=== PATIENT | female | born 1955 | race Caucasian/White ===

== ENCOUNTER → 2019-02-13 | Outpatient (CLI) | payer BC ==
--- NOTE | 2019-02-13 20:34 | CONS ---
CONSULTATION 63-year-old female patient who has been complaining of some tiredness and fatigue and some limited snoring and for that reason she was referred to me for sleep apnea evaluation. The patient has been going to bed around 10 p.m., wakes at 5 a.m. in the morning. She snores. She has occasional nocturia. Her [place] score is at 4. No recent weight gain. In fact, the patient has lost weight since last year. No episodes of any falling asleep while talking to people. No naps during the day. Does not report any history of motor vehicle accident because of feeling drowsy or sleepy. Does not fall asleep while driving. PAST MEDICAL HISTORY: Hypertension and hyperlipidemia. PAST SURGICAL HISTORY: Includes breast biopsy and tubal ligation. DRUG ALLERGIES: Not known. OUTPATIENT MEDICATION: Include Zocor and hydrochlorothiazide. SOCIAL HISTORY: Patient is a nonsmoker. No history of alcohol. No history of IV drugs. FAMILY HISTORY: Negative for sleep apnea. REVIEW OF SYSTEMS: Fourteen-point review of system was done. Positive findings are mentioned in history of present illness. She is having at times memory and concentration problems. She is feeling tired, yet not a whole lot of sleepiness. No heartburn. No palpitations. No panic attacks. No angina. No shortness of breath. No cough or sputum production. No dryness in her mouth. No sleepwalking or gasping for air. No restlessness in the lower extremities. No sleep talking. No sweating. No claustrophobia. No sexual dysfunction. PHYSICAL EXAMINATION: BP is 165/98, pulse 74, respirations 16, temperature 97.5 saturation 98% on room air. Height is 5 feet 6 inches, weight is 188. BMI is 30.3. GENERAL APPEARANCE: Calm, comfortable. HEENT: Head is atraumatic, normocephalic. NECK: Supple. There is no jugular JVD. No goiter. No neck mass. LUNGS: Clear to auscultation. HEART: Sounds regular rate and rhythm. Normal S1, S2. No S3, S4. No murmurs. ABDOMEN: Soft, nontender. No organomegaly. EXTREMITIES: No edema. No cyanosis or clubbing. SKIN is negative for any wounds or ulceration. IMPRESSION: 1. Chronic tiredness and questionable sleepiness [place] Score is at 4. Overall suspicion for sleep apnea is low on clinical grounds. 2. Snoring. 3. Hypertension. 4. Hyperlipidemia. PLAN: Will screen this patient with a home sleep study. We will review the results and will make further recommendations if treatment is needed. MMODL / IJN: [id number] /
== END | disposition home or self-care (01) ==
LOC: SLEEP 14:56
PROVIDERS: ATTEND Internal Medicine Critical Care Medicine
DX: R53.83 Other fatigue (principal); R06.83 Snoring; I10 Essential (primary) hypertension; E78.5 Hyperlipidemia, unspecified; Z79.899 Other long term (current) drug therapy
CPT/HCPCS: 99211

== ENCOUNTER 2019-07-30 14:57 | Day surgery (SDC) | payer BC, MEDICARE ==
[2019-07-27 11:39] VITALS: BMI 29.0
--- NOTE | 2019-07-29 17:50 | HP ---
HISTORY AND PHYSICAL REASON FOR ADMISSION: Surgery scheduled for 07/30/2019 HISTORY OF PRESENT ILLNESS: Maricruz Santana is a 64-year-old patient seen with a displaced left ankle bimalleolar fracture. I recommended open reduction, internal fixation. I reviewed the procedure, risks, complications, benefits and recovery. She was agreeable. Consent was obtained. PAST MEDICAL HISTORY: Hypertension, hyperlipidemia. PAST SURGICAL HISTORY: Breast biopsy, tubal ligation. MEDICATIONS: Effexor, simvastatin, oxybutynin. ALLERGIES: None. SOCIAL HISTORY: She denies current tobacco use. PHYSICAL EXAMINATION: Physical evaluation of the left ankle, there is moderate swelling. There is ecchymosis present. Tenderness along the medial lateral malleoli. Limited range of motion with pain. Good dorsalis pedis pulse present. She is able to move her toes without significant pain. There is good perfusion sensation distally. RADIOGRAPHS: Radiographs of the left ankle revealed a displaced bimalleolar fracture. IMPRESSION: 1. Left ankle bimalleolar fracture. 2. Hypertension. 3. Hyperlipidemia. PLAN: Open reduction and internal fixation left ankle bimalleolar fracture. Surgery 07/30/2019. MMODL / IJN: [id number] /
[2019-07-30] MEDS ORDERED: LACTATED RINGERS 1,000 ML IV ONE ×3 (15:48→16:45)
[2019-07-30 16:12] LABS: Potassium 4.2 mmol/L (3.5-5.1)
[2019-07-30] MEDS ORDERED: MIDAZOLAM 2 MG/2 ML VIAL IVP ONE ×2 (17:00)
[2019-07-30] MEDS ORDERED: fentaNYL (PF) 50 MCG/ML 2 ML AMP IVP ONE (17:00)
[2019-07-30] MEDS ORDERED: DEXAMETHASONE SOD PHOSPHATE 10 MG/ML 1 ML VIAL IV ONE (17:18)
[2019-07-30] MEDS ORDERED: ONDANSETRON 4 MG/2 ML VIAL IVP ONE (17:19)
--- NOTE | 2019-07-30 17:27 | P.ANPRN ---
Procedure Note - Anesthesia - Nerve Block Performed Left Adductor Canal Single Time Out Performed: Yes Date of Procedure: 07/30/19 Procedure Start Time: 16:59 Procedure Stop Time: 17:05 Location of Patient Procedure: PreOp Indication: Acute Post-Operative Pain, Dx/Pain Location, Requested by Surgeon Sedation Type: Sedate with meaningful contact maintained Preparation: Sterile Prep Position: Supine Catheter: Indwelling Needle Types: Pajunk Needle Gauge: 21 Ultrasound used to visualize needle placement: Yes Ultrasound used to observe medication spread: Yes Injectate: 0.5% Ropivacaine (see comment for volume) (10) Blood Aspirated: No Pain Paresthesia on Injection Noted: No Resistance on Injection: Normal Image Stored and Saved: Yes Events: Uneventful and Well Tolerated
--- NOTE | 2019-07-30 17:28 | P.ANPRN ---
Procedure Note - Anesthesia - Nerve Block Performed Left Popliteal Single Time Out Performed: Yes Date of Procedure: 07/30/19 Procedure Start Time: 17:03 Procedure Stop Time: 17:07 Location of Patient Procedure: PreOp Indication: Acute Post-Operative Pain, Dx/Pain Location, Requested by Surgeon Sedation Type: Sedate with meaningful contact maintained Preparation: Sterile Prep Position: Right Lateral Catheter: None Needle Types: Pajunk Needle Gauge: 21 Ultrasound used to visualize needle placement: Yes Ultrasound used to observe medication spread: Yes Injectate: 0.5% Ropivacaine (see comment for volume) (15) Blood Aspirated: No Pain Paresthesia on Injection Noted: No Resistance on Injection: Normal Image Stored and Saved: Yes Events: Uneventful and Well Tolerated
[2019-07-30] MEDS ORDERED: MIDAZOLAM 2 MG/2 ML VIAL ONE (18:07)
[2019-07-30] MEDS ORDERED: PROPOFOL 10 MG/ML 20 ML VIAL IV ONE (18:07)
[2019-07-30] MEDS ORDERED: ePHEDrine SULFATE/0.9% NACL/PF 50 MG/5 ML SYRINGE IV ONE (18:07)
[2019-07-30] MEDS ORDERED: fentaNYL (PF) 50 MCG/ML 2 ML AMP ONE (18:07)
[2019-07-30] MEDS ORDERED: LIDOCAINE 1% INJ 10MG/ML (20 ML MDV) ONE (18:07)
[2019-07-30] MEDS ORDERED: HYDROmorphone 0.5 MG/0.5 ML SYRINGE IVP PRN ×2 (19:27)
[2019-07-30] MEDS ORDERED: ONDANSETRON 4 MG/2 ML VIAL IVP PRN (19:27)
[2019-07-30] MEDS ORDERED: HYDROmorphone 1 MG/ML 1 ML SYRINGE IVP PRN (19:27)
[2019-07-30] MEDS ORDERED: HYDROcodone/APAP 5-325MG 1 EACH TAB PO PRN (19:27)
--- NOTE | 2019-07-30 19:27 | P.OP ---
Date of Procedure: 07/30/19 Preoperative Diagnosis: Left ankle bimalleolar fracture Postoperative Diagnosis: Left ankle comminuted/displaced bimalleolar ankle fracture Procedure(s) Performed: Open reduction internal fixation left ankle bimalleolar fracture Implants: Synthes 3 hole left lateral malleolar plate with appropriate length 2.7 mm and 3.5 mm screws and 2-4.0 partially-threaded cancellus screws Anesthesia: GETA, regional (Popliteal and adductor canal blocks) Surgeon: Mick Parham [employer] Sales Specialist #1: Alejandro Marsh Estimated Blood Loss (ml): 10 Pathology: none sent Condition: stable Disposition: PACU Indications for Procedure: 66-year-old patient seen with a left ankle bimalleolar fracture. I recommended open reduction internal fixation. I discussed the procedure, risks, complications and recovery. Patient was agreeable and consent was obtained. Operative Findings: See description of procedure Description of Procedure: The patient was taken to the operative suite. The patient did undergo popliteal as well as adductor canal blocks by department of anesthesia for postoperative pain management. A general anesthetic was achieved by the department of anesthesia. The patient received preoperative IV antibiotics. A well-padded tourniquet placed proximal left thigh. The left lower extremity was prepped and draped in the normal sterile orthopedic fashion. The extremity was elevated and tourniquet insufflated to 300. A standard lateral malleolar incision was made sharply through skin. Dissection taken out of the fracture site. Was a very comminuted fracture. I aligned the fracture fragments utilizing a variety of bone clamps. I chose a Synthes contoured lateral malleolar plate 3 hole given the significant comminution distally. I introduced for a 2.7 locking screws distally which seem to collectively secure and stabilize the comminuted fracture. I made 2 drill holes proximally in the plate introduced to 3.500 screws that had good fixation. The entire construct appeared well positioned and well fixated. C-arm was brought in confirming the alignment. I now turned my attention to the medial malleolus. I made an incision along the area of the medial malleolar fracture. I dissected down to the medial malleolus. The medial malleolar fracture was also significant comminuted. I was able to adequately align and reduce the fracture utilizing multiple bone clamps. I drilled 2 holes introduced 2-35 mm partially threaded cancellous screws which he was good fixation. The clamps were removed. The ankle was taken through range of motion noting good stability of both the medial and lateral malleolar fractures. The hardware appears stable. I now brought C-arm into the operative field and noted adequate alignment of the fractures and fixation with islam of the mortise. Spot films were obtained intraoperatively to document this. Both the medial lateral wounds were irrigated copiously. The subcu soft tissues of both incisions were approximated with 2-0 Vicryl suture. The skin margins were approximated with skin enrique. I applied sterile dressings. The tourniquet was released and immediate capillary refill the entire extremity and toes noted. A modified bulky Mckoy splint was now placed with the ankle in neutral position. The patient was awakened, transferred to bed and recovery stable condition. Wilman TREADWELL assisted in all aspects of this procedure.
[2019-07-30] MEDS: LACTATED RINGERS 1,000 ML IV SCH (20:51)
--- NOTE | 2019-07-30 21:30 | FL ---
Fluoroscopy INDICATION: Pain FINDINGS: Fluoroscopy time: 10 seconds. Images obtained: 3. IMPRESSIONS: 1. Documentation of fluoroscopy.
[2019-07-30] MEDS ORDERED: ATORVASTATIN 10 MG TAB PO SCH (21:45)
--- NOTE | 2019-07-30 21:49 | P.CONS ---
History of Present Illness - Reason for Consult Consult date: 07/30/19 Medical management Requesting physician: Mick Parham - Chief Complaint Left ankle fracture - History of Present Illness Consultation: This is a very pleasant 64-year-old patient of Dr. Francisca Montes. Chronic stable medical conditions include slight decrease in hearing, hyperlipidemia, osteoarthritis multiple joints osteoporosis, some varicose veins, anxiety de pression. On patient's was getting into the car and left ankle gave way leading to a fracture. Patient underwent repair of the same today some pain is present. Has dressing cast. No nausea vomiting. No chest pain no shortness of breath. Laying in bed. Review of systems: GEN.: Tired EYES: None HEENT: None NECK: None RESPIRATORY: None CARDIOVASCULAR: None GASTROINTESTINAL: None GENITOURINARY: None MUSCULOSKELETAL: Pain in different joints] LYMPHATICS: None HEMATOLOGICAL: None PSYCHIATRY: None NEUROLOGICAL: None Past medical history to include: Slight hard of hearing, hyperlipidemia, osteoarthritis, osteoporosis, some varicose veins, anxiety depression. Social history: Smoked a pack daily for 32 years, stopped in 2000. Alcohol occasionally. . 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 Family history: Reviewed, noncontributory to presentation Physical examination: VITAL SIGNS: 97.2, 90, 16, 139/61, 99% on 2 L GENERAL: BMI 29, laying in bed comfortable. EYES: Pupils equal. Conjunctiva normal. HEENT: External appearance of nose and ears normal, oral cavity grossly normal. NECK: JVD not raised; masses not palpable. HEART: First and second heart sounds are normal; no edema. LUNGS: Respiratory rate normal; clear to auscultation. ABDOMEN: Soft, nontender, liver spleen not palpable, no masses palpable. PSYCH: Alert and oriented x3; mood and affect normal. NEUROLOGICAL: Cranial nerves grossly intact; no facial asymmetry, power and sensation grossly intact. LYMPHATICS: No lymph nodes palpable in the axilla and neck MUSCULOSKELETAL: Cast dressing of the left ankle, evidence of OA in the hands, some varicose patient in the upper part of the left lower extremity INVESTIGATIONS, reviewed in the clinical context: Potassium 4.2 Assessment: -Left ankle comminuted displaced bimalleolar ankle fracture followed by ORIF -Hyperlipidemia -Primary postoperative -Mild varicose veins on the left lower extremity -Anxiety depression otherwise specified -Chronic urinary stress incontinence Plan: Patient's home medications resumed. Patient on Lovenox for DVT prophylaxis.. Care was discussed with the patient. Questions were answered. Patient to follow-up with her PCP after discharge. -Thank you Dr. Bardales Past Medical History Past Medical History: Hearing Disorder / Deafness, Hyperlipidemia, Musculoskeletal Disorder, Osteoarthritis (OA) Additional Past Medical History / Comment(s): Fx Lt ankle currently, in splint. Osteoporosis. Sl varicose veins. BLE edema. History of Any Multi-Drug Resistant Organisms: None Reported Past Surgical History: Breast Surgery, Tubal Ligation Additional Past Surgical History / Comment(s): Lt Breast biopsy x3. Past Anesthesia/Blood Transfusion Reactions: No Reported Reaction Past Psychological History: Anxiety, Depression Smoking Status: Former smoker Past Alcohol Use History: Occasional Additional Past Alcohol Use History / Comment(s): Smoked 32.5 years, 1 ppd, quit 2000 Past Drug Use History: None Reported - Past Family History Mother Family Medical History: No Reported History Father Family Medical History: Congestive Heart Failure (CHF), Hypertension Medications and Allergies Home Medications Medication Instructions Recorded Confirmed Type Ascorbic Acid [Vitamin C] 1,000 mg PO DAILY 07/27/19 07/27/19 History Cranberry (Unknown Dose) 1 tab PO DAILY 07/27/19 History HYDROcodone/APAP 5-325MG [[place] 1 - 2 tab PO Q4HR PRN 07/27/19 07/30/19 History 5-325] Hydrochlorothiazide [Hydrodiuril] 25 mg PO DAILY 07/27/19 07/27/19 History Ibuprofen [Motrin] 600 mg PO Q6HR PRN 07/27/19 07/27/19 History Inulin/Chromium Picolinate [Fiber 1 each PO DAILY 07/27/19 07/30/19 History Gummies Chew] Lutein (Unknown Dose) 1 tab PO DAILY 07/27/19 History Multivit-Min/Iron/Folic/Lutein 1 each PO DAILY 07/27/19 07/27/19 History [Centrum Silver Women Tablet] Oxybutynin Chloride [Ditropan] 5 mg PO DAILY 07/27/19 07/27/19 History Simvastatin [Zocor] 20 mg PO HS 07/27/19 07/30/19 History Turmeric (Unknown Dose) 1 tab PO DAILY 07/27/19 History Venlafaxine HCl [Effexor] 37.5 mg PO DAILY 07/27/19 07/27/19 History Acetaminophen-Codeine 300-30mg 1 tab PO Q6H PRN 07/30/19 07/30/19 History [Tylenol w/codeine #3] Allergies Allergy/AdvReac Type Severity Reaction Status Date / Time No Known Allergies Allergy Verified 07/30/19 15:29 Physical Exam Vitals: Vital Signs Temp Pulse Pulse Resp BP Pulse Ox 07/30/19 19:45 71 18 149/72 99 07/30/19 19:30 68 16 139/61 99 07/30/19 19:21 97.2 F L 90 16 157/65 93 L 07/30/19 17:21 75 16 130/66 98 07/30/19 17:18 74 16 152/71 99 07/30/19 16:50 62 16 180/86 99 07/30/19 15:28 61 16 179/84 97 Intake and Output 07/30/19 07/30/19 07/30/19 06:59 14:59 22:59 Intake Total 1900 Output Total 10 Balance 1890 Intake: IV 1900 Output: Estimated Blood Loss 10 Results CBC & Chem 7: 07/30/19 15:40
[2019-07-30 22:21] VITALS: RESP 16
[2019-07-31] MEDS: HYDROcodone/APAP 5-325MG 1 EACH TAB PO PRN ×3 (01:52→12:17)
[2019-07-31 05:38] VITALS: BP 121/79; PULSE 77; TEMP 97.3
[2019-07-31] MEDS ORDERED: ASCORBIC ACID 500 MG TAB PO SCH (09:00)
[2019-07-31] MEDS ORDERED: OXYBUTYNIN CHLORIDE 5 MG TAB PO SCH (09:00)
[2019-07-31] MEDS ORDERED: VENLAFAXINE HCL 37.5 MG TAB PO SCH (09:00)
[2019-07-31] MEDS ORDERED: ENOXAPARIN 40 MG/0.4 ML SYRINGE SQ SCH (09:00)
--- NOTE | 2019-07-31 12:02 | P.PN ---
Subjective Progress Note Date: 07/31/19 Principal diagnosis: Status post ORIF left bimalleolar ankle fracture Patient evaluated at bedside, she is resting comfortably. She has the leg elevated with many pillows. Her pain is controlled. She denies any chest pain or shortness breath. Objective - Vital Signs Vital signs: Vital Signs Temp 97.3 F L 07/31/19 05:10 Pulse 77 07/31/19 05:10 Resp 16 07/31/19 05:10 BP 121/79 07/31/19 05:10 Pulse Ox 96 07/31/19 05:10 Intake & Output 07/30/19 07/31/19 07/31/19 18:59 06:59 18:59 Intake Total 1800 100 Output Total 10 Balance 1800 90 Intake: IV 1800 100 Output: Estimated Blood Loss 10 Other: Voiding Method Bedpan Bedpan # Voids 3 - Exam Left lower extremity: Postop splints in good position and condition. He is able to wiggle toes and no difficulty. Sensation to light touch. Proximal distal to the splinter intact. - Labs CBC & Chem 7: 07/30/19 15:40 Assessment and Plan Plan: Assessment: Postop day #1 status post ORIF left bimalleolar ankle fracture Plan: Pain control, discharge on oral medication GI and DVT prophylaxis, aspirin 325 mg daily Nonweightbearing left lower extremity Icing and elevating instructions discussed Plan [facility] Time with Patient: Less than 30
--- NOTE | 2019-07-31 12:06 | P.DS ---
Providers Date of admission: 07/30/2019 Expected date of discharge: 07/31/19 Attending physician: Mick Parham Consults: 07/30/19 19:27 Consult Physician Routine Consulting Provider: Juanjose Montes Reason/Comments: Medical management Do you want consulting provider notified?: Yes Primary care physician: Juanjose Montes [facility] Course: Date of admission: 07/30/2019 Date of discharge: 07/31/2019 Admission diagnosis: Status post ORIF left bimalleolar ankle fracture Discharge diagnosis: Same Attending physician: Dr. Parham Surgical procedures: ORIF left bimalleolar ankle fracture Brief history: Patient is a 64-year-old female who was evaluated in the outpatient setting by Dr. Parham for an injury to the left ankle. It was determined she would need surgical fixation for a bimalleolar left ankle fracture. She was scheduled for surgery on 07/30/2019. Hospital course: Details of patient's surgery can be found in operative report. Patient tolerated the procedure well and was subsequently transported to orthopedic floor. Patient's orthopeidc and medical care was provided daily. Patient was noted to have a relatively uneventful postoperative course. Patient reported satisfactory pain control with oral pain medications by postoperative day 0. Patient showed satisfactory progress with physical therapy. Patient moved steadily through the program and had no difficulty meeting the goals by postoperative day 1. Given patient's otherwise satisfactory course and having met physical therapy goals, plan is to discharge patient home on postoperative day 1. Discharge condition/disposition: Patient will be discharged home in stable condition. Discharge medications: Instructions are given on resumption of patient's normal daily medications per primary care recommendation, in addition patient will be prescribed [place] 5 mg/325 mg, aspirin 325 mg. Discharge instructions: 1. Do not remove postop splint, keep covered and dry while showering 2. Nonweightbearing left lower extremity 3. Ice and elevate often 4. Follow up in office at 2 weeks postop with Wilman Marsh PA-C 5. Follow up with your primary care doctor 7-10 days after discharge. 6. Contact [facility] with any questions, . Procedures: Open reduction internal fixation left bimalleolar ankle fracture Patient Condition at Discharge: Good Plan - Discharge Summary Discharge Rx Participant: No New Discharge Prescriptions: New Hydrocodone/Acetaminophen [[place] 5-325] 1 each PO Q6HR PRN #28 tab PRN Reason: Pain Discontinued HYDROcodone/APAP 5-325MG [[place] 5-325] 1 - 2 tab PO Q4HR PRN PRN Reason: Pain No Action Ascorbic Acid [Vitamin C] 1,000 mg PO DAILY Multivit-Min/Iron/Folic/Lutein [Centrum Silver Women Tablet] 1 each PO DAILY Inulin/Chromium Picolinate [Fiber Gummies Chew] 1 each PO DAILY Ibuprofen [Motrin] 600 mg PO Q6HR PRN PRN Reason: Pain Hydrochlorothiazide [Hydrodiuril] 25 mg PO DAILY Oxybutynin Chloride [Ditropan] 5 mg PO DAILY Venlafaxine HCl [Effexor] 37.5 mg PO DAILY Simvastatin [Zocor] 20 mg PO HS Turmeric (Unknown Dose) 1 tab PO DAILY Lutein (Unknown Dose) 1 tab PO DAILY Cranberry (Unknown Dose) 1 tab PO DAILY Acetaminophen-Codeine 300-30mg [Tylenol w/codeine #3] 1 tab PO Q6H PRN PRN Reason: Pain Discharge Medication List Ascorbic Acid [Vitamin C] 1,000 mg PO DAILY 07/27/19 [History] Cranberry (Unknown Dose) 1 tab PO DAILY 07/27/19 [History] Hydrochlorothiazide [Hydrodiuril] 25 mg PO DAILY 07/27/19 [History] Ibuprofen [Motrin] 600 mg PO Q6HR PRN 07/27/19 [History] Inulin/Chromium Picolinate [Fiber Gummies Chew] 1 each PO DAILY 07/27/19 [History] Lutein (Unknown Dose) 1 tab PO DAILY 07/27/19 [History] Multivit-Min/Iron/Folic/Lutein [Centrum Silver Women Tablet] 1 each PO DAILY 07/27/19 [History] Oxybutynin Chloride [Ditropan] 5 mg PO DAILY 07/27/19 [History] Simvastatin [Zocor] 20 mg PO HS 07/27/19 [History] Turmeric (Unknown Dose) 1 tab PO DAILY 07/27/19 [History] Venlafaxine HCl [Effexor] 37.5 mg PO DAILY 07/27/19 [History] Acetaminophen-Codeine 300-30mg [Tylenol w/codeine #3] 1 tab PO Q6H PRN 07/30/19 [History] Hydrocodone/Acetaminophen [[place] 5-325] 1 each PO Q6HR PRN #28 tab 07/31/19 [Rx] Follow up Appointment(s)/Referral(s): Alejandro Marsh PAC [PHYSIC[facility]] - 2 Weeks Activity/Diet/Wound Care/Special Instructions: Wants d/c Rx. Orthopedic discharge instructions: 1. Ice and elevate often 2. Nonweightbearing left lower extremity 3. Do not remove cast, keep covered and dry while showering 4. Plan for [facility]up at [facility] 2 weeks Discharge Disposition: HOME SELF-CARE
[2019-07-31] MEDS: LACTATED RINGERS 1,000 ML IV SCH (12:13)
--- NOTE | 2019-08-04 09:32 | CDI ---
Outpatient Documentation Clarification Form Date: 08/04/19 CDS/Enter[employer] Application Administrator Name; Clair Sullvian Phone: If any questions, call Tisha Valentin Mend Worker at [phone] Patient Namer: Maricruz Santana Admit Date: 07/30/19 Discharge Date: 07/31/19 ATTENTION: The [facility] Coding Staff appreciates your assistance in clarifying documentation. Please respond to the clarification below the line at the bottom and electronically sign. The [facility] Coding Staff will review the response and follow-up if needed. Please note: Queries are made a part of the Legal Health Record. If you have any questions, please contact the Mend Worker. Dear Dr. Rubin, Please provide clarification as to the type of popliteal nerve block was performed. Your operative note states Left popliteal nerve block. However, in order to code to the highest specificity, please document if it was the popliteal fossa or the saphenous area as in the following. What is the CPT code for popliteal nerve block? 71823 a "popliteal fossa" injections is reported with 43315 (sciatic nerve), whereas a "saphenous popliteal" is report with CPT code 35445 (other peripheral nerve block). Thank you for you kind consideration. MTDD
--- NOTE | 2019-08-05 01:30 | P.PN ---
Progress Note - Text Progress Note Date: 07/31/19 Interval history: This is a very pleasant 64-year-old patient of Dr. Francisca Montes. Chronic stable medical conditions include slight decrease in hearing, hyperlipidemia, osteoarthritis multiple joints osteoporosis, some varicose veins, anxiety depression. On patient's was getting into the car and left ankle gave way leading to a fracture. Patient underwent repair of the same Today-feeling better. Pain control. No nausea vomiting. Did tolerate her diet.. Review of systems: Was done for constitutional, cardiovascular, GI, pulmonary. Musculoskeletal, relevant finding as above Current medications reviewed from today's electronic records Physical examination: VITAL SIGNS: 97.3, 77, 16, 121/79, 96% room air GENERAL: BMI 29, sitting up, comfortable. EYES: Pupils equal. Conjunctiva normal. HEENT: External appearance of nose and ears normal, oral cavity grossly normal. NECK: JVD not raised; masses not palpable. HEART: First and second heart sounds are normal; no edema. LUNGS: Respiratory rate normal; clear to auscultation. ABDOMEN: Soft, nontender, liver spleen not palpable, no masses palpable. PSYCH: Alert and oriented x3; mood and affect normal. MUSCULOSKELETAL: Cast dressing of the left ankle, evidence of OA in the hands, some varicose patient in the upper part of the left lower extremity INVESTIGATIONS, reviewed in the clinical context: Potassium 4.2 Assessment: -Left ankle comminuted displaced bimalleolar ankle fracture followed by ORIF -Hyperlipidemia -Primary postoperative -Mild varicose veins on the left lower extremity -Anxiety depression otherwise specified -Chronic urinary stress incontinence Plan: Stable. Continue current medication treatment plan. Follow with PCP. Upon discharge. -Thank you Dr. Bardales
== END 2019-07-31 14:04 | disposition home or self-care (01) ==
LOC: OR 14:57 → 4MS4W 19:15 → OR 07-31 14:04
PROVIDERS: ATTEND Orthopaedic Surgery
DX: S82.842A Displaced bimalleolar fracture of left lower leg, initial encounter for closed fracture (principal); X58.XXXA Exposure to other specified factors, initial encounter; E78.5 Hyperlipidemia, unspecified; I10 Essential (primary) hypertension; M19.90 Unspecified osteoarthritis, unspecified site; M81.0 Age-related osteoporosis without current pathological fracture; I83.90 Asymptomatic varicose veins of unspecified lower extremity; F41.9 Anxiety disorder, unspecified; F32.9 Major depressive disorder, single episode, unspecified; H91.90 Unspecified hearing loss, unspecified ear; N39.3 Stress incontinence (female) (male); Z87.891 Personal history of nicotine dependence; Z82.49 Family history of ischemic heart disease and other diseases of the circulatory system; Z98.51 Tubal ligation status; Z79.1 Long term (current) use of non-steroidal anti-inflammatories (NSAID); Z79.891 Long term (current) use of opiate analgesic; Z79.899 Other long term (current) drug therapy
CPT/HCPCS: 27814; 97162; 97166; 64447; 64445; 76942; 80051; 73610; C1713; J2250; J1100; J0690 ×2; J2405; J2001; J1650; J3010; J2704

== ENCOUNTER → 2019-10-31 | Outpatient (CLI) | payer BC ==
--- NOTE | 2019-10-31 19:53 | MR ---
EXAMINATION TYPE: MR brain wo/w con DATE OF EXAM: 10/31/2019 COMPARISON: None HISTORY: Difficulty speaking, poss stroke TECHNIQUE: Multiplanar, multisequence images of the brain and brainstem is performed without and with IV contras t, utilizing 8.5 mL intravenous Gadavist . FINDINGS: Diffusion weighted images demonstrate no evidence of a recent infarct or other diffusion ab normality. There is no extra-axial fluid collection. Confluent and scattered periventricular, perica llosal, subcortical and juxtacortical hyperintensities are present on inversion recovery T2-weighted sequences, greater than 50 lesions are present The ventricular system and cisternal spaces are meghan l in size and appearance. The brain volume is age appropriate. Midline structures demonstrate normal morphology. The craniocervical junction appears within normal limits. Post contrast images demonstrate no abnormal enhancement. The dural venous sinuses appear pa tent. The visualized sinuses are clear and the globes are intact. IMPRESSION: Nonspecific white matter demyelination may be due to chronic small vessel ischemia
== END | disposition home or self-care (01) ==
LOC: RADMRIMAIN 16:24
PROVIDERS: ATTEND Family Medicine
DX: R90.89 Other abnormal findings on diagnostic imaging of central nervous system (principal); R49.9 Unspecified voice and resonance disorder
CPT/HCPCS: 70553; A9585

== ENCOUNTER → 2019-11-19 | Outpatient (CLI) | payer BC ==
--- NOTE | 2019-11-19 15:34 | BD ---
EXAMINATION TYPE: Axial Bone Density DATE OF EXAM: 11/19/2019 COMPARISON: NONE CLINICAL HISTORY: M [age] Height: 5 FT 5 1/2 IN Weight: 194 FRAX RISK QUESTIONS: Alcohol (3 or more units per day): NO Family History (Parent hip fracture): NO Glucocorticoids (More than 3mos): NO (Ex: prednisone, prednisolone, methylprednisolone, dexamethasone, and hydrocortisone). History of Fracture in Adulthood: YES Secondary Osteoporosis: 1. Type 1 Diabetes: NO 2. Hyperthyroidism: MO 3. Menopause before 45: NO 4. Malnutrition: NO 5. Chronic liver disease: NO Rheumatoid Arthritis: NO Current Tobacco Use: NO RISK FACTORS HISTORY OF: History of Wrist Fracture: LEFT X 2 When: 2012 X 2 Active: [employer] WITH CANE HAD BROKEN LEFT ANKLE WITH SURG 2019 Postmenopausal woman: AGE 48 Lost more than 2 inches in height since high school: YES MEDICATIONS: Additional Medications: SIMVASTATIN, OXYBUTIN,EFFEXOR, LISINOPRIL Additional History: PT HAD STROKE IN JULY EXAM MEASUREMENTS: Bone mineral densitometry was performed using the [employer] System. Bone mineral density as measured about the Lumbar spine is: ----- L1-L4(G/cm2): 1.091 T Score Values are as follows: ----- L2: -2.6 ----- L3: -0.3 ----- L4: 1.8 ----- L1-L4: -0.[address] Bone mineral density about the R hip (g/cm2): 0.915 Bone mineral density about the L hip (g/cm2): 0.835 T Score values are as follows: -----R Neck: -0.9 -----L Neck: -1.5 -----R Total: -0.5 -----L Total: -1.1 PREV DONE AT [facility] IMPRESSION: Osteopenia (T Score between -2.5 and -1). There is slightly increased risk of fracture and the patient may be considered for treatment. Re-Screen 2-5 years. NOTE: T-SCORE=SD OF THE YOUNG ADULT MEAN.
== END | disposition home or self-care (01) ==
LOC: RADBDWWP 13:11
PROVIDERS: ATTEND Family Medicine
DX: M85.88 Other specified disorders of bone density and structure, other site (principal)
CPT/HCPCS: 77080

== ENCOUNTER → 2019-11-22 | Outpatient (CLI) | payer BC ==
--- NOTE | 2019-11-22 15:58 | US ---
EXAMINATION TYPE: US carotid duplex BILAT DATE OF EXAM: 11/22/2019 COMPARISON: NONE CLINICAL HISTORY: occlusion I66.9, I67.9. EXAM MEASUREMENTS: RIGHT: Peak Systolic Velocity (PSV) cm/sec ----- Right CCA: 99.4 ----- Right ICA: 96.4 ----- Right ECA: 86.2 ICA/CCA ratio: 1.0 RIGHT: End Diastole cm/sec ----- Right CCA: 31.7 ----- Right ICA: 34.7 ----- Right ECA: 28.4 LEFT: Peak Systolic Velocity (PSV) cm/sec ----- Left CCA: 103.9 ----- Left ICA: 81.9 ----- Left ECA: 88.3 ICA/CCA ratio: 0.8 LEFT: End Diastole cm/sec ----- Left CCA: 38.5 ----- Left ICA: 38.1 ----- Left ECA: 19.9 VERTEBRALS (direction of flow): Right Vertebral: Antegrade Left Vertebral: Antegrade Rhythm: Normal Mild atherosclerotic changes with no significant velocity increases. IMPRESSION: Mild degree of grayscale atheromatous plaquing with no sonographically evident hemodynam ically significant stenosis within either visualized carotid arterial system. Criteria for Assigning % of Stenosis / Diameter reduction (Estimation based on the indirect measurements of the internal carotid artery velocities (ICA PSV). 1. Normal (no stenosis)=ICA PSV < 125 cm/s: ratio < 2.0: ICA EDV<40 cm/s. 2. Less than 50% stenosis=ICA PSV < 125 cm/s: ratio < 2.0: ICA EDV<40 cm/s. 3. 50 to 69% stenosis=ICA PSV of 125 to 230 cm/s: ration 2.0 ? 4.0: ICA EDV 40-100 cm/s. 4. Greater than 70% stenosis to near occlusion= ICA PSV > 230 cm/s: ratio > 4.0: ICA EDV > 100 cm/s. 5. Near occlusion= ICA PSV velocities may be low or undetectable: variable ratio and ICA EDV. 6. Total occlusion=unable to detect flow.
--- NOTE | 2019-11-23 11:32 | ECHOF ---
Referral Reason:occlusion I66.9, I67.9 MEASUREMENTS -------- HEIGHT: 165.1 cm WEIGHT: 88.5 kg BP: RVIDd: 3.7 cm (< 3.3) IVSd: 1.1 cm (0.6 - 1.1) LVIDd: 4.2 cm (3.9 - 5.3) LVPWd: 1.4 cm (0.6 - 1.1) IVSs: 1.3 cm LVIDs: 2.8 cm LVPWs: 1.6 cm LA Diam: 3.5 cm (2.7 - 3.8) LAESV Index (A-L): 18.41 ml/m Ao Diam: 3.2 cm (2.0 - 3.7) AV Cusp: 2.1 cm (1.5 - 2.6) MV EXCURSION: 20.513 mm (> 18.000) MV EF SLOPE: 106 mm/s (70 - 150) EPSS: 0.2 cm MV E Brandyn: 0.39 m/s MV DecT: 320 ms MV A Brandyn: 0.58 m/s MV E/A Ratio: 0.68 RAP: 5.00 mmHg RVSP: 26.04 mmHg FINDINGS -------- Sinus rhythm. This was a technically good study. LV size, wall thickness and systolic function are normal, with an EF greater than 55%. The left mulugeta tricular size is normal. The right ventricle is normal in size. The left atrial size is normal. The right atrial size is normal. There is mild aortic valve sclerosis. There is no evidence of aortic regurgitation. Mild mitral annular calcification present. Mild mitral regurgitation is present. Mild tricuspid regurgitation present. Right ventricular systolic pressure is normal at < 35 mmHg. There is no evidence of pulmonary hypertension. There is no pulmonic regurgitation present. Echo free space represents a pericardial fat pad. CONCLUSIONS -------- 1. Sinus rhythm. 2. This was a technically good study. 3. LV size, wall thickness and systolic function are normal, with an EF greater than 55%. 4. The left ventricular size is normal. 5. The right ventricle is normal in size. 6. The left atrial size is normal. 7. The right atrial size is normal. 8. There is mild aortic valve sclerosis. 9. Mild mitral annular calcification present. 10. Mild mitral regurgitation is present. 11. Mild tricuspid regurgitation present. 12. Right ventricular systolic pressure is normal at < 35 mmHg. 13. There is no evidence of pulmonary hypertension. 14. There is no pulmonic regurgitation present. 15. Echo free space represents a pericardial fat pad. SIDE BOSS: Jeanie Denny RDCS
== END | disposition home or self-care (01) ==
LOC: RADECHMAIN 14:50
PROVIDERS: ATTEND Psychiatry & Neurology Neurology
DX: I65.23 Occlusion and stenosis of bilateral carotid arteries (principal); I66.3 Occlusion and stenosis of cerebellar arteries; I66.9 Occlusion and stenosis of unspecified cerebral artery; I08.1 Rheumatic disorders of both mitral and tricuspid valves
CPT/HCPCS: 93306; 93880

== ENCOUNTER → 2020-05-08 | Outpatient (CLI) | payer BC ==
--- NOTE | 2020-05-08 08:43 | CT ---
EXAMINATION TYPE: CT sinus wo con DATE OF EXAM: 05/08/2020 COMPARISON: None HISTORY: Chronic sinusitis CT DLP: 590.1 mGycm. Automated Exposure Control for Dose Reduction was Utilized. TECHNIQUE: CT scan of the sinuses is performed without contrast, axial images are obtained, coronal r eformatted images are also reviewed. FINDINGS: Nasal septal deviation noted The paranasal sinuses including the frontal, ethmoid, sphenoi d, and maxillary sinuses bilaterally are well-aerated without abnormal opacification. The ostiomeata l complex is patent bilaterally on the coronal images. Visualized portion of mastoid air cells show no abnormal opacification. The globes are intact bilate rally. IMPRESSION: The sinuses are clear and the ostiomeatal complex is patent bilaterally.
--- NOTE | 2020-05-08 10:46 | FL ---
COMPARISON: NONE DATE OF EXAM: 05/08/2020 HISTORY: Dysphasia A number of thin and thick substances were ingested under the care of the department of speech pathol ogy. There is no evidence of aspiration or penetration. There is no evidence of obstruction. Guevara cular pooling and small residuals noted. IMPRESSION: 1. No evidence of aspiration or penetration.
== END | disposition home or self-care (01) ==
LOC: RADCTMAIN 08:15
PROVIDERS: ATTEND Otolaryngology
DX: J32.9 Chronic sinusitis, unspecified (principal); R13.10 Dysphagia, unspecified
CPT/HCPCS: 70486; 74230

== ENCOUNTER → 2020-05-08 | Outpatient (CLI) | payer BC | END | disposition home or self-care (01) | LOC: LABWHC1 08:47 | PROVIDERS: ATTEND Otolaryngology | DX: E06.9 Thyroiditis, unspecified (principal) | CPT/HCPCS: 36415; 84439; 84443; 86376 ==

== ENCOUNTER → 2020-06-02 | Outpatient (CLI) | payer OTHER ==
--- NOTE | 2020-06-02 12:52 | XR ---
EXAMINATION TYPE: XR forearm 2 views LT, XR foot complete 3 views LT, XR ankle complete 3 views LT DATE OF EXAM: 06/02/2020 COMPARISON: NONE HISTORY: 64-year-old female pain after fall. S50.12XA S93.402 S90.32XA FINDINGS: Left forearm: The elbow and wrist articulations appear grossly intact. No elbow joint effusion. Old healed fracture deformity distal radius. No acute fracture identified. Left ankle: Lateral sideplate and screw fixation of the lateral malleolus. 2 cortical screw fixation of the media l malleolus. No acute fracture, subluxation, dislocation seen. Tiny posterior and plantar heel spurs. Ankle mortise appears congruent. Talar dome appears intact. Circumferential soft tissue swelling. No acute fracture, subluxation, dislocation. Left foot: Bipartite tibial sesamoid osteopenia. Patient's toes are flexed causing excessive osseous overlap an some limitation in assessment. No acute fracture, subluxation, or dislocation seen. IMPRESSION: 1. Left forearm: Old healed fracture of the distal radius. No acute osseous abnormality seen. 2. Left ankle: Previous bimalleolar internal fixation. There is circumferential soft tissue swelling. No acute osseous abnormality seen. 3. Left foot: Osteopenia. No definite acute osseous abnormality seen.
== END | disposition home or self-care (01) ==
LOC: RADXRMAIN 12:21
PROVIDERS: ATTEND Emergency Medicine
DX: M85.872 Other specified disorders of bone density and structure, left ankle and foot (principal); S93.402A Sprain of unspecified ligament of left ankle, initial encounter; S50.12XA Contusion of left forearm, initial encounter; Z87.81 Personal history of (healed) traumatic fracture; Z98.890 Other specified postprocedural states

== ENCOUNTER → 2020-06-09 | Outpatient (CLI) | payer OTHER ==
--- NOTE | 2020-06-09 16:39 | XR ---
EXAMINATION TYPE: XR foot complete LT DATE OF EXAM: 06/09/2020 COMPARISON: NONE HISTORY: Fall. Pain. TECHNIQUE: 3 views FINDINGS: Metatarsals appear intact. I see no fracture nor dislocation. There is a plate with screws fixing the distal fibula. There are 2 screws in the medial malleolus. The toes appear intact. IMPRESSION: No acute abnormality of the left foot.
== END | disposition home or self-care (01) ==
LOC: RAD 16:08
PROVIDERS: ATTEND Emergency Medicine
DX: S90.32XD Contusion of left foot, subsequent encounter (principal)

== ENCOUNTER → 2020-07-15 | Outpatient (CLI) | payer BC | END | disposition home or self-care (01) | LOC: LABWHC1 15:34 | PROVIDERS: ATTEND Psychiatry & Neurology Neurology | DX: I69.822 Dysarthria following other cerebrovascular disease (principal); R47.9 Unspecified speech disturbances; R13.0 Aphagia | CPT/HCPCS: 36415; 82550; 83519; 85652; 86255 ==

== ENCOUNTER → 2020-08-20 | Outpatient (CLI) | payer BC ==
--- NOTE | 2020-08-20 11:00 | MR ---
EXAMINATION TYPE: MR angio head wo con DATE OF EXAM: 08/20/2020 COMPARISON: None HISTORY: I 67.1, R 94.02, R 13.10 TECHNIQUE: Time of flight images focusing on the [place] were performed without contrast. Th ree-dimensional postprocessing performed on an alternate workstation. FINDINGS: Anterior and posterior circulation are intact. Left vertebral artery is dominant. There is no evident aneurysm, dissection, or embolus present. IMPRESSION: Normal [place] MRA
== END | disposition home or self-care (01) ==
LOC: RADMRIMAIN 08:48
PROVIDERS: ATTEND Psychiatry & Neurology Neurology
DX: I67.1 Cerebral aneurysm, nonruptured (principal); R13.10 Dysphagia, unspecified; G93.89 Other specified disorders of brain
CPT/HCPCS: 70544

== ENCOUNTER → 2020-10-06 | Outpatient (CLI) | payer BC | END | disposition home or self-care (01) | LOC: LABWHC1 12:34 | PROVIDERS: ATTEND Emergency Medicine | DX: Z20.828 Contact with and (suspected) exposure to other viral communicable diseases (principal) | CPT/HCPCS: U0003; C9803 ==

== ENCOUNTER 2020-10-15 14:07 | Emergency (ER) | payer BC, OTHER ==
[2020-10-15 14:23] VITALS: TEMP 98.4
[2020-10-15] MEDS ORDERED: LIDOCAINE 1% INJ 10MG/ML (20 ML MDV) SQ ONE (14:25)
[2020-10-15] MEDS ORDERED: BACITRACIN OINT 1 EACH PACKET TOPICAL ONE (14:25)
[2020-10-15] MEDS ORDERED: DIPH,PERTUS(ACELL)TETVAC-LF 0.5 ML VIAL IM ONE (14:25)
--- NOTE | 2020-10-15 14:29 | ED ---
General Adult HPI - General Chief complaint: Wound/Laceration Stated complaint: Head injury [facility] Time Seen by Provider: 10/15/20 14:14 Source: EMS Mode of arrival: EMS Limitations: no limitations - History of Present Illness Initial comments: Patient is a 65-year-old female, history of stroke with left-sided weakness, presenting to the emergency department after falling at work today. Patient states about a 30 min prior to arrival patient was attempting to walk through a pressurized door at work when it closed suddenly and hit her backpack which sent her falling forward. Patient hit the left side of her face on a metal rack. She does have a laceration to the left side of her forehead. She denies any loss of consciousness, she denies being on blood thinners. She states that she is having a little bit of a left-sided headache however no dizziness, no blurry vision. She denies any other pain from this fall, no pain to her extremities, no chest pain, abdominal pain, no nausea or vomiting. Patient denies being up-to-date with her tetanus. Bleeding is controlled at this time with a bandage. She has no further complaints at this time. - Related Data Home Medications Medication Instructions Recorded Confirmed Ascorbic Acid [Vitamin C] 1,000 mg PO DAILY 07/27/19 07/27/19 Cranberry (Unknown Dose) 1 tab PO DAILY 07/27/19 Ibuprofen [Motrin] 600 mg PO Q6HR PRN 07/27/19 07/27/19 Inulin/Chromium Picolinate [Fiber 1 each PO DAILY 07/27/19 07/30/19 Gummies Chew] Lutein (Unknown Dose) 1 tab PO DAILY 07/27/19 Multivit-Min/Iron/Folic/Lutein 1 each PO DAILY 07/27/19 07/27/19 [Centrum Silver Women Tablet] Oxybutynin Chloride [Ditropan] 5 mg PO DAILY 07/27/19 07/27/19 Simvastatin [Zocor] 20 mg PO HS 07/27/19 07/30/19 Turmeric (Unknown Dose) 1 tab PO DAILY 07/27/19 Venlafaxine HCl [Effexor] 37.5 mg PO DAILY 07/27/19 07/27/19 hydroCHLOROthiazide [Hydrodiuril] 25 mg PO DAILY 07/27/19 07/27/19 Acetaminophen-Codeine 300-30mg 1 tab PO Q6H PRN 07/30/19 07/30/19 [Tylenol w/codeine #3] Previous Rx's Medication Instructions Recorded Hydrocodone/Acetaminophen [[place] 1 each PO Q6HR PRN #28 tab 07/31/19 5-325] Allergies Allergy/AdvReac Type Severity Reaction Status Date / Time No Known Allergies Allergy Verified 07/30/19 15:29 Review of Systems ROS Statement: Those systems with pertinent positive or pertinent negative responses have been documented in the HPI. ROS Other: All systems not noted in ROS Statement are negative. Past Medical History Past Medical History: Hearing Disorder / Deafness, Hyperlipidemia, Musculoskeletal Disorder, Osteoarthritis (OA) Additional Past Medical History / Comment(s): Fx Lt ankle currently, in splint. Osteoporosis. Sl varicose veins. BLE edema. History of Any Multi-Drug Resistant Organisms: None Reported Past Surgical History: Breast Surgery, Tubal Ligation Additional Past Surgical History / Comment(s): Lt Breast biopsy x3. Past Anesthesia/Blood Transfusion Reactions: No Reported Reaction Past Psychological History: Anxiety, Depression Smoking Status: Never smoker Past Alcohol Use History: Occasional Past Drug Use History: None Reported - Past Family History Mother Family Medical History: No Reported History Father Family Medical History: Congestive Heart Failure (CHF), Hypertension General Exam - General Exam Comments Initial Comments: GENERAL: Patient is well-developed and well-nourished. Patient is nontoxic and in no acute distress. HEAD: Atraumatic, normocephalic. EYES: Pupils equal round and reactive to light, extraocular movements intact, sclera anicteric, conjunctiva are normal. Eyelids were unremarkable. ENT: TMs normal, nares patent, oropharynx clear without exudates. Moist mucous membranes. NECK: Normal range of motion, supple without lymphadenopathy or JVD. LUNGS: Unlabored respirations. Breath sounds clear to auscultation bilaterally and equal. No wheezes rales or rhonchi. HEART: Regular rate and rhythm without murmurs, rubs or gallops. ABDOMEN: Soft, nontender, normoactive bowel sounds. No guarding, no rebound. No masses appreciated. : Deferred MUSCULOSKELETAL: Left-sided weakness secondary to stroke. She is at baseline. Normal extremities with adequate strength and normal range of motion, no pitting or edema. No clubbing or cyanosis. NEUROLOGICAL: Patient is alert and oriented x 3. Motor and sensory are also intact. Cranial nerves II through XII grossly intact. Symmetrical smile. Slurred speech secondary to history of stroke, she is at baseline. PSYCH: Normal mood, normal affect. SKIN: Warm, Dry, normal turgor, no rashes. She has a 2 cm laceration to the left forehead, she also has a small skin tear to the left temporal area. Bleeding is controlled at this time. Limitations: no limitations Course Vital Signs 10/15/20 10/15/20 10/15/20 14:07 14:23 14:42 Temperature 98.4 F Pulse Rate 86 Respiratory 20 Rate Blood Pressure 203/94 199/94 174/78 O2 Sat by Pulse 99 100 Oximetry 10/15/20 10/15/20 15:14 16:18 Temperature Pulse Rate 68 Respiratory 18 Rate Blood Pressure 161/73 160/72 O2 Sat by Pulse 100 Oximetry Procedures - Laceration Laceration #1 Consent Obtained: verbal consent Indication: laceration Site: face (Left forehead) Size (cm): 2 Description: linear Depth: simple, single layer Anesthetic Used: lidocaine 1% Anesthesia Technique: local infiltration Amount (mls): 3 Pre-repair: irrigated extensively Type of Sutures: nylon Size of Sutures: 5-0 Number of Sutures: 7 Technique: simple, interrupted Patient Tolerated Procedure: well Medical Decision Making - Medical Decision Making Patient is a 65-year-old female with history of left-sided stroke presenting after falling at work today. She fell forward hitting the left side of her face on a metal rack. No loss of consciousness, no dizziness. She does have a mild headache. No blood thinners. CT of the brain, C-spine, facial bones revealed no acute injuries or fractures. Patient's wound was cleaned, closed with 7, 5-0 sutures. Patient tolerated procedure well. Patient stable for discharge. She can use ice to the left side of the face: Tylenol Motrin for discomfort. Patient is in agreement this plan of care. Her son is driving her home. Return parameters were discussed with the patient she verbalized understanding. She can follow-up with her PCP. Case discussed with Dr. Mckoy. Disposition Clinical Impression: Laceration of forehead without complication, Fall, Facial contusion Disposition: HOME SELF-CARE Condition: Stable Instructions (If sedation given, give patient instructions): Care For Your Stitches (ED) Additional Instructions: Please return to the Emergency Department if symptoms worsen or any other concerns. Stitches need to be removed in 7-10 days. Keep area clean and dry. You may shower as normal. Take Tylenol or Motrin for any discomfort, may apply ice to the left side of the face for bruising. Follow-up with your regular doctor. Is patient prescribed a controlled substance at d/c from ED?: No Referrals: Juanjose Montes DO [Primary Care Provider] - 1-2 days
--- NOTE | 2020-10-15 15:22 | CT ---
EXAMINATION TYPE: CT brain cspine wo con, CT facial bones wo con DATE OF EXAM: 10/15/2020 COMPARISON: CT sinuses May 08, 2020 HISTORY: Fall with laceration Left temporal region. Headache and neck pain. CT DLP: 1046.4 mGycm. Automated Exposure Control for Dose Reduction was Utilized. TECHNIQUE: CT scan of the head , facial bones, and cervical spine are performed without contrast. FINDINGS: There is no acute intracranial hemorrhage or midline shift identified. Mild ventricular a nd sulcal prominence greatest over the superior aspect. Larios-white matter differentiation is maintai wilian. The calvarium is intact. The mandible is intact. Temporomandibular joints are maintained bilaterally. Nasal bones are intact. Orbital floors and killian are intact. The globes are intact bilaterally. Small focal hematoma left adrien ek axial image 49. Adjacent zygomatic arch is intact. The pterygoid plates are intact. Visualized par anasal sinuses remain clear. Nasal septum remains deviated to right of midline. Mastoid air cells gerald w no suspicious opacification. Cervical spine is visualized in its entirety from C1 through upper thoracic levels and demonstrates g rade 1 retrolisthesis C5 on C6 without evidence of acute fracture or dislocation. Prevertebral soft tissue appears within normal limits. The C1-C2 articulation is within normal limits on the coronal i mages. Vertebral body heights are maintained. Moderate disc space narrowing C5-C6 level is present. Spinal canal is preserved. Axial images show multilevel uncovertebral facet degenerative changes cont ributing to multilevel bilateral neural foraminal narrowing. Incidental greater than 1 cm low dense l eft thyroid nodule lower pole level that requires follow-up. Lung apices show mild to moderate right greater than left pleural/parenchymal scarring. No pneumothorax. At least moderate underlying emphyse matous changes in the upper lungs is present.. IMPRESSION: 1. There is no acute fracture or dislocation evident in the cervical spine. 2. No acute intracranial hemorrhage or midline shift is seen. 3. No acute displaced facial bone fracture. Small acute subcutaneous hematoma left cheek.
[2020-10-15 16:18] VITALS: BP 160/72; PULSE 68; RESP 18
== END 2020-10-15 16:17 | disposition home or self-care (01) ==
LOC: EC 14:07
DX: S01.81XA Laceration without foreign body of other part of head, initial encounter (principal); I69.328 Other speech and language deficits following cerebral infarction; I69.354 Hemiplegia and hemiparesis following cerebral infarction affecting left non-dominant side; E78.5 Hyperlipidemia, unspecified; M19.90 Unspecified osteoarthritis, unspecified site; M81.0 Age-related osteoporosis without current pathological fracture; F41.9 Anxiety disorder, unspecified; Z23 Encounter for immunization; F32.9 Major depressive disorder, single episode, unspecified; Z79.899 Other long term (current) drug therapy; W22.09XA Striking against other stationary object, initial encounter; Y93.01 Activity, walking, marching and hiking; Y92.69 Other specified industrial and construction area as the place of occurrence of the external cause; Y99.0 Civilian activity done for income or pay
CPT/HCPCS: 90471; 12011; 99283; 72125; 70486; 70450; 90715; J2001

== ENCOUNTER → 2020-10-16 | Outpatient (CLI) | payer OTHER ==
--- NOTE | 2020-10-16 15:29 | XR ---
EXAMINATION TYPE: XR wrist complete RT DATE OF EXAM: 10/16/2020 COMPARISON: 03/12/2012 HISTORY: Pain from recent fall TECHNIQUE: 4 view right wrist FINDINGS: No acute fractures are evident. Soft tissues are normal. No suspicious changes of the scaph oid is evident. Joint spaces are preserved. Follow-up exams can be performed 7-10 days from acute trauma for continued pain. If there is continue d pain at the anatomic snuff box, nuclear medicine bone scan could be performed for additional evalua tion. IMPRESSION: 1. Normal 4 view right wrist
--- NOTE | 2020-10-16 15:34 | XR ---
EXAMINATION TYPE: XR scapula RT DATE OF EXAM: 10/16/2020 COMPARISON: None HISTORY: Pain from fall TECHNIQUE: Two-view scapula FINDINGS: No acute fractures are evident. Humeral head articulates with the glenoid. Acromiohumeral s pace appears preserved. Acromial clavicular junction is normal. Follow-up studies can be performed 7-10 days from acute trauma for continued pain. IMPRESSION: 1. No acute osseous abnormality right scapula
== END | disposition home or self-care (01) ==
LOC: RADXRMAIN 14:57
PROVIDERS: ATTEND Emergency Medicine
DX: S43.401A Unspecified sprain of right shoulder joint, initial encounter (principal); S63.501A Unspecified sprain of right wrist, initial encounter

== ENCOUNTER → 2020-10-17 | Outpatient (CLI) | payer OTHER ==
--- NOTE | 2020-10-17 14:41 | XR ---
EXAMINATION TYPE: XR thoracic spine complete DATE OF EXAM: 10/17/2020 COMPARISON: None HISTORY: Fall, back pain TECHNIQUE: Three-view thoracic spine FINDINGS: No acute compression deformities are evident. There are 12 thoracic type vertebral bodies. Pedicles are intact. Some scoliosis is present which can be related to patient positioning or muscle spasm. IMPRESSION: 1. No acute osseous abnormality thoracic spine
== END | disposition home or self-care (01) ==
LOC: RADXRMAIN 14:14
PROVIDERS: ATTEND Emergency Medicine
DX: M54.6 Pain in thoracic spine (principal); S43.401A Unspecified sprain of right shoulder joint, initial encounter
CPT/HCPCS: 72072

== ENCOUNTER → 2020-11-03 | Outpatient (CLI) | payer BC ==
--- NOTE | 2020-11-03 11:02 | US ---
EXAMINATION TYPE: US thyroid st tissue head/neck DATE OF EXAM: 11/03/2020 COMPARISON: Correlation CT 10/15/2020 CLINICAL HISTORY: 65-year-old female E04.1 thyroid nodule. Area visualized on CT TECHNIQUE: Multiple sonographic images of the thyroid gland are obtained. FINDINGS: GLAND SIZE: Right Lobe: 5.4 x 1.5 x 1.7 cm Overall Parenchyma: heterogenous Left Lobe: 5.3 x 2.2 x 2.0 cm Overall Parenchyma: heterogeneous Isthmus Thickness: 0.3 cm NODULES RIGHT: # of nodules measured on right: 2 1. 1.0 X 0.5 x 0.5 cm spongiform hypoechoic nodule, which is wider than tall, with smooth margins, without echogenic foci. Prior size: No previous 2. 1.1 X 0.6 x 1.0 cm solid or almost completely solid, hyperechoic nodule, which is wider than valentine l, with smooth margins, without echogenic foci. Prior size: No previous LEFT: # of nodules measured on left: 2 1. 2.3 X 1.7 x 1.6 cm solid or almost completely solid, hypoechoic nodule, which is wider than tall , with smooth margins, without echogenic foci. Prior size: No previous 2. 0.8 X 0.6 x 0.9 cm , hypoechoic nodule, which is wider than tall, with smooth margins, without e chogenic foci. Prior size: No previous Bilateral neck scanned, no evidence of lymphadenopathy. IMPRESSION: Solid 2.3 cm TR4 nodule on the left. FNA can be performed. The 1.1 cm solid right nodule and 9 mm hyp oechoic left nodule can be reassessed at follow-up. 2017 ACR TI-RADS LEVEL: TR 4 *Highest TI-RADS level nodule reported
== END | disposition home or self-care (01) ==
LOC: RADUSWWP 08:55
PROVIDERS: ATTEND Otolaryngology
DX: E04.2 Nontoxic multinodular goiter (principal)
CPT/HCPCS: 76536

== ENCOUNTER 2020-11-04 15:22 | Observation (INO) | payer BC, MEDICARE ==
[2020-11-04] MEDS ORDERED: oxyCODONE-APAP 7.5-325MG 1 EACH TAB PO STA (15:43)
--- NOTE | 2020-11-04 15:46 | ED ---
General Adult HPI - General Chief complaint: Recheck/Abnormal Lab/Rx Stated complaint: High BP Time Seen by Provider: 11/04/20 15:29 Source: patient Mode of arrival: wheelchair Limitations: physical limitation - History of Present Illness Initial comments: Dictation was produced using Maven dictation software. please excuse any grammatical, word or spelling errors. This patient was cared for during a federal and state declared state of emergen cy secondary to Covid 19 Chief Complaint: 65-year-old female past medical history of CVA, residual neurologic deficits, hypertension dyslipidemia presents today with elevated blood pressures. History of Present Illness: Patient 65-year-old female she states that she has been having high blood pressure readings for the last month or so. Patient was having physical therapy today with a performed vitals on her and her blood pressure was found to be systolic 180s. Patient does take antihypertensive medications per she states she takes lisinopril. Patient states she's been compliant with his medications. Today decided to bring her to the emergency department because of her high blood pressures. Patient has a history of stroke. She has residual slurred speech, left hand weakness and left lower extremity weakness. Over the last month or so she's also been having a chronic right-sided neck pain. She otherwise feels okay. She does not have any chest pain. She is not short of breath. Denies any headache. No new neurologic symptoms. The ROS documented in this emergency department record has been reviewed and confirmed by me. Those systems with pertinent positive or negative responses have been documented in the HPI. All other systems are other negative and/or noncontributory. PHYSICAL EXAM: General Impression: Alert and oriented x3, not in acute distress, slurred speech HEENT: Normocephalic atraumatic, extra-ocular movements intact, pupils equal and reactive to light bilaterally, mucous membranes moist. Cardiovascular: Heart regular rate and rhythm Chest: Able to complete full sentences, no retractions, no tachypnea Abdomen: abdomen soft, non-tender, non-distended, no organomegaly Musculoskeletal: Pulses present and equal in all extremities, no peripheral edema Motor: no focal deficits noted Neurological: CN II-XII grossly intact, no focal motor or sensory deficits noted, NIH of 1 Skin: Intact with no visualized rashes Psych: Normal affect and mood ED course: 65-year-old female past medical history of stroke with residual neurologic deficits presents with asymptomatic hypertension. Vital signs upon arrival shows blood pressure to 1/90, rest of vital signs within acceptable limits. Laboratory evaluation obtained. CBC, metabolic panel is unremarkable. Patient given Percocet with slight improvement of blood pressure. Patient given 10 mg of IV labetalol. Disposition options were discussed with patient and family member at bedside. They would request to be admitted for better blood pressure control given patient's risk factors. Case was discussed Dr. Tyson who is willing to accept patients care. EKG interpretation: Ventricular rate 63, normal sinus rhythm,. Interval 172, QRS 76, QTC 417. No MD prolongation, no QTC prolongation, no ST or T-wave changes noted. Overall, this EKG is unremarkable - Related Data Home Medications Medication Instructions Recorded Confirmed Inulin/Chromium Picolinate [Fiber 1 tab PO DAILY 07/27/19 11/04/20 Gummies Chew] Multivit-Min/Iron/Folic/Lutein 1 each PO DAILY 07/27/19 11/04/20 [Centrum Silver Women Tablet] Simvastatin [Zocor] 20 mg PO HS 07/27/19 11/04/20 Aspirin EC [Ecotrin Low Dose] 362 mg PO DAILY 11/04/20 11/04/20 Baclofen [Lioresal] 10 mg PO BID 11/04/20 11/04/20 Dextromethorphan HBr/Quinidine 1 cap PO BID 11/04/20 11/04/20 [Nuedexta 20-10 mg Capsule] Docusate [Colace] 100 mg PO BID PRN 11/04/20 11/04/20 Ketorolac 0.5% Ophth Soln [Acular] 1 drops BOTH EYES QID 11/04/20 11/04/20 Ofloxacin 0.3% Ophth Soln [Ocuflox 1 drops BOTH EYES TID 11/04/20 11/04/20 Ophth Soln] Turmeric Root Extract [Turmeric] 500 mg PO DAILY 11/04/20 11/04/20 lisinopriL [Zestril] 10 mg PO BID 11/04/20 11/04/20 prednisoLONE ACETATE 1% OPHTH 1 drops BOTH EYES QID 11/04/20 11/04/20 [Pred Forte 1%] Allergies Allergy/AdvReac Type Severity Reaction Status Date / Time No Known Allergies Allergy Verified 11/04/20 16:18 Review of Systems ROS Statement: Those systems with pertinent positive or pertinent negative responses have been documented in the HPI. ROS Other: All systems not noted in ROS Statement are negative. Past Medical History Past Medical History: CVA/TIA, Hearing Disorder / Deafness, Hyperlipidemia, Hypertension, Musculoskeletal Disorder, Osteoarthritis (OA) Additional Past Medical History / Comment(s): Osteoporosis. Sl varicose veins. BLE edema. thyriod nodule History of Any Multi-Drug Resistant Organisms: None Reported Past Surgical History: Breast Surgery, Orthopedic Surgery, Tubal Ligation Additional Past Surgical History / Comment(s): Lt Breast biopsy x3. othropedic Past Anesthesia/Blood Transfusion Reactions: No Reported Reaction Past Psychological History: Anxiety, Depression Smoking Status: Never smoker Past Alcohol Use History: Occasional Past Drug Use History: None Reported - Past Family History Mother Family Medical History: No Reported History Father Family Medical History: Congestive Heart Failure (CHF), Hypertension General Exam Limitations: physical limitation Course Vital Signs 11/04/20 11/04/20 11/04/20 15:24 15:57 16:20 Temperature 98.1 F Pulse Rate 67 60 60 Respiratory 18 18 18 Rate Blood Pressure 201/98 183/96 193/110 O2 Sat by Pulse 99 99 100 Oximetry Medical Decision Making - Lab Data Result diagrams: 11/04/20 15:58 11/04/20 15:58 Lab Results 11/04/20 11/04/20 Range/Units 15:58 15:58 WBC 8.8 (3.8-10.6) k/uL RBC 4.70 (3.80-5.40) m/uL Hgb 14.8 (11.4-16.0) gm/dL Hct 43.9 (34.0-46.0) % MCV 93.4 (80.0-100.0) fL MCH 31.5 (25.0-35.0) pg MCHC 33.7 (31.0-37.0) g/dL RDW 13.1 (11.5-15.5) % Plt Count 248 (150-450) k/uL MPV 7.4 Neutrophils % 71 % Lymphocytes % 18 % Monocytes % 6 % Eosinophils % 3 % Basophils % 1 % Neutrophils # 6.3 (1.3-7.7) k/uL Lymphocytes # 1.6 (1.0-4.8) k/uL Monocytes # 0.5 (0-1.0) k/uL Eosinophils # 0.3 (0-0.7) k/uL Basophils # 0.0 (0-0.2) k/uL Sodium 140 (137-145) mmol/L Chloride 107 (98-107) mmol/L Carbon Dioxide 23 (22-30) mmol/L Anion Gap 10 mmol/L BUN 20 H (7-17) mg/dL Creatinine 0.63 (0.52-1.04) mg/dL Est GFR (CKD-EPI)AfAm >90 (>60 ml/min/1.73 sqM) Est GFR (CKD-EPI)NonAf >90 (>60 ml/min/1.73 sqM) Glucose 91 (74-99) mg/dL Calcium 9.8 (8.4-10.2) mg/dL Disposition Clinical Impression: Hypertension Disposition: ADMITTED IP TO THIS HOSP Condition: Fair Referrals: Juanjose Montes DO [Primary Care Provider] - 1-2 days Decision Time: 16:39
[2020-11-04] MEDS ORDERED: LABETALOL 5 MG/ML VIAL MDV IVP STA (16:05)
[2020-11-04 16:07] LABS: Basophils % (A) 1 %; Eosinophils # (A) 0.3 k/uL (0-0.7); Eosinophils % (A) 3 %; HCT 43.9 % (34.0-46.0); HGB 14.8 gm/dL (11.4-16.0); Lymphocytes # (A) 1.6 k/uL (1.0-4.8); Lymphocytes % (A) 18 %; MCH 31.5 pg (25.0-35.0); MCHC 33.7 g/dL (31.0-37.0); MCV 93.4 fL (80.0-100.0); Mean Platelet Volume 7.4; Monocytes # (A) 0.5 k/uL (0-1.0); Monocytes % (A) 6 %; Neutrophils # (A) 6.3 k/uL (1.3-7.7); Neutrophils % (A) 71 %; Platelet Count 248 k/uL (150-450); RDW 13.1 % (11.5-15.5); WBC 8.8 k/uL (3.8-10.6)
[2020-11-04 16:17] LABS: African American GFR (CKD) >90 (>60 ml/min/1.73 sqM); Anion Gap 10 mmol/L; Blood Urea Nitrogen 20 mg/dL (7-17); Calcium 9.8 mg/dL (8.4-10.2); Carbon Dioxide 23 mmol/L (22-30); Chloride 107 mmol/L (98-107); Glucose 91 mg/dL (74-99); Non-African American GFR(CKD) >90 (>60 ml/min/1.73 sqM); Sodium 140 mmol/L (137-145)
[2020-11-04 16:28] LABS: Potassium 4.1 mmol/L (3.5-5.1)
[2020-11-04] MEDS ORDERED: oxyCODONE-APAP 5-325MG 1 EACH TAB PO PRN (16:35)
[2020-11-04] MEDS ORDERED: NALOXONE 0.4 MG/ML 1 ML VIAL IV PRN (16:35)
[2020-11-04] MEDS ORDERED: ONDANSETRON 4 MG/2 ML VIAL IVP PRN (16:35)
[2020-11-04] MEDS: SODIUM CHLORIDE 0.9% 1,000 ML IV SCH (18:46)
[2020-11-04] MEDS: ATORVASTATIN 10 MG TAB PO SCH (21:46)
[2020-11-04] MEDS: lisinopriL 20 MG TAB PO SCH (21:46)
[2020-11-04] MEDS: BACLOFEN 10 MG TAB PO SCH (21:46)
[2020-11-05] MEDS ORDERED: ASPIRIN 81 MG PO SCH (09:00)
[2020-11-05] MEDS: lisinopriL 20 MG TAB PO SCH (09:11)
[2020-11-05] MEDS: BACLOFEN 10 MG TAB PO SCH ×2 (09:11→20:45)
[2020-11-05] MEDS ORDERED: DOCUSATE 100 MG CAP PO PRN (11:38)
[2020-11-05] MEDS: NON FORMULARY DRUG (Dextromethorphan Hbr/Quinidine [Nuedexta 20-10 Mg Capsule] 1 EACH Caps PO SCH ×2 (11:56→20:48)
[2020-11-05] MEDS: OFLOXACIN 0.3% OPHTH DROPS 5 ML BOTTLE BOTH EYES SCH ×3 (13:39→20:46)
[2020-11-05] MEDS: KETOROLAC 0.5% OPHTH DROPS 5 ML BTL BOTH EYES SCH ×4 (13:40→20:46)
[2020-11-05] MEDS: prednisoLONE ACETATE 1% OPHTH DROPS 5 ML BTL BOTH EYES SCH ×4 (13:41→20:46)
--- NOTE | 2020-11-05 17:36 | CT ---
EXAMINATION TYPE: CT brain wo con DATE OF EXAM: 11/05/2020 COMPARISON: 10/15/2020 HISTORY: wobbly/shaky CT DLP: 1041.4 mGycm Automated exposure control for dose reduction was used. Ventricles have normal size. There is no mass effect nor midline shift. There is no sign of intracran ial hemorrhage. There is some minimal hypodensity in the white matter of the cerebral hemispheres cinthia aterally. The calvarium is intact. The skull base is intact. IMPRESSION: There is some mild cerebral atrophy. Mild white matter changes suggestive of some chronic small vesse l ischemia. No change compared to old exam.
[2020-11-05] MEDS: SODIUM CHLORIDE 0.9% 1,000 ML IV SCH (17:40)
[2020-11-05] MEDS: ATORVASTATIN 10 MG TAB PO SCH (20:45)
[2020-11-05 20:55] VITALS: BP 134/75; PULSE 61; RESP 17; TEMP 98.9
[2020-11-05] MEDS ORDERED: LISINOPRIL-HCTZ 20-12.5 MG 1 EACH TAB PO SCH (21:00)
--- NOTE | 2020-11-05 21:00 | P.HPIM ---
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 Chronic stable medical conditions include hard of hearing, hyperlipidemia, hypertension, osteoporosis, thyroid no doing, stroke in 2019 causing left-sided weakness and slow speech. Because of prior stroke patient has a dysarthria and also some left-sided weakness. Sometimes when she goes outside the house she needs a cane. Patient for 3 weeks has felt slightly wobbly. Her blood pressures be trending high. And she presented to the ER. No change in vision. No new headache. No change in speech. Or swallowing. No new weakness. Other than prior or residual weakness. Blood pressure was noted to be high in the ER. lisinopril was increased. Review of systems: GEN.: None EYES: Decreased vision HEENT: Decreased hearing NECK: None RESPIRATORY: None CARDIOVASCULAR: None GASTROINTESTINAL: None GENITOURINARY: None MUSCULOSKELETAL: None LYMPHATICS: None HEMATOLOGICAL: None PSYCHIATRY: None NEUROLOGICAL: As above Past medical history to include: Hard of hearing, hyperlipidemia hypertension osteoarthritis added to do stroke in 2019 causing dysarthria and left-sided weakness Social history: Patient smoked for about 32 years, 1 pack a day stopped in 2000. Alcohol occasionally. . Family history: Reviewed, noncontributory to presentation Physical examination: VITAL SIGNS: 98.1, 67, 18, 183.96, 99% room air GENERAL: 28.3, laying in bed, comfortable. EYES: Pupils equal. Conjunctiva normal. HEENT: External appearance of nose and ears normal, oral cavity grossly normal. NECK: JVD not raised; masses not palpable. HEART: First and second heart sounds are normal; no edema. LUNGS: Respiratory rate normal; clear to auscultation. ABDOMEN: Soft, nontender, liver spleen not palpable, no masses palpable. PSYCH: Alert and oriented x3; mood and affect normal. NEUROLOGICAL: [Cranial nerves grossly intact; no facial asymmetry, power on the left 4 x 5. Dysarthria LYMPHATICS: No lymph nodes palpable in the axilla and neck INVESTIGATIONS, reviewed in the clinical context: White count 8.8 hemoglobin 14.8 platelets 248 potassium 4.1 creatinine 0.63 EKG tracing personally reviewed by me-no sinus rhythm. Rate 63 Assessment: -Patient presents with very slightly shaky for last 3 weeks. The patient been running high for the same.. Has no new focal neurological signs. Lisinopril dose was increased in the ER. Somewhat better. We will do a computed tomography scan to rule out any new event. -Chronic dysarthria and left hemiparesis from prior stroke -Hyperlipidemia -Primary osteoarthritis -Chronic gait dysfunction does use a cane occasionally Plan: Patient's lisinopril home dose of been discontinued. Start on lisinopril 20/12.5 one tablet twice a day. Continue other medications. A computed tomography scan of the brain. Carotid Doppler. Care was discussed with the patient. Questions answered. Past Medical History Past Medical History: CVA/TIA, Hearing Disorder / Deafness, Hyperlipidemia, Hypertension, Musculoskeletal Disorder, Osteoarthritis (OA) Additional Past Medical History / Comment(s): Osteoporosis. Sl varicose veins. BLE edema. thyriod nodule. cva 2019 causing left sided deficits and slowed speech. History of Any Multi-Drug Resistant Organisms: None Reported Past Surgical History: Breast Surgery, Orthopedic Surgery, Tubal Ligation Additional Past Surgical History / Comment(s): Lt Breast biopsy x3. othropedic Past Anesthesia/Blood Transfusion Reactions: No Reported Reaction Past Psychological History: Anxiety, Depression Smoking Status: Never smoker Past Alcohol Use History: Occasional Additional Past Alcohol Use History / Comment(s): Smoked 32.5 years, 1 ppd, quit 2000 Past Drug Use History: None Reported - Past Family History Mother Family Medical History: No Reported History Father Family Medical History: Congestive Heart Failure (CHF), Hypertension Medications and Allergies Home Medications Medication Instructions Recorded Confirmed Type Inulin/Chromium Picolinate [Fiber 1 tab PO DAILY 07/27/19 11/04/20 History Gummies Chew] Multivit-Min/Iron/Folic/Lutein 1 each PO DAILY 07/27/19 11/04/20 History [Centrum Silver Women Tablet] Simvastatin [Zocor] 20 mg PO HS 07/27/19 11/04/20 History Aspirin EC [Ecotrin Low Dose] 362 mg PO DAILY 11/04/20 11/04/20 History Baclofen [Lioresal] 10 mg PO BID 11/04/20 11/04/20 History Dextromethorphan HBr/Quinidine 1 cap PO BID 11/04/20 11/04/20 History [Nuedexta 20-10 mg Capsule] Docusate [Colace] 100 mg PO BID PRN 11/04/20 11/04/20 History Ketorolac 0.5% Ophth Soln [Acular 1 drops BOTH EYES QID 11/04/20 11/04/20 History 0.5%] Ofloxacin 0.3% Ophth Soln [Ocuflox 1 drops BOTH EYES TID 11/04/20 11/04/20 History Ophth Soln] Turmeric Root Extract [Turmeric] 500 mg PO DAILY 11/04/20 11/04/20 History prednisoLONE ACETATE 1% OPHTH 1 drops BOTH EYES QID 11/04/20 11/04/20 History [Pred Forte 1%] Lisinopril-Hctz 20-12.5 mg 1 each PO BID #60 tab 11/05/20 Rx [Zestoretic 20-12.5] Allergies Allergy/AdvReac Type Severity Reaction Status Date / Time No Known Allergies Allergy Verified 11/04/20 16:18 Physical Exam Vitals: Vital Signs Temp Pulse Pulse Resp BP BP Pulse Ox 11/05/20 08:00 98.7 F 65 12 168/72 98 11/05/20 04:00 97.8 F 64 15 138/76 98 11/05/20 02:00 55 L 15 11/05/20 00:00 97.7 F 55 L 15 116/69 97 11/04/20 20:00 97.7 F 62 15 105/68 93 L 11/04/20 18:46 98.0 F 63 16 134/80 97 11/04/20 17:30 56 L 18 142/79 95 11/04/20 17:00 56 L 18 148/81 97 11/04/20 16:20 60 18 193/110 100 11/04/20 15:57 60 18 183/96 99 11/04/20 15:24 98.1 F 67 18 201/98 99 Intake and Output 11/04/20 11/05/20 11/05/20 22:59 06:59 14:59 Intake Total 236 Output Total 0 Balance 0 236 Intake: Oral 236 Output: Urine 0 Other: Voiding Method Toilet Diaper # Voids 0 Weight 81.647 kg 82 kg Results CBC & Chem 7: 11/04/20 15:58 11/04/20 15:58 Labs: Abnormal Lab Results - Last 24 Hours (Table) 11/04/20 Range/Units 15:58 BUN 20 H (7-17) mg/dL Thrombosis Risk Factor Assmnt - Choose All That Apply Each Factor Represents 1 point: Obesity (BMI >25) Other Risk Factors: Yes Each Risk Factor Represents 2 Points: Age 61-74 years Other congenital or acquired thrombophilia - If yes, enter type in comment: No Thrombosis Risk Factor Assessment Total Risk Factor Score: 3 Thrombosis Risk Factor Assessment Level: Moderate Risk
--- NOTE | 2020-11-05 21:05 | US ---
EXAMINATION TYPE: US carotid duplex BILAT DATE OF EXAM: 11/05/2020 COMPARISON: US, CT CLINICAL HISTORY: unsteady. Unsteady per order. Patient had stroke in July 2019. Hx hypertension, hyperlipidemia, previous smoker. EXAM MEASUREMENTS: RIGHT: Peak Systolic Velocity (PSV) cm/sec ----- Right CCA: 75.8 ----- Right ICA: 80.6 ----- Right ECA: 71.8 ICA/CCA ratio: 1.1 RIGHT: End Diastole cm/sec ----- Right CCA: 22.8 ----- Right ICA: 37.7 ----- Right ECA: 11.3 LEFT: Peak Systolic Velocity (PSV) cm/sec ----- Left CCA: 83.8 ----- Left ICA: 76.6 ----- Left ECA: 70.7 ICA/CCA ratio: 0.9 LEFT: End Diastole cm/sec ----- Left CCA: 22.7 ----- Left ICA: 30.4 ----- Left ECA: 6.9 VERTEBRALS (direction of flow): Right Vertebral: Antegrade Left Vertebral: Antegrade Rhythm: Normal Intimal thickening seen bilaterally. Plaque seen right bulb/prox ICA. No elevated velocities at this time. Bilateral ICA appear to course posteriorly. IMPRESSION: There is antegrade flow in the vertebral arteries. The images and measurements suggest less than 20% stenosis in both internal carotid arteries. Criteria for Assigning % of Stenosis / Diameter reduction (Estimation based on the indirect measurements of the internal carotid artery velocities (ICA PSV). 1. Normal (no stenosis)=ICA PSV < 125 cm/s: ratio < 2.0: ICA EDV<40 cm/s. 2. Less than 50% stenosis=ICA PSV < 125 cm/s: ratio < 2.0: ICA EDV<40 cm/s. 3. 50 to 69% stenosis=ICA PSV of 125 to 230 cm/s: ration 2.0 ? 4.0: ICA EDV 40-100 cm/s. 4. Greater than 70% stenosis to near occlusion= ICA PSV > 230 cm/s: ratio > 4.0: ICA EDV > 100 cm/s. 5. Near occlusion= ICA PSV velocities may be low or undetectable: variable ratio and ICA EDV. 6. Total occlusion=unable to detect flow.
[2020-11-06] MEDS ORDERED: MULTIVITAMINS, THERA 1 EACH TAB PO SCH (09:00)
--- NOTE | 2020-11-09 21:44 | P.DS ---
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 Chronic stable medical conditions include hard of hearing, hyperlipidemia, hypertension, osteoporosis, thyroid no doing, stroke in 2019 causing left-sided weakness and slow speech. Because of prior stroke patient has a dysarthria and also some left-sided weakness. Sometimes when she goes outside the house she needs a cane. Patient for 3 weeks has felt slightly wobbly. Her blood pressures be trending high. And she presented to the ER. No change in vision. No new headache. No change in speech. Or swallowing. No new weakness. Other than prior or residual weakness. Blood pressure was noted to be high in the ER. lisinopril was increased. Computed tomography scan of the brain, carotid Doppler unremarkable. Zestoretic 20/12.5 one tablet twice a day was added. Blood pressure better controlled. Today-care was discussed with the patient. Questions answered. Feeling well. Past medical history to include: Hard of hearing, hyperlipidemia hypertension osteoarthritis added to do stroke in 2019 causing dysarthria and left-sided weakness Social history: Patient smoked for about 32 years, 1 pack a day stopped in 2000. Alcohol occasionally. . Family history: Reviewed, noncontributory to presentation Physical examination: VITAL SIGNS: 98.9, 61, 17, 130/75, 97% room air GENERAL: 28.3, laying in bed, comfortable. EYES: Pupils equal. Conjunctiva normal. HEENT: External appearance of nose and ears normal, oral cavity grossly normal. NECK: JVD not raised; masses not palpable. HEART: First and second heart sounds are normal; no edema. LUNGS: Respiratory rate normal; clear to auscultation. ABDOMEN: Soft, nontender, liver spleen not palpable, no masses palpable. PSYCH: Alert and oriented x3; mood and affect normal. INVESTIGATIONS, reviewed in the clinical context: White count 8.8 hemoglobin 14.8 platelets 248 potassium 4.1 creatinine 0.63 EKG tracing personally reviewed by me-no sinus rhythm. Rate 63 Computed tomography scan of the brain-mild chronic changes. Carotid Doppler-no significant stenosis Assessment: -Essential hypertension -Chronic dysarthria and left hemiparesis from prior stroke -Hyperlipidemia -Primary osteoarthritis -Chronic gait dysfunction does use a cane occasionally Disposition: Home Patient Condition at Discharge: Fair Plan - Discharge Summary Discharge Rx Participant: No New Discharge Prescriptions: New Lisinopril-Hctz 20-12.5 mg [Zestoretic 20-12.5] 1 each PO BID #60 tab Continue Multivit-Min/Iron/Folic/Lutein [Centrum Silver Women Tablet] 1 each PO DAILY Inulin/Chromium Picolinate [Fiber Gummies Chew] 1 tab PO DAILY Simvastatin [Zocor] 20 mg PO HS Docusate [Colace] 100 mg PO BID PRN PRN Reason: Constipation Aspirin EC [Ecotrin Low Dose] 362 mg PO DAILY prednisoLONE ACETATE 1% OPHTH [Pred Forte 1%] 1 drops BOTH EYES QID Dextromethorphan HBr/Quinidine [Nuedexta 20-10 mg Capsule] 1 cap PO BID Ofloxacin 0.3% Ophth Soln [Ocuflox Ophth Soln] 1 drops BOTH EYES TID Ketorolac 0.5% Ophth Soln [Acular 0.5%] 1 drops BOTH EYES QID Baclofen [Lioresal] 10 mg PO BID Discontinued lisinopriL [Zestril] 10 mg PO BID No Action Turmeric Root Extract [Turmeric] 500 mg PO DAILY Discharge Medication List Inulin/Chromium Picolinate [Fiber Gummies Chew] 1 tab PO DAILY 07/27/19 [History] Multivit-Min/Iron/Folic/Lutein [Centrum Silver Women Tablet] 1 each PO DAILY 07/27/19 [History] Simvastatin [Zocor] 20 mg PO HS 07/27/19 [History] Aspirin EC [Ecotrin Low Dose] 362 mg PO DAILY 11/04/20 [History] Baclofen [Lioresal] 10 mg PO BID 11/04/20 [History] Dextromethorphan HBr/Quinidine [Nuedexta 20-10 mg Capsule] 1 cap PO BID 11/04/20 [History] Docusate [Colace] 100 mg PO BID PRN 11/04/20 [History] Ketorolac 0.5% Ophth Soln [Acular 0.5%] 1 drops BOTH EYES QID 11/04/20 [History] Ofloxacin 0.3% Ophth Soln [Ocuflox Ophth Soln] 1 drops BOTH EYES TID 11/04/20 [History] Turmeric Root Extract [Turmeric] 500 mg PO DAILY 11/04/20 [History] prednisoLONE ACETATE 1% OPHTH [Pred Forte 1%] 1 drops BOTH EYES QID 11/04/20 [History] Lisinopril-Hctz 20-12.5 mg [Zestoretic 20-12.5] 1 each PO BID #60 tab 11/05/20 [Rx] Follow up Appointment(s)/Referral(s): Juanjose Montes DO [Primary Care Provider] - 1-2 days Patient Instructions/Handouts: Hypertension (GEN) Discharge Disposition: HOME SELF-CARE
== END 2020-11-05 21:40 | disposition home or self-care (01) ==
LOC: EC 15:22 → 3SCARD 16:36
PROVIDERS: ADMIT Hospitalist; ATTEND Hospitalist
DX: I10 Essential (primary) hypertension (principal); I69.354 Hemiplegia and hemiparesis following cerebral infarction affecting left non-dominant side; E78.5 Hyperlipidemia, unspecified; M19.91 Primary osteoarthritis, unspecified site; R26.9 Unspecified abnormalities of gait and mobility; R29.818 Other symptoms and signs involving the nervous system; I69.328 Other speech and language deficits following cerebral infarction; G89.29 Other chronic pain; M54.2 Cervicalgia; H91.90 Unspecified hearing loss, unspecified ear; E66.9 Obesity, unspecified; Z68.28 Body mass index [BMI] 28.0-28.9, adult; M81.0 Age-related osteoporosis without current pathological fracture; I83.93 Asymptomatic varicose veins of bilateral lower extremities; E04.1 Nontoxic single thyroid nodule; F41.9 Anxiety disorder, unspecified; K59.00 Constipation, unspecified; F32.9 Major depressive disorder, single episode, unspecified; Z87.891 Personal history of nicotine dependence; Z79.899 Other long term (current) drug therapy; Z79.82 Long term (current) use of aspirin; Z82.49 Family history of ischemic heart disease and other diseases of the circulatory system
CPT/HCPCS: 96374; 99285; 36415; 93005; 80048; 85025; 93880; 70450; G0378 ×2

== ENCOUNTER → 2020-11-17 | Outpatient (CLI) | payer BC ==
--- NOTE | 2020-11-17 20:26 | MR ---
EXAMINATION TYPE: MR brain/cspine wo/w DATE OF EXAM: 11/17/2020 COMPARISON: CT brain and cervical spine October 15, 2020. MRI brain October 31, 2019. HISTORY: Demyelination vs new stroke, increasing dysphagia, imbalance TECHNIQUE: Multiplanar, multisequence images of the brain and brainstem along the cervical spine are all perform ed without and with IV contrast, utilizing 7.5 mL intravenous Gadavist gadolinium contrast is adminis tered intravenously. Demyelinating disease protocol with additional Sagittal Flair sequence performe d. FINDINGS: BRAIN: T2 Lesions Present : Yes Approximate Number of Lesions: Roughly 100 Locations Identified : Scattered, no infratentorial involvement. Size of Reference Lesion(s): 1. 5 x 4 x 4 mm high left frontal lesion on axial image 24 and sagittal image 17 stable 2 14 x 9 x 5 mm on axial image 21 and sagittal image 26 deep right frontal lesion stable Enhancing Lesion(s) Present: No T1 Hypointense Lesion(s) Present: Yes Change from Prior: Stable Diffusion weighted images demonstrate no evidence of a recent infarct or other diffusion abnormality. There is no worrisome extra-axial fluid collection. The ventricular system and cisternal spaces ar e normal in size and appearance. The brain volume is age appropriate. Midline structures demonstrate normal morphology. The craniocervical junction appears within normal limits. Post contrast images demonstrate no abnormal enhancement. The dural venous sinuses appear pa tent. Mild to moderate mucosal thickening involving ethmoid sinuses bilaterally more prominent from p rior. Nasal septum deviated to right of midline. IMPRESSION: Fairly advanced nonspecific white matter changes a BPM basis of demyelinating disease and /or product of proximal vessel ischemic change. No new or enhancing lesions noted. C-SPINE: FINDINGS: Sagittal images of the cervical spine show the craniocervical junction to remain within nor mal limits. The cervical and upper thoracic spinal cord is normal in caliber and signal. Slight levo convex scoliotic curvature positioning centered upper thoracic spine is redemonstrated. There is red emonstration of grade 1 retrolisthesis C5 on C6. Moderate to advanced disc space narrowing with mild spurring is redemonstrated at this level otherwise the vertebral body and intravertebral disk heights are normal. Large hemangioma involving anterior T3 vertebra. No suspicious postcontrast enhancement is seen. Axial images at C2-C3 level shows central disc protrusion mildly facing anterior thecal sac, patent b ilateral neural foramina. Axial images at C3-C4 level show broad-based left paracentral disc protrusion effacing anterolateral thecal sac with uncovertebral facet degenerative changes causing mild to moderate left and mild right -sided neural foraminal narrowing. Axial images at C4-C5 level show uncovertebral facet degenerative changes bilaterally causing mild-to -moderate right greater than left bilateral neural foraminal narrowing. Axial images at C5-C6 level show spondylolisthesis with broad base posterior spur disc complex effaci ng the anterior thecal sac and uncovertebral facet spurring causing moderate to advanced left and mil d to moderate right-sided neural foraminal narrowing. Axial images at C6-C7 and C7-T1 level appear within normal limits. There is 1.7 x 1.6 cm T2 hyperintense left thyroid nodule axial image 5. IMPRESSION: Scoliotic curvature. Spondylolisthesis C5-C6 level. Multilevel degenerative changes as de tailed above. Greater than 1 cm Thyroid nodule redemonstrated. Follow-up thyroid ultrasound is advise d to further evaluate and characterize if this is not known finding. No MRI evidence for demyelinatin g disease involvement in the cervical spinal cord.
== END | disposition home or self-care (01) ==
LOC: RADMRIMAIN 15:20
PROVIDERS: ATTEND Psychiatry & Neurology Neurology
DX: M43.12 Spondylolisthesis, cervical region (principal); M47.12 Other spondylosis with myelopathy, cervical region; M41.82 Other forms of scoliosis, cervical region; R90.82 White matter disease, unspecified
CPT/HCPCS: 70553; 72156; A9585

== ENCOUNTER 2020-11-21 08:52 | Day surgery (SDC) | payer BC ==
[2020-11-21] MEDS ORDERED: ALPRAZolam 0.5 MG TAB PO STA (09:37)
[2020-11-21 10:05] VITALS: BP 123/81; PULSE 64; RESP 16; TEMP 97.9
--- NOTE | 2020-11-21 10:45 | US ---
ULTRASOUND GUIDED FNA THYROID BIOPSY: CLINICAL HISTORY: 11/03/2020 FINDINGS: The procedure was explained to the patient. The risks, complications, benefits and alternatives were discussed and any questions were answered. Informed consent was obtained. Patient was placed supin e on the ultrasound table and prepped and draped in the usual sterile fashion. Utilizing a 25 gauge needle, five passes were made into the requested left thyroid nodule. Patient was stable throughout the procedure. Pathology is pending. All elements of maximal barrier technique were utilized. IMPRESSION: 1. Successful ultrasound guided FNA thyroid biopsy.
== END 2020-11-21 11:50 | disposition home or self-care (01) ==
LOC: RADPROMAIN 08:52
PROVIDERS: ATTEND Otolaryngology
DX: E04.1 Nontoxic single thyroid nodule (principal)
CPT/HCPCS: 10005; 88173; 88305

== ENCOUNTER → 2020-11-27 | Outpatient (CLI) | payer BC ==
--- NOTE | 2020-11-27 12:40 | FL ---
Modified barium swallow. HISTORY: Dysphagia. Modified barium swallow was performed with the department of speech pathology. The patient was prese nted with various consistencies of barium. There is no evidence for aspiration or penetration. Full report is to follow from the department of speech pathology. Impression: Normal study.
== END | disposition home or self-care (01) ==
LOC: RADFLMAIN 11:49
PROVIDERS: ATTEND Otolaryngology
DX: R13.12 Dysphagia, oropharyngeal phase (principal)
CPT/HCPCS: 74230

== ENCOUNTER → 2020-12-01 | Outpatient (CLI) | payer BC, MEDICARE ==
[2020-12-01 10:23] LABS: Ionized Calcium 5.2 mg/dL (4.5-5.3)
[2020-12-01 11:26] LABS: T4, Free (Free Thyroxine) 0.88 ng/dL (0.78-2.19)
[2020-12-01 17:43] LABS: Cardiolipin IgA Antibody 0.8 U/mL
[2020-12-01 17:44] LABS: Thyroid Peroxidase Antibodies 42.3 U/mL (0.0-60.0)
[2020-12-01 17:45] LABS: Cardiolipin Ab IgG Interp NEGATIVE (NEGATIVE); Cardiolipin Ab IgM Interp NEGATIVE (NEGATIVE); Cardiolipin IgM Antibody 1.7 U/mL
[2020-12-01 17:50] LABS: Protein, Total 7.1 g/dL (6.2-8.2)
[2020-12-01 23:26] LABS: Partial Thromboplastin Time 27.5 sec (23.5-31.0); Prothrombin Time 10.9 sec (9.9-11.9)
[2020-12-02 11:59] LABS: APTT 36 Sec(s) (<43); Dilute Russell Viper Venom 36 Sec(s) (<44)
[2020-12-02 14:19] LABS: Albumin 4.27 g/dL (3.80-4.90); Gamma Globulin 1.01 g/dL (0.70-1.50)
== END | disposition home or self-care (01) ==
LOC: LABWHC1 09:34
PROVIDERS: ATTEND Otolaryngology
DX: E04.1 Nontoxic single thyroid nodule (principal); D68.59 Other primary thrombophilia; I63.9 Cerebral infarction, unspecified; R53.83 Other fatigue; R13.10 Dysphagia, unspecified; R27.0 Ataxia, unspecified
CPT/HCPCS: 36415; 82330; 82550; 83090; 84165; 84439; 84443; 85610; 85613; 85652; 85730; 86038; 86147; 86376; 86618; 86780

== ENCOUNTER → 2021-02-13 | Outpatient (CLI) | payer BC, MEDICARE | END | disposition home or self-care (01) | LOC: LABWHC1 16:20 | PROVIDERS: ATTEND Family Medicine | DX: Z20.822 Contact with and (suspected) exposure to COVID-19 (principal); R09.81 Nasal congestion | CPT/HCPCS: U0003; C9803; U0005 ==

== ENCOUNTER → 2021-04-24 | Outpatient (CLI) | payer MEDICARE, BC ==
--- NOTE | 2021-04-24 15:03 | US ---
EXAMINATION TYPE: US pelvic complete DATE OF EXAM: 04/24/2021 COMPARISON: US 10/04/2014 CLINICAL HISTORY: R10.2 PELVIC AND PERINEAL PAIN. TECHNIQUE: . Transabdominal sonographic images of the pelvis were acquired. Date of LMP: 2012 EXAM MEASUREMENTS: Uterus: 6.3 x 3.0 x 3.4 cm Endometrial Stripe: 0.3 cm Right Ovary: 1.5 x 2.0 x 1.3 cm Left Ovary: 1.7 x 1.6 x 1.0 cm 1. Uterus: Anteverted wnl 2. Endometrium: wnl 3. Right Ovary: wnl 4. Left Ovary: wnl 5. Bilateral Adnexa: wnl 6. Posterior cul-de-sac: wnl IMPRESSION: No definite sonographic abnormality seen.
== END ==
LOC: RADUSWWP 13:32
PROVIDERS: ATTEND Family Medicine
DX: R10.2 Pelvic and perineal pain (principal)
CPT/HCPCS: 76856

== ENCOUNTER → 2021-06-04 | Outpatient (CLI) | payer MEDICARE ==
--- NOTE | 2021-06-04 17:42 | US ---
EXAMINATION TYPE: US thyroid st tissue head/neck DATE OF EXAM: 06/04/2021 COMPARISON: Previous exam 11/03/2020 CLINICAL HISTORY: E04.1 THYROID NODULE. follow up exam GLAND SIZE: Right Lobe: 5.7 x 1.6 x 2.1 cm Overall Parenchyma: heterogenous Left Lobe: 5.8 x 1.7 x 2.4 cm Overall Parenchyma: heterogeneous Isthmus Thickness: 0.3 cm NODULES RIGHT: # of nodules measured on right: 1 1. 1.0 X 0.5 x 0.5 cm, mid , mixed cystic and solid nodule, which is wider than tall, with smooth m argins, without echogenic foci. Prior size: 1.0 x 0.5 x 0.5 cm LEFT: # of nodules measured on left: 1 - previous biopsy 1. 2.3 X 1.6 x 1.6 cm, lower , solid or almost completely solid, hypoechoic nodule, which is wider than tall, with smooth margins, without echogenic foci. Prior size: 2.3 x 1.7 x 1.6 cm ISTHMUS: # of nodules measured in the isthmus: 0 Bilateral neck scanned, no evidence of lymphadenopathy. IMPRESSION: Stable dominant nodule on the left, lesion has had biopsy performed 11/21/2020, correlate with patholo gy 2017 ACR TI-RADS LEVEL: TR 4 *Highest TI-RADS level nodule reported
== END | disposition home or self-care (01) ==
LOC: RADUSWWP 16:54
PROVIDERS: ATTEND Otolaryngology
DX: Z12.31 Encounter for screening mammogram for malignant neoplasm of breast (principal); E04.1 Nontoxic single thyroid nodule; R22.1 Localized swelling, mass and lump, neck
CPT/HCPCS: 76536

== ENCOUNTER 2021-06-16 13:00 | Day surgery (SDC) | payer MEDICARE ==
[2021-06-16 13:13] VITALS: BP 138/87; PULSE 97; RESP 16; TEMP 98.3
--- NOTE | 2021-06-16 14:49 | US ---
ULTRASOUND GUIDED FNA THYROID BIOPSY: CLINICAL HISTORY: Left thyroid nodule FINDINGS: The procedure was explained to the patient. The risks, complications, benefits and alternatives were discussed and any questions were answered. Informed consent was obtained. Patient was placed supin e on the ultrasound table and prepped and draped in the usual sterile fashion. Utilizing a 25 gauge needle, five passes were made into the requested left thyroid nodule. Patient was stable throughout the procedure. Pathology is pending. All elements of maximal barrier technique were utilized. IMPRESSION: 1. Successful ultrasound guided FNA thyroid biopsy.
== END 2021-06-16 14:45 | disposition home or self-care (01) ==
LOC: RADPROMAIN 13:00
PROVIDERS: ATTEND Otolaryngology
DX: E04.1 Nontoxic single thyroid nodule (principal)
CPT/HCPCS: 10005; 88173; 88305

== ENCOUNTER → 2022-02-19 | Outpatient (CLI) | payer MEDICARE ==
--- NOTE | 2022-02-19 14:34 | US ---
EXAMINATION TYPE: US thyroid st tissue head/neck DATE OF EXAM: 02/19/2022 COMPARISON: NONE CLINICAL HISTORY: THYROID NODULE. follow up exam, patient sat upright in wheelchair for exam GLAND SIZE: Right Lobe: 5.3 x 1.4 x 1.8 cm Overall Parenchyma: heterogenous Left Lobe: 5.5 x 1.5 x 2.3 cm Overall Parenchyma: heterogeneous Isthmus Thickness: 0.3 cm NODULES RIGHT: # of nodules measured on right: multiple, measured largest 1. 1.0 X 0.8 x 0.5 cm, mid , mixed cystic and solid, anechoic nodule, which is wider than tall, wit h smooth margins, without echogenic foci. Prior size: 1.0 x 0.5 x 0.5 cm LEFT: # of nodules measured on left: multiple nodules, measured largest - previous bx 1. 2.4 X 1.6 x 1.5 cm, lower , mixed cystic and solid, hypoechoic nodule, which is wider than tall, with smooth margins, without echogenic foci. Prior size: 2.3 x 1.6 x 1.6 cm ISTHMUS: # of nodules measured in the isthmus: 0 Bilateral neck scanned, no evidence of lymphadenopathy. IMPRESSION: Stable nonspecific thyroid nodules.
== END | disposition home or self-care (01) ==
LOC: RADUSWWP 13:49
PROVIDERS: ATTEND Otolaryngology
DX: E04.1 Nontoxic single thyroid nodule (principal)
CPT/HCPCS: 76536

== ENCOUNTER → 2023-03-24 | Outpatient (CLI) | payer MEDICARE ==
--- NOTE | 2023-03-24 15:42 | US ---
EXAMINATION TYPE: US thyroid st tissue head/neck DATE OF EXAM: 03/24/2023 COMPARISON: NONE CLINICAL INDICATION: Female, 67 years old with history of E04.1 Thyroid nodule; F/U GLAND SIZE: Right Lobe: 5.6x1.9x1.8 cm Overall Parenchyma: heterogenous Left Lobe: 5.5x1.9x2.2 cm Overall Parenchyma: heterogenous Isthmus Thickness: 0.4 cm NODULES RIGHT: # of nodules measured on right: 3 1. 0.7 X 0.5 x 0.6 cm, upper mid, solid or almost completely solid, isoechoic nodule, which is wide r than tall, with ill-defined margins, without echogenic foci. Prior size: 1.0 x 0.5 x 0.8 cm 2. 1.0 X 0.5 x 0.8 cm, mid mid, solid or almost completely solid, isoechoic nodule, which is wider than tall, with smooth margins, without echogenic foci. Prior size: x x cm 3. 1.5 X 0.7 x 1.3 cm, lower medial, mixed cystic and solid, isoechoic nodule, which is wider than tall, with smooth margins, without echogenic foci. Prior size: x x cm LEFT: # of nodules measured on left: 2 1. 0.9 X 0.5 x 1.0 cm, lower medial, mixed cystic and solid, hypoechoic nodule, which is wider than tall, with smooth margins, without echogenic foci. Prior size: x x cm 2. 2.6 X 1.7 x 1.9 cm, lower lateral, mixed cystic and solid, hypoechoic nodule, which is wider th an tall, with smooth margins, without echogenic foci. Prior size: 2.4 x 1.5 x 1.6 cm ISTHMUS: # of nodules measured in the isthmus: 0 Bilateral neck scanned, no evidence of lymphadenopathy. IMPRESSION: Stable nonspecific thyroid nodularity.
== END | disposition home or self-care (01) ==
LOC: RADUSWWP 13:33
PROVIDERS: ATTEND Otolaryngology
DX: E04.1 Nontoxic single thyroid nodule (principal)
CPT/HCPCS: 76536

== ENCOUNTER 2023-08-10 14:21 | Inpatient (IN) | payer MEDICARE ==
[2023-08-10] MEDS ORDERED: HYDROmorphone 0.5 MG/0.5 ML SYRINGE IVP STA ×2 (14:56→21:12)
--- NOTE | 2023-08-10 15:31 | ED ---
General Adult HPI - General Chief complaint: Extremity Problem,Nontraumatic Stated complaint: Right leg cramping Time Seen by Provider: 08/10/23 14:55 Source: patient, family, EMS, RN notes reviewed, old records reviewed Mode of arrival: EMS Limitations: no limitations - History of Present Illness Initial comments: This is a 68-year-old female with past medical history significant for ALS and hypertension. According to the family patient was doing pretty well on Tuesday and then she all of a sudden became much weaker and was unable to use the walker that she normally does and fair to do quite a bit more assisting in getting around the room. Today she had a severe posterior thigh cramp and it was not alleviated with Motrin so they brought her into the emergency department because she states she can't stand the pain. Patient according to family stated that she had a fever on Tuesday and was given Tylenol and it resolved and she felt better she had no history of cough. She denies chest pain difficulty breathing shortness breath. She denies abdominal pain she denies any vomiting diarrhea. There's been no dysuria or hematuria. She still complains of posterior thigh pain. - Related Data Home Medications Medication Instructions Recorded Confirmed Carboxymethylcellulose Sodium 1 drop BOTH EYES QID PRN 06/09/21 08/10/23 [Refresh Tears] DULoxetine HCL [Cymbalta] 60 mg PO BID 06/09/21 08/10/23 Pantoprazole [Protonix] 40 mg PO DAILY 08/10/23 08/10/23 Riluzole [Rilutek] 50 mg PO BID 08/10/23 08/10/23 Simvastatin [Zocor] 40 mg PO DAILY 08/10/23 08/10/23 amLODIPine [Norvasc] 10 mg PO DAILY 08/10/23 08/10/23 lisinopriL [Zestril] 5 mg PO DAILY 08/10/23 08/10/23 Previous Rx's Medication Instructions Recorded Ibuprofen [Motrin] 800 mg PO Q8HR PRN #30 tab 04/27/23 Allergies Allergy/AdvReac Type Severity Reaction Status Date / Time No Known Allergies Allergy Verified 08/10/23 16:05 Review of Systems ROS Statement: Those systems with pertinent positive or pertinent negative responses have been documented in the HPI. ROS Other: All systems not noted in ROS Statement are negative. Past Medical History Past Medical History: CVA/TIA, Hearing Disorder / Deafness, Hyperlipidemia, Hypertension, Musculoskeletal Disorder, Osteoarthritis (OA) Additional Past Medical History / Comment(s): Osteoporosis. Sl varicose veins. BLE edema. thyriod nodule. 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 othropedic, thyroid biopsy Nov 2020 Past Anesthesia/Blood Transfusion Reactions: No Reported Reaction Past Psychological History: Anxiety, Depression Smoking Status: Former smoker Past Alcohol Use History: Occasional Past Drug Use History: None Reported - Past Family History Mother Family Medical History: No Reported History Father Family Medical History: Congestive Heart Failure (CHF), Hypertension General Exam - General Exam Comments Initial Comments: GENERAL: Patient is well-developed and well-nourished. Patient is nontoxic and well-hydrated and is in mild distress. ENT: Neck is soft and supple. No significant lymphadenopathy is noted. Oropharynx is clear. Moist mucous membranes. Neck has full range of motion without eliciting any pain. EYES: The sclera were anicteric and conjunctiva were pink and moist. Extraocular movements were intact and pupils were equal round and reactive to light. Eyelids were unremarkable. PULMONARY: Unlabored respirations. Good breath sounds bilaterally. No audible rales rhonchi or wheezing was noted. CARDIOVASCULAR: There is a regular rate and rhythm without any murmurs gallops or rubs. ABDOMEN: Soft and nontender with normal bowel sounds. SKIN: Skin is clear with no lesions or rashes and otherwise unremarkable. NEUROLOGIC: Patient is alert and oriented x3. Patient is unable to speak secondary to the ALS and she has generalized overall weakness which is worse today than it has been. MUSCULOSKELETAL: Normal extremities with adequate strength and full range of motion. Patient did have DP pulses bilaterally much weaker in the right than the left LYMPHATICS: No significant lymphadenopathy is noted PSYCHIATRIC: Normal psychiatric evaluation. Limitations: no limitations Course Vital Signs 08/10/23 08/10/23 08/10/23 14:43 16:00 17:17 Temperature 97.1 F L Pulse Rate 87 75 Respiratory 18 18 18 Rate Blood Pressure 111/80 104/74 93/68 O2 Sat by Pulse 95 90 L 92 L Oximetry 08/10/23 08/10/23 08/10/23 18:00 19:00 20:00 Temperature Pulse Rate Respiratory 18 20 20 Rate Blood Pressure 97/70 83/63 87/67 O2 Sat by Pulse 91 L 90 L 93 L Oximetry Medical Decision Making - Medical Decision Making EKG is interpreted by myself. EKG shows a sinus rhythm at 82 bpm SD interval 280 QRS is 77 QT interval 360 QTC is 398. EKG shows no ST segment elevation or depression Was pt. sent in by a medical professional or institution (, PA, AUTO CRANE DRIVER, urgent care, hospital, or [place] health care facility...) When possible be specific @ -No Did you speak to anyone other than the patient for history (EMS, parent, family, police, friend...)? What history was obtained from this source @ -Patient's family gave all the history Did you review nursing and triage notes (agree or disagree)? Why? @ -I reviewed and agree with nursing and triage notes Were old charts reviewed (outside hosp., previous admission, EMS record, old EKG, old radiological studies, urgent care reports/EKG's, [place] health care facility records)? Report findings @ -I reviewed prior notes prior charts in this patient Differential Diagnosis (chest pain, altered mental status, abdominal pain women, abdominal pain men, vaginal bleeding, weakness, fever, dyspnea, syncope, headache, dizziness, GI bleed, back pain, seizure, CVA, palpatations, mental health, musculoskeletal)? @ -Differential Weakness: Hypoglycemia, shock, sepsis, hyponatremia, anemia, infection, PA, ETOH, adverse medicine reaction, overdose, stroke, this is not meant to be an all-inclusive list. EKG interpreted by me (3pts min.). @ -As above X-rays interpreted by me (1pt min.). @ -Chest x-ray shows retrocardiac infiltrate potential pneumonia CT interpreted by me (1pt min.). @ -None done U/S interpreted by me (1pt. min.). @ -None done What testing was considered but not performed or refused? (CT, X-rays, U/S, labs)? Why? @ -None What meds were considered but not given or refused? Why? @ -None Did you discuss the management of the patient with other professionals (professionals i.e. , PA, AUTO CRANE DRIVER, lab, RT, psych nurse, social work job titles, corporate lawyer, te acher, strike warfare/missile systems officer, caseworker protective services)? Give summary @ -[facility] was [facility] and that the patient was given a be admitted for pneumonia and urinary tract infection which was worsening or ALS symptoms. They were in agreement with this aspect consult vascular which I did. Patient was started on antibiotics for the urinary tract infection and pneumonia. Was smoking cessation discussed for >3mins.? @ -No Was critical care preformed (if so, how long)? @ -No Were there social determinants of health that impacted care today? How? (Homelessness, low income, unemployed, alcoholism, drug addiction, transportation, low edu. Level, literacy, decrease access to med. care, half-way, rehab)? @ -No Was there de-escalation of care discussed even if they declined (Discuss DNR or withdrawal of care, Hospice)? DNR status @ -No What co-morbidities impacted this encounter? (DM, HTN, Smoking, COPD, CAD, Cancer, CVA, ARF, Chemo, Hep., AIDS, mental health diagnosis, sleep apnea, morbid obesity)? @ -None Was patient admitted / discharged? Hospital course, mention meds given and route, prescriptions, significant lab abnormalities, going to OR and other pertinent info. @ -Patient required Dilaudid 0.5 on 2 occasions. Patient's pulses on both feet were palpable on arrival however later the patient's foot got a little colder and pulses were difficult to palpate so CT angiography of the extremity was done. Patient I spoke with [facility] see agreed to admit the patient admitted the patient I consult the vascular I continued antibiotics on the floor Undiagnosed new problem with uncertain prognosis? @ -No Drug Therapy requiring intensive monitoring for toxicity (Heparin, Nitro, Insulin, Cardizem)? @ -No Were any procedures done? @ -No Diagnosis/symptom? @ -Urinary tract infection Acute, or Chronic, or Acute on Chronic? @ -Acute Uncomplicated (without systemic symptoms) or Complicated (systemic symptoms)? @ -Complicated Side effects of treatment? @ -No Exacerbation, Progression, or Severe Exacerbation? @ -No Poses a threat to life or bodily function? How? (Chest pain, USA, PA, pneumonia, PE, COPD, DKA, ARF, appy, cholecystitis, CVA, Diverticulitis, Homicidal, S uicidal, threat to staff... and all critical care pts) @ -Yes This could lead to sepsis and end organ dysfunction Diagnosis/symptom? @ -Pneumonia Acute, or Chronic, or Acute on Chronic? @ -Acute Uncomplicated (without systemic symptoms) or Complicated (systemic symptoms)? @ -Complicated Side effects of treatment? @ -none Exacerbation, Progression, or Severe Exacerbation] @ -no Poses a threat to life or bodily function? @ -Yes this could lead to sepsis and end organ dysfunction - Lab Data Result diagrams: 08/10/23 15:19 08/10/23 15:19 Lab Results 08/10/23 08/10/23 08/10/23 Range/Units 15:19 15:19 15:19 WBC 18.8 H (3.8-10.6) k/uL RBC 5.13 (3.80-5.40) m/uL Hgb 15.5 (11.4-16.0) gm/dL Hct 46.5 H (34.0-46.0) % MCV 90.6 (80.0-100.0) fL MCH 30.2 (25.0-35.0) pg MCHC 33.4 (31.0-37.0) g/dL RDW 13.0 (11.5-15.5) % Plt Count 169 (150-450) k/uL MPV 8.8 Neutrophils % 94 % Lymphocytes % 2 % Monocytes % 2 % Eosinophils % 2 % Basophils % 0 % Neutrophils # 17.6 H (1.3-7.7) k/uL Lymphocytes # 0.5 L (1.0-4.8) k/uL Monocytes # 0.3 (0-1.0) k/uL Eosinophils # 0.3 (0-0.7) k/uL Basophils # 0.0 (0-0.2) k/uL Sodium 131 L (137-145) mmol/L Potassium 3.9 (3.5-5.1) mmol/L Chloride 99 (98-107) mmol/L Carbon Dioxide 22 (22-30) mmol/L Anion Gap 10 mmol/L BUN 25 H (7-17) mg/dL Creatinine 0.61 (0.52-1.04) mg/dL Est GFR (CKD-EPI)AfAm >90 (>60 ml/min/1.73 sqM) Est GFR (CKD-EPI)NonAf >90 (>60 ml/min/1.73 sqM) Glucose 153 H (74-99) mg/dL Plasma Lactic Acid Farrukh 1.5 (0.7-2.0) mmol/L Calcium 9.4 (8.4-10.2) mg/dL Magnesium 2.0 (1.6-2.3) mg/dL Total Bilirubin 1.1 (0.2-1.3) mg/dL AST 34 (14-36) U/L ALT 53 H (4-34) U/L Alkaline Phosphatase 148 H (38-126) U/L Troponin I (0.000-0.034) ng/mL Total Protein 6.1 L (6.3-8.2) g/dL Albumin 3.2 L (3.5-5.0) g/dL Urine Color Urine Appearance (Clear) Urine pH (5.0-8.0) Ur Specific Bridger (1.001-1.035) Urine Protein (Negative) Urine Glucose (UA) (Negative) Urine Ketones (Negative) Urine Blood (Negative) Urine Nitrite (Negative) Urine Bilirubin (Negative) Urine Urobilinogen (<2.0) mg/dL Ur Leukocyte Esterase (Negative) Urine RBC (0-5) /hpf Urine WBC (0-5) /hpf Urine WBC Clumps (None) /hpf Ur Squamous Epith Cells (0-4) /hpf Urine Bacteria (None) /hpf Hyaline Casts (0-2) /lpf Urine Mucus (None) /hpf 08/10/23 08/10/23 Range/Units 15:19 20:10 WBC (3.8-10.6) k/uL RBC (3.80-5.40) m/uL Hgb (11.4-16.0) gm/dL Hct (34.0-46.0) % MCV (80.0-100.0) fL MCH (25.0-35.0) pg MCHC (31.0-37.0) g/dL RDW (11.5-15.5) % Plt Count (150-450) k/uL MPV Neutrophils % % Lymphocytes % % Monocytes % % Eosinophils % % Basophils % % Neutrophils # (1.3-7.7) k/uL Lymphocytes # (1.0-4.8) k/uL Monocytes # (0-1.0) k/uL Eosinophils # (0-0.7) k/uL Basophils # (0-0.2) k/uL Sodium (137-145) mmol/L Potassium (3.5-5.1) mmol/L Chloride (98-107) mmol/L Carbon Dioxide (22-30) mmol/L Anion Gap mmol/L BUN (7-17) mg/dL Creatinine (0.52-1.04) mg/dL Est GFR (CKD-EPI)AfAm (>60 ml/min/1.73 sqM) Est GFR (CKD-EPI)NonAf (>60 ml/min/1.73 sqM) Glucose (74-99) mg/dL Plasma Lactic Acid Farrukh (0.7-2.0) mmol/L Calcium (8.4-10.2) mg/dL Magnesium (1.6-2.3) mg/dL Total Bilirubin (0.2-1.3) mg/dL AST (14-36) U/L ALT (4-34) U/L Alkaline Phosphatase (38-126) U/L Troponin I 0.019 (0.000-0.034) ng/mL Total Protein (6.3-8.2) g/dL Albumin (3.5-5.0) g/dL Urine Color Red Urine Appearance Cloudy H (Clear) Urine pH 8.5 H (5.0-8.0) Ur Specific Bridger 1.023 (1.001-1.035) Urine Protein 3+ H (Negative) Urine Glucose (UA) Negative (Negative) Urine Ketones Negative (Negative) Urine Blood Negative (Negative) Urine Nitrite Positive H (Negative) Urine Bilirubin Negative (Negative) Urine Urobilinogen 3.0 (<2.0) mg/dL Ur Leukocyte Esterase Large H (Negative) Urine RBC 17 H (0-5) /hpf Urine WBC >182 H (0-5) /hpf Urine WBC Clumps Few H (None) /hpf Ur Squamous Epith Cells 2 (0-4) /hpf Urine Bacteria Many H (None) /hpf Hyaline Casts 8 H (0-2) /lpf Urine Mucus Many H (None) /hpf Disposition Clinical Impression: Urinary tract infection, Generalized weakness, Pneumonia Disposition: ADMITTED IP TO THIS HOSP [facility]-2 days [facility] [NON-STAFF] - Juanjose Montes DO [Primary Care Provider] - 08/19/23 1:45 pm [facility], [NON-STAFF] - 1-2 days Forms: Adult [facility]mediate List, Help In The Home Time of Disposition: 21:24
[2023-08-10 15:35] LABS: Basophils % (A) 0 %; Eosinophils # (A) 0.3 k/uL (0-0.7); Eosinophils % (A) 2 %; HCT 46.5 % (34.0-46.0); HGB 15.5 gm/dL (11.4-16.0); Lymphocytes # (A) 0.5 k/uL (1.0-4.8); Lymphocytes % (A) 2 %; MCH 30.2 pg (25.0-35.0); MCHC 33.4 g/dL (31.0-37.0); MCV 90.6 fL (80.0-100.0); Mean Platelet Volume 8.8; Monocytes # (A) 0.3 k/uL (0-1.0); Monocytes % (A) 2 %; Neutrophils # (A) 17.6 k/uL (1.3-7.7); Neutrophils % (A) 94 %; Platelet Count 169 k/uL (150-450); RBC 5.13 m/uL (3.80-5.40); WBC 18.8 k/uL (3.8-10.6)
[2023-08-10 15:44] LABS: ALT 53 U/L (4-34); AST 34 U/L (14-36); African American GFR (CKD) >90 (>60 ml/min/1.73 sqM); Albumin 3.2 g/dL (3.5-5.0); Alkaline Phosphatase 148 U/L (38-126); Anion Gap 10 mmol/L; Blood Urea Nitrogen 25 mg/dL (7-17); Calcium 9.4 mg/dL (8.4-10.2); Carbon Dioxide 22 mmol/L (22-30); Chloride 99 mmol/L (98-107); Glucose 153 mg/dL (74-99); Non-African American GFR(CKD) >90 (>60 ml/min/1.73 sqM); Potassium 3.9 mmol/L (3.5-5.1); Sodium 131 mmol/L (137-145); Total Bilirubin 1.1 mg/dL (0.2-1.3); Total Protein 6.1 g/dL (6.3-8.2)
--- NOTE | 2023-08-10 15:46 | XR ---
EXAMINATION TYPE: XR chest 2V DATE OF EXAM: 08/10/2023 3:41 PM COMPARISON: None TECHNIQUE: XR chest 2V Frontal and lateral views of the chest. CLINICAL INDICATION:Female, 68 years old with history of Weakness; FINDINGS: Lungs/Pleura: There is no evidence of pleural effusion or pneumothorax. Retrocardiac airspace opacity demonstrated. Pulmonary vascularity: Unremarkable. Heart/mediastinum: Cardiomediastinal silhouette is enlarged. Atherosclerotic calcifications are seen in the aorta. Musculoskeletal: No acute osseous pathology. IMPRESSION: Retrocardiac airspace opacity concerning for pneumonia.
--- NOTE | 2023-08-10 18:05 | US ---
EXAMINATION TYPE: US venous doppler duplex LE RT DATE OF EXAM: 08/10/2023 3:31 PM COMPARISON: NONE CLINICAL INDICATION: Female, 68 years old with history of Leg pain; Right leg pain x a couple hours. No hx of DVT. Takes baby aspirin daily SIDE PERFORMED: Right TECHNIQUE: The lower extremity deep venous system is examined utilizing real time linear array sonog candi with graded compression, doppler sonography and color-flow sonography. VESSELS IMAGED: Common Femoral Vein Deep Femoral Vein Greater Saphenous Vein * Femoral Vein Popliteal Vein Small Saphenous Vein * Proximal Calf Veins (* superficial vessels) Right Leg: No evidence for DVT IMPRESSION: 1. Right lower extremity ultrasound negative for deep venous thrombosis.
[2023-08-10] MEDS ORDERED: SODIUM CHLORIDE 0.9% 1,000 ML IV ONE (19:21)
[2023-08-10] MEDS ORDERED: RX INFO: IV CONTRAST WAS GIVEN 1 EACH MISC MISCELLANE PRN (20:09)
[2023-08-10 21:03] LABS: Appearance,Urine Cloudy (Clear); Bacteria,Urine Many /hpf; Bilirubin,Urine Negative (Negative); Blood,Urine Negative (Negative); Color,Urine Red; Glucose,Urine (UA) Negative (Negative); Hyaline Casts,Urine 8 /lpf (0-2); Ketones,Urine Negative (Negative); Leukocyte Esterase,Urine Large (Negative); Mucus,Urine Many /hpf; Nitrite,Urine Positive (Negative); PH, Urine 8.5 (5.0-8.0); Protein,Urine 3+ (Negative); RBC,Urine 17 /hpf (0-5); Specific Gravity,Urine 1.023 (1.001-1.035); Squamous Epithelial Cell,Urine 2 /hpf (0-4); WBC,Urine >182 /hpf (0-5)
[2023-08-10] MEDS ORDERED: cefTRIAXone IN SWFI 1,000 MG/10 ML SYRINGE IVP STA (21:11)
[2023-08-10] MEDS ORDERED: AZITHROMYCIN 500 MG in SODIUM CHLORIDE 0.9% 250 ML IVPB STA (21:14)
[2023-08-10] MEDS ORDERED: PNEUMONIA PROTOCOL UTILIZED 1 EACH MISC PO PRN (21:27)
--- NOTE | 2023-08-10 22:46 | CT ---
EXAMINATION TYPE: CT angio lower extremity RT DATE OF EXAM: 08/10/2023 COMPARISON: None INDICATION: Pt's family members state that pt lost feeling in right foot and the foot never regained sensation. DLP: 1429.8 mGycm, Automated exposure control for dose reduction was used. CONTRAST: 100 ml mL of Isovue 370. Study performed TECHNIQUE: 2 mm thick sections were obtained from the proximal abdominal aorta through the lower extr emity right-sided. There are portions of the abdomen and pelvis out of the field of view.. FINDINGS: Gallbladder is visualized and unremarkable. Portion of the liver and pancreas visualized are normal. Kidneys have symmetrical contrast. Renal artery origins appear normal. Abdominal aorta appears normal . Inferior vena cava is somewhat flattened. Degenerative disc changes present L5-S1. Anterior abdomin al wall hernia with mesenteric fat is present in the periumbilical region. Loops of bowel in the fiel d-of-view are normal. The appendix is normal. Few diverticuli within the colon. Bladder has a thicken ed wall. Small amount of air is within the nondependent urinary bladder. Anterior urinary bladder wal l may have enhancement. Uterus appears normal. Aortic bifurcation is normal. Common iliac vessels appear normal. Internal and external iliac vessels are patent. The right common femoral artery is patent to the bifurcation. Right Profunda femoris and superficial femoral artery reconstituted collateral vessels. Superficial femoral artery is patent to the obturator canal. There is some distal third superficial femoral artery narrowing due to plaquing . There is narrow caliber change in the popliteal artery with small amount of contrast present. The p roximal popliteal artery lacks obvious contrast. Trifurcation vessels with contrast are not identifie d. Delayed images were then obtained from the proximal popliteal artery which on the delayed images has contrast trifurcation vessels are ductal on the delayed images these extend to the distal third of th e calf. Anterior tibial and peroneal arteries are no longer visualized at this level. Posterior tibia l artery continues to the level of the ankle. Posterior tibial artery passing beyond the level of the ankle is not identified. Three-D reconstructed images are performed of the right lower extremity runoff IMPRESSION: 1. Obstruction of the proximal superficial femoral artery and profunda femoris which are reconstitut ed from collateral flow. 2. Slow contrast flow beyond the reconstituted superficial femoral artery with slow flow extending to the level of the ankle and the posterior tibial artery and within the mid to distal portions of the anterior tibial and peroneal arteries
[2023-08-10] MEDS ORDERED: ZINC OXIDE PASTE (Z-GUARD) 1 APPLIC APPLIC TOPICAL PRN (23:59)
--- NOTE | 2023-08-11 07:29 | XR ---
EXAMINATION TYPE: XR chest 2V DATE OF EXAM: 08/11/2023 6:27 AM CLINICAL INDICATION:Female, 68 years old with history of pneumonia; COMPARISON: Chest radiographs from 08/10/2023 TECHNIQUE: XR chest 2V Frontal and lateral views of the chest. FINDINGS: Lungs/Pleura: Airspace opacities projecting over the and spine on lateral view. There is no evidence of pleural effusion, or pneumothorax. Pulmonary vascularity: Unremarkable. Heart/mediastinum: Cardiomediastinal silhouette is unremarkable. Musculoskeletal: No acute osseous pathology. IMPRESSION: Airspace opacities projecting over the and spine on lateral view correlate for pneumonia.
[2023-08-11] MEDS ORDERED: KETOROLAC 15 MG/ML 1 ML VIAL IVP STA (08:36)
[2023-08-11] MEDS ORDERED: LACTATED RINGERS 500 ML IV SCH (10:00)
[2023-08-11] MEDS: LACTATED RINGERS 1,000 ML IV SCH ×2 (11:29→21:32)
--- NOTE | 2023-08-11 12:24 | P.GSCN ---
History of Present Illness Consult date: 08/11/23 Reason for Consult: Arterial insufficiency Requesting physician: Trevor Bruce History of present illness: This is a 68-year-old female who presented to the emergency department yesterday with complaints of right lower extremity pain and weakness. Her past medical history includes CVA, hyperlipidemia, hypertension, and ALS. She currently has difficult time speaking otherwise is alert and oriented and able to communicate by typing and answers to her phone. Nursing contacted vascular and PT evaluate patient and she has been crying out and patient complaining her right lower extremity is hurting. Apparently 2 days ago she started having pain in her upper thigh and 9 her right lower extremity began to go numb. She now complains of severe pain in her right foot and ankle. Yesterday evening she underwent CT angiogram of the right lower extremity which reported obstruction of the proximal SFA and profunda femoris which are reconstituted from collateral flow. Slow contrast will be on the reconstituted superficial femoral artery with slow flow extending to the level of the ankle and the posterior tibial artery and within the mid to distal portions of the anterior tibial and peritoneal arteries. Vascular surgery was consulted routinely for arterial insufficiency. When patient initially seen she is crying out to because of pain in her right foot and ankle. She is able to move her right lower extremity and has good sensation. She does have pain with palpation on the dorsal aspect of the right foot. And near her ankle. She denies any shortness of breath or chest pain no abdominal pain, nausea or vomiting. Past Medical History Past Medical History: CVA/TIA, Hearing Disorder / Deafness, Hyperlipidemia, Hypertension, Musculoskeletal Disorder, Osteoarthritis (OA) Additional Past Medical History / Comment(s): Osteoporosis. Sl varicose veins. BLE edema. thyriod nodule. 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 othropedic, thyroid biopsy Nov 2020, 4 years ago left ankle surgery, cataract both eyes Past Anesthesia/Blood Transfusion Reactions: No Reported Reaction Past Psychological History: Anxiety, Depression Smoking Status: Former smoker Past Alcohol Use History: Occasional Additional Past Alcohol Use History / Comment(s): Smoked 32.5 years, 1 ppd, quit 2000 Past Drug Use History: None Reported - Past Family History Mother Family Medical History: No Reported History Father Family Medical History: Congestive Heart Failure (CHF), Hypertension Medications and Allergies Home Medications Medication Instructions Recorded Confirmed Type Carboxymethylcellulose Sodium 1 drop BOTH EYES QID PRN 06/09/21 08/10/23 History [Refresh Tears] DULoxetine HCL [Cymbalta] 60 mg PO BID 06/09/21 08/10/23 History Ibuprofen [Motrin] 800 mg PO Q8HR PRN #30 tab 04/27/23 08/10/23 Rx Pantoprazole [Protonix] 40 mg PO DAILY 08/10/23 08/10/23 History Riluzole [Rilutek] 50 mg PO BID 08/10/23 08/10/23 History Simvastatin [Zocor] 40 mg PO DAILY 08/10/23 08/10/23 History amLODIPine [Norvasc] 10 mg PO DAILY 08/10/23 08/10/23 History lisinopriL [Zestril] 5 mg PO DAILY 08/10/23 08/10/23 History Allergies Allergy/AdvReac Type Severity Reaction Status Date / Time No Known Allergies Allergy Verified 08/10/23 16:05 Surgical - Exam Vital Signs Temp Pulse Resp BP Pulse Ox 97.1 F L 87 18 111/80 95 08/10/23 14:43 08/10/23 14:43 08/10/23 14:43 08/10/23 14:43 08/10/23 14:43 General appearance: The patient is alert, oriented, she is crying out in pain. HET: Head is normocephalic and atraumatic. Pupils are equal and reactive. Neck: Supple. Heart: Regular. Lungs: Equal expansion, normal respiratory effort. Abdomen: Soft, nontender, nondistended. Extremities: Nonpalpable right lower extremity pulses. Foot cool to the touch, sensorimotor intact. Left foot warm to the touch good capillary refill with palpable DP pulse. Neurological: Patient has a lot, unable to speak. Results - Labs 08/10/23 15:19 08/10/23 15:19 Abnormal Lab Results - Last 24 Hours (Table) 08/10/23 08/10/23 08/10/23 Range/Units 15:19 15:19 20:10 WBC 18.8 H (3.8-10.6) k/uL Hct 46.5 H (34.0-46.0) % Neutrophils # 17.6 H (1.3-7.7) k/uL Lymphocytes # 0.5 L (1.0-4.8) k/uL Sodium 131 L (137-145) mmol/L BUN 25 H (7-17) mg/dL Glucose 153 H (74-99) mg/dL ALT 53 H (4-34) U/L Alkaline Phosphatase 148 H (38-126) U/L Total Protein 6.1 L (6.3-8.2) g/dL Albumin 3.2 L (3.5-5.0) g/dL Urine Appearance Cloudy H (Clear) Urine pH 8.5 H (5.0-8.0) Urine Protein 3+ H (Negative) Urine Nitrite Positive H (Negative) Ur Leukocyte Esterase Large H (Negative) Urine RBC 17 H (0-5) /hpf Urine WBC >182 H (0-5) /hpf Urine WBC Clumps Few H (None) /hpf Urine Bacteria Many H (None) /hpf Hyaline Casts 8 H (0-2) /lpf Urine Mucus Many H (None) /hpf Diabetes panel 08/10/23 Range/Units 15:19 Sodium 131 L (137-145) mmol/L Potassium 3.9 (3.5-5.1) mmol/L Chloride 99 (98-107) mmol/L Carbon Dioxide 22 (22-30) mmol/L BUN 25 H (7-17) mg/dL Creatinine 0.61 (0.52-1.04) mg/dL Glucose 153 H (74-99) mg/dL Calcium 9.4 (8.4-10.2) mg/dL AST 34 (14-36) U/L ALT 53 H (4-34) U/L Alkaline Phosphatase 148 H (38-126) U/L Total Protein 6.1 L (6.3-8.2) g/dL Albumin 3.2 L (3.5-5.0) g/dL Calcium panel 08/10/23 Range/Units 15:19 Calcium 9.4 (8.4-10.2) mg/dL Albumin 3.2 L (3.5-5.0) g/dL Pituitary panel 08/10/23 Range/Units 15:19 Sodium 131 L (137-145) mmol/L Potassium 3.9 (3.5-5.1) mmol/L Chloride 99 (98-107) mmol/L Carbon Dioxide 22 (22-30) mmol/L BUN 25 H (7-17) mg/dL Creatinine 0.61 (0.52-1.04) mg/dL Glucose 153 H (74-99) mg/dL Calcium 9.4 (8.4-10.2) mg/dL Adrenal panel 08/10/23 Range/Units 15:19 Sodium 131 L (137-145) mmol/L Potassium 3.9 (3.5-5.1) mmol/L Chloride 99 (98-107) mmol/L Carbon Dioxide 22 (22-30) mmol/L BUN 25 H (7-17) mg/dL Creatinine 0.61 (0.52-1.04) mg/dL Glucose 153 H (74-99) mg/dL Calcium 9.4 (8.4-10.2) mg/dL Total Bilirubin 1.1 (0.2-1.3) mg/dL AST 34 (14-36) U/L ALT 53 H (4-34) U/L Alkaline Phosphatase 148 H (38-126) U/L Total Protein 6.1 L (6.3-8.2) g/dL Albumin 3.2 L (3.5-5.0) g/dL - Imaging Comments: CT angiogram of the right lower extremity which reported obstruction of the proximal SFA and profunda femoris which are reconstituted from collateral flow. Slow contrast will be on the reconstituted superficial femoral artery with slow flow extending to the level of the ankle and the posterior tibial artery and within the mid to distal portions of the anterior tibial and peritoneal arteries. Assessment and Plan Assessment: 1. Acute limb ischemia with Right SFA and profunda femoris occlusion 2. ALS 3. History hypertension hyperlipidemia 4. History of CVA Plan: 1. Keep patient nothing by mouth 2. Give IV bolus 500 mL lactated Ringer 3. Type and screen ordered 4. CT angiogram imaging reviewed by Dr. Child. Patient scheduled to undergo urgent right lower extremity angiogram with thrombolysis a possible thrombectomy. 5. Case discussed with patient's ALS physician Dr. Nabila Leigh Patient's consult was placed as routine by the ER physician Dr. Bruce for arterial insufficiency. The vascular surgeon Dr. Perez who was counterperson was never notified of consult last night. Thank you for this consultation, we will continue to follow. The impression and plan of care has been dictated as directed. Dr. Gibson I performed a history and examination of this patient, discussed the same with the dictator. I agree with the dictator's note ,documented as a scribe. Any additional findings or plans will be noted.
[2023-08-11] MEDS ORDERED: MIDAZOLAM 2 MG/2 ML VIAL IVP ONE (12:33)
[2023-08-11] MEDS ORDERED: LIDOCAINE 1% INJ 10MG/ML (30 ML VIAL-PF) SQ ONE (12:35)
[2023-08-11] MEDS ORDERED: LACTATED RINGERS 1,000 ML IV ONE (12:43)
[2023-08-11] MEDS ORDERED: ALTEPLASE 10 MG in SODIUM CHLORIDE 0.9% 50 ML MISCELLANE ONE (12:46)
--- NOTE | 2023-08-11 12:46 | P.HPIM ---
History of Present Illness H&P Date: 08/11/23 History of present illness; patient is 68-year-old lady with past medical histo ry negative for hypertension, ALS who presented to the ER because of generalized weakness. Patient noticed that patient has been getting weaker since Tuesday, unable to use her walker. Patient was having low-grade fevers but no chills. There was no chest pain or shortness of breath. On tuesday patient started complaining of severe thigh pain which was not relieved by pain medications. Patient was unable to ambulate or get up from a sitting position. Because of this, patient was brought to the ER Initial lab work done in the ER showed WBC 18.8, hemoglobin 15.5, platelet count was 9, sodium 131, potassium 3.9, BUN 25, creatinine 0.61, glucose 153, UA nitrite positive, large amount of leukocyte Estrace, urine WBC more than 182 CTA of the right leg showed obstruction of the proximal superficial femoral artery and profunda femoris patient reconstituted from collateral flow EKG done in the ER Right lower extremity duplex negative for DVT Chest x-ray done in the ER retrocardiac airspace opacity concerning for pneumonia Patient was admitted to medicine service, vascular surgery were consulted REVIEW OF SYSTEMS: Unable to obtain a Detailed review of systems because the patient ALS PHYSICAL EXAMINATION: GENERAL: The patient is alert, not in any acute distress. Well developed, well nourished. HEENT: Pupils are round and equally reacting to light. EOMI. No scleral icterus. No conjunctival pallor. Normocephalic, atraumatic. No pharyngeal erythema. No thyromegaly. CARDIOVASCULAR: S1 and S2 present. No murmurs, rubs, or gallops. PULMONARY: Chest is clear to auscultation, no wheezing or crackles. ABDOMEN: Soft, nontender, nondistended, normoactive bowel sounds. No palpable organomegaly. MUSCULOSKELETAL: No joint swelling or deformity. EXTREMITIES: Right leg cold to touch, right lower pulses are nonpalpable NEUROLOGICAL: Moving all extremities, has baseline ALS usually ambulates with walker SKIN: No rashes. Assessment and plan Sepsis UTI Acute limb ischemia of right leg Hypertension Hyperlipidemia History of ALS Monitor vital signs Monitor CBC Monitor CMP Continue telemetry monitoring Follow-up on blood cultures Continue IV Rocephin and azithromycin Resume home meds Consult vascular surgery, planning for intervention today Consult ID Labs and medication were reviewed.. Continue same treatment. Continue with symptomatic treatment. Resume home medication. Monitor labs and vitals. DVT and GI prophylaxis. Further recommendations as per clinical course of the patient Dictation was produced using [employer] dictation software. please excuse any grammatical, word or spelling errors. Past Medical History Past Medical History: CVA/TIA, Hearing Disorder / Deafness, Hyperlipidemia, Hypertension, Musculoskeletal Disorder, Osteoarthritis (OA) Additional Past Medical History / Comment(s): Osteoporosis. Sl varicose veins. BLE edema. thyriod nodule. 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 othropedic, thyroid biopsy Nov 2020, 4 years ago left ankle surgery, cataract both eyes Past Anesthesia/Blood Transfusion Reactions: No Reported Reaction Past Psychological History: Anxiety, Depression Smoking Status: Former smoker Past Alcohol Use History: Occasional Additional Past Alcohol Use History / Comment(s): Smoked 32.5 years, 1 ppd, quit 2000 Past Drug Use History: None Reported - Past Family History Mother Family Medical History: No Reported History Father Family Medical History: Congestive Heart Failure (CHF), Hypertension Medications and Allergies Home Medications Medication Instructions Recorded Confirmed Type Carboxymethylcellulose Sodium 1 drop BOTH EYES QID PRN 06/09/21 08/10/23 History [Refresh Tears] DULoxetine HCL [Cymbalta] 60 mg PO BID 06/09/21 08/10/23 History Ibuprofen [Motrin] 800 mg PO Q8HR PRN #30 tab 04/27/23 08/10/23 Rx Pantoprazole [Protonix] 40 mg PO DAILY 08/10/23 08/10/23 History Riluzole [Rilutek] 50 mg PO BID 08/10/23 08/10/23 History Simvastatin [Zocor] 40 mg PO DAILY 08/10/23 08/10/23 History amLODIPine [Norvasc] 10 mg PO DAILY 08/10/23 08/10/23 History lisinopriL [Zestril] 5 mg PO DAILY 08/10/23 08/10/23 History Allergies Allergy/AdvReac Type Severity Reaction Status Date / Time No Known Allergies Allergy Verified 08/10/23 16:05 Physical Exam Vitals: Vital Signs Temp Pulse Pulse Resp BP BP Pulse Ox 08/11/23 08:23 93 L 08/11/23 07:48 97.4 F L 68 16 107/67 94 L 08/11/23 02:17 96 F L 59 L 14 102/66 92 L 08/10/23 23:38 97.6 F 66 16 90 L 08/10/23 23:12 59 L 14 08/10/23 22:15 95.5 F L 08/10/23 21:28 75 18 108/74 94 L 08/10/23 20:00 20 87/67 93 L 08/10/23 19:00 20 83/63 90 L 08/10/23 18:00 18 97/70 91 L 08/10/23 17:17 75 18 93/68 92 L 08/10/23 16:00 18 104/74 90 L 08/10/23 14:43 97.1 F L 87 18 111/80 95 Intake and Output 08/10/23 08/11/23 08/11/23 22:59 06:59 14:59 Intake Total 300 Output Total 200 Balance 100 Intake: Oral 300 Output: Urine 200 Other: Voiding Method External Catheter External Catheter Weight 81.647 kg Results CBC & Chem 7: 08/10/23 15:19 08/10/23 15:19 Labs: Abnormal Lab Results - Last 24 Hours (Table) 08/10/23 08/10/23 08/10/23 Range/Units 15:19 15:19 20:10 WBC 18.8 H (3.8-10.6) k/uL Hct 46.5 H (34.0-46.0) % Neutrophils # 17.6 H (1.3-7.7) k/uL Lymphocytes # 0.5 L (1.0-4.8) k/uL Sodium 131 L (137-145) mmol/L BUN 25 H (7-17) mg/dL Glucose 153 H (74-99) mg/dL ALT 53 H (4-34) U/L Alkaline Phosphatase 148 H (38-126) U/L Total Protein 6.1 L (6.3-8.2) g/dL Albumin 3.2 L (3.5-5.0) g/dL Urine Appearance Cloudy H (Clear) Urine pH 8.5 H (5.0-8.0) Urine Protein 3+ H (Negative) Urine Nitrite Positive H (Negative) Ur Leukocyte Esterase Large H (Negative) Urine RBC 17 H (0-5) /hpf Urine WBC >182 H (0-5) /hpf Urine WBC Clumps Few H (None) /hpf Urine Bacteria Many H (None) /hpf Hyaline Casts 8 H (0-2) /lpf Urine Mucus Many H (None) /hpf Thrombosis Risk Factor Assmnt - Choose All That Apply Any of the Below Risk Factors Present?: No Other Risk Factors: Yes Each Risk Factor Represents 2 Points: Age 61-74 years Other congenital or acquired thrombophilia - If yes, enter type in comment: No Thrombosis Risk Factor Assessment Total Risk Factor Score: 2 Thrombosis Risk Factor Assessment Level: Low Risk
[2023-08-11] MEDS ORDERED: HEPARIN SODIUM 1,000 UN/ML (10ML VL) IVP ONE (13:00)
[2023-08-11] MEDS: fentaNYL (PF) 50 MCG/ML 2 ML AMP IVP ONE ×3 (13:32→14:20)
[2023-08-11] MEDS ORDERED: IOPAMIDOL-370 100ML BTL INJ ONE ×2 (13:39→14:01)
[2023-08-11] MEDS ORDERED: ALTEPLASE 2 MG VIAL (CATHFLO) IA STA (14:09)
[2023-08-11] MEDS: ALTEPLASE 10 MG in SODIUM CHLORIDE 0.9% 90 ML IA ONE ×2 (14:36→21:58)
[2023-08-11] MEDS ORDERED: SODIUM CHLORIDE 0.9% 1,000 ML IV SCH (14:45)
[2023-08-11 14:58] LABS: Glucose,Whole Blood 100 mg/dL (70-110)
--- NOTE | 2023-08-11 15:21 | P.OP ---
Date of Procedure: 08/11/23 Preoperative Diagnosis: embolic occlusion right distal external iliac and common femoral arterial segments with secondary advanced ischemia of the right lower extremity. Postoperative Diagnosis: Same. Procedure(s) Performed: 1: Ultrasound-guided cannulation left common femoral artery. 2: Selective right femoral angiogram. 3: AngioJet percutaneous mechanical thrombectomy external iliac, common femoral, profundus femoris, popliteal and anterior tibial artery right lower extremity. Anesthesia: local (With 0.5 mg of Versed and a total of 50 g of fentanyl administered IV.) Surgeon: Ceferino Gibson Estimated Blood Loss (ml): 250 Pathology: none sent Condition: stable Disposition: ICU (Per protocol) Indications for Procedure: Patient is a 68-year-old female with severe ALS who presented with a complaint of acute onset right lower extremity pain with decreased sensation and mobility of the right foot. Physical examination revealed absent femoral, popliteal and pedal pulses with decreased sensation and mobility of the right foot. Patient had undergone CT angiogram which demonstrated occlusion of the distal external iliac as well as common femoral and profundus femoris arterial segments. Because of the patient's ALS it was not felt the patient could tolerate signi ficant anesthesia/analgesia and the patient was also offered percutaneous mechanical thrombectomy. The procedure, risk and benefits were discussed with the patient and her family. Family granted consent. All questions were answered to everyone's satisfaction. Description of Procedure: Patient is brought to the cardiac medical lab assistant. Both groins were sterilely prepped and draped in usual manner. Patient did receive 0.5 mg of Versed for moderate conscious sedation purposes and this was bolstered by a total of 50 g of fentanyl administered during the case. 1% Xylocaine was utilized for local anesthesia tissues overlying the left femoral artery. Through this anesthetized area and with the aid of ultrasound a micropuncture needle was utilized candidate the artery. Once cannulated Softip guidewire was advanced. The needle was withdrawn and a micropuncture sheath and dilator advanced over the guidewire. Guidewire and dilator were removed and a 0 point of 35 inch guidewire was advanced. The sheath was withdrawn and replaced with a 6-Liberian sheath. Guidewire and pigtail catheter combination were utilized to select the origin of the right common iliac artery. Guidewire was advanced and the catheter was advanced into the distal common iliac artery. Guidewire was withdrawn and angiogram was performed. This demonstrated embolic-appearing thrombus in the distal external iliac as well as in the common and profundus femoris arteries with flow noted in the mid SFA from collateral vessels. It was decided to perform thrombolysis and percutaneous mechanical thrombectomy with AngioJet device. The guidewire was then advanced down and the SFA, the pigtail catheter was withdrawn and AngioJet was advanced under fluoroscopy into the area of occlusion. 10 mg of TPA was pulse sprayed into the thrombotic burden and it. Of 20 minutes was allowed to elapse. Thereafter AngioJet device was utilized for suction thrombectomy. This was followed by repeat angiogram. Residual thrombus was identified and eventually thrombus from both the profundus and superficial femoral arterial segments were cleared. Angiogram was performed of the popliteal and tibial vessels. Thrombus was noted at the popliteal level. This was likewise treated with AngioJet as was the tibial vessels. Completion angiography demonstrated the femoral popliteal segments to be normally patent with poor flow characteristics identified at the tibial level. Was decided that no further AngioJet would be appropriate and the AngioJet catheter was exchanged for TPA infusion catheter which was positioned at the distal popliteal level. 2 mg of TPA were instilled in this was to be followed by a continuous drip of TPA running at 1 mg per hour. The sheath was secured to the skin with nylon suture. Proper dressings were applied. Patient tolerated procedure well and was taken the intensive care unit per protocol of TPA infusion in satisfactory and stable condition. She indicated t hat her foot felt improved and significant capillary refill was noted with improvement in motor and sensory function also being identified. I discussed with the patient's ALS physicians her scenario. They indicated that no endotracheal anesthesia would be tolerated by the patient as she would not be able to be removed from the ventilator and that significant sedation would also compromised respiratory status. I discussed this with the patient's spouse. He decided to proceed with no code/intubation status for the patient. Total contrast volume: 50 ML's of Isovue 250. Total moderate conscious sedation time: 92 minutes. Total fluoroscopy time: 16.7 minutes.
[2023-08-11 16:05] LABS: Basophils % (A) 0 %; Eosinophils # (A) 0.4 k/uL (0-0.7); Eosinophils % (A) 3 %; HCT 39.6 % (34.0-46.0); HGB 13.2 gm/dL (11.4-16.0); Lymphocytes # (A) 0.4 k/uL (1.0-4.8); Lymphocytes % (A) 2 %; MCH 30.7 pg (25.0-35.0); MCHC 33.3 g/dL (31.0-37.0); MCV 92.3 fL (80.0-100.0); Mean Platelet Volume 9.8; Monocytes # (A) 0.3 k/uL (0-1.0); Monocytes % (A) 2 %; Neutrophils # (A) 13.5 k/uL (1.3-7.7); Neutrophils % (A) 93 %; Platelet Count 152 k/uL (150-450); RBC 4.29 m/uL (3.80-5.40); RDW 13.4 % (11.5-15.5); WBC 14.6 k/uL (3.8-10.6)
[2023-08-11 17:18] LABS: INR 1.1 (<1.2); Prothrombin Time 12.2 sec (10.0-12.5)
[2023-08-11 18:59] LABS: Basophils % (A) 0 %; Eosinophils # (A) 0.5 k/uL (0-0.7); Eosinophils % (A) 3 %; HCT 40.3 % (34.0-46.0); HGB 13.2 gm/dL (11.4-16.0); Lymphocytes # (A) 0.3 k/uL (1.0-4.8); Lymphocytes % (A) 2 %; MCH 30.3 pg (25.0-35.0); MCHC 32.8 g/dL (31.0-37.0); MCV 92.5 fL (80.0-100.0); Monocytes # (A) 0.3 k/uL (0-1.0); Monocytes % (A) 2 %; Neutrophils % (A) 93 %; Platelet Count 160 k/uL (150-450); RBC 4.36 m/uL (3.80-5.40); RDW 13.3 % (11.5-15.5); WBC 16.2 k/uL (3.8-10.6)
[2023-08-11] MEDS: AZITHROMYCIN 500 MG in SODIUM CHLORIDE 0.9% 250 ML IVPB SCH (20:21)
[2023-08-11] MEDS: HYDROmorphone 0.5 MG/0.5 ML SYRINGE IVP PRN (20:21)
[2023-08-11] MEDS: DULoxetine HCL 60 MG CAPSULE.DR PO SCH (21:31)
[2023-08-11] MEDS ORDERED: ALTEPLASE 10 MG in SODIUM CHLORIDE 0.9% 90 ML IA ONE (21:38)
--- NOTE | 2023-08-11 22:37 | P.CONS ---
History of Present Illness - Reason for Consult Consult date: 08/11/23 Sepsis, UTI, pneumonia Requesting physician: Beau Mccarthy - Chief Complaint Fever and weakness and right thigh pain x few days - History of Present Illness Patient is a 68-year-old female with a past medical his significant for ALS CVA TIA hypertension hyperlipidemia patient presenting to [facility] ER for evaluation of fever and weakness symptom has been going on for the last few days and the patient also have significant pain to the right thigh area describing it to be sharp moderate intensity and did not have significant improvement with the Motrin with these symptoms the patient was brought into the ER patient on presentation to the hospital was afebrile did have a low-grade fever of 95.5 patient was not significantly tachycardic or hypotensive did have vital of 18.8 with a left shift creatinine 0.61 liver isms are normal urine has been positive patient did have a chest x-ray retrocardiac opacity concerning for pneumonia she also have a venous Doppler negative for DVT lower extremity CTA did shows obstruction of the proximal superficial femoral artery and profunda femoris vascular surgery has been consulted patient was started on Rocephin and Zithromax concerning for pneumonia and UTI infectious was consulted for further management of antibiotic therapy patient currently denies having any headache or URI symptoms denies having any chest pain she did have a mild cough not bringing up any sputum no nausea vomiting no abdominal pain or diarrhea Review of Systems Positive point and negatives has been mentioned in the HPI, complete review of systems was performed and all other systems are negative Past Medical History Past Medical History: CVA/TIA, Hearing Disorder / Deafness, Hyperlipidemia, Hypertension, Musculoskeletal Disorder, Osteoarthritis (OA) Additional Past Medical History / Comment(s): Osteoporosis. Sl varicose veins. BLE edema. thyriod nodule. 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 othropedic, thyroid biopsy Nov 2020, 4 years ago left ankle surgery, cataract both eyes Past Anesthesia/Blood Transfusion Reactions: No Reported Reaction Past Psychological History: Anxiety, Depression Smoking Status: Former smoker Past Alcohol Use History: Occasional Additional Past Alcohol Use History / Comment(s): Smoked 32.5 years, 1 ppd, quit 2000 Past Drug Use History: None Reported - Past Family History Mother Family Medical History: No Reported History Father Family Medical History: Congestive Heart Failure (CHF), Hypertension Medications and Allergies Home Medications Medication Instructions Recorded Confirmed Type Carboxymethylcellulose Sodium 1 drop BOTH EYES QID PRN 06/09/21 08/10/23 History [Refresh Tears] DULoxetine HCL [Cymbalta] 60 mg PO BID 06/09/21 08/10/23 History Pantoprazole [Protonix] 40 mg PO DAILY 08/10/23 08/10/23 History Riluzole [Rilutek] 50 mg PO BID 08/10/23 08/10/23 History Simvastatin [Zocor] 40 mg PO DAILY 08/10/23 08/10/23 History lisinopriL [Zestril] 5 mg PO DAILY 08/10/23 08/10/23 History Apixaban [Eliquis] 5 mg PEG/G-TUBE BID tab 08/20/23 Rx Mag Hydrox/Al Hydrox/Simeth 30 ml PO Q4HR PRN ml 08/20/23 Rx [Maalox] Allergies Allergy/AdvReac Type Severity Reaction Status Date / Time No Known Allergies Allergy Verified 08/10/23 16:05 Physical Exam Vitals: Vital Signs Temp Pulse Pulse Resp BP BP Pulse Ox 08/11/23 08:23 93 L 08/11/23 07:48 97.4 F L 68 16 107/67 94 L 08/11/23 02:17 96 F L 59 L 14 102/66 92 L 08/10/23 23:38 97.6 F 66 16 90 L 08/10/23 23:12 59 L 14 08/10/23 22:15 95.5 F L 08/10/23 21:28 75 18 108/74 94 L 08/10/23 20:00 20 87/67 93 L 08/10/23 19:00 20 83/63 90 L 08/10/23 18:00 18 97/70 91 L 08/10/23 17:17 75 18 93/68 92 L 08/10/23 16:00 18 104/74 90 L 08/10/23 14:43 97.1 F L 87 18 111/80 95 Intake and Output 08/10/23 08/11/2323 22:59 06:59 14:59 Intake Total 300 Output Total 200 Balance 100 Intake: Oral 300 Output: Urine 200 Other: Voiding Method External Catheter External Catheter Weight 81.647 kg GENERAL DESCRIPTION: Elderly female lying in bed, no distress. No tachypnea or accessory muscle of respiration use. HEENT: Shows Pallor , no scleral icterus. Oral mucous membrane is dry. No pharyngeal erythema or thrush NECK: Trachea central, no thyromegaly. LUNGS: Unlabored breathing. Decreased breath sound at the bases HEART: S1, S2, regular rate and rhythm. No loud murmur ABDOMEN: Soft, no tenderness , EXTREMITIES: No edema of feet. SKIN: No rash, no masses palpable. NEUROLOGICAL: The patient is awake, alert, oriented x3, mood and affect normal. Results CBC & Chem 7: 08/18/23 02:16 08/18/23 02:16 Labs: Abnormal Lab Results - Last 24 Hours (Table) 08/10/23 08/10/23 08/10/23 Range/Units 15:19 15:19 20:10 WBC 18.8 H (3.8-10.6) k/uL Hct 46.5 H (34.0-46.0) % Neutrophils # 17.6 H (1.3-7.7) k/uL Lymphocytes # 0.5 L (1.0-4.8) k/uL Sodium 131 L (137-145) mmol/L BUN 25 H (7-17) mg/dL Glucose 153 H (74-99) mg/dL ALT 53 H (4-34) U/L Alkaline Phosphatase 148 H (38-126) U/L Total Protein 6.1 L (6.3-8.2) g/dL Albumin 3.2 L (3.5-5.0) g/dL Urine Appearance Cloudy H (Clear) Urine pH 8.5 H (5.0-8.0) Urine Protein 3+ H (Negative) Urine Nitrite Positive H (Negative) Ur Leukocyte Esterase Large H (Negative) Urine RBC 17 H (0-5) /hpf Urine WBC >182 H (0-5) /hpf Urine WBC Clumps Few H (None) /hpf Urine Bacteria Many H (None) /hpf Hyaline Casts 8 H (0-2) /lpf Urine Mucus Many H (None) /hpf Assessment and Plan (1) Pneumonia Current Visit: Yes Status: Acute Code(s): J18.9 - PNEUMONIA, UNSPECIFIED ORGANISM SNOMED Code(s): 072801111 (2) Urinary tract infection Current Visit: Yes Status: Acute Code(s): N39.0 - URINARY TRACT INFECTION, SITE NOT SPECIFIED SNOMED Code(s): 86900563 Plan: 1patient presented to hospital with fever did have elevated white count chest x-ray with retrocardiac opacity and did have a positive UA concerning for possible community-acquired pneumonia and a UTI in this patient not been on antibiotic in the recent past possibly sensitive pathogen 2-right lower extremity pain secondary to arterial occlusion vascular surgery on the case planning for tPA 3-we will try to obtain a sputum for Gram stain and culture 4-check inflammatory markers 5-continue with Rocephin and Zithromax We will follow on clinical condition and cultures to further adjust medication if needed Thank you for this consultation we will follow the patient along with you Dictation was produced using [employer] dictation software. please excuse any grammatical, word or spelling errors. Time with Patient: Greater than 30
[2023-08-11 23:57] LABS: Glucose,Whole Blood 116 mg/dL (70-110)
[2023-08-12 00:51] LABS: Basophils % (A) 0 %; Eosinophils # (A) 0.4 k/uL (0-0.7); Eosinophils % (A) 3 %; HCT 38.9 % (34.0-46.0); HGB 12.8 gm/dL (11.4-16.0); Lymphocytes # (A) 0.5 k/uL (1.0-4.8); Lymphocytes % (A) 4 %; MCH 30.3 pg (25.0-35.0); MCV 91.7 fL (80.0-100.0); Mean Platelet Volume 8.3; Monocytes # (A) 0.3 k/uL (0-1.0); Monocytes % (A) 2 %; Neutrophils # (A) 13.4 k/uL (1.3-7.7); Neutrophils % (A) 91 %; Platelet Count 163 k/uL (150-450); RBC 4.24 m/uL (3.80-5.40); RDW 13.3 % (11.5-15.5); WBC 14.7 k/uL (3.8-10.6)
[2023-08-12] MEDS: HYDROmorphone 0.5 MG/0.5 ML SYRINGE IVP PRN ×4 (02:08→22:36)
[2023-08-12] MEDS ORDERED: SODIUM CHLORIDE 0.9% 500 ML 500 ML IV ONE ×2 (02:30→06:30)
[2023-08-12 05:18] LABS: Basophils % (A) 0 %; Eosinophils # (A) 0.3 k/uL (0-0.7); Eosinophils % (A) 3 %; HGB 11.2 gm/dL (11.4-16.0); Lymphocytes # (A) 0.5 k/uL (1.0-4.8); Lymphocytes % (A) 5 %; MCH 29.7 pg (25.0-35.0); MCHC 32.2 g/dL (31.0-37.0); MCV 92.2 fL (80.0-100.0); Mean Platelet Volume 8.6; Monocytes # (A) 0.3 k/uL (0-1.0); Monocytes % (A) 3 %; Neutrophils # (A) 9.6 k/uL (1.3-7.7); Neutrophils % (A) 89 %; Platelet Count 158 k/uL (150-450); RBC 3.79 m/uL (3.80-5.40); RDW 13.4 % (11.5-15.5); WBC 10.8 k/uL (3.8-10.6)
[2023-08-12 05:25] LABS: ALT 43 U/L (4-34); AST 72 U/L (14-36); African American GFR (CKD) >90 (>60 ml/min/1.73 sqM); Alkaline Phosphatase 89 U/L (38-126); Anion Gap 6 mmol/L; Blood Urea Nitrogen 24 mg/dL (7-17); Calcium 8.2 mg/dL (8.4-10.2); Carbon Dioxide 21 mmol/L (22-30); Chloride 108 mmol/L (98-107); Glucose 93 mg/dL (74-99); Non-African American GFR(CKD) >90 (>60 ml/min/1.73 sqM); Potassium 3.6 mmol/L (3.5-5.1); Sodium 135 mmol/L (137-145); Total Bilirubin 1.1 mg/dL (0.2-1.3); Total Protein 4.3 g/dL (6.3-8.2)
[2023-08-12 05:52] LABS: Glucose,Whole Blood 101 mg/dL (70-110)
[2023-08-12] MEDS ORDERED: Potassium Replacement Protocol 1 EACH MISC MISCELLANE PRN (05:52)
[2023-08-12 06:03] LABS: Partial Thromboplastin Time 25.8 sec (22.0-30.0)
[2023-08-12] MEDS: POTASSIUM CHLORIDE 10 MEQ in WATER FOR INJECTION 1 100ML.BAG IVPB SCH ×2 (06:08→06:59)
[2023-08-12] MEDS: ALTEPLASE 10 MG in SODIUM CHLORIDE 0.9% 90 ML IA ONE (06:42)
[2023-08-12 06:45] LABS: HCT 38.9 % (34.0-46.0); HGB 12.1 gm/dL (11.4-16.0); MCH 28.7 pg (25.0-35.0); MCHC 31.2 g/dL (31.0-37.0); MCV 92.2 fL (80.0-100.0); Mean Platelet Volume 9.1; Platelet Count 176 k/uL (150-450); RBC 4.23 m/uL (3.80-5.40); RDW 13.7 % (11.5-15.5); WBC 15.9 k/uL (3.8-10.6)
[2023-08-12 06:52] LABS: INR 1.2 (<1.2); Prothrombin Time 12.6 sec (10.0-12.5)
[2023-08-12] MEDS ORDERED: LIDOCAINE 1% INJ 10MG/ML (20 ML MDV) ONE (07:14)
[2023-08-12] MEDS ORDERED: HEPARIN SODIUM 1,000 UN/ML (10ML VL) ONE (07:14)
[2023-08-12] MEDS ORDERED: IV FLUID CONTINUATION 1,000 ML IV ONE (07:19)
[2023-08-12] MEDS ORDERED: fentaNYL (PF) 50 MCG/ML 2 ML AMP ONE (07:34)
[2023-08-12] MEDS ORDERED: fentaNYL (PF) 50 MCG/ML 2 ML AMP IVP ONE (07:34)
[2023-08-12] MEDS ORDERED: IOPAMIDOL-370 100ML BTL INJ ONE (07:44)
--- NOTE | 2023-08-12 08:18 | P.OP ---
Date of Procedure: 08/12/23 Description of Procedure: Preoperative diagnosis: Acute limb ischemia, previous TPA initiation Postoperative diagnosis: Same Procedure: Injury grams via previously placed catheter Surgeon: Farrah Pringle D.O. EBL: 10 mL IV fluids: See records Urine output: See records Drains: None Complications: None immediately apparent Condition: Stable Operative indication and findings: Patient is a 68-year-old female who previously has initiation of TPA thrombolysis to her right lower extremity. She returns today for repeat evaluation Procedure in detail: Patient was brought to the special suite and placed supine position. The bilateral groins and previously placed catheter were prepped and draped in usual fashion. Preputial timeout was performed, all parties were in agreement. The wire was placed down the catheter and the catheter was exchanged. An angiogram was obtained via the catheter. This showed widely patent 3 vessel runoff to the foot. Drawback injury grams were performed showing a widely patent right iliofemoral, femoral-popliteal and popliteal systems. The catheters and wires removed. The sheath was removed after closure device deployment. Hemostasis was achieved with this and manual pressure. The patient tolerated the procedure well. She is a palpable DP pulse
--- NOTE | 2023-08-12 09:10 | IR ---
EXAMINATION TYPE: IR angio abdominal w runoff DATE OF EXAM: 08/12/2023 COMPARISON: NONE HISTORY: Fluoroscopy time. Fluoroscopy was provided to the referring clinician.
--- NOTE | 2023-08-12 09:11 | IR ---
EXAMINATION TYPE: IR mech remov intraluminal mat HISTORY: Fluoroscopy time Impression: 1. Fluoroscopy support provided to the referring physician.
[2023-08-12 11:45] LABS: Glucose,Whole Blood 99 mg/dL (70-110)
[2023-08-12] MEDS: PANTOPRAZOLE 40 MG TABLET PO SCH (12:03)
[2023-08-12] MEDS: lisinopriL 5 MG TAB PO SCH (12:03)
[2023-08-12] MEDS: ATORVASTATIN 20 MG TAB PO SCH (12:03)
[2023-08-12] MEDS: DULoxetine HCL 60 MG CAPSULE.DR PO SCH ×2 (12:03→20:28)
--- NOTE | 2023-08-12 13:01 | P.PN ---
Subjective Progress Note Date: 08/12/23 patient is 68-year-old lady with past medical history negative for hypertension, ALS who presented to the ER because of generalized weakness. Patient noticed that patient has been getting weaker since Tuesday, unable to use her walker. Patient was having low-grade fevers but no chills. There was no chest pain or shortness of breath. On tuesday patient started complaining of severe thigh pain which was not relieved by pain medications. Patient was unable to ambulate or get up from a sitting position. Because of this, patient was brought to the ER Initial lab work done in the ER showed WBC 18.8, hemoglobin 15.5, platelet count was 9, sodium 131, potassium 3.9, BUN 25, creatinine 0.61, glucose 153, UA nitrite positive, large amount of leukocyte Estrace, urine WBC more than 182 CTA of the right leg showed obstruction of the proximal superficial femoral artery and profunda femoris patient reconstituted from collateral flow EKG done in the ER Right lower extremity duplex negative for DVT Chest x-ray done in the ER retrocardiac airspace opacity concerning for pneumonia Patient was admitted to medicine service, vascular surgery were consulted 08/12. Patient seen and examined. Status post TPA, thrombolysis of right lower extremity. Patient was sitting upright in the bed, going for CTA and off today REVIEW OF SYSTEMS: CONSTITUTIONAL: No fever, no malaise,. CARDIOVASCULAR: No chest pain, no palpitations, no syncope. PULMONARY: No shortness of breath, no cough, GASTROINTESTINAL: No diarrhea, no nausea, no vomiting, no abdominal pain. NEUROLOGICAL: No headaches, no weakness, PHYSICAL EXAMINATION: GENERAL: The patient is alert and oriented x3, not in any acute distress. Well developed, well nourished. HEENT: Pupils are round and equally reacting to light. EOMI. No scleral icterus. No conjunctival pallor. Normocephalic, atraumatic. No pharyngeal erythema. No thyromegaly. CARDIOVASCULAR: S1 and S2 present. No murmurs, rubs, or gallops. PULMONARY: Chest is clear to auscultation, no wheezing or crackles. ABDOMEN: Soft, nontender, nondistended, normoactive bowel sounds. No palpable organomegaly. MUSCULOSKELETAL: No joint swelling or deformity. EXTREMITIES: No cyanosis, clubbing, or pedal edema. Right lower extremity warm, pulses palpable NEUROLOGICAL: Gross neurological examination did not reveal any focal deficits. SKIN: No rashes. Assessment and plan Sepsis UTI Acute limb ischemia of right leg Hypertension Hyperlipidemia History of ALS Monitor vital signs Monitor CBC Monitor CMP Continue telemetry monitoring Encourage use of incentive spirometer Follow-up on blood cultures Continue IV Rocephin and azithromycin Status post TPA, thrombolysis of right lower extremity Repeat CT abdominal aorta runoff ordered Started on Eliquis by vascular surgery ID following Labs and medication were reviewed.. Continue same treatment. Continue with symptomatic treatment. Resume home medication. Monitor labs and vitals. DVT and GI prophylaxis. Further recommendations as per clinical course of the p atient Dictation was produced using [employer] dictation software. please excuse any grammatical, word or spelling errors. Objective - Vital Signs Vital signs: Vital Signs Temp 98.3 F 08/12/23 04:00 Pulse 70 08/12/23 07:00 Resp 18 08/12/23 07:00 BP 83/56 08/12/23 06:00 Pulse Ox 90 L 08/12/23 07:00 FiO2 0 08/12/23 06:54 Intake & Output 08/11/23 08/12/23 08/12/23 18:59 06:59 18:59 Intake Total 222 2111.000 75 Output Total 50 545 Balance 172 1566.000 75 Weight 84.8 kg Intake: IV 222 1950 75 Alteplase 10 mg In Sodium 120 Chloride 0.9% 90 ml @ 1 MG/HR 10 mls/hr IA .Q10H ONE Rx#:[id number] Invasive Line 1 10 Lactated Ringers 1,000 ml 180 780 @ 60 mls/hr IV .[id number] [facility] Rx#:[id number] Sodium Chloride 0.9% 500 500 ml 500 ml @ 999 mls/hr IV .Q31M ONE Rx#:[id number] Sodium Chloride 0.9% 500 500 ml 500 ml @ 999 mls/hr IV .Q31M ONE Rx#:[id number] cefTRIAXone 2 gm In 50 Sodium Chloride 0.9% 50 ml @ 100 mls/hr IVPB Q24HR [facility] Rx#:[id number] Intake, IV Titration 161.000 Amount Alteplase 10 mg In Sodium 161.000 Chloride 0.9% 90 ml @ 1 MG/HR 10 mls/hr IA .Q10H ONE Rx#:[id number] Output: Urine 50 545 Other: Voiding Method External Catheter External Catheter # Voids 1 # Bowel Movements 0 0 ABP, PAP, CO, CI - Last Documented Arterial Blood Pressure 104/51 - Labs CBC & Chem 7: 08/12/23 06:27 08/12/23 04:54 Labs: Abnormal Lab Results - Last 24 Hours (Table) 08/11/23 08/11/23 08/11/23 Range/Units 15:31 18:28 23:56 WBC 14.6 H 16.2 H (3.8-10.6) k/uL RBC (3.80-5.40) m/uL Hgb (11.4-16.0) gm/dL Neutrophils # 13.5 H 15.0 H (1.3-7.7) k/uL Lymphocytes # 0.4 L 0.3 L (1.0-4.8) k/uL PT (10.0-12.5) sec INR (<1.2) Sodium (137-145) mmol/L Chloride (98-107) mmol/L Carbon Dioxide (22-30) mmol/L BUN (7-17) mg/dL POC Glucose (mg/dL) 116 H (70-110) mg/dL Calcium (8.4-10.2) mg/dL AST (14-36) U/L ALT (4-34) U/L Total Protein (6.3-8.2) g/dL Albumin (3.5-5.0) g/dL 08/12/23 08/12/23 08/12/23 Range/Units 00:32 04:54 04:54 WBC 14.7 H 10.8 H (3.8-10.6) k/uL RBC 3.79 L (3.80-5.40) m/uL Hgb 11.2 L (11.4-16.0) gm/dL Neutrophils # 13.4 H 9.6 H (1.3-7.7) k/uL Lymphocytes # 0.5 L 0.5 L (1.0-4.8) k/uL PT (10.0-12.5) sec INR (<1.2) Sodium 135 L (137-145) mmol/L Chloride 108 H (98-107) mmol/L Carbon Dioxide 21 L (22-30) mmol/L BUN 24 H (7-17) mg/dL POC Glucose (mg/dL) (70-110) mg/dL Calcium 8.2 L (8.4-10.2) mg/dL AST 72 H (14-36) U/L ALT 43 H (4-34) U/L Total Protein 4.3 L (6.3-8.2) g/dL Albumin 2.0 L (3.5-5.0) g/dL 08/12/23 08/12/23 Range/Units 06:27 06:27 WBC 15.9 H (3.8-10.6) k/uL RBC (3.80-5.40) m/uL Hgb (11.4-16.0) gm/dL Neutrophils # (1.3-7.7) k/uL Lymphocytes # (1.0-4.8) k/uL PT 12.6 H (10.0-12.5) sec INR 1.2 H (<1.2) Sodium (137-145) mmol/L Chloride (98-107) mmol/L Carbon Dioxide (22-30) mmol/L BUN (7-17) mg/dL POC Glucose (mg/dL) (70-110) mg/dL Calcium (8.4-10.2) mg/dL AST (14-36) U/L ALT (4-34) U/L Total Protein (6.3-8.2) g/dL Albumin (3.5-5.0) g/dL Microbiology - Last 24 Hours (Table) 08/10/23 15:00 Blood Culture - Preliminary Blood 08/10/23 15:19 Blood Culture - Preliminary Blood
--- NOTE | 2023-08-12 14:54 | CT ---
EXAMINATION TYPE: CT angio thor/abd pel aorta DATE OF EXAM: 08/12/2023 1:32 PM COMPARISON: 08/10/2023 HISTORY: Embolic occlusion external iliac amd common femoral CT DLP: 1418.10 mGycm Automated exposure control for dose reduction was used. TECHNIQUE: Performed without and with IV Contrast, patient injected with 100 ml mL of Isovue 300. . FINDINGS: There is underlying emphysematous changes with bilateral groundglass changes. Small bilateral effusio n and basilar atelectasis favored over pneumonia. Groundglass findings could be on the basis of mild venous congestion or pneumonitis. Atherosclerotic change of the thoracic aorta which is of normal caliber. Visualized central pulmonary arteries enhance normally. Heart is mildly enlarged. Trace pericardial fluid. Noncontrast imaging demonstrates contrast within the collecting system likely related to the recent a bdominal runoff angiogram. Correlate with renal function studies. The abdominal aorta is of normal caliber. There is a mild to moderate atherosclerotic changes with no evidence of filling defect, aneurysm or dissection. There is a mild atherosclerotic changes of the common iliac arteries bilaterally with no significant stenosis. There is mild right and moderate left internal iliac atherosclerotic disease. The external iliac arteries are patent bilaterally. There is mild to moderate atherosclerotic plaque at the level of the common femoral artery and proximal SFA measuring approximately 40% stenosis. Abno rmal soft tissue attenuation in the adjacent soft tissues likely represent recent procedure particula rly on the left. Correlate clinically. There is approximate 40% soft plaque seen involving the proximal right SFA with long segmental involv ement. The celiac trunk, SMA, TEAGAN all appear to be patent. Assessment of portal vein limited due to phase of imaging. There is a small fat-containing periumbilical anterior abdominal wall hernia. A bladder wall is thickened. There are prominent small bowel loops in the abdomen could be related to localized ileus. There is hypertrophic and degenerative change of the spine with severe changes and vacuum disc at L4-5 and L5-S1. Foraminal encroachment and canal stenosis suspected. Bilateral hip arthropathy. Atrophy of the pancreas. Adrenal gland thickening greater on the right mos t likely in the basis of hyperplasia. Gallbladder is distended but no definite gallstones. Heterogeneous enhancement of spleen likely is re lated to the phase of imaging. Liver is somewhat low in attenuation. Mild hepatic steatosis in the di fferential diagnosis. There is a small hiatal hernia. There is bilateral heterogeneous enhancement of the kidneys. There is a focal area of localized fat a ttenuation involving the upper pole compatible with a small lipoma or angiomyolipoma. Areas of dimini shed enhancement are seen particularly involving the lower pole left kidney. Differential diagnosis w ould include renal infarct. A pyelonephritis or focal bacterial nephritis also the differential diagn osis. Small hypoattenuating reduced enhancement involving the right kidney measures less than a centi meter and is too small to characterize. I could be potentially related to renal cysts. Diverticulosis of the colon . IMPRESSION: 1. The visualized aorta and iliac vasculature is patent. 2. There is abnormal hypoattenuation involving the lower pole of the left kidney and smaller areas wi thin the right kidney. The main renal artery is patent bilaterally. Differential differential diagnos is would include renal infarct or pyelonephritis. 3. Bladder wall thickening correlate for cystitis. 4. Gallbladder hydrops but no CT evidence of cholelithiasis\cholecystitis. 5. Small bilateral pleural effusions with basilar atelectasis. There are groundglass changes involvin g the upper lobes which could be on the basis of respiratory motion. A mild pneumonitis or less likel y venous congestion in the differential diagnosis.
[2023-08-12] MEDS: LACTATED RINGERS 1,000 ML IV SCH (15:15)
--- NOTE | 2023-08-12 17:41 | CA ---
Transthoracic Echo Report Name: Maricruz Santana Age: 68 Gender: F : 1955 Exam Date: 08/12/2023 16:10 Exam Location: [facility] Ht (in): 67 Wt (lb): 180 Ordering Physician: Shelly Amador Attending/Referring Phys: [employer] Agent Michelle Hayden RDCS Procedure CPT: Indications: possible embolic cardiac source Cardiac Hx: Technical Quality: Fair Contrast 1: Total Dose (mL): Contrast 2: Total Dose (mL): MEASUREMENTS (Male / Female) Normal Values 2D ECHO LV Diastolic Diameter PLAX 4.8 cm 4.2 - 5.9 / 3.9 - 5.3 cm LV Systolic Diameter PLAX 3.3 cm IVS Diastolic Thickness 1.0 cm 0.6 - 1.0 / 0.6 - 0.9 cm LVPW Diastolic Thickness 1.0 cm 0.6 - 1.0 / 0.6 - 0.9 cm LV Relative Wall Thickness 0.4 RV Internal Dim ED PLAX 3.0 cm LA Systolic Diameter LX 3.3 cm 3.0 - 4.0 / 2.7 - 3.8 cm LV Diastolic Volume MOD BP 68.7 cm??? 67 - 155 / 56 - 104 cm??? LV Systolic Volume MOD BP 38.2 cm??? 22 - 58 / 19 - 49 cm??? LV Ejection Fraction MOD BP 44.5 % >= 55 % LV Cardiac Index MOD BP 1047.3 cm???/min???m??? LV Diastolic Volume MOD 4C 86.8 cm??? LV Systolic Volume MOD 4C 40.5 cm??? LV Ejection Fraction MOD 4C 53.4 % LV Cardiac Index MOD 4C 1587.0 cm???/min???m??? LV Diastolic Length 4C 7.5 cm LV Systolic Length 4C 6.5 cm LV Diastolic Volume MOD 2C 53.3 cm??? LV Systolic Volume MOD 2C 34.3 cm??? LV Ejection Fraction MOD 2C 35.7 % LV Cardiac Index MOD 2C 652.4 cm???/min???m??? LV Diastolic Length 2C 7.1 cm LV Systolic Length 2C 6.1 cm LA Volume 42.7 cm??? 18 - 58 / 22 - 52 cm??? LA Volume Index 21.5 cm???/m??? 16 - 28 cm???/m??? M-MODE Aortic Root Diameter MM 3.2 cm MV E Point Septal Separation 0.9 cm AV Cusp Separation MM 2.2 cm DOPPLER AV Peak Velocity 120.6 cm/s AV Peak Gradient 5.8 mmHg MV Area PHT 3.0 cm??? Mitral E Point Velocity 59.2 cm/s Mitral A Point Velocity 86.9 cm/s Mitral E to A Ratio 0.7 MV Deceleration Time 254.3 ms MV E' Velocity 4.8 cm/s Mitral E to MV E' Ratio 12.3 TR Peak Velocity 223.2 cm/s TR Peak Gradient 19.9 mmHg Right Ventricular Systolic Press 24.7 mmHg FINDINGS Left Ventricle Left ventricular ejection fraction is estimated at 50-55 %. Normal left ventricular wall motion. Left ventricular cavity size normal. Normal left ventricular diastolic filling pattern. Right Ventricle Normal right ventricular sizeright ventricular systolic pressure within normal limits. . Right Atrium Normal right atrial size. Left Atrium Normal left atrial size. Mitral Valve Structurally normal mitral valve. No mitral stenosis, regurgitation or prolapse. Aortic Valve Trileaflet aortic valve. No aortic valve stenosis or regurgitation. Tricuspid Valve Structurally normal tricuspid valve. Trace to mild tricuspid regurgitation. Pulmonic Valve Pulmonic valve not well visualized. No pulmonic regurgitation. Pericardium No pericardial effusion. Aorta Normal size aortic root and proximal ascending aorta. CONCLUSIONS 1. Left ventricular systolic function borderline normal 2. Limited Doppler study trace to mild tricuspid regurgitation Previewed by: Dr. Jovany Gandara MD (Electronically Signed) Final Date: 12 August 2023 17:40
[2023-08-12] MEDS: APIXABAN 5 MG TAB PO SCH (20:28)
[2023-08-12] MEDS: AZITHROMYCIN 500 MG in SODIUM CHLORIDE 0.9% 250 ML IVPB SCH (20:28)
--- NOTE | 2023-08-12 21:59 | P.PN ---
Subjective Progress Note Date: 08/12/23 Principal diagnosis: UTI/Pneumonia Patient is a 68-year-old female with a past medical his significant for ALS CVA TIA hypertension hyperlipidemia patient presenting to [facility] ER for evaluation of fever and weakness, patient also have a pain to the right thigh and did have evidence of obstruction of the possums with failure of oral artery in this patient who is status post ultrasound-guided cannulation of the left femoral artery and eject percutaneous mechanical thrombectomy by vascular surgery patient did have a positive UA concerning for UTI and a qu estion of pneumonia. On today's evaluation that is 08/12/2023 the patient did have a fever of 100.2 l ast night the patient is afebrile this morning patient is breathing comfortably on room air patient denies having any chest pain or shortness with occasional cough no abdominal pain or diarrhea. Patient did have a white count of 15.9 creatinine 0.65 cultures are currently pending Objective - Vital Signs Vital signs: Vital Signs Temp 97.9 F 08/12/23 09:00 Pulse 74 08/12/23 10:00 Resp 17 08/12/23 10:00 BP 93/54 08/12/23 10:00 Pulse Ox 91 L 08/12/23 10:00 FiO2 0 08/12/23 06:54 Intake & Output 08/11/23 08/12/23 08/12/23 18:59 06:59 18:59 Intake Total 222 2111.000 305 Output Total 50 545 0 Balance 172 1566.000 305 Weight 84.8 kg Intake: IV 222 1950 305 Alteplase 10 mg In Sodium 120 Chloride 0.9% 90 ml @ 1 MG/HR 10 mls/hr IA .Q10H ONE Rx#:[id number] Invasive Line 1 10 Lactated Ringers 1,000 ml 180 780 180 @ 60 mls/hr IV .[id number] [facility] Rx#:[id number] Sodium Chloride 0.9% 500 500 ml 500 ml @ 999 mls/hr IV .Q31M ONE Rx#:[id number] Sodium Chloride 0.9% 500 500 ml 500 ml @ 999 mls/hr IV .Q31M ONE Rx#:[id number] cefTRIAXone 2 gm In 50 50 Sodium Chloride 0.9% 50 ml @ 100 mls/hr IVPB Q24HR [facility] Rx#:[id number] Intake, IV Titration 161.000 Amount Alteplase 10 mg In Sodium 161.000 Chloride 0.9% 90 ml @ 1 MG/HR 10 mls/hr IA .Q10H ONE Rx#:[id number] Output: Urine 50 545 0 Other: Voiding Method External Catheter External Catheter External Catheter # Voids 1 # Bowel Movements 0 0 ABP, PAP, CO, CI - Last Documented Arterial Blood Pressure 104/51 - Exam GENERAL DESCRIPTION: Elderly female lying in bed in no distress RESPIRATORY SYSTEM: Unlabored breathing , decreased breath sounds at bases HEART: S1 S2 regular rate and rhythm ,no loud murmurs ABDOMEN: Soft , no tenderness EXTREMITIES: No edema feet - Labs CBC & Chem 7: 08/12/23 06:27 08/12/23 04:54 Labs: Abnormal Lab Results - Last 24 Hours (Table) 08/11/23 08/11/23 08/11/23 Range/Units 15:31 18:28 23:56 WBC 14.6 H 16.2 H (3.8-10.6) k/uL RBC (3.80-5.40) m/uL Hgb (11.4-16.0) gm/dL Neutrophils # 13.5 H 15.0 H (1.3-7.7) k/uL Lymphocytes # 0.4 L 0.3 L (1.0-4.8) k/uL PT (10.0-12.5) sec INR (<1.2) Sodium (137-145) mmol/L Chloride (98-107) mmol/L Carbon Dioxide (22-30) mmol/L BUN (7-17) mg/dL POC Glucose (mg/dL) 116 H (70-110) mg/dL Calcium (8.4-10.2) mg/dL AST (14-36) U/L ALT (4-34) U/L Total Protein (6.3-8.2) g/dL Albumin (3.5-5.0) g/dL 08/12/23 08/12/23 08/12/23 Range/Units 00:32 04:54 04:54 WBC 14.7 H 10.8 H (3.8-10.6) k/uL RBC 3.79 L (3.80-5.40) m/uL Hgb 11.2 L (11.4-16.0) gm/dL Neutrophils # 13.4 H 9.6 H (1.3-7.7) k/uL Lymphocytes # 0.5 L 0.5 L (1.0-4.8) k/uL PT (10.0-12.5) sec INR (<1.2) Sodium 135 L (137-145) mmol/L Chloride 108 H (98-107) mmol/L Carbon Dioxide 21 L (22-30) mmol/L BUN 24 H (7-17) mg/dL POC Glucose (mg/dL) (70-110) mg/dL Calcium 8.2 L (8.4-10.2) mg/dL AST 72 H (14-36) U/L ALT 43 H (4-34) U/L Total Protein 4.3 L (6.3-8.2) g/dL Albumin 2.0 L (3.5-5.0) g/dL 08/12/23 08/12/23 Range/Units 06:27 06:27 WBC 15.9 H (3.8-10.6) k/uL RBC (3.80-5.40) m/uL Hgb (11.4-16.0) gm/dL Neutrophils # (1.3-7.7) k/uL Lymphocytes # (1.0-4.8) k/uL PT 12.6 H (10.0-12.5) sec INR 1.2 H (<1.2) Sodium (137-145) mmol/L Chloride (98-107) mmol/L Carbon Dioxide (22-30) mmol/L BUN (7-17) mg/dL POC Glucose (mg/dL) (70-110) mg/dL Calcium (8.4-10.2) mg/dL AST (14-36) U/L ALT (4-34) U/L Total Protein (6.3-8.2) g/dL Albumin (3.5-5.0) g/dL Microbiology - Last 24 Hours (Table) 08/10/23 15:00 Blood Culture - Preliminary Blood 08/10/23 15:19 Blood Culture - Preliminary Blood Assessment and Plan (1) Pneumonia Current Visit: Yes Status: Acute Code(s): J18.9 - PNEUMONIA, UNSPECIFIED ORGANISM SNOMED Code(s): 902590042 (2) Urinary tract infection Current Visit: Yes Status: Acute Code(s): N39.0 - URINARY TRACT INFECTION, SITE NOT SPECIFIED SNOMED Code(s): 98493172 Plan: 1patient presented to hospital with fever did have elevated white count chest x-ray with retrocardiac opacity and did have a positive UA concerning for possible community-acquired pneumonia and a UTI in this patient not been on antibiotic in the recent past possibly sensitive pathogen 2-Pt to -continue with Rocephin and Zithromax while waiting for the cultures to finalize Dictation was produced using [employer]ation software. please excuse any grammatical, word or spelling errors.
[2023-08-13] MEDS: HYDROmorphone 0.5 MG/0.5 ML SYRINGE IVP PRN ×4 (04:30→23:56)
[2023-08-13] MEDS: LACTATED RINGERS 1,000 ML IV SCH (06:14)
[2023-08-13 06:31] LABS: Basophils % (A) 0 %; Eosinophils # (A) 0.6 k/uL (0-0.7); Eosinophils % (A) 6 %; HCT 32.3 % (34.0-46.0); HGB 10.5 gm/dL (11.4-16.0); Lymphocytes # (A) 0.6 k/uL (1.0-4.8); Lymphocytes % (A) 6 %; MCHC 32.7 g/dL (31.0-37.0); MCV 91.8 fL (80.0-100.0); Mean Platelet Volume 8.4; Monocytes # (A) 0.4 k/uL (0-1.0); Monocytes % (A) 4 %; Neutrophils # (A) 8.7 k/uL (1.3-7.7); Neutrophils % (A) 84 %; Platelet Count 202 k/uL (150-450); RBC 3.51 m/uL (3.80-5.40); RDW 13.9 % (11.5-15.5); WBC 10.5 k/uL (3.8-10.6)
[2023-08-13 07:03] LABS: African American GFR (CKD) >90 (>60 ml/min/1.73 sqM); Anion Gap 6 mmol/L; Blood Urea Nitrogen 22 mg/dL (7-17); Calcium 8.5 mg/dL (8.4-10.2); Carbon Dioxide 23 mmol/L (22-30); Chloride 106 mmol/L (98-107); Glucose 96 mg/dL (74-99); Magnesium 1.8 mg/dL (1.6-2.3); Non-African American GFR(CKD) >90 (>60 ml/min/1.73 sqM); Potassium 3.7 mmol/L (3.5-5.1); Sodium 135 mmol/L (137-145)
[2023-08-13] MEDS: lisinopriL 5 MG TAB PO SCH (08:33)
[2023-08-13] MEDS: APIXABAN 5 MG TAB PO SCH ×2 (08:37→21:00)
[2023-08-13] MEDS: ATORVASTATIN 20 MG TAB PO SCH (08:37)
[2023-08-13] MEDS: DULoxetine HCL 60 MG CAPSULE.DR PO SCH ×2 (08:37→21:00)
[2023-08-13] MEDS: PANTOPRAZOLE 40 MG TABLET PO SCH (08:37)
[2023-08-13] MEDS ORDERED: POTASSIUM CHLORIDE ER 20 MEQ TAB.ER PO SCH (09:00)
--- NOTE | 2023-08-13 09:43 | P.CRDCN ---
History of Present Illness Consult date: 08/13/23 History of present illness: History of Present Illness: The patient is a 68-year-old female who presented with symptoms of fever, progressive weakness and right lower extremity discomfort, was found to have acute arterial obstruction and underwent thrombectomy. Cardiology consultation was requested. The patient has a known history of hypertension, CVA and ALS diagnosed 4 weeks ago, followed at [facility] who has been progressively fatigued according to the with decrease ambulation. She has no documented history of CHF or prior ischemic heart disease. She has no history of documented arrhythmia. She has no prior history of PND, orthopnea or peripheral edema. Since her admission she has been in sinus mechanism with no evidence of atrial fibrillation. She underwent AngioJet thrombectomy was infusion of TPA, the catheters were removed yesterday. She had an echocardiogram that showed an ejection fraction of 50-55% with a limited Doppler study. She has a history of hypertension and hyperlipidemia, she is nondiabetic nonsmoker. Medications: Lisinopril 5 mg daily, simvastatin 40 mg daily, amlodipine 10 mg daily, Cymbalta, Riluzole 50 mg twice a day Review of Systems: Respiratory: No history of asthma, bronchitis or recent cough. GI: No nausea or vomiting . No history of peptic ulcer disease. No recent GI bleed. : No hematuria or dysuria. Nervous System: She has a history of CVA and ALS with progressive weakness Physical Examination: 68-year-old female, appears older than stated age, with a distorted speech ,Blood pressure 99/60, Heart rate 80 Head: Normocephalic. Eyes: Sclerae nonicteric. Neck: Good carotid upstroke, no bruit, no jugular venous distention. Lungs: Clear to auscultation. Heart: Regular rate and rhythm, S1-S2, no S3, no rub. No murmur. Abdomen: Soft nontender, positive bowel sounds no organomegaly. Extremities: +1 edema, intact distal pulses. Labs: Hemoglobin 10.5, BUN 22, creatinine 0.57. Lower extremity CT angiogram on presentation showed obstruction of the proximal SFA and profunda EKG: Sinus mechanism with LVH, poor R-wave progression Impression: 1. Acute obstruction of the right SFA status post thrombectomy 2. History of CVA 3. History of ALS 4. History of hypertension 5. History of hyperlipidemia Plan: 1. There is no clear evidence to suggest cardiac etiology to her peripheral occlusion. The patient is in sinus mechanism and there is no evidence of cardiomyopathy. In view of her history of ALS I feel that she is a high risk to her JAVED and I would recommend to continue anticoagulation as initiated 2. Continue statin 3. Decrease JOHNY inhibitor 4. Follow blood pressure 5. Depending on her progress further recommendations will be made, thank you for this consult we will follow with you Past Medical History Past Medical History: CVA/TIA, Hearing Disorder / Deafness, Hyperlipidemia, Hypertension, Musculoskeletal Disorder, Osteoarthritis (OA) Additional Past Medical History / Comment(s): Osteoporosis. Sl varicose veins. BLE edema. thyriod nodule. cva 2018 causing left sided deficits and slowed sp eech and again in October 2020 causing very difficult to understand speech History of Any Multi-Drug Resistant Organisms: None Reported Past Surgical History: Breast Surgery, Orthopedic Surgery, Tubal Ligation Additional Past Surgical History / Comment(s): Lt Breast biopsy x3. othropedic, thyroid biopsy Nov 2020, 4 years ago left ankle surgery, cataract both eyes Past Anesthesia/Blood Transfusion Reactions: No Reported Reaction Past Psychological History: Anxiety, Depression Smoking Status: Former smoker Past Alcohol Use History: Occasional Additional Past Alcohol Use History / Comment(s): Smoked 32.5 years, 1 ppd, quit 2000 Past Drug Use History: None Reported - Past Family History Mother Family Medical History: No Reported History Father Family Medical History: Congestive Heart Failure (CHF), Hypertension Medications and Allergies Home Medications Medication Instructions Recorded Confirmed Type Carboxymethylcellulose Sodium 1 drop BOTH EYES QID PRN 06/09/21 08/10/23 History [Refresh Tears] DULoxetine HCL [Cymbalta] 60 mg PO BID 06/09/21 08/10/23 History Ibuprofen [Motrin] 800 mg PO Q8HR PRN #30 tab 04/27/23 08/10/23 Rx Pantoprazole [Protonix] 40 mg PO DAILY 08/10/23 08/10/23 History Riluzole [Rilutek] 50 mg PO BID 08/10/23 08/10/23 History Simvastatin [Zocor] 40 mg PO DAILY 08/10/23 08/10/23 History amLODIPine [Norvasc] 10 mg PO DAILY 08/10/23 08/10/23 History lisinopriL [Zestril] 5 mg PO DAILY 08/10/23 08/10/23 History Allergies Allergy/AdvReac Type Severity Reaction Status Date / Time No Known Allergies Allergy Verified 08/10/23 16:05 Physical Exam Vitals: Vital Signs Temp Pulse Resp BP Pulse Ox 08/13/23 07:47 92 L 08/13/23 07:00 84 17 99/60 91 L 08/13/23 06:00 66 18 94/46 91 L 08/13/23 05:00 69 14 99/57 91 L 08/13/23 04:00 98 F 76 15 84/54 92 L 08/13/23 03:00 70 17 85/59 91 L 08/13/23 02:00 69 14 89/60 92 L 08/13/23 01:00 69 15 92/65 92 L 08/13/23 00:00 97.7 F 76 17 90/58 92 L 08/12/23 23:00 78 18 101/74 94 L 08/12/23 22:00 87 18 98/48 91 L 08/12/23 21:00 87 24 92/55 91 L 08/12/23 20:00 98.3 F 73 17 94/57 92 L 08/12/23 19:00 78 17 91/52 91 L 08/12/23 18:00 78 19 105/73 94 L 08/12/23 17:00 76 22 110/78 91 L 08/12/23 16:00 84 11 L 112/68 93 L 08/12/23 15:00 86 28 H 122/76 94 L 08/12/23 14:00 84 15 92 L 08/12/23 13:02 76 16 93/54 93 L 08/12/23 12:00 97.9 F 80 21 92/55 92 L 08/12/23 11:00 72 18 96/50 92 L 08/12/23 10:00 74 17 93/54 91 L Intake and Output 08/12/23 08/13/23 08/13/23 22:59 06:59 14:59 Intake Total 970 480 60 Output Total 350 100 Balance 620 380 60 Intake: IV 730 480 60 Azithromycin 500 mg In 250 Sodium Chloride 0.9% 250 ml @ 250 mls/hr IVPB DAILY@2100 [facility] Rx#: [id number] Lactated Ringers 1,000 ml 480 480 60 @ 60 mls/hr IV .[id number] [facility] Rx#:[id number] Oral 240 Output: Urine 350 100 Other: Voiding Method External Catheter External Catheter # Voids 1 1 Weight 84 kg Results 08/13/23 06:13 08/13/23 06:13 CBC 08/13/23 Range/Units 06:13 WBC 10.5 (3.8-10.6) k/uL RBC 3.51 L (3.80-5.40) m/uL Hgb 10.5 L (11.4-16.0) gm/dL Hct 32.3 L (34.0-46.0) % Plt Count 202 (150-450) k/uL Comprehensive Metabolic Panel 08/13/23 Range/Units 06:13 Sodium 135 L (137-145) mmol/L Potassium 3.7 (3.5-5.1) mmol/L Chloride 106 (98-107) mmol/L Carbon Dioxide 23 (22-30) mmol/L BUN 22 H (7-17) mg/dL Creatinine 0.57 (0.52-1.04) mg/dL Glucose 96 (74-99) mg/dL Calcium 8.5 (8.4-10.2) mg/dL Current Medications Generic Name Dose Route Start Last Admin Trade Name Freq PRN Reason Stop Dose Admin Apixaban 5 mg 08/12/23 21:00 08/13/23 08:37 Apixaban 5 Mg Tab PO 5 mg BID PAU Administration Protocol Atorvastatin Calcium 20 mg 08/12/23 09:00 08/13/23 08:37 Atorvastatin 20 Mg Tab PO 20 mg DAILY PAU Administration Duloxetine HCl 60 mg 08/11/23 21:00 08/13/23 08:37 Duloxetine Hcl 60 Mg Capsule.Dr PO 60 mg BID PAU Administration Hydromorphone HCl 0.5 mg 08/11/23 19:58 08/13/23 04:30 Hydromorphone 0.5 Mg/0.5 Ml Syringe IVP 0.5 mg Q3HR PRN Administration Pain Azithromycin 500 mg/ Sodium 250 mls @ 250 mls/hr 08/11/23 21:00 08/12/23 20:28 Chloride IVPB 08/13/23 21:59 250 mls/hr DAILY@2100 PAU Administration Protocol Ceftriaxone Sodium 2 gm/ 50 mls @ 100 mls/hr 08/11/23 09:00 08/13/23 08:37 Sodium Chloride IVPB 08/14/23 09:29 100 mls/hr Q24HR PAU Administration Protocol Lactated Ringer's 1,000 mls @ 60 mls/hr 08/11/23 10:00 08/13/23 06:14 Lactated Ringers IV 60 mls/hr .[id number] PAU Administration Lisinopril 5 mg 08/12/23 09:00 08/13/23 08:33 Lisinopril 5 Mg Tab PO Not Given DAILY PAU Miscellaneous Information 1 each 08/10/23 21:27 Pneumonia Protocol Utilized 1 Each Misc PO ONCE PRN Per Protocol Miscellaneous Information 1 each 08/12/23 05:52 Potassium Replacement Protocol 1 Each Misc MISCELLANE DAILY PRN Per Protocol Protocol Riluzole [Rilutek] 50 mg 08/11/23 21:00 08/13/23 08:37 50 Mg Tablet PO 50 mg BID PAU Administration Pantoprazole Sodium 40 mg 08/12/23 09:00 08/13/23 08:37 Pantoprazole 40 Mg Tablet PO 40 mg DAILY PAU Administration Petrolatum 1 applic 08/10/23 23:59 Zinc Oxide Paste (Z-Guard) 1 Applic Applic TOPICAL DAILY PRN Wound Healing Intake and Output 08/12/23 08/13/23 08/13/23 22:59 06:59 14:59 Intake Total 970 480 60 Output Total 350 100 Balance 620 380 60 Intake: IV 730 480 60 Azithromycin 500 mg In 250 Sodium Chloride 0.9% 250 ml @ 250 mls/hr IVPB DAILY@2100 [facility] Rx#: [id number] Lactated Ringers 1,000 ml 480 480 60 @ 60 mls/hr IV .[id number] [facility] Rx#:[id number] Oral 240 Output: Urine 350 100 Other: Voiding Method External Catheter External Catheter # Voids 1 1 Weight 84 kg 08/13/23 06:13 08/13/23 06:13
--- NOTE | 2023-08-13 10:57 | P.NPCON ---
History of Present Illness - Reason for Consult acute renal failure - History of Present Illness Reason for consultation: Possible renal infarct History of present illness: Patient is a 68-year-old female seen in renal consultation for possible renal infarct. Patient has history of hypertension and is maintained on lisinopril as well as amlodipine outpatient. She is currently on lisinopril while in the hospital. She is also receiving IV fluids LR at 60 mL an hour. Patient came to the hospital on 08/10/2023 due to weakness and difficulty with ambulation. It is noted that patient has a history of ALS. She was also noted to have right lower extremity pain and is being followed by vascular surgery. She underwent thrombectomy of the right iliac, common femoral, popliteal and anterior tibial artery on 08/11/2023. Patient's GFR is at baseline. Echocardiogram showed EF of 50-55%. Thoracic aorta CT done 08/12/2023 showed patent vasculature off aorta and iliacs. The renal artery was noted to be patent bilaterally. Abnormal hypoattenuation involving the lower pole of the kidneys was noted. This led to some concern for renal infarct or pyelonephritis. Patient's UA suggestive of UTI. She is receiving IV antibiotics. Nonoliguric. Blood pressure is on the lower side. Patient has history of CVA. Patient is a poor historian. Vital signs are stable. General: No acute distress. HEENT: Head exam is unremarkable. LUNGS: No audible rhonchi or wheezes. HEART: Rate and Rhythm are regular. ABDOMEN: Nontender. EXTREMITITES: No edema. Past Medical History Past Medical History: CVA/TIA, Hearing Disorder / Deafness, Hyperlipidemia, Hypertension, Musculoskeletal Disorder, Osteoarthritis (OA) Additional Past Medical History / Comment(s): Osteoporosis. Sl varicose veins. BLE edema. thyriod nodule. 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 othropedic, thyroid biopsy Nov 2020, 4 years ago left ankle surgery, cataract both eyes Past Anesthesia/Blood Transfusion Reactions: No Reported Reaction Past Psychological History: Anxiety, Depression Smoking Status: Former smoker Past Alcohol Use History: Occasional Additional Past Alcohol Use History / Comment(s): Smoked 32.5 years, 1 ppd, quit 2000 Past Drug Use History: None Reported - Past Family History Mother Family Medical History: No Reported History Father Family Medical History: Congestive Heart Failure (CHF), Hypertension Medications and Allergies Home Medications Medication Instructions Recorded Confirmed Type Carboxymethylcellulose Sodium 1 drop BOTH EYES QID PRN 06/09/21 08/10/23 History [Refresh Tears] DULoxetine HCL [Cymbalta] 60 mg PO BID 06/09/21 08/10/23 History Ibuprofen [Motrin] 800 mg PO Q8HR PRN #30 tab 04/27/23 08/10/23 Rx Pantoprazole [Protonix] 40 mg PO DAILY 08/10/23 08/10/23 History Riluzole [Rilutek] 50 mg PO BID 08/10/23 08/10/23 History Simvastatin [Zocor] 40 mg PO DAILY 08/10/23 08/10/23 History amLODIPine [Norvasc] 10 mg PO DAILY 08/10/23 08/10/23 History lisinopriL [Zestril] 5 mg PO DAILY 08/10/23 08/10/23 History Allergies Allergy/AdvReac Type Severity Reaction Status Date / Time No Known Allergies Allergy Verified 08/10/23 16:05 Physical Exam Vitals: Vital Signs Temp Pulse Resp BP Pulse Ox 08/13/23 10:00 73 20 93/63 91 L 08/13/23 09:00 77 15 96/55 96 08/13/23 08:00 97.6 F 84 20 106/68 92 L 08/13/23 07:47 92 L 08/13/23 07:00 84 17 99/60 91 L 08/13/23 06:00 66 18 94/46 91 L 08/13/23 05:00 69 14 99/57 91 L 08/13/23 04:00 98 F 76 15 84/54 92 L 08/13/23 03:00 70 17 85/59 91 L 08/13/23 02:00 69 14 89/60 92 L 08/13/23 01:00 69 15 92/65 92 L 08/13/23 00:00 97.7 F 76 17 90/58 92 L 08/12/23 23:00 78 18 101/74 94 L 08/12/23 22:00 87 18 98/48 91 L 08/12/23 21:00 87 24 92/55 91 L 08/12/23 20:00 98.3 F 73 17 94/57 92 L 08/12/23 19:00 78 17 91/52 91 L 08/12/23 18:00 78 19 105/73 94 L 08/12/23 17:00 76 22 110/78 91 L 08/12/23 16:00 84 11 L 112/68 93 L 08/12/23 15:00 86 28 H 122/76 94 L 08/12/23 14:00 84 15 92 L 08/12/23 13:02 76 16 93/54 93 L 08/12/23 12:00 97.9 F 80 21 92/55 92 L 08/12/23 11:00 72 18 96/50 92 L Intake and Output 08/12/23 08/13/23 08/13/23 22:59 06:59 14:59 Intake Total 970 480 230 Output Total 350 100 100 Balance 620 380 130 Intake: IV 730 480 230 Azithromycin 500 mg In 250 Sodium Chloride 0.9% 250 ml @ 250 mls/hr IVPB DAILY@2100 [facility] Rx#: [id number] Lactated Ringers 1,000 ml 480 480 180 @ 60 mls/hr IV .[id number] [facility] Rx#:[id number] cefTRIAXone 2 gm In 50 Sodium Chloride 0.9% 50 ml @ 100 mls/hr IVPB Q24HR [facility] Rx#:[id number] Oral 240 Output: Urine 350 100 100 Other: Voiding Method External Catheter External Catheter # Voids 1 1 1 Weight 84 kg Results - Lab Results Most recent lab results Calcium 8.5 mg/dL (8.4-10.2) 08/13/23 06:13 Magnesium 1.8 mg/dL (1.6-2.3) 08/13/23 06:13 08/13/23 06:13 08/13/23 06:13 Assessment and Plan Plan: Assessment: 1. Possible renal infarct versus polynephritis. UA suggestive of UTI. GFR at baseline. Thoracic aorta CT reviewed by radiology. No evidence of renal infarct on CT per radiology. Additionally bilateral renal arteries were noted to be patent. No history of A. fib. No cardiac cause of peripheral occlusion per cardiology. Echo showed preserved ejection fraction. No history of valve replacement for endocarditis. 2. Acute right lower limb ischemia status post thrombectomy. Vascular surgery following. On anticoagulation. Patient also has history of CVA. Consider hypercoagulable workup. 3. Benign hypertension. Blood pressure currently on the lower side. 4. History of CVA. 5. History of ALS. Plan: Maintain IV fluids. Hold lisinopril for systolic blood pressure less than 120. Check LDH. Check urine culture. Consider hypercoagulable workup by hematology. Check renal uls. Thank you for the consultation. I will continue to follow the patient with you during her hospital stay.
--- NOTE | 2023-08-13 13:41 | P.PN ---
Subjective Progress Note Date: 08/13/23 patient is 68-year-old lady with past medical history negative for hypertension, ALS who presented to the ER because of generalized weakness. Patient noticed that patient has been getting weaker since Tuesday, unable to use her walker. Patient was having low-grade fevers but no chills. There was no chest pain or shortness of breath. On tuesday patient started complaining of severe thigh pain which was not relieved by pain medications. Patient was unable to ambulate or get up from a sitting position. Because of this, patient was brought to the ER Initial lab work done in the ER showed WBC 18.8, hemoglobin 15.5, platelet count was 9, sodium 131, potassium 3.9, BUN 25, creatinine 0.61, glucose 153, UA nitrite positive, large amount of leukocyte Estrace, urine WBC more than 182 CTA of the right leg showed obstruction of the proximal superficial femoral artery and profunda femoris patient reconstituted from collateral flow EKG done in the ER Right lower extremity duplex negative for DVT Chest x-ray done in the ER retrocardiac airspace opacity concerning for pneumonia Patient was admitted to medicine service, vascular surgery were consulted 08/12. Patient seen and examined. Status post TPA, thrombolysis of right lower extremity. Patient was sitting upright in the bed, going for CTA and off today 08/13. Patient seen and examined. Labs done this morning WBC 10.5, hemoglobin 10.5, sodium 130 potassium 3.7, BUN 22, creatinine 0.57. CTA runoff done showed visualized aorta and Iliac Vasculature is patent,Abnormal hypoattenuation involving the lower pole of the left kidney and smaller area in the right kidney with main renal arteries patent bilaterally differential could include renal infarct versus pyelonephritis. 2-D echo done showed left ventricle systolic function being borderline normal, trace to mild tricuspid regurg REVIEW OF SYSTEMS: CONSTITUTIONAL: No fever, no malaise,. CARDIOVASCULAR: No chest pain, no palpitations, no syncope. PULMONARY: No shortness of breath, no cough, GASTROINTESTINAL: No diarrhea, no nausea, no vomiting, no abdominal pain. NEUROLOGICAL: No headaches, no weakness, PHYSICAL EXAMINATION: GENERAL: The patient is alert, not in any acute distress. Well developed, well nourished. HEENT: Pupils are round and equally reacting to light. EOMI. No scleral icterus. No conjunctival pallor. Normocephalic, atraumatic. No pharyngeal erythema. No thyromegaly. CARDIOVASCULAR: S1 and S2 present. No murmurs, rubs, or gallops. PULMONARY: Chest is clear to auscultation, no wheezing or crackles. ABDOMEN: Soft, nontender, nondistended, normoactive bowel sounds. No palpable organomegaly. MUSCULOSKELETAL: No joint swelling or deformity. EXTREMITIES: No cyanosis, clubbing, or pedal edema. Right lower extremity warm, pulses palpable NEUROLOGICAL: Moving all extremities, has baseline ALS usually ambulates with walker SKIN: No rashes. Assessment and plan Sepsis UTI Acute limb ischemia of right leg Hypertension Hyperlipidemia History of ALS Monitor vital signs Monitor CBC Monitor CMP Continue telemetry monitoring Encourage use of incentive spirometer Follow-up on blood cultures Continue IV Rocephin and azithromycin Status post TPA, thrombolysis of right lower extremity CTA runoff done showed visualized aorta and Iliac Vasculature is patent,Abnormal hypoattenuation involving the lower pole of the left kidney and smaller area in the right kidney with main renal arteries patent bilaterally differential could include renal infarct versus pyelonephritis 2-D echo done showed left ventricle systolic function being borderline normal, trace to mild tricuspid regurg Continue Eliquis by vascular surgery ID following Cardiology and nephrology consulted Labs and medication were reviewed.. Continue same treatment. Continue with symptomatic treatment. Resume home medication. Monitor labs and vitals. DVT and GI prophylaxis. Further recommendations as per clinical course of the patient Dictation was produced using [employer] dictation software. please excuse any gr ammatical, word or spelling errors. Objective - Vital Signs Vital signs: Vital Signs Temp 98 F 08/13/23 04:00 Pulse 84 08/13/23 07:00 Resp 17 08/13/23 07:00 BP 99/60 08/13/23 07:00 Pulse Ox 92 L 08/13/23 07:47 FiO2 0 08/12/23 06:54 Intake & Output 08/12/23 08/13/23 08/13/23 18:59 06:59 18:59 Intake Total 1265 970 60 Output Total 300 250 Balance 965 720 60 Weight 84 kg Intake: IV 785 970 60 Azithromycin 500 mg In 250 Sodium Chloride 0.9% 250 ml @ 250 mls/hr IVPB DAILY@2100 [facility] Rx#: [id number] Lactated Ringers 1,000 ml 660 720 60 @ 60 mls/hr IV .[id number] [facility] Rx#:[id number] cefTRIAXone 2 gm In 50 Sodium Chloride 0.9% 50 ml @ 100 mls/hr IVPB Q24HR [facility] Rx#:[id number] Oral 480 Output: Urine 300 250 Other: Voiding Method External Catheter External Catheter # Voids 1 1 ABP, PAP, CO, CI - Last Documented Arterial Blood Pressure 104/51 - Labs CBC & Chem 7: 08/13/23 06:13 08/13/23 06:13 Labs: Abnormal Lab Results - Last 24 Hours (Table) 08/13/23 08/13/23 Range/Units 06:13 06:13 RBC 3.51 L (3.80-5.40) m/uL Hgb 10.5 L (11.4-16.0) gm/dL Hct 32.3 L (34.0-46.0) % Neutrophils # 8.7 H (1.3-7.7) k/uL Lymphocytes # 0.6 L (1.0-4.8) k/uL Sodium 135 L (137-145) mmol/L BUN 22 H (7-17) mg/dL Microbiology - Last 24 Hours (Table) 08/10/23 15:00 Blood Culture - Preliminary Blood 08/10/23 15:19 Blood Culture - Preliminary Blood
--- NOTE | 2023-08-13 14:05 | US ---
EXAMINATION TYPE: US kidneys/renal and bladder DATE OF EXAM: 08/13/2023 COMPARISON: CT Angio 08/12/2023. CLINICAL INDICATION: Female, 68 years old with history of [place]; EXAM MEASUREMENTS: Right Kidney: 9.1x4.9x4.8 cm Left Kidney: 9.6x5.1x4.6 cm Right Kidney: hypoechoic are at superior pole measuring 1.1 x 0.9 x 1.1cm may correspond to area seen previously on CT and likely correlates with simple cyst., Inferior pole obscured by bowel gas Left Kidney: wnl as visualized, Inferior pole obscured by bowel gas Bladder: wnl Bilateral Jets seen: unable to assess due to artifact from adjacent bowel exam limited by bowel and patient inability to change positioning There is no evidence for hydronephrosis at this point in time. No nephrolithiasis is seen. No willem s are identified. The urinary bladder is anechoic. IMPRESSION: 1. Normal sonographic appearance on ultrasound imaging of the left kidney the inferior pole is gasse d out. Findings on prior CT suggests of pyelonephritis and less likely ischemia given absence of the cortical rim sign. 2. No evidence for obstructive uropathy.
--- NOTE | 2023-08-13 14:41 | P.PN ---
Subjective Progress Note Date: 08/13/23 Principal diagnosis: right lower extremity critical limb ischemia patient seen and examined. Overnight per nursing patient had cooler left extremity. Upon evaluation today patient appears to not have any complaints. Objective - Vital Signs Vital signs: Vital Signs Temp 97.6 F 08/13/23 08:00 Pulse 73 08/13/23 11:00 Resp 20 08/13/23 11:00 BP 89/56 08/13/23 11:00 Pulse Ox 91 L 08/13/23 11:00 FiO2 0 08/12/23 06:54 Intake & Output 08/12/23 08/13/23 08/13/23 18:59 06:59 18:59 Intake Total 1265 970 290 Output Total 300 250 100 Balance 965 720 190 Weight 84 kg Intake: IV 785 970 290 Azithromycin 500 mg In 250 Sodium Chloride 0.9% 250 ml @ 250 mls/hr IVPB DAILY@2100 [facility] Rx#: [id number] Lactated Ringers 1,000 ml 660 720 240 @ 60 mls/hr IV .[id number] [facility] Rx#:[id number] cefTRIAXone 2 gm In 50 Sodium Chloride 0.9% 50 ml @ 100 mls/hr IVPB Q24HR [facility] Rx#:[id number] cefTRIAXone 2 gm In 50 Sodium Chloride 0.9% 50 ml @ 100 mls/hr IVPB Q24HR [facility] Rx#:[id number] Oral 480 Output: Urine 300 250 100 Other: Voiding Method External Catheter External Catheter External Catheter # Voids 1 1 1 ABP, PAP, CO, CI - Last Documented Arterial Blood Pressure 104/51 - Exam Palpable PT pulse bilateral. Left groin access sites without any signs of hematoma or drainage. Weakness bilateral upper and lower extremities due to ALS - Labs CBC & Chem 7: 08/13/23 06:13 08/13/23 06:13 Labs: Abnormal Lab Results - Last 24 Hours (Table) 08/13/23 08/13/23 08/13/23 Range/Units 06:13 06:13 06:13 RBC 3.51 L (3.80-5.40) m/uL Hgb 10.5 L (11.4-16.0) gm/dL Hct 32.3 L (34.0-46.0) % Neutrophils # 8.7 H (1.3-7.7) k/uL Lymphocytes # 0.6 L (1.0-4.8) k/uL Sodium 135 L (137-145) mmol/L BUN 22 H (7-17) mg/dL Lactate Dehydrogenase 769 H (120-246) U/L Microbiology - Last 24 Hours (Table) 08/10/23 15:00 Blood Culture - Preliminary Blood 08/10/23 15:19 Blood Culture - Preliminary Blood Assessment and Plan Assessment: Postoperative day 1, 2 percutaneous thrombectomy and thrombolysis of the right lower extremity Acute limb ischemia with Right SFA and profunda femoris occlusion ALS History hypertension hyperlipidemia History of CVA Plan: Okay to transfer to the floor for vascular standpoint. Continue oral anticoagulation and current medications. Continue pain control No further surgical intervention required at this time.
[2023-08-13] MEDS: AZITHROMYCIN 500 MG in SODIUM CHLORIDE 0.9% 250 ML IVPB SCH (21:19)
[2023-08-14] MEDS: MAG HYDROX/AL HYDROX/SIMETH 30 ML CUP PO PRN ×3 (00:36→08:08)
[2023-08-14] MEDS: HYDROmorphone 0.5 MG/0.5 ML SYRINGE IVP PRN ×4 (03:14→19:46)
[2023-08-14] MEDS: LACTATED RINGERS 1,000 ML IV SCH (03:17)
[2023-08-14 07:18] LABS: African American GFR (CKD) >90 (>60 ml/min/1.73 sqM); Anion Gap 4 mmol/L; Blood Urea Nitrogen 19 mg/dL (7-17); Calcium 8.4 mg/dL (8.4-10.2); Carbon Dioxide 23 mmol/L (22-30); Chloride 106 mmol/L (98-107); Glucose 91 mg/dL (74-99); Non-African American GFR(CKD) >90 (>60 ml/min/1.73 sqM); Sodium 133 mmol/L (137-145)
[2023-08-14 07:49] LABS: Potassium 4.2 mmol/L (3.5-5.1)
[2023-08-14] MEDS: ATORVASTATIN 20 MG TAB PO SCH (07:59)
[2023-08-14] MEDS: PANTOPRAZOLE 40 MG TABLET PO SCH (07:59)
[2023-08-14] MEDS: DULoxetine HCL 60 MG CAPSULE.DR PO SCH ×2 (08:00→21:37)
[2023-08-14] MEDS: APIXABAN 5 MG TAB PO SCH ×2 (08:00→21:37)
[2023-08-14] MEDS ORDERED: polyethylene glycoL 3350 17 GM POWD.PACK PO STA (10:29)
--- NOTE | 2023-08-14 11:23 | P.PN ---
Subjective Progress Note Date: 08/14/23 The patient is a 68-year-old female who presented with symptoms of fever, progressive weakness and right lower extremity discomfort, was found to have acute arterial obstruction and underwent thrombectomy. Cardiology consultation was requested. The patient has a known history of hypertension, CVA and ALS diagnosed 4 weeks ago, followed at [facility] who has been progressively fatigued according to the with decrease ambulation. She has no documented history of CHF or prior ischemic heart disease. She has no history of documented arrhythmia. She has no prior history of PND, orthopnea or peripheral edema. Since her admission she has been in sinus mechanism with no evidence of atrial fibrillation. She underwent AngioJet thrombectomy was infusion of TPA, the catheters were removed yesterday. She had an echocardiogram that showed an ejection fraction of 50-55% with a limited Doppler study. She has a history of hypertension and hyperlipidemia, she is nondiabetic nonsmoker. 08/14/2023 Patient was seen and examined resting in bed. Her main complaint is abdominal distention, constipation and nursing staff has received an order for MiraLAX. Her blood pressure looks better. Objective - Vital Signs Vital signs: Vital Signs Temp 97.6 F 08/14/23 07:14 Pulse 82 08/14/23 07:14 Resp 17 08/14/23 07:14 BP 114/77 08/14/23 07:14 Pulse Ox 90 L 08/14/23 08:44 FiO2 0 08/12/23 06:54 Intake & Output 08/13/23 08/14/23 08/14/23 19:59 06:59 18:59 Intake Total Output Total Balance Weight Intake: IV Lactated Ringers 1,000 ml @ 60 mls/hr IV .[id number] [facility] Rx#:[id number] cefTRIAXone 2 gm In Sodium Chloride 0.9% 50 ml @ 100 mls/hr IVPB Q24HR [facility] Rx#:[id number] Output: Urine Other: Voiding Method Incontinent External Catheter # Voids ABP, PAP, CO, CI - Last Documented Arterial Blood Pressure 104/51 - Exam Head: Normocephalic. Eyes: Sclerae nonicteric. Neck: Good carotid upstroke, no bruit, no jugular venous distention. Lungs: Clear to auscultation. Heart: Regular rate and rhythm, S1-S2, no S3, no rub. No murmur. Abdomen: Soft nontender, positive bowel sounds, passing flatus no organomegaly. Extremities: +1 edema, intact distal pulses. - Labs CBC & Chem 7: 08/13/23 06:13 08/14/23 06:31 Labs: Abnormal Lab Results - Last 24 Hours (Table) 08/14/23 Range/Units 06:31 Sodium 133 L (137-145) mmol/L BUN 19 H (7-17) mg/dL Creatinine 0.47 L (0.52-1.04) mg/dL Microbiology - Last 24 Hours (Table) 08/10/23 15:00 Blood Culture - Preliminary Blood 08/10/23 15:19 Blood Culture - Preliminary Blood Assessment and Plan Assessment: 1. Acute obstruction of the right SFA status post thrombectomy 2. History of CVA 3. History of ALS 4. History of hypertension 5. History of hyperlipidemia Plan: From Cardiology's perspective there is no clear evidence suggest cardiac etiology to her peripheral occlusion. She is maintaining sinus mechanism and there is no evidence of cardiomyopathy. Due to history of ALS she has high risk to undergo JAVED. Continue anticoagulation. At this time we will follow the patient on an as-needed basis. Please do not hesitate to contact us with questions. WIRE BRUSHER note has been reviewed, I agree with a documented findings and plan of care. Patient was seen and examined.
--- NOTE | 2023-08-14 11:59 | P.PN ---
Subjective Patient is seen in follow-up for possible renal infarct. Blood pressure controlled. GFR at baseline. Poor historian. Vital signs are stable. General: No acute distress. HEENT: Head exam is unremarkable. LUNGS: No audible rhonchi or wheezes. HEART: Rate and Rhythm are regular. ABDOMEN: Nontender. EXTREMITITES: No edema. Objective - Vital Signs Vital signs: Vital Signs Temp 97.6 F 08/14/23 07:14 Pulse 82 08/14/23 07:14 Resp 17 08/14/23 07:14 BP 114/77 08/14/23 07:14 Pulse Ox 90 L 08/14/23 08:44 FiO2 0 08/12/23 06:54 Intake & Output 08/13/23 08/14/23 08/14/23 19:59 06:59 18:59 Intake Total Output Total Balance Weight Intake: IV Lactated Ringers 1,000 ml @ 60 mls/hr IV [facility][id number] [facility] Rx#:[id number] cefTRIAXone 2 gm In Sodium Chloride 0.9% 50 ml @ 100 mls/hr IVPB Q24HR [facility] Rx#:[id number] Output: Urine Other: Voiding Method Incontinent External Catheter # Voids ABP, PAP, CO, CI - Last Documented Arterial Blood Pressure 104/51 - Labs CBC & Chem 7: 08/13/23 06:13 08/14/23 06:31 Labs: Abnormal Lab Results - Last 24 Hours (Table) 08/14/23 Range/Units 06:31 Sodium 133 L (137-145) mmol/L BUN 19 H (7-17) mg/dL Creatinine 0.47 L (0.52-1.04) mg/dL Microbiology - Last 24 Hours (Table) 08/10/23 15:00 Blood Culture - Preliminary Blood 08/10/23 15:19 Blood Culture - Preliminary Blood Assessment and Plan Plan: Assessment: 1. Possible renal infarct versus polynephritis. UA suggestive of UTI. GFR at baseline. Thoracic aorta CT and kidney ultrasound reviewed by radiology. No evidence of renal infarct on imaging per radiology. Additionally bilateral renal arteries were noted to be patent. No history of A. fib. No cardiac cause of peripheral occlusion per cardiology. Echo showed preserved ejection fraction. No history of valve replacement for endocarditis. 2. Acute right lower limb ischemia status post thrombectomy. Vascular surgery following. On anticoagulation. Patient also has history of CVA. Consider hypercoagulable workup. 3. Benign hypertension. Controlled. 4. History of CVA. 5. History of ALS. Plan: Hep-Lock IV fluids. Hold lisinopril for systolic blood pressure less than 120. Follow-up urine culture. Consider hypercoagulable workup by hematology.
--- NOTE | 2023-08-14 13:50 | P.PN ---
Subjective Progress Note Date: 08/13/23 Principal diagnosis: UTI/Pneumonia Patient is a 68-year-old female with a past medical his significant for ALS CVA TIA hypertension hyperlipidemia patient presenting to [facility] ER for evaluation of fever and weakness, patient also have a pain to the right thigh and did have evidence of obstruction of the possums with failure of oral artery in this patient who is status post ultrasound-guided cannulation of the left femoral artery and eject percutaneous mechanical thrombectomy by vascular surgery patient did have a positive UA concerning for UTI and a qu estion of pneumonia. On today's evaluation that is 08/13/2023 the patient is afebrile this morning patient is breathing comfortably on room air patient denies having any chest pain or shortness with occasional cough no abdominal pain or diarrhea. No new symptoms Patient did have a white count of 10.5 creatinine is 0.57 cultures are currently pending Objective - Vital Signs Vital signs: Vital Signs Temp 98 F 08/13/23 04:00 Pulse 84 08/13/23 07:00 Resp 17 08/13/23 07:00 BP 99/60 08/13/23 07:00 Pulse Ox 92 L 08/13/23 07:47 FiO2 0 08/12/23 06:54 Intake & Output 08/12/23 08/13/23 08/13/23 18:59 06:59 18:59 Intake Total 1265 970 60 Output Total 300 250 Balance 965 720 60 Weight 84 kg Intake: IV 785 970 60 Azithromycin 500 mg In 250 Sodium Chloride 0.9% 250 ml @ 250 mls/hr IVPB DAILY@2100 [facility] Rx#: [id number] Lactated Ringers 1,000 ml 660 720 60 @ 60 mls/hr IV .[id number] [facility] Rx#:[id number] cefTRIAXone 2 gm In 50 Sodium Chloride 0.9% 50 ml @ 100 mls/hr IVPB Q24HR [facility] Rx#:[id number] Oral 480 Output: Urine 300 250 Other: Voiding Method External Catheter External Catheter # Voids 1 1 ABP, PAP, CO, CI - Last Documented Arterial Blood Pressure 104/51 - Exam GENERAL DESCRIPTION: Elderly female lying in bed in no distress RESPIRATORY SYSTEM: Unlabored breathing , decreased breath sounds at bases HEART: S1 S2 regular rate and rhythm ,no loud murmurs ABDOMEN: Soft , no tenderness EXTREMITIES: No edema feet - Labs CBC & Chem 7: 08/13/23 06:13 08/14/23 06:31 Labs: Abnormal Lab Results - Last 24 Hours (Table) 08/13/23 08/13/23 Range/Units 06:13 06:13 RBC 3.51 L (3.80-5.40) m/uL Hgb 10.5 L (11.4-16.0) gm/dL Hct 32.3 L (34.0-46.0) % Neutrophils # 8.7 H (1.3-7.7) k/uL Lymphocytes # 0.6 L (1.0-4.8) k/uL Sodium 135 L (137-145) mmol/L BUN 22 H (7-17) mg/dL Microbiology - Last 24 Hours (Table) 08/10/23 15:00 Blood Culture - Preliminary Blood 08/10/23 15:19 Blood Culture - Preliminary Blood Assessment and Plan (1) Pneumonia Current Visit: Yes Status: Acute Code(s): J18.9 - PNEUMONIA, UNSPECIFIED ORGANISM SNOMED Code(s): 879679483 (2) Urinary tract infection Current Visit: Yes Status: Acute Code(s): N39.0 - URINARY TRACT INFECTION, SITE NOT SPECIFIED SNOMED Code(s): 39372708 Plan: 1patient presented to hospital with fever did have elevated white count chest x-ray with retrocardiac opacity and did have a positive UA concerning for possible community-acquired pneumonia and a UTI in this patient not been on antibiotic in the recent past possibly sensitive pathogen 2-patient is slowly Improving and will continue with Rocephin and Zithromax while waiting for the cultures to finalize Dictation was produced using [employer] dictation software. please excuse any grammatical, word or spelling errors. Time with Patient: Less than 30
--- NOTE | 2023-08-14 13:54 | P.PN ---
Subjective Progress Note Date: 08/14/23 patient is 68-year-old lady with past medical history negative for hypertension, ALS who presented to the ER because of generalized weakness. Patient noticed that patient has been getting weaker since Tuesday, unable to use her walker. Patient was having low-grade fevers but no chills. There was no chest pain or shortness of breath. On tuesday patient started complaining of severe thigh pain which was not relieved by pain medications. Patient was unable to ambulate or get up from a sitting position. Because of this, patient was brought to the ER Initial lab work done in the ER showed WBC 18.8, hemoglobin 15.5, platelet count was 9, sodium 131, potassium 3.9, BUN 25, creatinine 0.61, glucose 153, UA nitrite positive, large amount of leukocyte Estrace, urine WBC more than 182 CTA of the right leg showed obstruction of the proximal superficial femoral artery and profunda femoris patient reconstituted from collateral flow EKG done in the ER Right lower extremity duplex negative for DVT Chest x-ray done in the ER retrocardiac airspace opacity concerning for pneumonia Patient was admitted to medicine service, vascular surgery were consulted 08/12. Patient seen and examined. Status post TPA, thrombolysis of right lower extremity. Patient was sitting upright in the bed, going for CTA and off today 08/13. Patient seen and examined. Labs done this morning WBC 10.5, hemoglobin 10.5, sodium 130 potassium 3.7, BUN 22, creatinine 0.57. CTA runoff done showed visualized aorta and Iliac Vasculature is patent,Abnormal hypoattenuation involving the lower pole of the left kidney and smaller area in the right kidney with main renal arteries patent bilaterally differential could include renal infarct versus pyelonephritis. 2-D echo done showed left ventricle systolic function being borderline normal, trace to mild tricuspid regurg 08/14. Patient seen and examined. Patient was transferred out of ICU yesterday. Continues to do well. Complaining of constipation. No other issues overnight REVIEW OF SYSTEMS: CONSTITUTIONAL: No fever, no malaise,. CARDIOVASCULAR: No chest pain, no palpitations, no syncope. PULMONARY: No shortness of breath, no cough, GASTROINTESTINAL: No diarrhea, no nausea, no vomiting, no abdominal pain. NEUROLOGICAL: No headaches, no weakness, PHYSICAL EXAMINATION: GENERAL: The patient is alert, not in any acute distress. Well developed, well nourished. HEENT: Pupils are round and equally reacting to light. EOMI. No scleral icterus. No conjunctival pallor. Normocephalic, atraumatic. No pharyngeal erythema. No thyromegaly. CARDIOVASCULAR: S1 and S2 present. No murmurs, rubs, or gallops. PULMONARY: Chest is clear to auscultation, no wheezing or crackles. ABDOMEN: Soft, nontender, nondistended, normoactive bowel sounds. No palpable organomegaly. MUSCULOSKELETAL: No joint swelling or deformity. EXTREMITIES: No cyanosis, clubbing, or pedal edema. Right lower extremity warm, pulses palpable NEUROLOGICAL: Moving all extremities, has baseline ALS usually ambulates with walker SKIN: No rashes. Assessment and plan Sepsis UTI Acute limb ischemia of right leg Hypertension Hyperlipidemia History of ALS Monitor vital signs Monitor CBC Monitor CMP Continue telemetry monitoring Encourage use of incentive spirometer Follow-up on blood cultures Continue IV Rocephin and azithromycin Status post TPA, thrombolysis of right lower extremity CTA runoff done showed visualized aorta and Iliac Vasculature is patent,Abnormal hypoattenuation involving the lower pole of the left kidney and smaller area in the right kidney with main renal arteries patent bilaterally differential could include renal infarct versus pyelonephritis 2-D echo done showed left ventricle systolic function being borderline normal, trace to mild tricuspid regurg Continue Eliquis by vascular surgery ID following Cardiology recommended that there is no clear evidence of cardiac etiology for her peripheral occlusion, do not recommend JAVED because of patient's history of ALS. Nephrology is following Labs and medication were reviewed.. Continue same treatment. Continue with symptomatic treatment. Resume home medication. Monitor labs and vitals. DVT and GI prophylaxis. Further recommendations as per clinical course of the patient Dictation was produced using [employer] dictation software. please excuse any grammatical, word or spelling errors. Objective - Vital Signs Vital signs: Vital Signs Temp 97.6 F 08/14/23 07:14 Pulse 82 08/14/23 07:14 Resp 17 08/14/23 07:14 BP 114/77 08/14/23 07:14 Pulse Ox 90 L 08/14/23 08:44 FiO2 0 08/12/23 06:54 Intake & Output 08/13/23 08/14/23 08/14/23 19:59 06:59 18:59 Intake Total Output Total Balance Weight Intake: IV Lactated Ringers 1,000 ml @ 60 mls/hr IV .[id number] [facility] Rx#:[id number] cefTRIAXone 2 gm In Sodium Chloride 0.9% 50 ml @ 100 mls/hr IVPB Q24HR [facility] Rx#:[id number] Output: Urine Other: Voiding Method # Voids ABP, PAP, CO, CI - Last Documented Arterial Blood Pressure 104/51 - Labs CBC & Chem 7: 08/13/23 06:13 08/14/23 06:31 Labs: Abnormal Lab Results - Last 24 Hours (Table) 08/14/23 Range/Units 06:31 Sodium 133 L (137-145) mmol/L BUN 19 H (7-17) mg/dL Creatinine 0.47 L (0.52-1.04) mg/dL Microbiology - Last 24 Hours (Table) 08/10/23 15:00 Blood Culture - Preliminary Blood 08/10/23 15:19 Blood Culture - Preliminary Blood
--- NOTE | 2023-08-14 13:58 | P.PN ---
Subjective Progress Note Date: 08/14/23 Principal diagnosis: UTI/Pneumonia Patient is a 68-year-old female with a past medical his significant for ALS CVA TIA hypertension hyperlipidemia patient presenting to [facility] ER for evaluation of fever and weakness, patient also have a pain to the right thigh and did have evidence of obstruction of the possums with failure of oral artery in this patient who is status post ultrasound-guided cannulation of the left femoral artery and eject percutaneous mechanical thrombectomy by vascular surgery patient did have a positive UA concerning for UTI and a qu estion of pneumonia. On today's evaluation that is 08/14/2023, the patient denies any fever or any c hills, the patient is breathing comfortably on room air and no need for supplemental oxygen, the patient denies any chest pain and no cough or sputum production, patient denies Abdominal pain and no nausea/vomiting or diarrhea Patient did have a white count of 10.5 as of yesterday creatinine is 0.47 , blood cultures and urine cultures are pending Objective - Vital Signs Vital signs: Vital Signs Temp 97.6 F 08/14/23 07:14 Pulse 82 08/14/23 07:14 Resp 17 08/14/23 07:14 BP 114/77 08/14/23 07:14 Pulse Ox 90 L 08/14/23 08:44 FiO2 0 08/12/23 06:54 Intake & Output 08/13/23 08/14/23 08/14/23 19:59 06:59 18:59 Intake Total Output Total Balance Weight Intake: IV Lactated Ringers 1,000 ml @ 60 mls/hr IV .[id number] [facility] Rx#:[id number] cefTRIAXone 2 gm In Sodium Chloride 0.9% 50 ml @ 100 mls/hr IVPB Q24HR [facility] Rx#:[id number] Output: Urine Other: Voiding Method Incontinent External Catheter # Voids ABP, PAP, CO, CI - Last Documented Arterial Blood Pressure 104/51 - Exam GENERAL DESCRIPTION: Elderly female lying in bed in no distress RESPIRATORY SYSTEM: Unlabored breathing , decreased breath sounds at bases HEART: S1 S2 regular rate and rhythm ,no loud murmurs ABDOMEN: Soft , no tenderness EXTREMITIES: No edema feet - Labs CBC & Chem 7: 08/13/23 06:13 08/14/23 06:31 Labs: Abnormal Lab Results - Last 24 Hours (Table) 08/14/23 Range/Units 06:31 Sodium 133 L (137-145) mmol/L BUN 19 H (7-17) mg/dL Creatinine 0.47 L (0.52-1.04) mg/dL Microbiology - Last 24 Hours (Table) 08/10/23 15:00 Blood Culture - Preliminary Blood 08/10/23 15:19 Blood Culture - Preliminary Blood Assessment and Plan (1) Pneumonia Current Visit: Yes Status: Acute Code(s): J18.9 - PNEUMONIA, UNSPECIFIED ORGANISM SNOMED Code(s): 116790626 (2) Urinary tract infection Current Visit: Yes Status: Acute Code(s): N39.0 - URINARY TRACT INFECTION, SITE NOT SPECIFIED SNOMED Code(s): 32440394 Plan: 1patient presented to hospital with fever did have elevated white count chest x-ray with retrocardiac opacity and did have a positive UA concerning for poss ible community-acquired pneumonia and a UTI in this patient not been on antibiotic in the recent past possibly sensitive pathogen 2-patient had shown some clinical improvement with resolution of the fever, completed a 4 day course of Rocephin and Zithromax will switched to oral Omnicef while waiting for the urine culture to finalize Dictation was produced using [employer] dictation software. please excuse any grammatical, word or spelling errors. Time with Patient: Less than 30
[2023-08-14] MEDS ORDERED: bisacodyL 10 MG SUPP RECTAL STA (15:29)
[2023-08-14] MEDS: SIMETHICONE 80 MG CHEWABLE PO SCH ×2 (17:04→21:37)
[2023-08-14] MEDS: CEFDINIR 300 MG CAP PO SCH (21:37)
[2023-08-15] MEDS: HYDROmorphone 0.5 MG/0.5 ML SYRINGE IVP PRN ×5 (00:20→20:52)
[2023-08-15] MEDS: PANTOPRAZOLE 40 MG TABLET PO SCH (07:43)
[2023-08-15] MEDS: APIXABAN 5 MG TAB PO SCH ×2 (07:43→20:47)
[2023-08-15] MEDS: ATORVASTATIN 20 MG TAB PO SCH (07:43)
[2023-08-15] MEDS: DULoxetine HCL 60 MG CAPSULE.DR PO SCH ×2 (07:43→20:47)
[2023-08-15] MEDS: CEFDINIR 300 MG CAP PO SCH (07:43)
[2023-08-15] MEDS: SIMETHICONE 80 MG CHEWABLE PO SCH ×4 (07:50→20:47)
[2023-08-15 08:21] LABS: HCT 33.3 % (37.2-46.3); MCH 29.9 pg (27.0-32.0); MCV 90.5 FL (80.0-97.0); Mean Platelet Volume 9.9 FL (9.5-12.2); NRBC Per 100 WBC 0 X 10*3/uL (0.00-0.01); Platelet Count 299 X 10*3/uL (140-440); RBC 3.68 X 10*6/uL (4.10-5.20); RDW 14.2 % (11.5-14.5); WBC 8.53 X 10*3/uL (4.50-10.00)
[2023-08-15 08:43] LABS: ALT 31 U/L (8-44); AST 23 U/L (13-35); Albumin 2.7 d/dL (3.8-4.9); Albumin/Globulin Ratio 1.42 Ratio (1.60-3.17); Alkaline Phosphatase 92 U/L (41-126); Blood Urea Nitrogen 13.3 mg/dL (9.0-27.0); Calcium 8.3 mg/dL (8.7-10.3); Carbon Dioxide 23.4 mmol/L (21.6-31.8); Chloride 104 mmol/L (96-109); Globulin 1.9 d/dL (1.6-3.3); Glucose 88 mg/dL (70-110); Potassium 3.7 mmol/L (3.5-5.5); Sodium 136 mmol/L (135-145); Total Bilirubin 0.5 mg/dL (0.3-1.2); Total Protein 4.6 d/dL (6.2-8.2)
--- NOTE | 2023-08-15 10:09 | P.PN ---
Subjective Progress Note Date: 08/15/23 Principal diagnosis: Acute right lower extremity ischemia Patient seen and examined today as follow-up. She is status post thrombolysis of right lower extremity. Patient states she has no pain in her right lower extremity. She does have some lower extremity swelling. She is continued to be treated for urinary tract infection, nephrology was consulted for area on CAT scan that was questionable pyelonephritis versus renal infarct. Appears likely left renal infarct. Nephrology is following. Cardiology was consulted for possible embolic phenomenon, she underwent echocardiogram which reported left ventricular systolic function borderline normal. Limited Doppler study, trace to mild tricuspid regurgitation. Objective - Vital Signs Vital signs: Vital Signs Temp 97.8 F 08/15/23 07:10 Pulse 78 08/15/23 07:10 Resp 14 08/15/23 07:10 BP 123/79 08/15/23 07:10 Pulse Ox 90 L 08/15/23 07:10 FiO2 0 08/12/23 06:54 Intake & Output 08/14/23 08/15/23 08/15/23 18:59 06:59 18:59 Weight 83.5 kg Other: Voiding Method Incontinent External Catheter External Catheter External Catheter # Voids 4 ABP, PAP, CO, CI - Last Documented Arterial Blood Pressure 104/51 - Exam General appearance: The patient is alert, oriented, appears in no acute distress. HET: Head is normocephalic and atraumatic. Pupils are equal and reactive. Neck: Supple. Abdomen: Soft, nondistended. Extremities: Normal skin color and turgor. Bilateral lower extremity edema. Right lower extremity with palpable DP pulse. Good capillary refill and warm to the touch. Left groin access site without any bleeding, bruising or hematoma noted. Neurological: No focal deficits. Strength and sensation are grossly intact. - Labs CBC & Chem 7: 08/15/23 05:04 08/15/23 05:04 Labs: Abnormal Lab Results - Last 24 Hours (Table) 08/15/23 08/15/23 Range/Units 05:04 05:04 RBC 3.68 L (4.10-5.20) X 10*6/uL Hgb 11.0 L (12.0-15.0) d/dL Hct 33.3 L (37.2-46.3) % Creatinine 0.5 L (0.6-1.5) mg/dL BUN/Creatinine Ratio 26.60 H (12.00-20.00) Ratio Calcium 8.3 L (8.7-10.3) mg/dL C-Reactive Protein 9.60 H (0.00-0.80) mg/dL Total Protein 4.6 L (6.2-8.2) d/dL Albumin 2.7 L (3.8-4.9) d/dL Albumin/Globulin Ratio 1.42 L (1.60-3.17) Ratio Microbiology - Last 24 Hours (Table) 08/13/23 17:15 Urine Culture - Final Urine,Voided 08/10/23 15:19 Blood Culture Gram Stain - Preliminary Blood Blood Culture - Preliminary 08/10/23 15:00 Blood Culture - Preliminary Blood Assessment and Plan Assessment: 1. Acute limb ischemia with Right SFA and profunda femoris occlusion status post thrombolysis 2. ALS 3. Urinary tract infection 4. History hypertension hyperlipidemia 5. History of CVA Plan: 1. Continue Eliquis as ordered 2. Cardiology consulted for possible embolic phenomenon, continue with their recommendations 3. Nephrology on consult for pyelonephritis versus possible renal infarct, continue with her recommendations 4. There is no further indication for any vascular surgical intervention. The patient is cleared from vascular surgery for discharge. The impression and plan of care has been dictated as directed. I performed a history and examination of this patient, discussed the same with the dictator. I agree with the dictator's note ,documented as a scribe. Any additional findings or plans will be noted.
--- NOTE | 2023-08-15 11:27 | P.PN ---
Subjective Progress Note Date: 08/15/23 Principal diagnosis: UTI/Pneumonia Patient is a 68-year-old female with a past medical his significant for ALS CVA TIA hypertension hyperlipidemia patient presenting to [facility] ER for evaluation of fever and weakness, patient also have a pain to the right thigh and did have evidence of obstruction of the possums with failure of oral artery in this patient who is status post ultrasound-guided cannulation of the left femoral artery and eject percutaneous mechanical thrombectomy by vascular surgery patient did have a positive UA concerning for UTI and a qu estion of pneumonia. On today's evaluation that is 08/15/2023, the patient remains to be afebrile, t he patient is breathing comfortably on room air , the patient denies any chest pain or cough and no sputum production, patient denies nausea/vomiting or diarrhea , no abdominal pain Patient did have a white count of 8.53, and creatinine 0.85, blood cultures and urine cultures are negative, blood culture with gram-positive bacilli Objective - Vital Signs Vital signs: Vital Signs Temp 97.8 F 08/15/23 07:10 Pulse 78 08/15/23 07:10 Resp 14 08/15/23 07:10 BP 123/79 08/15/23 07:10 Pulse Ox 90 L 08/15/23 07:10 FiO2 0 08/12/23 06:54 Intake & Output 08/14/23 08/15/23 08/15/23 18:59 06:59 18:59 Weight 83.5 kg Other: Voiding Method Incontinent External Catheter External Catheter External Catheter # Voids 4 ABP, PAP, CO, CI - Last Documented Arterial Blood Pressure 104/51 - Exam GENERAL DESCRIPTION: Elderly female lying in bed in no distress RESPIRATORY SYSTEM: Unlabored breathing , decreased breath sounds at bases HEART: S1 S2 regular rate and rhythm ,no loud murmurs ABDOMEN: Soft , no tenderness EXTREMITIES: No edema feet - Labs CBC & Chem 7: 08/15/23 05:04 08/15/23 05:04 Labs: Abnormal Lab Results - Last 24 Hours (Table) 08/15/23 08/15/23 Range/Units 05:04 05:04 RBC 3.68 L (4.10-5.20) X 10*6/uL Hgb 11.0 L (12.0-15.0) d/dL Hct 33.3 L (37.2-46.3) % Creatinine 0.5 L (0.6-1.5) mg/dL BUN/Creatinine Ratio 26.60 H (12.00-20.00) Ratio Calcium 8.3 L (8.7-10.3) mg/dL C-Reactive Protein 9.60 H (0.00-0.80) mg/dL Total Protein 4.6 L (6.2-8.2) d/dL Albumin 2.7 L (3.8-4.9) d/dL Albumin/Globulin Ratio 1.42 L (1.60-3.17) Ratio Microbiology - Last 24 Hours (Table) 08/13/23 17:15 Urine Culture - Final Urine,Voided 08/10/23 15:19 Blood Culture Gram Stain - Preliminary Blood Blood Culture - Preliminary Assessment and Plan (1) Pneumonia Current Visit: Yes Status: Acute Code(s): J18.9 - PNEUMONIA, UNSPECIFIED ORGANISM SNOMED Code(s): 562365416 (2) Urinary tract infection Current Visit: Yes Status: Acute Code(s): N39.0 - URINARY TRACT INFECTION, SITE NOT SPECIFIED SNOMED Code(s): 14457529 (3) Positive blood culture Current Visit: Yes Status: Acute Code(s): R78.81 - BACTEREMIA SNOMED Code(s): 239514432 Plan: 1patient presented to hospital with fever did have elevated white count chest x-ray with retrocardiac opacity and did have a positive UA concerning for possible community-acquired pneumonia and a UTI in this patient not been on antibiotic in the recent past possibly sensitive pathogen 2-patient had shown some clinical improvement with resolution of the fever, currently on oral Omnicef however urine culture negative antibodies can be safely discontinued 3-positive blood culture with gram-positive bacilli more likely contamination 24 vancomycin Dictation was produced using [employer] dictation software. please excuse any grammatical, word or spelling errors. Time with Patient: Less than 30
--- NOTE | 2023-08-15 11:47 | P.PN ---
Subjective Progress Note Date: 08/15/23 patient is 68-year-old lady with past medical history negative for hypertension, ALS who presented to the ER because of generalized weakness. Patient noticed that patient has been getting weaker since Tuesday, unable to use her walker. Patient was having low-grade fevers but no chills. There was no chest pain or shortness of breath. On tuesday patient started complaining of severe thigh pain which was not relieved by pain medications. Patient was unable to ambulate or get up from a sitting position. Because of this, patient was brought to the ER Initial lab work done in the ER showed WBC 18.8, hemoglobin 15.5, platelet count was 9, sodium 131, potassium 3.9, BUN 25, creatinine 0.61, glucose 153, UA nitrite positive, large amount of leukocyte Estrace, urine WBC more than 182 CTA of the right leg showed obstruction of the proximal superficial femoral artery and profunda femoris patient reconstituted from collateral flow EKG done in the ER Right lower extremity duplex negative for DVT Chest x-ray done in the ER retrocardiac airspace opacity concerning for pneumonia Patient was admitted to medicine service, vascular surgery were consulted 08/12. Patient seen and examined. Status post TPA, thrombolysis of right lower extremity. Patient was sitting upright in the bed, going for CTA and off today 08/13. Patient seen and examined. Labs done this morning WBC 10.5, hemoglobin 10.5, sodium 130 potassium 3.7, BUN 22, creatinine 0.57. CTA runoff done showed visualized aorta and Iliac Vasculature is patent,Abnormal hypoattenuation involving the lower pole of the left kidney and smaller area in the right kidney with main renal arteries patent bilaterally differential could include renal infarct versus pyelonephritis. 2-D echo done showed left ventricle systolic function being borderline normal, trace to mild tricuspid regurg 08/14. Patient seen and examined. Patient was transferred out of ICU yesterday. Continues to do well. Complaining of constipation. No other issues overnight 08/15. Patient seen and examined. at the bedside. Patient is requiring a lot of assistance. Discussed with , they want PT and OT to evaluate, opened to rehab placement REVIEW OF SYSTEMS: CONSTITUTIONAL: No fever, no malaise,. CARDIOVASCULAR: No chest pain, no palpitations, no syncope. PULMONARY: No shortness of breath, no cough, GASTROINTESTINAL: No diarrhea, no nausea, no vomiting, no abdominal pain. NEUROLOGICAL: No headaches, no weakness, PHYSICAL EXAMINATION: GENERAL: The patient is alert, not in any acute distress. Well developed, well nourished. HEENT: Pupils are round and equally reacting to light. EOMI. No scleral icterus. No conjunctival pallor. Normocephalic, atraumatic. No pharyngeal erythema. No thyromegaly. CARDIOVASCULAR: S1 and S2 present. No murmurs, rubs, or gallops. PULMONARY: Chest is clear to auscultation, no wheezing or crackles. ABDOMEN: Soft, nontender, nondistended, normoactive bowel sounds. No palpable organomegaly. MUSCULOSKELETAL: No joint swelling or deformity. EXTREMITIES: No cyanosis, clubbing, or pedal edema. Right lower extremity warm, pulses palpable NEUROLOGICAL: Moving all extremities, has baseline ALS usually ambulates with walker SKIN: No rashes. Assessment and plan Sepsis UTI Acute limb ischemia of right leg Hypertension Hyperlipidemia History of ALS Monitor vital signs Monitor CBC Monitor CMP Continue telemetry monitoring Encourage use of incentive spirometer Follow-up on blood cultures Antibody discontinued Status post TPA, thrombolysis of right lower extremity CTA runoff done showed visualized aorta and Iliac Vasculature is p atent,Abnormal hypoattenuation involving the lower pole of the left kidney and smaller area in the right kidney with main renal arteries patent bilaterally differential could include renal infarct versus pyelonephritis 2-D echo done showed left ventricle systolic function being borderline normal, trace to mild tricuspid regurg Continue Eliquis by vascular surgery ID following Cardiology recommended that there is no clear evidence of cardiac etiology for her peripheral occlusion, do not recommend JAVED because of patient's history of ALS. Nephrology is following Labs and medication were reviewed.. Continue same treatment. Continue with symptomatic treatment. Resume home medication. Monitor labs and vitals. DVT and GI prophylaxis. Further recommendations as per clinical course of the pa trevor Dictation was produced using [employer] dictation software. please excuse any grammatical, word or spelling errors. Objective - Vital Signs Vital signs: Vital Signs Temp 97.8 F 08/15/23 07:10 Pulse 78 08/15/23 07:10 Resp 14 08/15/23 07:10 BP 123/79 08/15/23 07:10 Pulse Ox 90 L 08/15/23 07:10 FiO2 0 08/12/23 06:54 Intake & Output 08/14/23 08/15/23 08/15/23 18:59 06:59 18:59 Weight 83.5 kg Other: Voiding Method Incontinent External Catheter External Catheter External Catheter # Voids 4 ABP, PAP, CO, CI - Last Documented Arterial Blood Pressure 104/51 - Labs CBC & Chem 7: 08/15/23 05:04 08/15/23 05:04 Labs: Abnormal Lab Results - Last 24 Hours (Table) 08/15/23 08/15/23 Range/Units 05:04 05:04 RBC 3.68 L (4.10-5.20) X 10*6/uL Hgb 11.0 L (12.0-15.0) d/dL Hct 33.3 L (37.2-46.3) % Creatinine 0.5 L (0.6-1.5) mg/dL BUN/Creatinine Ratio 26.60 H (12.00-20.00) Ratio Calcium 8.3 L (8.7-10.3) mg/dL C-Reactive Protein 9.60 H (0.00-0.80) mg/dL Total Protein 4.6 L (6.2-8.2) d/dL Albumin 2.7 L (3.8-4.9) d/dL Albumin/Globulin Ratio 1.42 L (1.60-3.17) Ratio Microbiology - Last 24 Hours (Table) 08/13/23 17:15 Urine Culture - Final Urine,Voided 08/10/23 15:19 Blood Culture Gram Stain - Preliminary Blood Blood Culture - Preliminary
--- NOTE | 2023-08-15 12:55 | P.PN ---
Subjective Patient is seen for follow-up for possible renal infarct. Serum creatinine has been stable at 0.4-0.5 mg/dL. Patient does not communicate much. Currently with an external catheter with good urine output. Vital signs are stable. Objective - Vital Signs Vital signs: Vital Signs Temp 97.8 F 08/15/23 07:10 Pulse 78 08/15/23 07:10 Resp 14 08/15/23 07:10 BP 123/79 08/15/23 07:10 Pulse Ox 90 L 08/15/23 07:10 FiO2 0 08/12/23 06:54 Intake & Output 08/14/23 08/15/23 08/15/23 18:59 06:59 18:59 Weight 83.5 kg Other: Voiding Method Incontinent External Catheter External Catheter External Catheter # Voids 4 ABP, PAP, CO, CI - Last Documented Arterial Blood Pressure 104/51 - Exam Patient is awake, comfortable, no acute distress Examination of the heart S1 and S2 Examination of the lungs bilateral breath sounds are heard Abdomen is soft nontender Examination lower extremities shows no evidence of edema - Labs CBC & Chem 7: 08/15/23 05:04 08/15/23 05:04 Labs: Abnormal Lab Results - Last 24 Hours (Table) 08/15/23 08/15/23 Range/Units 05:04 05:04 RBC 3.68 L (4.10-5.20) X 10*6/uL Hgb 11.0 L (12.0-15.0) d/dL Hct 33.3 L (37.2-46.3) % Creatinine 0.5 L (0.6-1.5) mg/dL BUN/Creatinine Ratio 26.60 H (12.00-20.00) Ratio Calcium 8.3 L (8.7-10.3) mg/dL C-Reactive Protein 9.60 H (0.00-0.80) mg/dL Total Protein 4.6 L (6.2-8.2) d/dL Albumin 2.7 L (3.8-4.9) d/dL Albumin/Globulin Ratio 1.42 L (1.60-3.17) Ratio Microbiology - Last 24 Hours (Table) 08/13/23 17:15 Urine Culture - Final Urine,Voided 08/10/23 15:19 Blood Culture Gram Stain - Preliminary Blood Blood Culture - Preliminary Assessment and Plan Assessment: 1. Possible renal infarct versus polynephritis. UA suggestive of UTI. GFR at baseline. Thoracic aorta CT and kidney ultrasound reviewed by radiology. No evidence of renal infarct on imaging per radiology. Additionally bilateral renal arteries were noted to be patent. No history of A. fib. No cardiac cause of peripheral occlusion per cardiology. Echo showed preserved ejection fraction. No history of valve replacement for endocarditis. 2. Acute right lower limb ischemia status post thrombectomy. Vascular surgery following. On anticoagulation. Patient also has history of CVA. Consider hypercoagulable workup. 3. Benign hypertension. Controlled. 4. History of CVA. 5. History of ALS. Plan: Continue off of IV fluids Awaiting final blood cultures Encourage increased oral intake
[2023-08-15] MEDS ORDERED: bisacodyL 10 MG SUPP RECTAL STA (13:43)
[2023-08-15] MEDS: HYDROcodone/APAP 5-325MG 1 EACH TAB PO PRN (17:22)
[2023-08-16] MEDS: HYDROcodone/APAP 5-325MG 1 EACH TAB PO PRN ×2 (00:42→13:31)
[2023-08-16] MEDS: HYDROmorphone 0.5 MG/0.5 ML SYRINGE IVP PRN ×4 (03:41→23:53)
[2023-08-16] MEDS: PANTOPRAZOLE 40 MG TABLET PO SCH (10:25)
[2023-08-16] MEDS: APIXABAN 5 MG TAB PO SCH ×2 (10:25→19:21)
[2023-08-16] MEDS: SIMETHICONE 80 MG CHEWABLE PO SCH ×4 (10:26→19:21)
[2023-08-16] MEDS: DULoxetine HCL 60 MG CAPSULE.DR PO SCH ×2 (10:26→19:21)
[2023-08-16] MEDS: ATORVASTATIN 20 MG TAB PO SCH (10:26)
--- NOTE | 2023-08-16 12:14 | FL ---
INDICATION: Patient age:Female; 68 years old; Reason for study: R/O ASPIRATION; ALS COMPARISON: None TECHNIQUE: Utilizing real-time video recording fluoroscopy, multiple images were obtained after admin istration of various consistencies of barium contrast. A speech pathologist was present throughout the exam. Fluoroscopic time: 1 min 49 seconds Fluoroscopic images: None saved Total DAP: 111.88 uGycm2 FINDINGS: Consistencies administered: Thin nectar, and puree consistencies During the oral phase there is delay ed formation of food bolus with delayed initiation of swallow with all consistencies. Poor movement o f the epiglottis. Premature spill: None identified. Laryngeal penetration: None identified. Piriform Retention:All consistencies. Vallecular retention: All consistencies. Nasopharyngeal reflux: None identified. Tracheal aspiration: Tracheal aspiration with cough reflex involving thin consistency. IMPRESSION: 1. Tracheal aspiration with thin consistency. 2. Delayed formation and initiation of swallow. 3. Vallecular and piriform retention with all consistencies. Please see dedicated speech pathology report for additional information.
--- NOTE | 2023-08-16 12:57 | P.PN ---
Subjective Patient is seen for follow-up for possible renal infarct. Serum creatinine has been stable at 0.4-0.5 mg/dL. Currently with an external catheter with good urine output. Vital signs are stable. Objective - Vital Signs Vital signs: Vital Signs Temp 97.5 F L 08/16/23 07:32 Pulse 91 08/16/23 07:32 Resp 16 08/16/23 07:32 BP 130/85 08/16/23 07:32 Pulse Ox 93 L 08/16/23 07:32 FiO2 0 08/12/23 06:54 Intake & Output 08/15/23 08/16/23 08/16/23 18:59 06:59 18:59 Weight 83.4 kg Other: Voiding Method External Catheter External Catheter Diaper Incontinent # Voids 4 3 # Bowel Movements 1 ABP, PAP, CO, CI - Last Documented Arterial Blood Pressure 104/51 - Exam Patient is awake, comfortable, no acute distress Examination of the heart S1 and S2 Examination of the lungs bilateral breath sounds are heard Abdomen is soft nontender Examination lower extremities shows no evidence of edema - Labs CBC & Chem 7: 08/15/23 05:04 08/15/23 05:04 Labs: Microbiology - Last 24 Hours (Table) 08/10/23 15:00 Blood Culture Gram Stain - Preliminary Blood Blood Culture - Preliminary 08/13/23 17:15 Urine Culture - Final Urine,Voided Assessment and Plan Assessment: 1. Possible renal infarct versus polynephritis. UA suggestive of UTI. GFR at baseline. Thoracic aorta CT and kidney ultrasound reviewed by radiology. No evidence of renal infarct on imaging per radiology. Additionally bilateral renal arteries were noted to be patent. No history of A. fib. No cardiac cause of peripheral occlusion per cardiology. Echo showed preserved ejection fraction. No history of valve replacement for endocarditis. 2. Acute right lower limb ischemia status post thrombectomy. Vascular surgery following. On anticoagulation. Patient also has history of CVA. Consider hypercoagulable workup. 3. Benign hypertension. Controlled. 4. History of CVA. 5. History of ALS. Plan: Continue off of IV fluids Encourage increased oral intake
--- NOTE | 2023-08-16 14:33 | P.PN ---
Subjective Progress Note Date: 08/16/23 Principal diagnosis: UTI/Pneumonia Patient is a 68-year-old female with a past medical his significant for ALS CVA TIA hypertension hyperlipidemia patient presenting to [facility] ER for evaluation of fever and weakness, patient also have a pain to the right thigh and did have evidence of obstruction of the possums with failure of oral artery in this patient who is status post ultrasound-guided cannulation of the left femoral artery and eject percutaneous mechanical thrombectomy by vascular surgery patient did have a positive UA concerning for UTI and a qu estion of pneumonia. On today's evaluation that is 08/16/2023, the patient continues to be afebrile, the patient is breathing comfortably on 2 L nasal cannula supplemental oxygen, the patient denies any chest pain or cough , patient denies nausea/vomiting or diarrhea , no abdominal pain Patient did have a white count of 8.53, and creatinine 0.85 as of yesterday no lab draw today, blood cultures and urine cultures are negative, blood culture with gram-positive bacilli Objective - Vital Signs Vital signs: Vital Signs Temp 97.5 F L 08/16/23 07:32 Pulse 91 08/16/23 07:32 Resp 16 08/16/23 07:32 BP 130/85 08/16/23 07:32 Pulse Ox 93 L 08/16/23 07:32 FiO2 0 08/12/23 06:54 Intake & Output 08/15/23 08/16/23 08/16/23 18:59 06:59 18:59 Weight 83.4 kg Other: Voiding Method External Catheter External Catheter Diaper Incontinent # Voids 4 3 # Bowel Movements 1 ABP, PAP, CO, CI - Last Documented Arterial Blood Pressure 104/51 - Exam GENERAL DESCRIPTION: Elderly female lying in bed in no distress RESPIRATORY SYSTEM: Unlabored breathing , decreased breath sounds at bases HEART: S1 S2 regular rate and rhythm ,no loud murmurs ABDOMEN: Soft , no tenderness EXTREMITIES: No edema feet - Labs CBC & Chem 7: 08/15/23 05:04 08/15/23 05:04 Labs: Microbiology - Last 24 Hours (Table) 08/10/23 15:00 Blood Culture Gram Stain - Preliminary Blood Blood Culture - Preliminary 08/13/23 17:15 Urine Culture - Final Urine,Voided Assessment and Plan (1) Pneumonia Current Visit: Yes Status: Acute Code(s): J18.9 - PNEUMONIA, UNSPECIFIED ORGANISM SNOMED Code(s): 891043128 (2) Urinary tract infection Current Visit: Yes Status: Acute Code(s): N39.0 - URINARY TRACT INFECTION, SITE NOT SPECIFIED SNOMED Code(s): 98605933 (3) Positive blood culture Current Visit: Yes Status: Acute Code(s): R78.81 - BACTEREMIA SNOMED Code(s): 810780698 Plan: 1patient presented to hospital with fever did have elevated white count chest x-ray with retrocardiac opacity and did have a positive UA concerning for possible community-acquired pneumonia and a UTI in this patient not been on antibiotic in the recent past possibly sensitive pathogen 2-patient had shown some clinical improvement with resolution of the fever, patient has completed a course of antibiotics 3-positive blood culture with gram-positive bacilli more likely contamination no need for vancomycin Dictation was produced using [employer] dictation software. please excuse any grammatical, word or spelling errors. Time with Patient: Less than 30
[2023-08-16] MEDS ORDERED: HEPARIN SODIUM 1,000 UN/ML (10ML VL) IV ONE (22:58)
[2023-08-16] MEDS ORDERED: HEPARIN SODIUM 1,000 UN/ML (10ML VL) IV PRN (22:58)
--- NOTE | 2023-08-16 23:09 | P.PN ---
Subjective Progress Note Date: 08/16/23 This is a 68 year old female with history of ALS came in for progressive weakness and unable to use walker. She has underwent TPA thrombolysis therapy for acute limb ischemia of the right leg and started on eliquis 5 BID. Cardiology following and felt no clear evidence of cardiac etiology for peripheral occlusion, echocardiogram shows normal LV function. There was also concern for renal infarct, nephrology following. No evidence of renal infarct on imaging after review by radiology. Patient was cleared for DC to rehab however had progressive dysphagia and completed MBS patient grossly failed and speech therapy recommending pt to be NPO due to high risk for aspiration and essentially no oral motility evident. Patient had been recommended for PEG tube placement in the past. Patient wishes to proceed with PEG tube placement at this time. Surgery consulted. Review of Systems Constitutional: Denied any fatigue denied any fever. Cardio vascular: denied any chest pain, palpitations Gastrointestinal: denied any nausea, vomiting, diarrhea Pulmonary: Denied any shortness of breath cough Neurologic denied any new focal deficits All inpatient medications were reviewed and appropriate changes in these medications as dictated in the interval history and assessment and plan. PHYSICAL EXAMINATION: GENERAL: The patient is alert and oriented x3, not in any acute distress. Well developed, well nourished. HEENT: Pupils are round and equally reacting to light. EOMI. No scleral icterus. No conjunctival pallor. Normocephalic, atraumatic. No pharyngeal erythema. No thyromegaly. CARDIOVASCULAR: S1 and S2 present. No murmurs, rubs, or gallops. PULMONARY: Chest is clear to auscultation, no wheezing or crackles. ABDOMEN: Soft, nontender, nondistended, normoactive bowel sounds. No palpable organomegaly. MUSCULOSKELETAL: No joint swelling or deformity. EXTREMITIES: No cyanosis, clubbing, or pedal edema. Bilateral lower extremity edema NEUROLOGICAL: Gross neurological examination did not reveal any focal deficits. Diffuse weakness. SKIN: No rashes. Assessment Acute limb ischemia with right SFA and profundus femoris occlusion status post thrombolysis of the right lower extremity Hx of ALS with chronic medical debility Dysphagia currently NPO grossly failed MBS patient is high risk for aspiration Urinary tract infection and sepsis Concern for renal infarct on the left; ruled out History of stroke Hypertension Hyperlipidemia GI prophylaxis DVT prophylaxis Continue on eliquis Do Not Resuscitate Do Not Intubate Plan Stop eliquis and start IV heparin for now due to possible surgical intervention and pt NPO Patient wishes to proceed with PEG tube placement general surgery consulted. Patient is currently NPO and high risk for aspiration Remains off antibiotics at this time has completed antibiotic therapy. Nephrology recommending hypercoagulable work up Discharge to rehab when medically stable The impression and plan of care has been dictated by Shama Anderson, Nurse Practitioner as directed. Dr. Chiquita MD I have performed a history and physical examination and medical decision making of this patient, discussed the same with the dictator, and agree with the dictators assessment and plan as written, documented as a scribe. Based on total visit time, I have performed more than 50% of this visit. Objective - Vital Signs Vital signs: Vital Signs Temp 97.5 F L 08/16/23 14:00 Pulse 77 08/16/23 14:00 Resp 18 08/16/23 14:00 BP 142/90 08/16/23 14:00 Pulse Ox 92 L 08/16/23 14:00 FiO2 0 08/12/23 06:54 Intake & Output 08/15/23 08/16/23 08/16/23 18:59 06:59 18:59 Weight 83.4 kg Other: Voiding Method External Catheter External Catheter Diaper Incontinent # Voids 4 3 # Bowel Movements 1 ABP, PAP, CO, CI - Last Documented Arterial Blood Pressure 104/51 - Labs CBC & Chem 7: 08/15/23 05:04 08/15/23 05:04 Labs: Microbiology - Last 24 Hours (Table) 08/10/23 15:00 Blood Culture Gram Stain - Preliminary Blood Blood Culture - Preliminary Assessment and Plan Time with Patient: Less than 30
[2023-08-16] MEDS: HEPARIN SOD,PORK IN 0.45% NACL 25,000 UNIT in 0.45% NACL 1 250ML.BAG IV SCH (23:43)
[2023-08-16 23:50] LABS: INR 1.3 (<1.2); Partial Thromboplastin Time 27.9 sec (22.0-30.0); Prothrombin Time 13.5 sec (10.0-12.5)
[2023-08-17] MEDS: HYDROmorphone 0.5 MG/0.5 ML SYRINGE IVP PRN ×7 (03:10→23:08)
[2023-08-17 06:49] LABS: INR 1.2 (<1.2); Partial Thromboplastin Time 32.2 sec (22.0-30.0)
[2023-08-17] MEDS: DULoxetine HCL 60 MG CAPSULE.DR PO SCH ×2 (08:44→19:36)
[2023-08-17] MEDS: ATORVASTATIN 20 MG TAB PO SCH (08:44)
[2023-08-17] MEDS: SIMETHICONE 80 MG CHEWABLE PO SCH ×4 (08:45→19:37)
[2023-08-17] MEDS ORDERED: PANTOPRAZOLE 40 MG/10 ML VIAL IVP SCH (09:00)
[2023-08-17 09:05] LABS: Basophils # (A) 0.03 X 10*3/uL (0.00-0.10); Basophils % (A) 0.3 %; Eosinophils # (A) 0.34 X 10*3/uL (0.04-0.35); Eosinophils % (A) 3.6 %; HCT 39.9 % (37.2-46.3); HGB 13.2 d/dL (12.0-15.0); Lymphocytes # (A) 1.47 X 10*3/uL (0.90-5.00); Lymphocytes % (A) 15.5 %; MCH 29.3 pg (27.0-32.0); MCHC 33.1 d/dL (32.0-37.0); MCV 88.7 FL (80.0-97.0); Monocytes % (A) 9.5 %; NRBC Per 100 WBC 0 X 10*3/uL (0.00-0.01); Neutrophils # (A) 6.69 X 10*3/uL (1.80-7.70); Neutrophils % (A) 70.8 %; Platelet Count 332 X 10*3/uL (140-440); WBC 9.46 X 10*3/uL (4.50-10.00)
--- NOTE | 2023-08-17 10:46 | P.GSCN ---
History of Present Illness Consult date: 08/17/23 History of present illness: CHIEF COMPLAINT: Right leg pain Reason for consult dysphagia HISTORY OF PRESENT ILLNESS: This is a 68-year-old female with history of ALS. S he presented with right leg pain and evidence of acute limb ischemia of the right leg. She is status post TPA thrombolysis of the right leg. She is currently on IV heparin. Her last dose of Eliquis was yesterday AM. Patient has had progressive dysphagia. She completed a MBS which she failed. Speech therapy recommended patient be nothing by mouth due to high risk of aspiration. Surgical service has been consulted for PEG tube placement. PAST MEDICAL HISTORY: ALS, CVA, Hypertension, Musculoskeletal Disorder, Osteoarthritis (OA), cva 2019 causing left sided deficits and slowed speech and again in October 2020 causing very difficult to understand speech, anxiety, depression PAST SURGICAL HISTORY: See below MEDICATIONS: See below ALLERGIES: See below SOCIAL HISTORY: No illicit drug use. REVIEW OF SYSTEMS: CONSTITUTIONAL: Denies fever or chills. HEENT: Denies blurred vision, vision changes, or eye pain. Denies hemoptysis CARDIOVASCULAR: Denies chest pain or pressure. RESPIRATORY: No shortness of breath. GASTROINTESTINAL: See HPI for pertinent findings HEMATOLOGIC: Denies bleeding disorders. GENITOURINARY: Denies any blood in urine or increased urinary frequency. SKIN: Denies pruitis. Denies rash. PHYSICAL EXAM: VITAL SIGNS: Reviewed GENERAL: Well-developed in no acute distress. HEENT: No sclera icterus. Extraocular movements grossly intact. Moist buccal mucosa. Head is atraumatic, normocephalic. No nasal drainage. ABDOMEN: Soft. Nondistended. nontender NEUROLOGIC: Alert and oriented. Cranial nerves II through XII grossly intact. Speech deficit LABORATORY DATA: WBC 9.46 Hgb 13.2 platelets 332 INR 1.2 Sodium 136 potassium 3.7 creatinine 0.5 Albumin 2.7 IMAGING: VS tracheal aspiration with thin consistency. Delayed formation and initiation of swallow ventricular and perform retention with all consistencies. ASSESSMENT: 1. Dysphagia 2. Failed swallow eval 3. Severe protein calorie malnutrition 4. History of ALS 5. History of right leg ischemia status post TPA thrombolysis and thrombectomy and currently on anticoagulation PLAN: -Patient scheduled for EGD with PEG tube placement tomorrow, 08/18/[address] Horn -Hold IV heparin starting tomorrow morning at 6 AM -Keep patient nothing by mouth -Repeat labs in AM Thank you for this consultation Physician A Class Lineman note has been reviewed by physician. Signing provider agrees with the documented findings, assessment, and plan of care. Past Medical History Past Medical History: CVA/TIA, Hearing Disorder / Deafness, Hyperlipidemia, Hypertension, Musculoskeletal Disorder, Osteoarthritis (OA) Additional Past Medical History / Comment(s): Osteoporosis. Sl varicose veins. BLE edema. thyriod nodule. 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 othropedic, thyroid biopsy Nov 2020, 4 years ago left ankle surgery, cataract both eyes Past Anesthesia/Blood Transfusion Reactions: No Reported Reaction Past Psychological History: Anxiety, Depression Smoking Status: Former smoker Past Alcohol Use History: Occasional Additional Past Alcohol Use History / Comment(s): Smoked 32.5 years, 1 ppd, quit 2000 Past Drug Use History: None Reported - Past Family History Mother Family Medical History: No Reported History Father Family Medical History: Congestive Heart Failure (CHF), Hypertension Medications and Allergies Home Medications Medication Instructions Recorded Confirmed Type Carboxymethylcellulose Sodium 1 drop BOTH EYES QID PRN 06/09/21 08/10/23 History [Refresh Tears] DULoxetine HCL [Cymbalta] 60 mg PO BID 06/09/21 08/10/23 History Ibuprofen [Motrin] 800 mg PO Q8HR PRN #30 tab 04/27/23 08/10/23 Rx Pantoprazole [Protonix] 40 mg PO DAILY 08/10/23 08/10/23 History Riluzole [Rilutek] 50 mg PO BID 08/10/23 08/10/23 History Simvastatin [Zocor] 40 mg PO DAILY 08/10/23 08/10/23 History amLODIPine [Norvasc] 10 mg PO DAILY 08/10/23 08/10/23 History lisinopriL [Zestril] 5 mg PO DAILY 08/10/23 08/10/23 History Allergies Allergy/AdvReac Type Severity Reaction Status Date / Time No Known Allergies Allergy Verified 08/10/23 16:05 Surgical - Exam Vital Signs Temp Pulse Resp BP Pulse Ox 97.1 F L 87 18 111/80 95 08/10/23 14:43 08/10/23 14:43 08/10/23 14:43 08/10/23 14:43 08/10/23 14:43 Results - Labs 08/17/23 05:52 08/15/23 05:04 Abnormal Lab Results - Last 24 Hours (Table) 08/16/23 08/17/23 Range/Units 23:03 05:52 PT 13.5 H 13.0 H (10.0-12.5) sec INR 1.3 H 1.2 H (<1.2) APTT 32.2 H (22.0-30.0) sec
--- NOTE | 2023-08-17 14:57 | US ---
EXAMINATION TYPE: US gallbladder DATE OF EXAM: 08/17/2023 COMPARISON: NONE CLINICAL INDICATION: Female, 68 years old with history of elevated liver enzymes; TECHNIQUE: Multiple sonographic images of the right upper quadrant are obtained. FINDINGS: EXAM MEASUREMENTS: Liver Length: 16.5 cm Gallbladder Wall: 0.17 cm CBD: 0.45 cm Right Kidney: 10.4 x 4.7 x 4.7 cm PROJECT CREW WORKER NOTES: Patient unable to move or take a deep breath Pancreas: Suboptimal visualization of the pancreatic head due to shadowing from bowel gas. Visualize d portions show no gross abnormality. Liver: Limited intercostal views. Gallbladder: Borderline hydropic at 4.0 cm wide. No wall thickening, surrounding fluid, or shadowing calculi. Evidence for sonographic James's sign: No CBD: wnl Right Kidney: wnl IMPRESSION: 1. Limited, intercostal views of the liver. 2. No gallstones or biliary ductal dilatation.
--- NOTE | 2023-08-17 16:03 | P.PN ---
Subjective Progress Note Date: 08/17/23 This is a 68 year old female with history of ALS came in for progressive weakness and unable to use walker. She has underwent TPA thrombolysis therapy for acute limb ischemia of the right leg and started on eliquis 5 BID. Cardiology following and felt no clear evidence of cardiac etiology for peripheral occlusion, echocardiogram shows normal LV function. There was also concern for renal infarct, nephrology following. No evidence of renal infarct on imaging after review by radiology. Patient was cleared for DC to rehab however had progressive dysphagia and completed MBS patient grossly failed and speech therapy recommending pt to be NPO due to high risk for aspiration and essentially no oral motility evident. Patient had been recommended for PEG tube placement in the past. Patient wishes to proceed with PEG tube placement at this time. Surgery consulted. 08/17/2023 Patient evaluated today resting in bed. Today she complaints of pain between her shoulder blades as well as burning sensation epigastric area with mild tenderness. Suspect there is gastritis present patient has been started on eliquis this admission. Protonix has been increased to BID. Eliquis currently on hold patient is NPO and on IV heparin. Recommending for PEG tube placement which is scheduled for tomorrow. Will order chest xray and EKG as part of preop clearance. Patient should be low operative risk had cardiac work up this admission with evidence of arryhthmia, no history of heart failure, echocardiogram showing normal LV function. Patient does have history of ALS she is on room air at this time. Had gallbladder ultrasound showing no gallstones no dilated biliary duct. Pt is afebrile, heart rate 75, blood pressure 144/89, 95% room air. Review of Systems Constitutional: Denied any fatigue denied any fever. Cardio vascular: denied any chest pain, palpitations Gastrointestinal: denied any nausea, vomiting, diarrhea Pulmonary: Denied any shortness of breath cough Neurologic denied any new focal deficits All inpatient medications were reviewed and appropriate changes in these medications as dictated in the interval history and assessment and plan. PHYSICAL EXAMINATION: GENERAL: The patient is alert and oriented x3, not in any acute distress. Well developed, well nourished. HEENT: Pupils are round and equally reacting to light. EOMI. No scleral icterus. No conjunctival pallor. Normocephalic, atraumatic. No pharyngeal erythema. No thyromegaly. CARDIOVASCULAR: S1 and S2 present. No murmurs, rubs, or gallops. PULMONARY: Chest is clear to auscultation, no wheezing or crackles. ABDOMEN: Soft, nontender, nondistended, normoactive bowel sounds. No palpable organomegaly. MUSCULOSKELETAL: No joint swelling or deformity. EXTREMITIES: No cyanosis, clubbing, or pedal edema. Bilateral lower extremity edema NEUROLOGICAL: Gross neurological examination did not reveal any focal deficits. Diffuse weakness. SKIN: No rashes. Assessment Acute limb ischemia with right SFA and profundus femoris occlusion status post thrombolysis of the right lower extremity Hx of ALS with chronic medical debility Dysphagia currently NPO grossly failed MBS patient is high risk for aspiration Urinary tract infection and sepsis Concern for renal infarct on the left; ruled out History of stroke Recent diagnosis of sleep apnea has CPAP in room ok to use Hypertension Hyperlipidemia GI prophylaxis DVT prophylaxis Continue on eliquis Do Not Resuscitate Do Not Intubate Plan Stop eliquis and start IV heparin for now due to possible surgical intervention and pt NPO Patient is considered low operative risk for PEG tube placement. Patient wishes to proceed with PEG tube placement general surgery consulted and scheduled for PEG tube placement tomorrow 08/18/2023. Patient is currently NPO and high risk for aspiration Remains off antibiotics at this time has completed antibiotic therapy. Nephrology recommending hypercoagulable work up this can be done outpatient basis Ok to wear CPAP which patient has from home at the bedside. Discharge to rehab when medically stable The impression and plan of care has been dictated by Shama Anderson Nurse Practitioner as directed. Dr. Chiquita MD I have performed a history and physical examination and medical decision making of this patient, discussed the same with the dictator, and agree with the dictators assessment and plan as written, documented as a scribe. Based on total visit time, I have performed more than 50% of this visit. Objective - Vital Signs Vital signs: Vital Signs Temp 97.9 F 08/17/23 13:44 Pulse 75 08/17/23 13:44 Resp 19 08/17/23 13:44 BP 144/89 08/17/23 13:44 Pulse Ox 95 08/17/23 13:44 FiO2 0 08/12/23 06:54 Intake & Output 08/16/23 08/17/23 08/17/23 18:59 06:59 18:59 Intake Total 0 73.392 Balance 0 73.392 Intake: Intake, IV Titration 73.392 Amount Heparin Sod,Pork in 0.45% 73.392 NaCl 25,000 unit In 0.45 % NaCl 1 250ml.bag @ 12 UNITS/KG/HR 10.008 mls/hr IV .Q24H [facility] Rx#: [id number] Oral 0 Other: Voiding Method Diaper Diaper Diaper Incontinent Incontinent Incontinent # Voids 2 2 ABP, PAP, CO, CI - Last Documented Arterial Blood Pressure 104/51 - Labs CBC & Chem 7: 08/17/23 05:52 08/15/23 05:04 Labs: Abnormal Lab Results - Last 24 Hours (Table) 08/16/23 08/17/23 Range/Units 23:03 05:52 PT 13.5 H 13.0 H (10.0-12.5) sec INR 1.3 H 1.2 H (<1.2) APTT 32.2 H (22.0-30.0) sec Microbiology - Last 24 Hours (Table) 08/10/23 15:00 Blood Culture Gram Stain - Final Blood Blood Culture - Final Proprionibacterium acnes 08/10/23 15:19 Blood Culture Gram Stain - Final Blood Blood Culture - Final Proprionibacterium acnes Assessment and Plan Time with Patient: Less than 30
--- NOTE | 2023-08-17 16:34 | XR ---
EXAMINATION TYPE: XR chest 1V portable DATE OF EXAM: 08/17/2023 4:28 PM COMPARISON: Chest radiographs from 08/11/2023 TECHNIQUE: XR chest 1V portable Portable AP radiograph of the chest. CLINICAL INDICATION:Female, 68 years old with history of preop clearance; FINDINGS: Lungs/Pleura: No pleural effusion or pneumothorax. Left basilar patchy airspace opacities. Chronic se nescent parenchymal change. Pulmonary vascularity: Unremarkable. Heart/mediastinum: Cardiomediastinal silhouette is enlarged and stable. Atherosclerotic calcificatio ns are seen in the aorta. Musculoskeletal: No acute osseous pathology. IMPRESSION: Left basilar patchy airspace opacities which may represent atelectasis/scarring versus pneumonia.
[2023-08-17] MEDS: HEPARIN SOD,PORK IN 0.45% NACL 25,000 UNIT in 0.45% NACL 1 250ML.BAG IV SCH (18:14)
[2023-08-17] MEDS: PANTOPRAZOLE 40 MG/10 ML VIAL IVP SCH (19:43)
[2023-08-17 20:49] LABS: INR 1.3 (<1.2); Partial Thromboplastin Time 64.3 sec (22.0-30.0); Prothrombin Time 13.3 sec (10.0-12.5)
[2023-08-18] MEDS: HYDROmorphone 0.5 MG/0.5 ML SYRINGE IVP PRN ×5 (01:58→23:39)
[2023-08-18 02:40] LABS: HCT 39.6 % (34.0-46.0); HGB 13.1 gm/dL (11.4-16.0); MCHC 32.9 g/dL (31.0-37.0); Mean Platelet Volume 7.4; Platelet Count 311 k/uL (150-450); RBC 4.35 m/uL (3.80-5.40); RDW 13.6 % (11.5-15.5); WBC 6.8 k/uL (3.8-10.6)
[2023-08-18 02:49] LABS: African American GFR (CKD) >90 (>60 ml/min/1.73 sqM); Anion Gap 11 mmol/L; Blood Urea Nitrogen 10 mg/dL (7-17); Calcium 8.3 mg/dL (8.4-10.2); Carbon Dioxide 20 mmol/L (22-30); Chloride 100 mmol/L (98-107); Glucose 76 mg/dL (74-99); Non-African American GFR(CKD) >90 (>60 ml/min/1.73 sqM); Sodium 131 mmol/L (137-145)
[2023-08-18 02:52] LABS: INR 1.3 (<1.2); Partial Thromboplastin Time 63.6 sec (22.0-30.0); Prothrombin Time 13.4 sec (10.0-12.5)
[2023-08-18] MEDS: ATORVASTATIN 20 MG TAB PO SCH (07:53)
[2023-08-18] MEDS: DULoxetine HCL 60 MG CAPSULE.DR PO SCH ×2 (07:53→23:17)
[2023-08-18] MEDS: SIMETHICONE 80 MG CHEWABLE PO SCH ×4 (07:54→23:17)
[2023-08-18] MEDS: SODIUM CHLORIDE 0.9% 1,000 ML IV SCH ×2 (08:03→22:06)
[2023-08-18] MEDS: PANTOPRAZOLE 40 MG/10 ML VIAL IVP SCH ×2 (08:03→23:34)
[2023-08-18] MEDS ORDERED: IV FLUID CONTINUATION 900 ML IV ONE (10:35)
[2023-08-18] MEDS ORDERED: PROPOFOL 10 MG/ML 20 ML VIAL IV ONE (10:37)
--- NOTE | 2023-08-18 10:46 | P.OP ---
Date of Procedure: 08/18/23 Preoperative Diagnosis: Malnutrition Postoperative Diagnosis: Malnutrition Procedure(s) Performed: EGD with PEG tube placement Anesthesia: MAC Surgeon: Cristo Horn Pathology: none sent Condition: stable Disposition: PACU Description of Procedure: The patient received IV sedation. Next the gastroscope placed oropharynx passed in the esophagus and stomach. There is no evidence of any outlet obstruction. Stomach was insufflated with air. The light reflux seen the anterior abdominal wall. The abdomen was prepped and draped usual fashion. The skin was incised. And the needles placed and stomach under direct visualization. The needle was snared. And the wires placed through the needle and the wire was snared and brought the oropharynx. The PEG tube was placed over top the wire brought down to the stomach. The PEG tube was secured. At the 3 cm kyra. The one-piece bolster was used. Patient tolerated procedure well.
--- NOTE | 2023-08-18 12:53 | P.PN ---
Subjective Progress Note Date: 08/18/23 CHIEF COMPLAINT: Dysphagia HISTORY OF PRESENT ILLNESS: Patient scheduled for EGD and PEG tube placement t angelina. Vitals stable. WBC 6.8 INR 1. PHYSICAL EXAM: VITAL SIGNS: Reviewed. GENERAL: Well-developed in no acute distress. ABDOMEN: Soft. Nondistended. Nontender. NEUROLOGIC: awake and alert ASSESSMENT: 1. Dysphagia 2. Failed swallow eval 3. Severe protein calorie malnutrition 4. History of ALS 5. History of right leg ischemia status post TPA thrombolysis and thrombectomy PLAN: -Patient scheduled for EGD with PEG tube placement today with Dr. Horn -IV heparin on hold for procedure Physician Sanitary Engineer note has been reviewed by physician. Signing provider agrees with the documented findings, assessment, and plan of care. Objective - Vital Signs Vital signs: Vital Signs Temp 97.3 F L 08/18/23 08:09 Pulse 93 08/18/23 08:09 Resp 19 08/18/23 08:09 BP 137/91 08/18/23 08:09 Pulse Ox 94 L 08/18/23 08:09 FiO2 0 08/12/23 06:54 Intake & Output 08/17/23 08/18/23 08/18/23 18:59 06:59 18:59 Intake Total 213.295 Output Total 1700 Balance 213.295 -1700 Weight 83.4 kg Intake: Intake, IV Titration 213.295 Amount Heparin Sod,Pork in 0.45% 213.295 NaCl 25,000 unit In 0.45 % NaCl 1 250ml.bag @ 12 UNITS/KG/HR 10.008 mls/hr IV .Q24H [facility] Rx#: [id number] Output: Urine 1700 Other: Voiding Method Diaper Diaper Diaper Incontinent Incontinent Incontinent # Voids 3 ABP, PAP, CO, CI - Last Documented Arterial Blood Pressure 104/51 - Labs CBC & Chem 7: 08/18/23 02:16 08/18/23 02:16 Labs: Abnormal Lab Results - Last 24 Hours (Table) 08/17/23 08/18/23 08/18/23 Range/Units 19:16 02:16 02:16 PT 13.3 H 13.4 H (10.0-12.5) sec INR 1.3 H 1.3 H (<1.2) APTT 64.3 H 63.6 H (22.0-30.0) sec Sodium 131 L (137-145) mmol/L Carbon Dioxide 20 L (22-30) mmol/L Creatinine 0.37 L (0.52-1.04) mg/dL Calcium 8.3 L (8.4-10.2) mg/dL Microbiology - Last 24 Hours (Table) 08/10/23 15:00 Blood Culture Gram Stain - Final Blood Blood Culture - Final Proprionibacterium acnes 08/10/23 15:19 Blood Culture Gram Stain - Final Blood Blood Culture - Final Proprionibacterium acnes
--- NOTE | 2023-08-18 13:04 | P.PN ---
Subjective Progress Note Date: 08/17/23 Principal diagnosis: UTI/Pneumonia Patient is a 68-year-old female with a past medical his significant for ALS CVA TIA hypertension hyperlipidemia patient presenting to [facility] ER for evaluation of fever and weakness, patient also have a pain to the right thigh and did have evidence of obstruction of the possums with failure of oral artery in this patient who is status post ultrasound-guided cannulation of the left femoral artery and eject percutaneous mechanical thrombectomy by vascular surgery patient did have a positive UA concerning for UTI and a qu estion of pneumonia. On today's evaluation that is 08/17/2023, the patient remains to be afebrile, t he patient is breathing comfortably on room air and denies any shortness of breath, the patient denies any chest pain or cough , patient denies abdominal pain and no nausea/vomiting or diarrhea Patient did have a white count of 9.46, and creatinine 0.5 as of yesterday , blood cultures and urine cultures are negative, blood culture with gram-positive bacilli Objective - Vital Signs Vital signs: Vital Signs Temp 97.8 F 08/17/23 07:07 Pulse 73 08/17/23 07:07 Resp 17 08/17/23 07:07 BP 130/81 08/17/23 07:07 Pulse Ox 91 L 08/17/23 07:07 FiO2 0 08/12/23 06:54 Intake & Output 08/16/23 08/17/23 08/17/23 18:59 06:59 18:59 Intake Total 0 73.392 Balance 0 73.392 Intake: Intake, IV Titration 73.392 Amount Heparin Sod,Pork in 0.45% 73.392 NaCl 25,000 unit In 0.45 % NaCl 1 250ml.bag @ 12 UNITS/KG/HR 10.008 mls/hr IV .Q24H [facility] Rx#: [id number] Oral 0 Other: Voiding Method Diaper Diaper Diaper Incontinent Incontinent Incontinent # Voids 2 2 ABP, PAP, CO, CI - Last Documented Arterial Blood Pressure 104/51 - Exam GENERAL DESCRIPTION: Elderly female lying in bed in no distress RESPIRATORY SYSTEM: Unlabored breathing , decreased breath sounds at bases HEART: S1 S2 regular rate and rhythm ,no loud murmurs ABDOMEN: Soft , no tenderness EXTREMITIES: No edema feet - Labs CBC & Chem 7: 08/18/23 02:16 08/18/23 02:16 Labs: Abnormal Lab Results - Last 24 Hours (Table) 08/16/23 08/17/23 Range/Units 23:03 05:52 PT 13.5 H 13.0 H (10.0-12.5) sec INR 1.3 H 1.2 H (<1.2) APTT 32.2 H (22.0-30.0) sec Assessment and Plan (1) Pneumonia Current Visit: Yes Status: Acute Code(s): J18.9 - PNEUMONIA, UNSPECIFIED ORGANISM SNOMED Code(s): 852241104 (2) Urinary tract infection Current Visit: Yes Status: Acute Code(s): N39.0 - URINARY TRACT INFECTION, SITE NOT SPECIFIED SNOMED Code(s): 61152825 (3) Positive blood culture Current Visit: Yes Status: Acute Code(s): R78.81 - BACTEREMIA SNOMED Code(s): 555275924 Plan: 1patient presented to hospital with fever did have elevated white count chest x-ray with retrocardiac opacity and did have a positive UA concerning for possible community-acquired pneumonia and a UTI in this patient not been on antibiotic in the recent past possibly sensitive pathogen 2-patient had shown some clinical improvement with resolution of the fever, patient has completed a course of antibiotics and is currently being monitor closely off antibiotic therapy 3-positive blood culture with gram-positive bacilli more likely contamination no need for vancomycin Dictation was produced using [employer] dictation software. please excuse any grammatical, word or spelling errors. Time with Patient: Less than 30
--- NOTE | 2023-08-18 13:05 | P.PN ---
Subjective Progress Note Date: 08/18/23 Principal diagnosis: UTI/Pneumonia Patient is a 68-year-old female with a past medical his significant for ALS CVA TIA hypertension hyperlipidemia patient presenting to [facility] ER for evaluation of fever and weakness, patient also have a pain to the right thigh and did have evidence of obstruction of the possums with failure of oral artery in this patient who is status post ultrasound-guided cannulation of the left femoral artery and eject percutaneous mechanical thrombectomy by vascular surgery patient did have a positive UA concerning for UTI and a qu estion of pneumonia. Patient apparently did fail swallow evaluation and got a PEG tube On today's evaluation that is 08/18/2023, the patient denies any fever or any chills, the patient is breathing comfortably on room air and no need for supplemental oxygen, the patient denies any chest pain, cough or sputum production, patient denies abdominal pain and no nausea/vomiting and no diarrhea has been reported Patient did have a white count of 6.8, and creatinine 0.37 , blood cultures with Propionibacterium Objective - Vital Signs Vital signs: Vital Signs Temp 97.3 F L 08/18/23 08:09 Pulse 93 08/18/23 08:09 Resp 19 08/18/23 08:09 BP 137/91 08/18/23 08:09 Pulse Ox 94 L 08/18/23 08:09 FiO2 0 08/12/23 06:54 Intake & Output 08/17/23 08/18/23 08/18/23 18:59 06:59 18:59 Intake Total 213.295 500 Output Total 1700 Balance 213.295 -1700 500 Weight 83.4 kg Intake: IV 500 Intake, IV Titration 213.295 Amount Heparin Sod,Pork in 0.45% 213.295 NaCl 25,000 unit In 0.45 % NaCl 1 250ml.bag @ 12 UNITS/KG/HR 10.008 mls/hr IV .Q24H [facility] Rx#: [id number] Output: Urine 1700 Other: Voiding Method Diaper Diaper Diaper Incontinent Incontinent Incontinent # Voids 3 ABP, PAP, CO, CI - Last Documented Arterial Blood Pressure 104/51 - Exam GENERAL DESCRIPTION: Elderly female lying in bed in no distress RESPIRATORY SYSTEM: Unlabored breathing , decreased breath sounds at bases HEART: S1 S2 regular rate and rhythm ,no loud murmurs ABDOMEN: Soft , no tenderness EXTREMITIES: No edema feet - Labs CBC & Chem 7: 08/18/23 02:16 08/18/23 02:16 Labs: Abnormal Lab Results - Last 24 Hours (Table) 08/17/23 08/18/23 08/18/23 Range/Units 19:16 02:16 02:16 PT 13.3 H 13.4 H (10.0-12.5) sec INR 1.3 H 1.3 H (<1.2) APTT 64.3 H 63.6 H (22.0-30.0) sec Sodium 131 L (137-145) mmol/L Carbon Dioxide 20 L (22-30) mmol/L Creatinine 0.37 L (0.52-1.04) mg/dL Calcium 8.3 L (8.4-10.2) mg/dL Microbiology - Last 24 Hours (Table) 08/10/23 15:00 Blood Culture Gram Stain - Final Blood Blood Culture - Final Proprionibacterium acnes 08/10/23 15:19 Blood Culture Gram Stain - Final Blood Blood Culture - Final Proprionibacterium acnes Assessment and Plan (1) Pneumonia Current Visit: Yes Status: Acute Code(s): J18.9 - PNEUMONIA, UNSPECIFIED ORGANISM SNOMED Code(s): 756167623 (2) Urinary tract infection Current Visit: Yes Status: Acute Code(s): N39.0 - URINARY TRACT INFECTION, SITE NOT SPECIFIED SNOMED Code(s): 88276989 (3) Positive blood culture Current Visit: Yes Status: Acute Code(s): R78.81 - BACTEREMIA SNOMED Code(s): 398302257 Plan: 1patient presented to hospital with fever did have elevated white count chest x-ray with retrocardiac opacity and did have a positive UA concerning for possible community-acquired pneumonia and a UTI in this patient not been on antibiotic in the recent past possibly sensitive pathogen 2-patient had shown some clinical improvement with resolution of the fever, p atient has completed a course of antibiotics and is currently being monitor closely off antibiotic therapy 3-positive blood culture with Propionibacterium more likely contamination as the patient remains to be afebrile white count is normal blood cultures will be repeated Dictation was produced using [employer] software. please excuse any grammatical, word or spelling errors. Time with Patient: Less than 30
[2023-08-18] MEDS: APIXABAN 5 MG TAB PEG/G-TUBE SCH (23:17)
[2023-08-19] MEDS: HYDROmorphone 0.5 MG/0.5 ML SYRINGE IVP PRN ×4 (08:44→20:54)
[2023-08-19] MEDS: SIMETHICONE 80 MG CHEWABLE PO SCH ×3 (08:47→17:05)
[2023-08-19] MEDS: DULoxetine HCL 60 MG CAPSULE.DR PO SCH ×2 (08:47→20:55)
[2023-08-19] MEDS: ATORVASTATIN 20 MG TAB PO SCH (08:47)
[2023-08-19] MEDS: PANTOPRAZOLE 40 MG/10 ML VIAL IVP SCH ×2 (08:47→20:55)
[2023-08-19] MEDS: APIXABAN 5 MG TAB PEG/G-TUBE SCH ×2 (08:47→20:55)
--- NOTE | 2023-08-19 11:01 | P.PN ---
Subjective This is a 68 year old female with history of ALS came in for progressive weakness and unable to use walker. She has underwent TPA thrombolysis therapy for acute limb ischemia of the right leg and started on eliquis 5 BID. Cardiology following and felt no clear evidence of cardiac etiology for peripheral occlusion, echocardiogram shows normal LV function. There was also concern for renal infarct, nephrology following. No evidence of renal infarct on imaging after review by radiology. Patient was cleared for DC to rehab however had progressive dysphagia and completed MBS patient grossly failed and speech therapy recommending pt to be NPO due to high risk for aspiration and essentially no oral motility evident. Patient had been recommended for PEG tube placement in the past. Patient wishes to proceed with PEG tube placement at this time. Surgery consulted. 08/17/2023 Patient evaluated today resting in bed. Today she complaints of pain between her shoulder blades as well as burning sensation epigastric area with mild tenderness. Suspect there is gastritis present patient has been started on eliquis this admission. Protonix has been increased to BID. Eliquis currently on hold patient is NPO and on IV heparin. Recommending for PEG tube placement which is scheduled for tomorrow. Will order chest xray and EKG as part of preop clear ance. Patient should be low operative risk had cardiac work up this admission with evidence of arryhthmia, no history of heart failure, echocardiogram showing normal LV function. Patient does have history of ALS she is on room air at this time. Had gallbladder ultrasound showing no gallstones no dilated biliary duct. Pt is afebrile, heart rate 75, blood pressure 144/89, 95% room air. 08/19/2023 patient pleasant 68 years old female with multiple medical problems who admitted initially with lower extremity ischemia with embolic occlusion of the right external iliac artery and common femoral arteries status post thrombectomy on 08/11 and . Also patient had evidence of dysphagia, eval was admitted by surgery team and she had PEG tube placed yesterday. Tube feeding is going to be started today, dietitian on case. She had been pneumonia and UTI which finish antibiotics and currently she is monitored of antibiotic. Nephrology on the case for possible renal infarct, currently patient is a symptomatic. Patient also was started on Eliquis during this admission. Hypercoagulable workup is recommended as an outpatient as no evidence of emboli was seen from the cardiac on vascular sources. She is also on normal saline 75 mm/h and IV Protonix twice a day. At baseline patient is nonverbal, physical and, Through writing using her phone jayden Objective - Vital Signs Vital signs: Vital Signs Temp 97.5 F L 08/19/23 08:08 Pulse 73 08/19/23 08:08 Resp 19 08/19/23 08:08 BP 137/87 08/19/23 08:08 Pulse Ox 94 L 08/19/23 09:22 FiO2 0 08/12/23 06:54 Intake & Output 08/18/23 08/19/23 08/19/23 18:59 06:59 18:59 Intake Total 743.736 Output Total 500 220 Balance 243.736 -220 Intake: IV 500 Intake, IV Titration 243.736 Amount Heparin Sod,Pork in 0.45% 243.736 NaCl 25,000 unit In 0.45 % NaCl 1 250ml.bag @ 12 UNITS/KG/HR 10.008 mls/hr IV .Q24H [facility] Rx#: [id number] Output: Urine 500 220 Other: Voiding Method Diaper Diaper Incontinent Incontinent External Catheter ABP, PAP, CO, CI - Last Documented Arterial Blood Pressure 104/51 - Exam -GENERAL: The patient is alert and oriented aphasic at baseline, not in any acute distress. Well developed, well nourished. HEENT: Pupils are round and equally reacting to light. EOMI. No scleral icterus. No conjunctival pallor. Normocephalic, atraumatic. No pharyngeal erythema. No thyromegaly. CARDIOVASCULAR: S1 and S2 present. No murmurs, rubs, or gallops. PULMONARY: Chest is clear to auscultation, no wheezing , no crackles. -ABDOMEN: Soft, nontender, nondistended, normoactive bowel sounds. No palpable organomegaly. PEG tube in place MUSCULOSKELETAL: No joint swelling or deformity. EXTREMITIES: No cyanosis, clubbing, or pedal edema. NEUROLOGICAL: Gross neurological examination did not reveal any focal deficits. SKIN: No rashes. no petechiae. - Labs CBC & Chem 7: 08/18/23 02:16 08/18/23 02:16 Labs: Abnormal Lab Results - Last 24 Hours (Table) 08/18/23 08/19/23 Range/Units 14:12 06:58 APTT 30.1 H (22.0-30.0) sec C-Reactive Protein 6.2 H (<1.0) mg/dL Assessment and Plan Assessment: Acute limb ischemia with right SFA and profundus femoris occlusion status post thrombolysis of the right lower extremity on 08/11-12/2022 Hx of ALS with chronic medical debility Dysphagia , status post PEG tube placement Urinary tract infection and sepsis, finished treatment with antibiotic Concern for renal infarct on the left; ruled out History of stroke Recent diagnosis of sleep apnea has CPAP in room ok to use Hypertension Hyperlipidemia Plan: Start tube feeding to achieve goal Continue with the liquids 5 mg Patient will require hypercoagulable workup as an outpatient. Several consultants of the case including clinical account specialist, infectious disease, Gen. surgery team. Labs and medication were reviewed.. Continue same treatment. Continue with symptomatic treatment. Resume home medication. Monitor labs and vitals. DVT and GI prophylaxis. Further recommendations as per clinical course of the patient DVT prophylaxis: eliquis GI Prophylaxis: Ppi PT/OT: rehab Prognosis is guarded CODE STATUS: DO NOT RESUSCITATE
--- NOTE | 2023-08-19 11:32 | P.PN ---
Subjective Progress Note Date: 08/19/23 CHIEF COMPLAINT: Dysphagia HISTORY OF PRESENT ILLNESS: Patient is status post EGD with PEG tube placement. She does report some minimal pain around PEG tube site. Afebrile. Patient's Eliquis has been restarted. PHYSICAL EXAM: VITAL SIGNS: Reviewed. GENERAL: Well-developed in no acute distress. ABDOMEN: Soft. Nondistended. PEG tube site clean dry and intact. Minimal tenderness to palpation around PEG tube site NEUROLOGIC: awake and alert ASSESSMENT: 1. Dysphagia status post EGD with PEG tube placement 2. Failed swallow eval 3. Severe protein calorie malnutrition 4. History of ALS 5. History of right leg ischemia status post TPA thrombolysis and thrombectomy PLAN: -Consult dietitian to start tube feeds today -Continue supportive care Physician Seismograph Chief note has been reviewed by physician. Signing provider agrees with the documented findings, assessment, and plan of care. Objective - Vital Signs Vital signs: Vital Signs Temp 97.5 F L 08/19/23 08:08 Pulse 73 08/19/23 08:08 Resp 19 08/19/23 08:08 BP 137/87 08/19/23 08:08 Pulse Ox 94 L 08/19/23 09:22 FiO2 0 08/12/23 06:54 Intake & Output 08/18/23 08/19/23 08/19/23 18:59 06:59 18:59 Intake Total 743.736 Output Total 500 220 Balance 243.736 -220 Intake: IV 500 Intake, IV Titration 243.736 Amount Heparin Sod,Pork in 0.45% 243.736 NaCl 25,000 unit In 0.45 % NaCl 1 250ml.bag @ 12 UNITS/KG/HR 10.008 mls/hr IV .Q24H [facility] Rx#: [id number] Output: Urine 500 220 Other: Voiding Method Diaper Diaper Incontinent Incontinent External Catheter ABP, PAP, CO, CI - Last Documented Arterial Blood Pressure 104/51 - Labs CBC & Chem 7: 08/18/23 02:16 08/18/23 02:16 Labs: Abnormal Lab Results - Last 24 Hours (Table) 08/18/23 08/19/23 Range/Units 14:12 06:58 APTT 30.1 H (22.0-30.0) sec C-Reactive Protein 6.2 H (<1.0) mg/dL
[2023-08-19 11:42] LABS: Magnesium 1.8 mg/dL (1.6-2.3); Phosphorus 3.7 mg/dL (2.5-4.5)
[2023-08-19] MEDS: SODIUM CHLORIDE 0.9% 1,000 ML IV SCH (12:39)
--- NOTE | 2023-08-19 15:38 | P.PN ---
Subjective Progress Note Date: 08/19/23 Principal diagnosis: UTI/Pneumonia Patient is a 68-year-old female with a past medical his significant for ALS CVA TIA hypertension hyperlipidemia patient presenting to [facility] ER for evaluation of fever and weakness, patient also have a pain to the right thigh and did have evidence of obstruction of the possums with failure of oral artery in this patient who is status post ultrasound-guided cannulation of the left femoral artery and eject percutaneous mechanical thrombectomy by vascular surgery patient did have a positive UA concerning for UTI and a qu estion of pneumonia. Patient apparently did fail swallow evaluation and got a PEG tube On today's evaluation that is 08/19/2023, the patient remains to be afebrile, the patient is breathing comfortably on room air , the patient denies any chest pain or any cough , patient denies nausea/vomiting diarrhea and no abdominal pain Patient did have a white count of 6.8, and creatinine 0.37 as of 08/28/2023 , blood cultures with Propionibacterium Objective - Vital Signs Vital signs: Vital Signs Temp 97.5 F L 08/19/23 08:08 Pulse 73 08/19/23 08:08 Resp 19 08/19/23 08:08 BP 137/87 08/19/23 08:08 Pulse Ox 94 L 08/19/23 09:22 FiO2 0 08/12/23 06:54 Intake & Output 08/18/23 08/19/23 08/19/23 18:59 06:59 18:59 Intake Total 743.736 Output Total 500 220 Balance 243.736 -220 Intake: IV 500 Intake, IV Titration 243.736 Amount Heparin Sod,Pork in 0.45% 243.736 NaCl 25,000 unit In 0.45 % NaCl 1 250ml.bag @ 12 UNITS/KG/HR 10.008 mls/hr IV .Q24H [facility] Rx#: [id number] Output: Urine 500 220 Other: Voiding Method Diaper Diaper Diaper Incontinent Incontinent Incontinent External Catheter External Catheter ABP, PAP, CO, CI - Last Documented Arterial Blood Pressure 104/51 - Exam GENERAL DESCRIPTION: Elderly female lying in bed in no distress RESPIRATORY SYSTEM: Unlabored breathing , decreased breath sounds at bases HEART: S1 S2 regular rate and rhythm ,no loud murmurs ABDOMEN: Soft , no tenderness EXTREMITIES: No edema feet - Labs CBC & Chem 7: 08/18/23 02:16 08/18/23 02:16 Labs: Abnormal Lab Results - Last 24 Hours (Table) 08/18/23 08/19/23 Range/Units 14:12 06:58 APTT 30.1 H (22.0-30.0) sec C-Reactive Protein 6.2 H (<1.0) mg/dL Assessment and Plan (1) Pneumonia Current Visit: Yes Status: Acute Code(s): J18.9 - PNEUMONIA, UNSPECIFIED ORGANISM SNOMED Code(s): 171891950 (2) Urinary tract infection Current Visit: Yes Status: Acute Code(s): N39.0 - URINARY TRACT INFECTION, SITE NOT SPECIFIED SNOMED Code(s): 99781173 (3) Positive blood culture Current Visit: Yes Status: Acute Code(s): R78.81 - BACTEREMIA SNOMED Code(s): 472076445 Plan: 1patient presented to hospital with fever did have elevated white count chest x-ray with retrocardiac opacity and did have a positive UA concerning for possible community-acquired pneumonia and a UTI in this patient not been on antibiotic in the recent past possibly sensitive pathogen 2-patient had shown some clinical improvement with resolution of the fever, patient has completed a course of antibiotics and is currently being monitor closely off antibiotic therapy 3-positive blood culture with Propionibacterium more likely contamination as the patient remains to be afebrile white count is normal, the blood culture has been repeated and results will be followed Dictation was produced using [employer] dictation software. please excuse any grammatical, word or spelling errors. Time with Patient: Less than 30
[2023-08-19] MEDS ORDERED: LACTATED RINGERS 1,000 ML IV SCH (23:39)
[2023-08-20] MEDS: SIMETHICONE 80 MG CHEWABLE PO SCH ×3 (00:28→13:13)
[2023-08-20] MEDS: HYDROmorphone 0.5 MG/0.5 ML SYRINGE IVP PRN ×2 (02:07→06:13)
[2023-08-20 02:46] VITALS: RESP 18
[2023-08-20] MEDS: SODIUM CHLORIDE 0.9% 1,000 ML IV SCH (06:20)
--- NOTE | 2023-08-20 08:09 | P.DS ---
Providers Date of admission: 08/10/23 21:29 Attending physician: Ismael Falk Consults: 08/11/23 10:21 Consult Physician Routine Consulting Provider: Luciano Radford Consult Reason/Comments: Sepsis, UTI, pneumonia Do you want consulting provider notified?: Yes 08/12/23 15:38 Consult Physician Routine Consulting Provider: Willis Thomas Consult Reason/Comments: pyelonephritis vs renal infarct Do you want consulting provider notified?: Yes 08/16/23 17:03 Consult Physician Routine Consulting Provider: Cristo Horn Consult Reason/Comments: PEG tube placement Do you want consulting provider notified?: Yes Primary care physician: [facility] Course: Diagnoses: Acute limb ischemia with right SFA and profundus femoris occlusion status post thrombolysis of the right lower extremity on 08/11-12/2022 Hx of ALS with chronic medical debility Dysphagia , status post PEG tube placement Urinary tract infection and sepsis, finished treatment with antibiotic prioprionibacterium positive blood culture ,mostly contamination Concern for renal infarct on the left; ruled out History of stroke Recent diagnosis of sleep apnea has CPAP in room ok to use Hypertension Hyperlipidemia Hospital course: patient pleasant 68 years old female with multiple medical problems who admitted initially with lower extremity ischemia with embolic occlusion of the right external iliac artery and common femoral arteries status post thrombectomy on 08/11 and . Also patient had evidence of dysphagia, eval was admitted by surgery team and she had PEG tube placed yesterday. Tube feeding is going to be started yesterday, dietitian on case. Currently 2 feedings at goal 25 ml/h (confirmed with the staff and bedside nurse) She had been pneumonia and UTI which finish antibiotics and currently she is monitored off antibiotic.Positive blood culture most likely contamination and repeat blood culture is negative so far with ID team on the case. Nephrology on the case for possible renal infarct, currently patient is asymptomatic. Patient also was started on Eliquis during this admission. Hypercoagulable workup is recommended as an outpatient as no evidence of emboli was seen from the cardiac on vascular sources. Patient currently is fully awake and oriented, she feels better, she denies any specific symptoms to do this morning. She wants to go to her ECF and she was happy to her she could be discharged today. Patient was cleared for discharge by all consultants Problems and management plan were discussed with the patient and he verbalized understanding and acceptance Patient was found stable and can be discharged home in guarded prognosis however he needs follow-up as an outpatient. Patient was instructed to follow up with PCP Dr. Montes within one week and patient agrees Patient was instructed to follow up with vascular surgeon Dr. Child in 2 weeks and with spot washer Dr. Breaux in 2 weeks. Physical exam -Gen: patient is a AAOx3, no distress, nonverbal at baseline, able to come to through writing for example through her iphone CVS: S1-S2, RRR, no murmur Lungs: B/L CTA, no wheezing -Abdomen: soft, no distention, no tenderness, positive bowel sounds. PEG tube in place with 2 feedings, ratye: 25 mL/h Extremity: no leg edema or induration Time spent more than 35 minutes Plan - Discharge Summary Discharge Rx Participant: No New Discharge Prescriptions: New Mag Hydrox/Al Hydrox/Simeth [Maalox] 30 ml PO Q4HR PRN ml PRN Reason: Gi Upset Apixaban [Eliquis] 5 mg PEG/G-TUBE BID tab Continue Carboxymethylcellulose Sodium [Refresh Tears] 1 drop BOTH EYES QID PRN PRN Reason: DRY EYES Riluzole [Rilutek] 50 mg PO BID Pantoprazole [Protonix] 40 mg PO DAILY DULoxetine HCL [Cymbalta] 60 mg PO BID lisinopriL [Zestril] 5 mg PO DAILY Simvastatin [Zocor] 40 mg PO DAILY Discontinued Ibuprofen [Motrin] 800 mg PO Q8HR PRN #30 tab PRN Reason: Pain amLODIPine [Norvasc] 10 mg PO DAILY Discharge Medication List Carboxymethylcellulose Sodium [Refresh Tears] 1 drop BOTH EYES QID PRN 06/09/21 [History] DULoxetine HCL [Cymbalta] 60 mg PO BID 06/09/21 [History] Pantoprazole [Protonix] 40 mg PO DAILY 08/10/23 [History] Riluzole [Rilutek] 50 mg PO BID 08/10/23 [History] Simvastatin [Zocor] 40 mg PO DAILY 08/10/23 [History] lisinopriL [Zestril] 5 mg PO DAILY 08/10/23 [History] Apixaban [Eliquis] 5 mg PEG/G-TUBE BID tab 08/20/23 [Rx] Mag Hydrox/Al Hydrox/Simeth [Maalox] 30 ml PO Q4HR PRN ml 08/20/23 [Rx] Follow up Appointment(s)/Referral(s): LUCINA Jean Clair [REFERRING] - 1-2 days Monty Breaux MD [STAFF PHYSICIAN] - 2 Weeks (pt will need hypercoagulable as outpatient setting) Ceferino Gibson DO [Doctor of Osteopathic Medicine] - 2 Weeks [facility] [NON-STAFF] - Juanjose Montes DO [Primary Care Provider] - 08/19/23 1:45 pm [facility] Visiting Nurse, [NON-STAFF] - 1-2 days Activity/Diet/Wound Care/Special Instructions: Follow up with Dr. Monty Breaux for work up for hypercoagulable state. Discharge/Stand Alone Forms: Adult Foster Snf List, Help In The Home Discharge Disposition: TRANSFER TO SNF/ECF
[2023-08-20 08:36] VITALS: BP 122/83; PULSE 78; TEMP 98.6
[2023-08-20] MEDS: DULoxetine HCL 60 MG CAPSULE.DR PO SCH (08:54)
[2023-08-20] MEDS: PANTOPRAZOLE 40 MG/10 ML VIAL IVP SCH (08:55)
[2023-08-20] MEDS: APIXABAN 5 MG TAB PEG/G-TUBE SCH (08:55)
[2023-08-20] MEDS: ATORVASTATIN 20 MG TAB PO SCH (08:55)
--- NOTE | 2023-08-20 11:23 | P.PN ---
Subjective Progress Note Date: 08/20/23 Principal diagnosis: UTI/Pneumonia Patient is a 68-year-old female with a past medical his significant for ALS CVA TIA hypertension hyperlipidemia patient presenting to [facility] ER for evaluation of fever and weakness, patient also have a pain to the right thigh and did have evidence of obstruction of the possums with failure of oral artery in this patient who is status post ultrasound-guided cannulation of the left femoral artery and eject percutaneous mechanical thrombectomy by vascular surgery patient did have a positive UA concerning for UTI and a qu estion of pneumonia. Patient apparently did fail swallow evaluation and got a PEG tube On today's evaluation that is 08/20/2023, the patient denies any fever or any chills, the patient is breathing comfortably on room air without any need for supplemental oxygen, the patient denies any chest pain or any cough , patient denies abdominal pain, no nausea/vomiting diarrhea , patient has been tolerat ing her tube feeds Patient did have a white count of 6.8, and creatinine 0.37 as of 08/28/2023 no laboratory today , blood cultures with Propionibacterium, repeat blood culture 08/18/2023 so far negative Objective - Vital Signs Vital signs: Vital Signs Temp 98.6 F 08/20/23 07:36 Pulse 78 08/20/23 07:36 Resp 18 08/20/23 07:36 BP 122/83 08/20/23 07:36 Pulse Ox 96 08/20/23 07:36 FiO2 0 08/12/23 06:54 Intake & Output 08/19/23 08/20/23 08/20/23 18:59 06:59 18:59 Output Total 350 Balance -350 Weight 83.4 kg 80.5 kg Output: Urine 350 Other: Voiding Method Diaper External Catheter Incontinent External Catheter ABP, PAP, CO, CI - Last Documented Arterial Blood Pressure 104/51 - Exam GENERAL DESCRIPTION: Elderly female lying in bed in no distress RESPIRATORY SYSTEM: Unlabored breathing , decreased breath sounds at bases HEART: S1 S2 regular rate and rhythm ,no loud murmurs ABDOMEN: Soft , no tenderness EXTREMITIES: No edema feet - Labs CBC & Chem 7: 08/18/23 02:16 08/18/23 02:16 Labs: Microbiology - Last 24 Hours (Table) 08/18/23 14:12 Blood Culture - Preliminary Blood Assessment and Plan (1) Pneumonia Current Visit: Yes Status: Acute Code(s): J18.9 - PNEUMONIA, UNSPECIFIED ORGANISM SNOMED Code(s): 580162278 (2) Urinary tract infection Current Visit: Yes Status: Acute Code(s): N39.0 - URINARY TRACT INFECTION, SITE NOT SPECIFIED SNOMED Code(s): 70153478 (3) Positive blood culture Current Visit: Yes Status: Acute Code(s): R78.81 - BACTEREMIA SNOMED Code(s): 869533692 Plan: 1patient presented to hospital with fever did have elevated white count chest x-ray with retrocardiac opacity and did have a positive UA concerning for p ossible community-acquired pneumonia and a UTI in this patient not been on antibiotic in the recent past possibly sensitive pathogen 2-patient had shown some clinical improvement with resolution of the fever, patient has completed a course of antibiotics and is currently doing well off antibiotic therapy 3-positive blood culture with Propionibacterium more likely contamination as the patient remains to be afebrile white count is normal, the blood culture has been repeated and so far negative for any for further workup for the same or any antibiotic on discharge discussed with the admitting team working on discharge Dictation was produced using [employer] dictation software. please excuse any gr ammatical, word or spelling errors. Time with Patient: Less than 30
--- NOTE | 2023-08-20 11:31 | P.PN ---
Progress Note - Text Progress Note Date: 08/20/23 Patient is status post PEG tube placement on 08/28/2023. Abdomen is soft. 2 feeds are infusing at 25 mL per hour. Bowel movement pending.
[2023-08-20 13:41] VITALS: BMI 27.8
== END 2023-08-20 13:16 | DRG 853 ==
LOC: EC 14:21 → 5NMEDONC 21:29 → 3SCARD 08-11 12:43 → 2SICU 08-11 14:08 → 4SSUR 08-13 17:28
PROVIDERS: ADMIT Hospitalist; ATTEND Hospitalist
PROC: 04CM3ZZ Extirpation of Matter from Right Popliteal Artery, Percutaneous Approach (ICD-10-PCS; 2023-08-11)
PROC: 04CP3ZZ Extirpation of Matter from Right Anterior Tibial Artery, Percutaneous Approach (ICD-10-PCS; 2023-08-11)
PROC: 3E05317 Introduction of Other Thrombolytic into Peripheral Artery, Percutaneous Approach (ICD-10-PCS; 2023-08-11)
PROC: 04CH3ZZ Extirpation of Matter from Right External Iliac Artery, Percutaneous Approach (ICD-10-PCS; principal; 2023-08-11 10:15)
PROC: 04CK3ZZ Extirpation of Matter from Right Femoral Artery, Percutaneous Approach (ICD-10-PCS; 2023-08-11 10:15)
PROC: 04CY3ZZ Extirpation of Matter from Lower Artery, Percutaneous Approach (ICD-10-PCS; 2023-08-11 10:15)
PROC: B41F1ZZ Fluoroscopy of Right Lower Extremity Arteries using Low Osmolar Contrast (ICD-10-PCS; 2023-08-12)
PROC: 0DH63UZ Insertion of Feeding Device into Stomach, Percutaneous Approach (ICD-10-PCS; 2023-08-18)
PROC: 3E0G76Z Introduction of Nutritional Substance into Upper GI, Via Natural or Artificial Opening (ICD-10-PCS; 2023-08-18)
DX: A41.9 Sepsis, unspecified organism (principal); E43 Unspecified severe protein-calorie malnutrition; J18.9 Pneumonia, unspecified organism; G12.21 Amyotrophic lateral sclerosis; I74.5 Embolism and thrombosis of iliac artery; I74.3 Embolism and thrombosis of arteries of the lower extremities; I69.354 Hemiplegia and hemiparesis following cerebral infarction affecting left non-dominant side; N39.0 Urinary tract infection, site not specified; I70.221 Atherosclerosis of native arteries of extremities with rest pain, right leg; Z66 Do not resuscitate; R13.10 Dysphagia, unspecified; I10 Essential (primary) hypertension; I69.328 Other speech and language deficits following cerebral infarction; E78.5 Hyperlipidemia, unspecified; H91.90 Unspecified hearing loss, unspecified ear; M19.90 Unspecified osteoarthritis, unspecified site; M81.0 Age-related osteoporosis without current pathological fracture; I83.90 Asymptomatic varicose veins of unspecified lower extremity; G47.30 Sleep apnea, unspecified; K59.00 Constipation, unspecified; R53.81 Other malaise; Z68.27 Body mass index [BMI] 27.0-27.9, adult; Z87.891 Personal history of nicotine dependence; Z79.899 Other long term (current) drug therapy
CPT/HCPCS: 36246; 36415; 37214; 43246; 51701; 61645; 71045; 71046; 71275; 74174; 74230; 75710; 76705; 76770; 80048; 80053; 81001; 83605; 83615; 83735; 84100; 84484; 85025; 85027; 85384; 85610; 85730; 86140; 86850; 86900; 86901; 87040; 87086; 87449; 93005; 93306; 94760; 96365; 96375; 96376; 99285

== ENCOUNTER 2023-08-26 15:35 | Inpatient (IN) | payer MEDICARE ==
[2023-08-26] MEDS ORDERED: VANCOMYCIN IV PER PHARMACY 1 EACH MISC MISCELLANE PRN (16:20)
--- NOTE | 2023-08-26 16:26 | ED ---
General Adult HPI - General Chief complaint: Recheck/Abnormal Lab/Rx Stated complaint: abnormal labs Time Seen by Provider: 08/26/23 15:57 Source: EMS Mode of arrival: EMS - History of Present Illness Initial comments: Dictation was produced using [employer] dictation software. please excuse any grammatical, word or spelling errors. Chief Complaint: 68-year-old female presents emergency department for fever and leukopenia History of Present Illness: Patient is 68-year-old female she has history of ALS. She is on a medication to treat her ALS. 2 days ago she had blood work performed showed that she was leukopenic with a blood cell count of 1.86. Patient states that she has a very mild headache however she does have a cough shortness of breath abdominal pain rash or urinary symptoms. She was recently admitted to the hospital for UTI. Signs at the bedside states that all they were told by nursing staff as the patient had low white blood cell count and had a fever. The ROS documented in this emergency department record has been reviewed and confirmed by me. Those systems with pertinent positive or negative responses have been documented in the HPI. All other systems are other negative and/or noncontributory. - Related Data Home Medications Medication Instructions Recorded Confirmed Carboxymethylcellulose Sodium 1 drop BOTH EYES QID PRN 06/09/21 08/26/23 [Refresh Tears] DULoxetine HCL [Cymbalta] 60 mg PEG/G-TUBE BID@0800,1700 06/09/21 08/26/23 Pantoprazole [Protonix] 40 mg PEG/G-TUBE DAILY 08/10/23 08/26/23 Riluzole [Rilutek] 50 mg PEG/G-TUBE BID@0800,1700 08/10/23 08/26/23 Simvastatin [Zocor] 40 mg PO DAILY 08/10/23 08/26/23 lisinopriL [Zestril] 5 mg PO DAILY 08/10/23 08/26/23 Acetaminophen [Tylenol] 650 mg PEG/G-TUBE Q6H PRN 08/26/23 08/26/23 Apixaban [Eliquis] 5 mg PEG/G-TUBE BID@0800,1700 08/26/23 08/26/23 Mag Hydrox/Al Hydrox/Simeth 30 ml PEG/G-TUBE Q4HR PRN 08/26/23 08/26/23 [Maalox] Magnesium Hydroxide [Milk of 7,200 mg PEG/G-TUBE Q48H PRN 08/26/23 08/26/23 Magnesia Concentrate] Na Phos,M-B/Na Phos,Di-Ba [Fleet 133 ml RECTAL DAILY PRN 08/26/23 08/26/23 Adult] Saliva Stimulant Comb. No.3 1 spray MUCOUS MEM QID@08,12,,08/26/23 08/26/23 [Biotene Moisturizing Mouth] bisacodyL [Dulcolax] 10 mg RECTAL DAILY PRN 08/26/23 08/26/23 Allergies Allergy/AdvReac Type Severity Reaction Status Date / Time No Known Allergies Allergy Verified 08/26/23 17:14 Review of Systems ROS Statement: Those systems with pertinent positive or pertinent negative responses have been documented in the HPI. ROS Other: All systems not noted in ROS Statement are negative. Past Medical History Past Medical History: CVA/TIA, Hearing Disorder / Deafness, Hyperlipidemia, Hypertension, Musculoskeletal Disorder, Osteoarthritis (OA) Additional Past Medical History / Comment(s): Osteoporosis. Sl varicose veins. BLE edema. thyriod nodule. 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 othropedic, thyroid biopsy Nov 2020, 4 years ago left ankle surgery, cataract both eyes Past Anesthesia/Blood Transfusion Reactions: No Reported Reaction Past Psychological History: Anxiety, Depression Smoking Status: Former smoker Past Alcohol Use History: Occasional Past Drug Use History: None Reported - Past Family History Mother Family Medical History: No Reported History Father Family Medical History: Congestive Heart Failure (CHF), Hypertension General Exam - General Exam Comments Initial Comments: PHYSICAL EXAM: General Impression: Alert and oriented x3, not in acute distress, communicates via text on smart phone HEENT: Normocephalic atraumatic, extra-ocular movements intact, pupils equal and reactive to light bilaterally, mucous membranes moist. Cardiovascular: Heart regular rate and rhythm Chest: Able to complete full sentences, no retractions, no tachypnea Abdomen: abdomen soft, non-tender, non-distended, no organomegaly Musculoskeletal: Pulses present and equal in all extremities, no peripheral edema Motor: no focal deficits noted Neurological: CN II-XII grossly intact, no focal motor or sensory deficits noted Skin: Intact with no visualized rashes Psych: Normal affect and mood Course Vital Signs 08/26/23 08/26/23 15:45 19:06 Temperature 101.2 F H 98.9 F Pulse Rate 116 H 87 Respiratory 18 18 Rate Blood Pressure 122/77 225/72 O2 Sat by Pulse 95 92 L Oximetry Medical Decision Making - Medical Decision Making Was pt. sent in by a medical professional or institution (, PA, RADIOLOGY PRACTITIONER ASSISTANT, urgent care, hospital, or [place] health care facility...) When possible be specific @ -No Did you speak to anyone other than the patient for history (EMS, parent, family, police, friend...)? What history was obtained from this source @ -No Did you review nursing and triage notes (agree or disagree)? Why? @ -I reviewed and agree with nursing and triage notes Were old charts reviewed (outside hosp., previous admission, EMS record, old EKG, old radiological studies, urgent care reports/EKG's, [place] health care facility records)? Report findings @ -see above Differential Diagnosis (chest pain, altered mental status, abdominal pain women, abdominal pain men, vaginal bleeding, musculoskeletal, weakness, fever, dyspnea, syncope, headache, dizziness, GI bleed, back pain, seizure, CVA, palpatations, mental health)? @ -Differential Fever: Pneumonia, viral URI, endocarditis, myocarditis, pericarditis, otitis, sinusitis, peritonsillar Abscess, retropharyngeal Abscess, epiglottitis, peritonitis, appendicitis, Jillian cystitis, diverticulitis, hepatitis, colitis, UTI, PID, TOA, pyelonephritis, prostatitis, epididymitis, meningitis, en cephalitis, pulmonary embolism, CVA, thyroid storm, pancreatitis, adrenal crisis, cavernous sinus thrombosis, this is not meant to be an all-inclusive list. EKG interpreted by me (3pts min.). @ -My EKG interpretation: Ventricular rate 94, sinus rhythm,. 172, QRS 80, QTc 387. No NC prolongation, no QTC prolongation, no ST or T-wave changes noted. Overall, this EKG is unremarkable X-rays interpreted by me (1pt min.). @ -Chest x-ray is unremarkable for acute processes CT interpreted by me (1pt min.). @ -None done U/S interpreted by me (1pt. min.). @ -None done What testing was considered but not performed or refused? (CT, X-rays, U/S, labs)? Why? @ -None What meds were considered but not given or refused? Why? @ -None Did you discuss the management of the patient with other professionals (professionals i.e. , PA, RADIOLOGY PRACTITIONER ASSISTANT, lab, RT, psych nurse, social service technician, middle school pe teacher, teacher, fire management officer, hospice case manager)? Give summary @ -Case discussed with hospice for admission Was smoking cessation discussed for >3mins.? @ -No Was critical care preformed (if so, how long)? @ -No Were there social determinants of health that impacted care today? How? (Homelessness, low income, unemployed, alcoholism, drug addiction, tr ansportation, low edu. Level, literacy, decrease access to med. care, usp, rehab)? @ -No Was there de-escalation of care discussed even if they declined (Discuss DNR or withdrawal of care, Hospice)? DNR status @ -No What co-morbidities impacted this encounter? (DM, HTN, Smoking, COPD, CAD, Cancer, CVA, ARF, Chemo, Hep., AIDS, mental health diagnosis, sleep apnea, morbid obesity)? @ -None Was patient admitted / discharged? Hospital course, mention meds given and route, prescriptions, significant lab abnormalities, going to OR and other pertinent info. @ -68-year-old female presents emergency Department with fever, low white blood cell count. Patient has no localizing symptoms. Vital signs upon arrival shows temperature 101.2 with a heart rate of 116. Patient given antipyretics. Laboratory evaluation shows white blood cell count 1.1, neutrophils 0.03. Sodium 128, rest labs otherwise within acceptable limits. Pending urine studies. Clinical presentation concerning for neutropenic fever. Patient started antibiotics. No lactacidosis. Patient will be admitted with consultation to hematology and infectious disease. Undiagnosed new problem with uncertain prognosis? @ -No Drug Therapy requiring intensive monitoring for toxicity (Heparin, Nitro, Insulin, Cardizem)? @ -No Were any procedures done? @ -No Diagnosis/symptom? Acute, or Chronic, or Acute on Chronic? Uncomplicated (without systemic symptoms) or Complicated (systemic symptoms)? @ -Neutropenic fever Side effects of treatment? @ -No Exacerbation, Progression, or Severe Exacerbation? @ -No Poses a threat to life or bodily function? How? (Chest pain, [place], [place], pneumonia, PE, COPD, DKA, ARF, appy, cholecystitis, CVA, Diverticulitis, Homicidal, Suicidal, threat to staff... and all critical care pts) @ -yes - Lab Data Result diagrams: 08/26/23 16:41 08/26/23 16:41 Lab Results 08/26/23 08/26/23 08/26/23 Range/Units 16:41 16:41 16:41 WBC 1.1 L* (3.8-10.6) k/uL RBC 4.24 (3.80-5.40) m/uL Hgb 12.6 (11.4-16.0) gm/dL Hct 37.4 (34.0-46.0) % MCV 88.1 (80.0-100.0) fL MCH 29.7 (25.0-35.0) pg MCHC 33.7 (31.0-37.0) g/dL RDW 14.3 (11.5-15.5) % Plt Count 247 (150-450) k/uL MPV 7.1 Neutrophils % (Manual) 3 % Lymphocytes % (Manual) 28 % Monocytes % (Manual) 63 % Eosinophils % (Manual) 6 % Neutrophils # RADIOLOGY PRACTITIONER ASSISTANT Neutrophils # (Manual) 0.03 L* (1.3-7.7) k/uL Lymphocytes # (Manual) 0.31 L (1.0-4.8) k/uL Monocytes # (Manual) 0.69 (0-1.0) k/uL Eosinophils # (Manual) 0.07 (0-0.7) k/uL Nucleated RBCs 0 (0-0) /100 WBC Manual Slide Review Performed PT 12.0 (10.0-12.5) sec INR 1.1 (<1.2) APTT 30.7 H (22.0-30.0) sec Sodium 128 L (137-145) mmol/L Potassium 5.0 (3.5-5.1) mmol/L Chloride 97 L (98-107) mmol/L Carbon Dioxide 23 (22-30) mmol/L Anion Gap 8 mmol/L BUN 24 H (7-17) mg/dL Creatinine 0.45 L (0.52-1.04) mg/dL Est GFR (CKD-EPI)AfAm >90 (>60 ml/min/1.73 sqM) Est GFR (CKD-EPI)NonAf >90 (>60 ml/min/1.73 sqM) Glucose 137 H (74-99) mg/dL Plasma Lactic Acid Frarukh (0.7-2.0) mmol/L Calcium 8.7 (8.4-10.2) mg/dL Total Bilirubin 1.1 (0.2-1.3) mg/dL AST 30 (14-36) U/L ALT 35 H (4-34) U/L Alkaline Phosphatase 111 (38-126) U/L Total Protein 5.6 L (6.3-8.2) g/dL Albumin 2.7 L (3.5-5.0) g/dL 08/26/23 Range/Units 16:41 WBC (3.8-10.6) k/uL RBC (3.80-5.40) m/uL Hgb (11.4-16.0) gm/dL Hct (34.0-46.0) % MCV (80.0-100.0) fL MCH (25.0-35.0) pg MCHC (31.0-37.0) g/dL RDW (11.5-15.5) % Plt Count (150-450) k/uL MPV Neutrophils % (Manual) % Lymphocytes % (Manual) % Monocytes % (Manual) % Eosinophils % (Manual) % Neutrophils # Neutrophils # (Manual) (1.3-7.7) k/uL Lymphocytes # (Manual) (1.0-4.8) k/uL Monocytes # (Manual) (0-1.0) k/uL Eosinophils # (Manual) (0-0.7) k/uL Nucleated RBCs (0-0) /100 WBC Manual Slide Review PT (10.0-12.5) sec INR (<1.2) APTT (22.0-30.0) sec Sodium (137-145) mmol/L Potassium (3.5-5.1) mmol/L Chloride (98-107) mmol/L Carbon Dioxide (22-30) mmol/L Anion Gap mmol/L BUN (7-17) mg/dL Creatinine (0.52-1.04) mg/dL Est GFR (CKD-EPI)AfAm (>60 ml/min/1.73 sqM) Est GFR (CKD-EPI)NonAf (>60 ml/min/1.73 sqM) Glucose (74-99) mg/dL Plasma Lactic Acid Farrukh 1.0 (0.7-2.0) mmol/L Calcium (8.4-10.2) mg/dL Total Bilirubin (0.2-1.3) mg/dL AST (14-36) U/L ALT (4-34) U/L Alkaline Phosphatase (38-126) U/L Total Protein (6.3-8.2) g/dL Albumin (3.5-5.0) g/dL Disposition Clinical Impression: Neutropenic fever Disposition: ADMITTED IP TO THIS [facility] Condition: Serious Referrals: Juanjose Montes DO [Primary Care Provider] - 1-2 days Decision Time: 21:50
[2023-08-26] MEDS ORDERED: VANCOMYCIN 1,500 MG in SODIUM CHLORIDE 0.9% 500 ML 500 ML IVPB STA (16:28)
[2023-08-26] MEDS: PIPERACILLIN-TAZOBACTAM 3.375 GM in SODIUM CHLORIDE 0.9% 100 ML IVPB SCH (16:50)
[2023-08-26] MEDS: ACETAMINOPHEN TAB 500 MG TAB PO STA ×2 (16:50→17:08)
[2023-08-26] MEDS: SODIUM CHLORIDE 0.9% 500 ML 500 ML IV SCH ×2 (16:51→19:47)
[2023-08-26] MEDS ORDERED: ACETAMINOPHEN IV (For NPO) 1,000 MG in EMPTY BAG 1 BAG IVPB STA (16:58)
[2023-08-26 17:09] LABS: HCT 37.4 % (34.0-46.0); HGB 12.6 gm/dL (11.4-16.0); MCH 29.7 pg (25.0-35.0); MCHC 33.7 g/dL (31.0-37.0); MCV 88.1 fL (80.0-100.0); Mean Platelet Volume 7.1; Platelet Count 247 k/uL (150-450); RBC 4.24 m/uL (3.80-5.40); RDW 14.3 % (11.5-15.5)
[2023-08-26 17:25] LABS: INR 1.1 (<1.2); Partial Thromboplastin Time 30.7 sec (22.0-30.0); WBC 1.1 k/uL (3.8-10.6)
[2023-08-26 17:33] LABS: AST 30 U/L (14-36); African American GFR (CKD) >90 (>60 ml/min/1.73 sqM); Albumin 2.7 g/dL (3.5-5.0); Alkaline Phosphatase 111 U/L (38-126); Anion Gap 8 mmol/L; Blood Urea Nitrogen 24 mg/dL (7-17); Calcium 8.7 mg/dL (8.4-10.2); Carbon Dioxide 23 mmol/L (22-30); Chloride 97 mmol/L (98-107); Glucose 137 mg/dL (74-99); Non-African American GFR(CKD) >90 (>60 ml/min/1.73 sqM); Sodium 128 mmol/L (137-145); Total Bilirubin 1.1 mg/dL (0.2-1.3); Total Protein 5.6 g/dL (6.3-8.2)
[2023-08-26 17:34] LABS: ALT 35 U/L (4-34)
[2023-08-26 18:06] LABS: Eosinophils # (M) 0.07 k/uL (0-0.7); Lymphocytes # (M) 0.31 k/uL (1.0-4.8); Monocytes # (M) 0.69 k/uL (0-1.0); Neutrophils # (M) 0.03 k/uL (1.3-7.7); Neutrophils % (M) 3 %; Nucleated Red Blood Cells 0 /100 WBC (0-0); Total Cells Counted 100
--- NOTE | 2023-08-26 19:06 | XR ---
EXAMINATION TYPE: XR chest 2V DATE OF EXAM: 08/26/2023 5:46 PM CLINICAL INDICATION:Female, 68 years old with history of Fever; [facility] COMPARISON: 08 17 2023 x-ray TECHNIQUE: XR chest 2V Frontal and lateral views of the chest. FINDINGS: Lines/Tubes: No indwelling lines are seen. Lungs/Pleura: Patchy left basilar opacity similar to the prior study. Trace left effusion not exclude d. No sizable right pleural effusion or visualized pneumothorax. Background mild COPD/senescent rojas es. Pulmonary vascularity: Mild pulmonary vascular congestion. Heart/mediastinum: Cardiomediastinal silhouette is stable. Heart size upper limits of normal. Musculoskeletal: Spine is not well visualized. No acute osseous abnormality is seen. Other findings: None IMPRESSION: Left basilar opacity similar to the prior study, consider atelectasis and/or infiltrate.
[2023-08-26] MEDS ORDERED: NALOXONE 0.4 MG/ML 1 ML VIAL IV PRN (21:35)
[2023-08-26] MEDS: SODIUM CHLORIDE 0.9% 1,000 ML IV SCH (22:04)
[2023-08-27] MEDS: PIPERACILLIN-TAZOBACTAM 3.375 GM in SODIUM CHLORIDE 0.9% 100 ML IVPB SCH ×3 (00:15→17:25)
[2023-08-27] MEDS ORDERED: bisacodyL 10 MG SUPP RECTAL PRN (06:35)
[2023-08-27] MEDS: ACETAMINOPHEN TAB 325 MG TAB PEG/G-TUBE PRN ×2 (06:55→21:25)
[2023-08-27] MEDS ORDERED: VANCOMYCIN 1,500 MG in SODIUM CHLORIDE 0.9% 500 ML 500 ML IVPB SCH (07:00)
[2023-08-27 07:21] LABS: Appearance,Urine Clear (Clear); Bilirubin,Urine Negative (Negative); Blood,Urine Negative (Negative); Color,Urine Yellow; Glucose,Urine (UA) Negative (Negative); Ketones,Urine Negative (Negative); Leukocyte Esterase,Urine Negative (Negative); Nitrite,Urine Negative (Negative); Protein,Urine Trace (Negative); Specific Gravity,Urine 1.029 (1.001-1.035); Urobilinogen,Urine <2.0 mg/dL (<2.0)
[2023-08-27] MEDS: APIXABAN 5 MG TAB PEG/G-TUBE SCH ×2 (10:21→17:25)
[2023-08-27] MEDS ORDERED: ZINC OXIDE PASTE (Z-GUARD) 1 APPLIC APPLIC TOPICAL PRN (11:20)
--- NOTE | 2023-08-27 12:13 | P.HPIM ---
History of Present Illness patient pleasant 68 years old female with multiple medical problems including history of ALS, dysphagia status post PEG, history of stroke and obstructive sleep apnea. Was recently discharged from this facility 08/10-08/20 for right lower extremity ischemic occlusion status post thrombolysis. Also she is been treated for UTI and pneumonia and finish her treatment and monitoring of antibiotics and she was doing well. She was discharge in stable condition with recommendation follow up outpatient for hypercoagulable workup. Patient was sent from [facility] for low white cell count. On this admission she had a fever of 101.2. She denies chest pain or dyspnea or coughing. She feels little dizzy but no headache weakness or numbness. She denies any urinary complaints. She denies abdominal obtaining AN examination is different. As per patient which she communicate with low tone voice and sometimes with gestures. She states that she came in because of fever. is at bedside and held with history. Patient feels generally weak sleepy and malaise but no specific complaint when asked. Patient however is awake and alert upon frank although she says she is little more sleepy. She has an NG tube in place with no signs of cellulitis, she denies abdominal pain but on examination she has mild tenderness in the suprapubic region, left abdomen and epigastric region. No rebound tenderness, no guarding. She denies dyspnea or coughing. No chest pain. Chest x-ray showing left lower lobe opacity similar to previous Blood pressure on the low side 95/62. Labs reviewed showing WBC is 1.1 with a neutrophil count 0.03. Chest of CBC is unremarkable. Sodium 128, creatinine within the reference range Urine analysis is not suspicious for infection. Chest x-ray showing left lower lobe opacity similar to previous. EKG normal sinus rhythm at 94 Emergency room patient was started on Zosyn and vancomycin Review of Systems Review of systems CONSTITUTIONAL: No fever, no malaise, no fatigue. HEENT: No recent visual problems or hearing problems. Denied any sore throat. CARDIOVASCULAR: No orthopnea, PND, no palpitations, no syncope. PULMONARY: No shortness of breath, no cough, no hemoptysis. GASTROINTESTINAL: No diarrhea, no nausea, no vomiting, no abdominal pain. Normoactive bowel sounds. NEUROLOGICAL: No headaches, no weakness, no numbness. HEMATOLOGICAL: Denies any bleeding or petechiae. GENITOURINARY: Denies any burning micturition, frequency, or urgency. MUSCULOSKELETAL/RHEUMATOLOGICAL: Denies any joint pain, swelling, or any muscle pain. ENDOCRINE: Denies any polyuria or polydipsia. Past Medical History Past Medical History: CVA/TIA, Hearing Disorder / Deafness, Hyperlipidemia, Hypertension, Musculoskeletal Disorder, Osteoarthritis (OA) Additional Past Medical History / Comment(s): ALS. Osteoporosis. Sl varicose veins. BLE edema. thyriod nodule. 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 othropedic, thyroid biopsy Nov 2020, 4 years ago left ankle surgery, cataract both eyes, EGD w/ PEG 08/18/23, thrombolysis/thrombolytic surgery Aug 2023 Past Anesthesia/Blood Transfusion Reactions: No Reported Reaction Past Psychological History: Anxiety, Depression Smoking Status: Former smoker Past Alcohol Use History: Occasional Additional Past Alcohol Use History / Comment(s): Smoked 32.5 years, 1 ppd, quit 2000 Past Drug Use History: None Reported - Past Family History Mother Family Medical History: No Reported History Father Family Medical History: Congestive Heart Failure (CHF), Hypertension Medications and Allergies Home Medications Medication Instructions Recorded Confirmed Type Carboxymethylcellulose Sodium 1 drop BOTH EYES QID PRN 06/09/21 08/26/23 History [Refresh Tears] DULoxetine HCL [Cymbalta] 60 mg PEG/G-TUBE BID@0800,1700 06/09/21 08/26/23 History Pantoprazole [Protonix] 40 mg PEG/G-TUBE DAILY 08/10/23 08/26/23 History Riluzole [Rilutek] 50 mg PEG/G-TUBE BID@0800,1700 08/10/23 08/26/23 History Simvastatin [Zocor] 40 mg PO DAILY 08/10/23 08/26/23 History lisinopriL [Zestril] 5 mg PO DAILY 08/10/23 08/26/23 History Acetaminophen [Tylenol] 650 mg PEG/G-TUBE Q6H PRN 08/26/23 08/26/23 History Apixaban [Eliquis] 5 mg PEG/G-TUBE BID@0800,1700 08/26/23 08/26/23 History Mag Hydrox/Al Hydrox/Simeth 30 ml PEG/G-TUBE Q4HR PRN 08/26/23 08/26/23 History [Maalox] Magnesium Hydroxide [Milk of 7,200 mg PEG/G-TUBE Q48H PRN 08/26/23 08/26/23 History Magnesia Concentrate] Na Phos,M-B/Na Phos,Di-Ba [Fleet 133 ml RECTAL DAILY PRN 08/26/23 08/26/23 History Adult] Saliva Stimulant Comb. No.3 1 spray MUCOUS MEM QID@08,12,,08/26/23 08/26/23 History [Biotene Moisturizing Mouth] bisacodyL [Dulcolax] 10 mg RECTAL DAILY PRN 08/26/23 08/26/23 History Allergies Allergy/AdvReac Type Severity Reaction Status Date / Time No Known Allergies Allergy Verified 08/26/23 17:14 Physical Exam Vitals: Vital Signs Temp Pulse Pulse Resp BP BP BP 08/27/23 01:42 97.4 F L 82 17 95/62 95/62 08/27/23 00:52 97.9 F 08/27/23 00:00 77 16 101/61 08/26/23 23:30 78 16 99/70 08/26/23 23:00 78 16 121/69 08/26/23 19:06 98.9 F 87 18 225/72 08/26/23 15:45 101.2 F H 116 H 18 122/77 Pulse Ox 08/27/23 01:42 95 08/27/23 00:52 08/27/23 00:00 94 L 08/26/23 23:30 93 L 08/26/23 23:00 94 L 08/26/23 19:06 92 L 08/26/23 15:45 95 Intake and Output 08/26/23 08/27/23 08/27/23 22:59 06:59 14:59 Intake Total 180 Output Total 400 Balance -220 Intake: IV 180 Piperacillin-Tazobactam 3 100 .375 gm In Sodium Chloride 0.9% 100 ml @ 25 mls/hr IVPB Q8HR [facility] Rx# :[id number] Sodium Chloride 0.9% 1, 80 000 ml @ 20 mls/hr IV . Q24H [facility] Rx#:[id number] Output: Urine 400 Other: Voiding Method External Catheter Weight 92.986 kg 92.986 kg GENERAL: The patient is alert and oriented x3, not in any acute distress. Well developed, well nourished. HEENT: Pupils are round and equally reacting to light. EOMI. No scleral icterus. No conjunctival pallor. Normocephalic, atraumatic. No pharyngeal erythema. No thyromegaly. CARDIOVASCULAR: S1 and S2 present. No murmurs, rubs, or gallops. PULMONARY: Chest is clear to auscultation, no wheezing , no crackles. -ABDOMEN: Soft, nondistended, normoactive bowel sounds. No palpable organomegaly. PEG tube in a Place, mild tenderness in the suprapubic, epigastric and left sides of the abdomen, no rebound tenderness or guarding MUSCULOSKELETAL: No joint swelling or deformity. EXTREMITIES: No cyanosis, clubbing, or pedal edema. NEUROLOGICAL: Gross neurological examination did not reveal any focal deficits. SKIN: No rashes. no petechiae. Results CBC & Chem 7: 08/26/23 16:41 08/26/23 16:41 Labs: Abnormal Lab Results - Last 24 Hours (Table) 08/26/23 08/26/23 08/26/23 Range/Units 16:41 16:41 16:41 WBC 1.1 L* (3.8-10.6) k/uL Neutrophils # (Manual) 0.03 L* (1.3-7.7) k/uL Lymphocytes # (Manual) 0.31 L (1.0-4.8) k/uL APTT 30.7 H (22.0-30.0) sec Sodium 128 L (137-145) mmol/L Chloride 97 L (98-107) mmol/L BUN 24 H (7-17) mg/dL Creatinine 0.45 L (0.52-1.04) mg/dL Glucose 137 H (74-99) mg/dL ALT 35 H (4-34) U/L Total Protein 5.6 L (6.3-8.2) g/dL Albumin 2.7 L (3.5-5.0) g/dL Urine Protein (Negative) 08/27/23 Range/Units 06:40 WBC (3.8-10.6) k/uL Neutrophils # (Manual) (1.3-7.7) k/uL Lymphocytes # (Manual) (1.0-4.8) k/uL APTT (22.0-30.0) sec Sodium (137-145) mmol/L Chloride (98-107) mmol/L BUN (7-17) mg/dL Creatinine (0.52-1.04) mg/dL Glucose (74-99) mg/dL ALT (4-34) U/L Total Protein (6.3-8.2) g/dL Albumin (3.5-5.0) g/dL Urine Protein Trace H (Negative) Thrombosis Risk Factor Assmnt - Choose All That Apply Any of the Below Risk Factors Present?: Yes Each Factor Represents 1 point: Serious lung disease incl. pneumonia (< 1month) Other Risk Factors: Yes Thrombosis Risk Factor Assessment Total Risk Factor Score: 1 Thrombosis Risk Factor Assessment Level: Low Risk Assessment and Plan Assessment: Febrile neutropenia, unknown source Recent history of Acute limb ischemia with right SFA and profundus femoris occlusion status post thrombolysis of the right lower extremity on 08/11-12/2022 Hx of ALS with chronic medical debility left lower lobe infiltrate, similar to previous chronic Dysphagia , status post PEG tube placement Urinary tract infection and sepsis, finished treatment with antibiotic History of stroke Recent diagnosis of sleep apnea has CPAP in room ok to use Hypertension Hyperlipidemia Plan: Continue with IV vancomycin and Zosyn Infectious disease consult IV hydration with normal saline 75 mm/h Infectious disease consult Hematology consult Labs and medication were reviewed.. Continue same treatment. Continue with symptomatic treatment. Resume home medication. Monitor labs and vitals. DVT and GI prophylaxis. Further recommendations as per clinical course of the patient DVT prophylaxis: eliquis GI Prophylaxis: Pepcid PT/OT: Pending Prognosis is guarded
[2023-08-27] MEDS: SODIUM CHLORIDE 0.9% 1,000 ML IV SCH ×3 (17:05→21:27)
[2023-08-27] MEDS: DULoxetine HCL 60 MG CAPSULE.DR PO SCH (17:06)
[2023-08-27] MEDS: FILGRASTIM-SNDZ 480 MCG/0.8 ML SYRINGE SQ SCH (17:25)
--- NOTE | 2023-08-27 20:11 | P.CONS ---
History of Present Illness - Reason for Consult Consult date: 08/27/23 leukopenia Requesting physician: Kirit Cox - Chief Complaint fever - History of Present Illness Patient is a 68 year old female with a significant history of CVA, ALS, HLD, and HTN. Consult was placed for neutropenic fever. Patient presented to the emergency room with fever and neutropenia. Upon admission CBC revealed WBC 1100, ANC 30. CBC was otherwise unremarkable except for lymphopenia. Tmax 101.2. Urinalysis negative. COVID, RSV, and influenza negative. Blood cultures and sputum culture pending. Empiric antibiotics were started. ID consulted. Of note patient was recently admitted to the hospital for right lower extremity femoral artery occlusion and was treated for suspected pneumonia and UTI. Patient reports prior to admission she was experiencing generalized weakness and fatigue. Denies cough and shortness of breath. Denies abdominal pain. Denies nausea vomiting diarrhea. Chest x-ray revealed left basilar opacity similar to prior study on 08/17. Review of Systems 10 point ROS is negative except as stated in HPI Past Medical History Past Medical History: CVA/TIA, Hearing Disorder / Deafness, Hyperlipidemia, Hypertension, Musculoskeletal Disorder, Osteoarthritis (OA) Additional Past Medical History / Comment(s): ALS. Osteoporosis. Sl varicose veins. BLE edema. thyriod nodule. 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 othropedic, thyroid biopsy Nov 2020, 4 years ago left ankle surgery, cataract both eyes, EGD w/ PEG 08/18/23, thrombolysis/thrombolytic surgery Aug 2023 Past Anesthesia/Blood Transfusion Reactions: No Reported Reaction Past Psychological History: Anxiety, Depression Smoking Status: Former smoker Past Alcohol Use History: Occasional Additional Past Alcohol Use History / Comment(s): Smoked 32.5 years, 1 ppd, quit 2000 Past Drug Use History: None Reported - Past Family History Mother Family Medical History: No Reported History Father Family Medical History: Congestive Heart Failure (CHF), Hypertension Medications and Allergies Home Medications Medication Instructions Recorded Confirmed Type Carboxymethylcellulose Sodium 1 drop BOTH EYES QID PRN 06/09/21 08/26/23 History [Refresh Tears] DULoxetine HCL [Cymbalta] 60 mg PEG/G-TUBE BID@0800,1700 06/09/21 08/26/23 History Pantoprazole [Protonix] 40 mg PEG/G-TUBE DAILY 08/10/23 08/26/23 History Riluzole [Rilutek] 50 mg PEG/G-TUBE BID@0800,1700 08/10/23 08/26/23 History Simvastatin [Zocor] 40 mg PO DAILY 08/10/23 08/26/23 History lisinopriL [Zestril] 5 mg PO DAILY 08/10/23 08/26/23 History Acetaminophen [Tylenol] 650 mg PEG/G-TUBE Q6H PRN 08/26/23 08/26/23 History Apixaban [Eliquis] 5 mg PEG/G-TUBE BID@0800,1700 08/26/23 08/26/23 History Mag Hydrox/Al Hydrox/Simeth 30 ml PEG/G-TUBE Q4HR PRN 08/26/23 08/26/23 History [Maalox] Magnesium Hydroxide [Milk of 7,200 mg PEG/G-TUBE Q48H PRN 08/26/23 08/26/23 History Magnesia Concentrate] Na Phos,M-B/Na Phos,Di-Ba [Fleet 133 ml RECTAL DAILY PRN 08/26/23 08/26/23 History Adult] Saliva Stimulant Comb. No.3 1 spray MUCOUS MEM QID@,,,08/26/23 08/26/23 History [Biotene Moisturizing Mouth] bisacodyL [Dulcolax] 10 mg RECTAL DAILY PRN 08/26/23 08/26/23 History Allergies Allergy/AdvReac Type Severity Reaction Status Date / Time No Known Allergies Allergy Verified 08/26/23 17:14 Physical Exam Vitals: Vital Signs Temp Pulse Pulse Resp BP BP BP 08/27/23 09:35 08/27/23 08:15 97.6 F 79 18 99/65 08/27/23 01:42 97.4 F L 82 17 95/62 95/62 08/27/23 00:52 97.9 F 08/27/23 00:00 77 16 101/61 08/26/23 23:30 78 16 99/70 08/26/23 23:00 78 16 121/69 08/26/23 19:06 98.9 F 87 18 225/72 08/26/23 15:45 101.2 F H 116 H 18 122/77 Pulse Ox 08/27/23 09:35 92 L 08/27/23 08:15 92 L 08/27/23 01:42 95 08/27/23 00:52 08/27/23 00:00 94 L 08/26/23 23:30 93 L 08/26/23 23:00 94 L 08/26/23 19:06 92 L 08/26/23 15:45 95 Intake and Output 08/27/23 08/27/23 08/27/23 06:59 14:59 22:59 Intake Total 180 Output Total 400 Balance -220 Intake: IV 180 Piperacillin-Tazobactam 3 100 .375 gm In Sodium Chloride 0.9% 100 ml @ 25 mls/hr IVPB Q8HR [facility] Rx# :[id number] Sodium Chloride 0.9% 1, 80 000 ml @ 20 mls/hr IV . Q24H [facility] Rx#:[id number] Output: Urine 400 Other: Voiding Method External Catheter Weight 92.986 kg 92.986 kg - Constitutional General appearance: no acute distress - EENT Eyes: EOMI - Respiratory Respiratory: bilateral: CTA - Cardiovascular Rhythm: regular Heart sounds: normal: S1, S2 - Gastrointestinal General gastrointestinal: soft, no tenderness - Integumentary Integumentary: no cyanotic - Neurologic generalized weakness, dysarthria - Musculoskeletal Musculoskeletal: generalized weakness - Psychiatric Psychiatric: A&O x's 3 Results CBC & Chem 7: 08/26/23 16:41 08/26/23 16:41 Labs: Abnormal Lab Results - Last 24 Hours (Table) 08/26/23 08/26/23 08/26/23 Range/Units 16:41 16:41 16:41 WBC 1.1 L* (3.8-10.6) k/uL Neutrophils # (Manual) 0.03 L* (1.3-7.7) k/uL Lymphocytes # (Manual) 0.31 L (1.0-4.8) k/uL APTT 30.7 H (22.0-30.0) sec Sodium 128 L (137-145) mmol/L Chloride 97 L (98-107) mmol/L BUN 24 H (7-17) mg/dL Creatinine 0.45 L (0.52-1.04) mg/dL Glucose 137 H (74-99) mg/dL ALT 35 H (4-34) U/L Total Protein 5.6 L (6.3-8.2) g/dL Albumin 2.7 L (3.5-5.0) g/dL Urine Protein (Negative) 08/27/23 Range/Units 06:40 WBC (3.8-10.6) k/uL Neutrophils # (Manual) (1.3-7.7) k/uL Lymphocytes # (Manual) (1.0-4.8) k/uL APTT (22.0-30.0) sec Sodium (137-145) mmol/L Chloride (98-107) mmol/L BUN (7-17) mg/dL Creatinine (0.52-1.04) mg/dL Glucose (74-99) mg/dL ALT (4-34) U/L Total Protein (6.3-8.2) g/dL Albumin (3.5-5.0) g/dL Urine Protein Trace H (Negative) Chest x-ray: report reviewed Assessment and Plan (1) Neutropenic fever Current Visit: Yes Status: Acute Priority: High Code(s): D70.9 - NEUTROPENIA, UNSPECIFIED; R50.81 - FEVER PRESENTING WITH CONDITIONS CLASSIFIED ELSEWHERE SNOMED Code(s): 434333224 Plan: Neutropenic fever: -Upon admission CBC revealed WBC 1100, ANC 30. CBC was otherwise unremarkable except for lymphopenia. Tmax 101.2. Urinalysis negative. COVID, RSV, and influenza negative. CXR similar to comparison on 08/17. Blood cultures and sputum culture pending. Empiric antibiotics were started. ID following -Upon trending labs available within EMR, no neutropenia previously noted -Of note, patient reports she was started on Riluzole for treatment of ALS approx 2 months ago. Although not common, riluzole can cause neutropenia. Would recommend holding medication until WBC recovers. Pt should have close f/u with her neurologist so they can provide further recommendations in regards to medication -Will add granix daily for WBC support, with goal of ANC >1000 -Will continue to monitor
--- NOTE | 2023-08-27 21:31 | P.CONS ---
History of Present Illness - Reason for Consult Consult date: 08/27/23 Fever Requesting physician: Kirit Cox - Chief Complaint Fever 1 day - History of Present Illness Patient is a 68-year-old female with a past medical history significant for ALS recently admitted to this hospital patient did have evidence of blood clot to the right lower extremity requiring vascular intervention during this admission patient also noticed to have a difficulty swallowing failed swallow evaluation and did get a PEG tube and the patient was subsequently transferred to the [facility] patient has not been brought back to the hospital yesterday afternoon after apparently the patient was noticed to have a fever and also have a low white count patient denies having any headache or URI symptoms no chest pain no shortness with he did have occasional cough not become any sputum no nausea no vomiting tolerating her tube feed no abdominal pain or diarrhea on presentation to the hospital she did have a fever of 101.2 degrees Fahrenheit, patient was not tachycardic hypertensive or hypoxic no need for supplemental oxygen White count is 1.1 neutrophil count is 0.03 creatinine was normal liver enzymes are normal urine has been negative influenza RSV and COVID testing was negative patient did have a chest x-ray left basilar opacity consider atelectasis pulm filtrate patient was started on vancomycin and Zosyn infectious disease was consulted for further management of antibiotic therapy Review of Systems Positive point and negatives has been mentioned in the HPI, complete review of systems was performed and all other systems are negative Past Medical History Past Medical History: CVA/TIA, Hearing Disorder / Deafness, Hyperlipidemia, Hypertension, Musculoskeletal Disorder, Osteoarthritis (OA) Additional Past Medical History / Comment(s): ALS. Osteoporosis. Sl varicose veins. BLE edema. thyriod nodule. cva 2018 causing left sided deficits and slowed speech and again in October 2020 causing very difficult to understand spe ech History of Any Multi-Drug Resistant Organisms: None Reported Past Surgical History: Breast Surgery, Orthopedic Surgery, Tubal Ligation Additional Past Surgical History / Comment(s): Lt Breast biopsy x3. othropedic, thyroid biopsy Nov 2020, 4 years ago left ankle surgery, cataract both eyes, EGD w/ PEG 08/18/23, thrombolysis/thrombolytic surgery Aug 2023 Past Anesthesia/Blood Transfusion Reactions: No Reported Reaction Past Psychological History: Anxiety, Depression Smoking Status: Former smoker Past Alcohol Use History: Occasional Additional Past Alcohol Use History / Comment(s): Smoked 32.5 years, 1 ppd, quit 2000 Past Drug Use History: None Reported - Past Family History Mother Family Medical History: No Reported History Father Family Medical History: Congestive Heart Failure (CHF), Hypertension Medications and Allergies Home Medications Medication Instructions Recorded Confirmed Type Carboxymethylcellulose Sodium 1 drop BOTH EYES QID PRN 06/09/21 08/26/23 History [Refresh Tears] DULoxetine HCL [Cymbalta] 60 mg PEG/G-TUBE BID@0800,1700 06/09/21 08/26/23 History Pantoprazole [Protonix] 40 mg PEG/G-TUBE DAILY 08/10/23 08/26/23 History Simvastatin [Zocor] 40 mg PO DAILY 08/10/23 08/26/23 History lisinopriL [Zestril] 5 mg PO DAILY 08/10/23 08/26/23 History Acetaminophen [Tylenol] 650 mg PEG/G-TUBE Q6H PRN 08/26/23 08/26/23 History Apixaban [Eliquis] 5 mg PEG/G-TUBE BID@0800,1700 08/26/23 08/26/23 History Mag Hydrox/Al Hydrox/Simeth 30 ml PEG/G-TUBE Q4HR PRN 08/26/23 08/26/23 History [Maalox] Magnesium Hydroxide [Milk of 7,200 mg PEG/G-TUBE Q48H PRN 08/26/23 08/26/23 History Magnesia Concentrate] Na Phos,M-B/Na Phos,Di-Ba [Fleet 133 ml RECTAL DAILY PRN 08/26/23 08/26/23 Histo ry Adult] Saliva Stimulant Comb. No.3 1 spray MUCOUS MEM QID@08,,,08/26/23 08/26/23 History [Biotene Moisturizing Mouth] bisacodyL [Dulcolax] 10 mg RECTAL DAILY PRN 08/26/23 08/26/23 History Metoprolol Tartrate [Lopressor] 12.5 mg PO BID tab 09/06/23 Rx Sodium Chloride 0.65% Nasal [Deep 2 spray NASAL Q1H PRN ml 09/06/23 Rx Sea (Saline)] Allergies Allergy/AdvReac Type Severity Reaction Status Date / Time No Known Allergies Allergy Verified 08/26/23 17:14 Physical Exam Vitals: Vital Signs Temp Pulse Pulse Resp BP BP BP 08/27/23 09:35 08/27/23 08:15 97.6 F 79 18 99/65 08/27/23 01:42 97.4 F L 82 17 95/62 95/62 08/27/23 00:52 97.9 F 08/27/23 00:00 77 16 101/61 08/26/23 23:30 78 16 99/70 08/26/23 23:00 78 16 121/69 08/26/23 19:06 98.9 F 87 18 225/72 08/26/23 15:45 101.2 F H 116 H 18 122/77 Pulse Ox 08/27/23 09:35 92 L 08/27/23 08:15 92 L 08/27/23 01:42 95 08/27/23 00:52 08/27/23 00:00 94 L 08/26/23 23:30 93 L 08/26/23 23:00 94 L 08/26/23 19:06 92 L 08/26/23 15:45 95 Intake and Output 08/26/23 08/27/23 08/27/23 22:59 06:59 14:59 Intake Total 180 Output Total 400 Balance -220 Intake: IV 180 Piperacillin-Tazobactam 3 100 .375 gm In Sodium Chloride 0.9% 100 ml @ 25 mls/hr IVPB Q8HR PAU Rx# :[id number] Sodium Chloride 0.9% 1, 80 000 ml @ 20 mls/hr IV . Q24H PAU Rx#:[id number] Output: Urine 400 Other: Voiding Method External Catheter Weight 92.986 kg 92.986 kg GENERAL DESCRIPTION: An elderly female lying in bed, no distress. No tachypnea or accessory muscle of respiration use. HEENT: Shows Pallor , no scleral icterus. Oral mucous membrane is dry. No pharyngeal erythema or thrush NECK: Trachea central, no thyromegaly. LUNGS: Unlabored breathing. Decreased breath sound in the bases HEART: S1, S2, regular rate and rhythm. No loud murmur ABDOMEN: Soft, no tenderness EXTREMITIES: No edema of feet. SKIN: No rash, no masses palpable. NEUROLOGICAL: The patient is awake, alert, oriented x3, mood and affect normal. Results CBC & Chem 7: 09/06/23 11:48 09/05/23 04:17 Labs: Abnormal Lab Results - Last 24 Hours (Table) 08/26/23 08/26/23 08/26/23 Range/Units 16:41 16:41 16:41 WBC 1.1 L* (3.8-10.6) k/uL Neutrophils # (Manual) 0.03 L* (1.3-7.7) k/uL Lymphocytes # (Manual) 0.31 L (1.0-4.8) k/uL APTT 30.7 H (22.0-30.0) sec Sodium 128 L (137-145) mmol/L Chloride 97 L (98-107) mmol/L BUN 24 H (7-17) mg/dL Creatinine 0.45 L (0.52-1.04) mg/dL Glucose 137 H (74-99) mg/dL ALT 35 H (4-34) U/L Total Protein 5.6 L (6.3-8.2) g/dL Albumin 2.7 L (3.5-5.0) g/dL Urine Protein (Negative) 08/27/23 Range/Units 06:40 WBC (3.8-10.6) k/uL Neutrophils # (Manual) (1.3-7.7) k/uL Lymphocytes # (Manual) (1.0-4.8) k/uL APTT (22.0-30.0) sec Sodium (137-145) mmol/L Chloride (98-107) mmol/L BUN (7-17) mg/dL Creatinine (0.52-1.04) mg/dL Glucose (74-99) mg/dL ALT (4-34) U/L Total Protein (6.3-8.2) g/dL Albumin (3.5-5.0) g/dL Urine Protein Trace H (Negative) Assessment and Plan (1) Neutropenic fever Current Visit: Yes Status: Acute Priority: High Code(s): D70.9 - NEUTROPENIA, UNSPECIFIED; R50.81 - FEVER PRESENTING WITH CONDITIONS CLASSIFIED ELSEWHERE SNOMED Code(s): 686745883 (2) Pneumonia Current Visit: No Status: Acute Code(s): J18.9 - PNEUMONIA, UNSPECIFIED ORGANISM SNOMED Code(s): 238885169 Plan: 1patient presented to hospital with fever and low white count in this patient who was recently admitted at this facility and the patient did fail her swallow evaluation ended up getting a PEG tube now with evidence of left lower lobe opacity concerning for possible aspiration pneumonitis as no other obvious focus of infection, patient urine was negative, abdominal soft on clinical Examination no evidence of any joint swelling or cellulitis 2-we will try to obtain a sputum for Gram stain culture check a CRP and a procalcitonin 3-continue with Zosyn however discontinue vancomycin to decrease risk of nephrotoxicity We will follow on clinical condition and cultures to further adjust medication if needed Thank you for this consultation we will follow the patient along with you Dictation was produced using [email or web address] dictation software. please excuse any grammatical, word or spelling errors. Time with Patient: Greater than 30
[2023-08-28] MEDS: PIPERACILLIN-TAZOBACTAM 3.375 GM in SODIUM CHLORIDE 0.9% 100 ML IVPB SCH ×4 (00:13→23:30)
[2023-08-28] MEDS: ACETAMINOPHEN TAB 325 MG TAB PEG/G-TUBE PRN ×4 (04:01→20:11)
[2023-08-28 08:51] LABS: BUN/Creat Ratio 42.75 Ratio (12.00-20.00); Blood Urea Nitrogen 17.1 mg/dL (9.0-27.0); Calcium 8.4 mg/dL (8.7-10.3); Carbon Dioxide 22.6 mmol/L (21.6-31.8); Chloride 106 mmol/L (96-109); Glucose 101 mg/dL (70-110); Potassium 3.9 mmol/L (3.5-5.5); Sodium 137 mmol/L (135-145)
[2023-08-28] MEDS: DULoxetine HCL 60 MG CAPSULE.DR PO SCH (09:31)
[2023-08-28] MEDS: APIXABAN 5 MG TAB PEG/G-TUBE SCH ×2 (09:33→17:52)
[2023-08-28 09:37] LABS: HCT 30.5 % (37.2-46.3); HGB 9.8 g/dL (12.0-15.0); MCHC 32.1 g/dL (32.0-37.0); MCV 90.2 FL (80.0-97.0); NRBC Per 100 WBC 0 X 10*3/uL (0.00-0.01); Platelet Count 248 X 10*3/uL (140-440); RBC 3.38 X 10*6/uL (4.10-5.20); RDW 14.4 % (11.5-14.5)
[2023-08-28 09:38] LABS: Basophils # (A) 0.03 X 10*3/uL (0.00-0.10); Basophils % (A) 2.6 %; Elliptocytes 2+; Eosinophils # (A) 0.17 X 10*3/uL (0.04-0.35); Eosinophils % (A) 14.5 %; Lymphocytes # (A) 0.58 X 10*3/uL (0.90-5.00); Lymphocytes % (A) 49.6 %; Monocytes # (A) 0.37 X 10*3/uL (0.20-1.00); Monocytes % (A) 31.6 %; Neutrophils % (A) 0.8 %
[2023-08-28 09:56] LABS: WBC 1.17 X 10*3/uL (4.50-10.00)
[2023-08-28 09:58] LABS: Neutrophils # (A) 0.01 X 10*3/uL (1.80-7.70)
--- NOTE | 2023-08-28 12:28 | P.PN ---
Subjective Progress Note Date: 08/28/23 Principal diagnosis: Reason for follow-up is pneumonia Patient is a 68-year-old female with a past medical history significant for ALS recently admitted to this hospital did fail swallow did get PEG, now presenting to the hospital with fever and left basilar opacity con cerning for possible aspiration pneumonia On today's evaluation that is 08/28/2023, the patient continues to be afebrile, the patient is breathing comfortably on room air and no need for supplemental oxygen, the patient denies chest pain shortness of breath and worsening cough has been reported, patient denies nausea/vomiting , no abdominal pain and no diarrhea has been reported, tolerating her tube feeds per the nursing staff Patient white count is 1.17, creatinine 0.4, blood cultures Pending Objective - Vital Signs Vital signs: Vital Signs Temp 98.6 F 08/28/23 07:59 Pulse 80 08/28/23 07:59 Resp 17 08/28/23 07:59 BP 107/68 08/28/23 07:59 Pulse Ox 95 08/28/23 07:59 FiO2 Intake & Output 08/27/23 08/28/23 08/28/23 18:59 06:59 18:59 Output Total 400 401 Balance -400 -401 Weight 92.986 kg Output: Urine 400 400 Stool 1 Other: Voiding Method External Catheter # Bowel Movements 4 - Exam GENERAL DESCRIPTION: An elderly female lying in bed in no distress RESPIRATORY SYSTEM: Unlabored breathing , decreased breath sound at the base HEART: S1 S2 regular rate and rhythm , ABDOMEN: Soft , no tenderness EXTREMITIES: No edema feet - Labs CBC & Chem 7: 08/28/23 06:25 08/28/23 06:25 Labs: Abnormal Lab Results - Last 24 Hours (Table) 08/28/23 08/28/23 08/28/23 Range/Units 06:25 06:25 06:25 WBC 1.17 A* (4.50-10.00) X 10*3/uL RBC 3.38 L (4.10-5.20) X 10*6/uL Hgb 9.8 L (12.0-15.0) g/dL Hct 30.5 L (37.2-46.3) % Neutrophils # 0.01 A* (1.80-7.70) X 10*3/uL Lymphocytes # 0.58 L (0.90-5.00) X 10*3/uL Elliptocytes 2+ A Creatinine 0.4 L (0.6-1.5) mg/dL BUN/Creatinine Ratio 42.75 H (12.00-20.00) Ratio Calcium 8.4 L (8.7-10.3) mg/dL C-Reactive Protein 17.60 H (0.00-0.80) mg/dL Procalcitonin 0.29 H (0.02-0.09) ng/mL Microbiology - Last 24 Hours (Table) 08/26/23 16:30 Blood Culture - Preliminary Blood 08/26/23 16:45 Blood Culture - Preliminary Blood Assessment and Plan (1) Pneumonia Current Visit: No Status: Acute Code(s): J18.9 - PNEUMONIA, UNSPECIFIED ORGANISM SNOMED Code(s): 047910500 Plan: 1patient presented to hospital with fever and low white count in this patient who was recently admitted at this facility and the patient did fail her swallow evaluation ended up getting a PEG tube now with evidence of left lower lobe opacity concerning for possible aspiration pneumonitis as no other obvious focus of infection, patient urine was negative, abdominal soft on clinical Examination no evidence of any joint swelling or cellulitis 2-nursing staff to obtain a sputum for Gram stain culture , patient did have CRP of 17.60 and a procalcitonin is 0.29 3-patient to continue with Zosyn aspiration precaution and monitor clinical c ourse closely Dictation was produced using [employer] dictation software. please excuse any grammatical, word or spelling errors. Time with Patient: Less than 30
[2023-08-28] MEDS: SODIUM CHLORIDE 0.9% 1,000 ML IV SCH ×3 (15:07→23:30)
[2023-08-28] MEDS: FILGRASTIM-SNDZ 480 MCG/0.8 ML SYRINGE SQ SCH (18:44)
--- NOTE | 2023-08-28 21:52 | P.PN ---
Subjective patient pleasant 68 years old female with multiple medical problems including history of ALS, dysphagia status post PEG, history of stroke and obstructive sleep apnea. Was recently discharged from this facility 08/10-08/20 for right lower extremity ischemic occlusion status post thrombolysis. Also she is been treated for UTI and pneumonia and finish her treatment and monitoring of antibiotics and she was doing well. She was discharge in stable condition with recommendation follow up outpatient for hypercoagulable workup. Patient was sent from [facility] for low white cell count. On this admission she had a fever of 101.2. She denies chest pain or dyspnea or coughing. She feels little dizzy but no headache weakness or numbness. She denies any urinary complaints. She denies abdominal obtaining AN examination is different. As per patient which she communicate with low tone voice and sometimes with gestures. She states that she came in because of fever. is at bedside and held with history. Patient feels generally weak sleepy and malaise but no specific complaint when asked. Patient however is awake and alert upon frank although she says she is little more sleepy. She has an NG tube in place with no signs of cellulitis, she denies abdominal pain but on examination she has mild tenderness in the suprapubic region, left a bdomen and epigastric region. No rebound tenderness, no guarding. She denies dyspnea or coughing. No chest pain. Chest x-ray showing left lower lobe opacity similar to previous Blood pressure on the low side 95/62. Labs reviewed showing WBC is 1.1 with a neutrophil count 0.03. Chest of CBC is unremarkable. Sodium 128, creatinine within the reference range Urine analysis is not suspicious for infection. Chest x-ray showing left lower lobe opacity similar to previous. EKG normal sinus rhythm at 94 Emergency room patient was started on Zosyn and vancomycin 08/28/2023 Patient understands although she is nonverbal or talk with simple warts, she can come dictate with me and stated that she feels better. She has no fever more than 48 hours since admission. Her WBC only slightly up or basically the same at 1.17. Hemoglobin 9.8. Currently she remains on Zosyn with culture are pending CRP is elevated at 17.6 and priorcalcitonin is elevated at 0.29. Per hematology team later, and to hold Riluzole (for her ALS) till neutropenia resolves. Continue with filgastim Patient will require hypercoagulable as an outpatient (she was recently admitted for right lower extremity thrombotic ) during previous admission Active Medications Generic Name Dose Route Start Last Admin Trade Name Félix PRN Reason Stop Dose Admin Acetaminophen 650 mg 08/27/23 06:06 08/28/23 20:11 Acetaminophen Tab 325 Mg Tab PEG/G-TUBE 650 mg Q6HR PRN Administration Fever and/ or Pain Apixaban 5 mg 08/27/23 08:00 08/28/23 17:52 Apixaban 5 Mg Tab PEG/G-TUBE 5 mg BID@0800,1700 PAU Administration Protocol Bisacodyl 10 mg 08/27/23 06:35 Bisacodyl 10 Mg Supp RECTAL DAILY PRN Constipation Duloxetine HCl 60 mg 08/27/23 09:00 08/28/23 09:31 Duloxetine Hcl 60 Mg Capsule. PO Not Given DAILY PAU Filgrastim-Sndz 480 mcg 08/27/23 18:00 08/28/23 18:44 Filgrastim-Sndz 480 Mcg/0.8 Ml Syringe SQ 480 mcg DAILY@1800 PAU Administration Piperacillin Sod/Tazobactam 100 mls @ 25 mls/hr 08/26/23 16:30 08/28/23 15:06 Sod 3.375 gm/ Sodium Chloride IVPB 25 mls/hr Q8HR PAU Administration Protocol Sodium Chloride 1,000 mls @ 20 mls/hr 08/26/23 21:45 08/28/23 21:03 Saline 0.9% IV Not Given .Q24H PAU Sodium Chloride 1,000 mls @ 75 mls/hr 08/27/23 07:45 08/28/23 15:07 Saline 0.9% IV Not Given .[id number] PAU Naloxone HCl 0.2 mg 08/26/23 21:35 Naloxone 0.4 Mg/Ml 1 Ml Vial IV Q2M PRN Opioid Reversal Petrolatum 1 applic 08/27/23 11:20 Zinc Oxide Paste (Z-Guard) 1 Applic Applic TOPICAL DAILY PRN Wound Healing Objective - Vital Signs Vital signs: Vital Signs Temp 98.6 F 08/28/23 07:59 Pulse 80 08/28/23 07:59 Resp 17 08/28/23 07:59 BP 107/68 08/28/23 07:59 Pulse Ox 95 08/28/23 07:59 FiO2 Intake & Output 08/27/23 08/28/23 08/28/23 18:59 06:59 18:59 Output Total 400 401 Balance -400 -401 Weight 92.986 kg Output: Urine 400 400 Stool 1 Other: # Bowel Movements 4 - Exam GENERAL: The patient is alert and oriented x3, not in any acute distress. Well developed, well nourished. HEENT: Pupils are round and equally reacting to light. EOMI. No scleral icterus. No conjunctival pallor. Normocephalic, atraumatic. No pharyngeal erythema. No thyromegaly. CARDIOVASCULAR: S1 and S2 present. No murmurs, rubs, or gallops. PULMONARY: Chest is clear to auscultation, no wheezing , no crackles. -ABDOMEN: Soft, nontender, nondistended, normoactive bowel sounds. No palpable organomegaly. PEG tube in a Place MUSCULOSKELETAL: No joint swelling or deformity. EXTREMITIES: No cyanosis, clubbing, or pedal edema. NEUROLOGICAL: Gross neurological examination did not reveal any focal deficits. SKIN: No rashes. no petechiae. - Labs CBC & Chem 7: 08/28/23 06:25 08/28/23 06:25 Labs: Abnormal Lab Results - Last 24 Hours (Table) 08/28/23 08/28/23 08/28/23 Range/Units 06:25 06:25 06:25 WBC 1.17 A* (4.50-10.00) X 10*3/uL RBC 3.38 L (4.10-5.20) X 10*6/uL Hgb 9.8 L (12.0-15.0) g/dL Hct 30.5 L (37.2-46.3) % Neutrophils # 0.01 A* (1.80-7.70) X 10*3/uL Lymphocytes # 0.58 L (0.90-5.00) X 10*3/uL Elliptocytes 2+ A Creatinine 0.4 L (0.6-1.5) mg/dL BUN/Creatinine Ratio 42.75 H (12.00-20.00) Ratio Calcium 8.4 L (8.7-10.3) mg/dL C-Reactive Protein 17.60 H (0.00-0.80) mg/dL Procalcitonin 0.29 H (0.02-0.09) ng/mL Microbiology - Last 24 Hours (Table) 08/26/23 16:30 Blood Culture - Preliminary Blood 08/26/23 16:45 Blood Culture - Preliminary Blood Assessment and Plan Assessment: Febrile neutropenia, unknown source Recent history of Acute limb ischemia with right SFA and profundus femoris occlusion status post thrombolysis of the right lower extremity on 08/11-12/2022 Hx of ALS with chronic medical debility left lower lobe infiltrate, similar to previous chronic Dysphagia , status post PEG tube placement Urinary tract infection and sepsis, finished treatment with antibiotic History of stroke Recent diagnosis of sleep apnea has CPAP in room ok to use Hypertension Hyperlipidemia Plan: Continue with Zosyn Infectious disease consult IV hydration with normal saline Hematology consult for it, and to hold Riluzole, and continue with filgatim Require hypercoagulable as an outpatient Labs and medication were reviewed.. Continue same treatment. Continue with symptomatic treatment. Resume home medication. Monitor labs and vitals. DVT and GI prophylaxis. Further recommendations as per clinical course of the patient DVT prophylaxis: eliquis GI Prophylaxis: Pepcid PT/OT: Pending Prognosis is guarded
[2023-08-29] MEDS: ACETAMINOPHEN TAB 325 MG TAB PEG/G-TUBE PRN ×3 (02:56→21:26)
[2023-08-29 07:34] LABS: HCT 33.9 % (34.0-46.0); MCH 29.3 pg (25.0-35.0); MCHC 32.4 g/dL (31.0-37.0); MCV 90.4 fL (80.0-100.0); Mean Platelet Volume 7.8; Platelet Count 268 k/uL (150-450); RBC 3.74 m/uL (3.80-5.40); RDW 14.6 % (11.5-15.5)
[2023-08-29 07:45] LABS: WBC 1.4 k/uL (3.8-10.6)
[2023-08-29] MEDS: DULoxetine HCL 60 MG CAPSULE.DR PO SCH (09:02)
[2023-08-29] MEDS: APIXABAN 5 MG TAB PEG/G-TUBE SCH ×2 (09:02→15:27)
[2023-08-29] MEDS: PIPERACILLIN-TAZOBACTAM 3.375 GM in SODIUM CHLORIDE 0.9% 100 ML IVPB SCH ×2 (09:03→15:27)
[2023-08-29] MEDS: SODIUM CHLORIDE 0.9% 1,000 ML IV SCH ×2 (09:03→21:26)
[2023-08-29 10:40] LABS: Eosinophils # (M) 0.17 k/uL (0-0.7); Monocytes # (M) 0.32 k/uL (0-1.0); Neutrophils # (M) 0.11 k/uL (1.3-7.7); Neutrophils % (M) 8 %; Nucleated Red Blood Cells 0 /100 WBC (0-0); Total Cells Counted 100
[2023-08-29] MEDS ORDERED: ARTIFICIAL TEARS-HYPROMELLOSE DROPS 15 ML BTL BOTH EYES PRN (10:47)
--- NOTE | 2023-08-29 12:34 | P.PN ---
Subjective Progress Note Date: 08/29/23 Principal diagnosis: Reason for follow-up is pneumonia Patient is a 68-year-old female with a past medical history significant for ALS recently admitted to this hospital did fail swallow did get PEG, now presenting to the hospital with fever and left basilar opacity con cerning for possible aspiration pneumonia On today's evaluation that is 08/29/2023, the patient remains to be afebrile, the patient is breathing comfortably on room air and denies any shortness of br eath, the patient denies chest pain did have occasional dry cough , patient denies abdominal pain, no nausea/vomiting and no diarrhea Patient white count is 1.4, creatinine 0.4, blood cultures so far negative Objective - Vital Signs Vital signs: Vital Signs Temp 97.6 F 08/29/23 07:14 Pulse 85 08/29/23 07:14 Resp 14 08/29/23 07:14 BP 133/83 08/29/23 07:14 Pulse Ox 95 08/29/23 09:25 FiO2 Intake & Output 08/28/23 08/29/23 08/29/23 18:59 06:59 18:59 Output Total 600 Balance -600 Weight 92.8 kg Output: Urine 600 Other: Voiding Method External Catheter External Catheter External Catheter # Voids 7 3 # Bowel Movements 2 1 1 - Exam GENERAL DESCRIPTION: An elderly female lying in bed in no distress RESPIRATORY SYSTEM: Unlabored breathing , decreased breath sound at the base HEART: S1 S2 regular rate and rhythm , ABDOMEN: Soft , no tenderness EXTREMITIES: No edema feet - Labs CBC & Chem 7: 08/29/23 06:57 08/28/23 06:25 Labs: Abnormal Lab Results - Last 24 Hours (Table) 08/29/23 Range/Units 06:57 WBC 1.4 L* (3.8-10.6) k/uL RBC 3.74 L (3.80-5.40) m/uL Hgb 11.0 L (11.4-16.0) gm/dL Hct 33.9 L (34.0-46.0) % Neutrophils # (Manual) 0.11 L* (1.3-7.7) k/uL Lymphocytes # (Manual) 0.80 L (1.0-4.8) k/uL Microbiology - Last 24 Hours (Table) 08/26/23 16:30 Blood Culture - Preliminary Blood 08/26/23 16:45 Blood Culture - Preliminary Blood Assessment and Plan (1) Pneumonia Current Visit: No Status: Acute Code(s): J18.9 - PNEUMONIA, UNSPECIFIED ORGANISM SNOMED Code(s): 325745374 Plan: 1patient presented to hospital with fever and low white count in this patient who was recently admitted at this facility and the patient did fail her swallow evaluation ended up getting a PEG tube now with evidence of left lower lobe opacity concerning for possible aspiration pneumonitis as no other obvious focus of infection, patient urine was negative, abdominal soft on clinical Examination no evidence of any joint swelling or cellulitis 2- sputum for Gram stain culture not collected, patient did have CRP of 17.60 and a procalcitonin is 0.29 3-patient seemed to have her clinical improvement and will continue with Zosyn aspiration precaution and monitor clinical course closely Dictation was produced using [employer] dictation software. please excuse any grammatical, word or spelling errors. Time with Patient: Less than 30
--- NOTE | 2023-08-29 14:23 | P.PN ---
Subjective Progress Note Date: 08/29/23 patient pleasant 68 years old female with multiple medical problems including history of ALS, dysphagia status post PEG, history of stroke and obstructive sleep apnea. Was recently discharged from this facility 08/10-08/20 for right lower extremity ischemic occlusion status post thrombolysis. Also she is been treated for UTI and pneumonia and finish her treatment and monitoring of antibiotics and she was doing well. She was discharge in stable condition with recommendation follow up outpatient for hypercoagulable workup. Patient was sent from [facility] for low white cell count. On this admission she had a fever of 101.2. She denies chest pain or dyspnea or coughing. She feels little dizzy but no h eadache weakness or numbness. She denies any urinary complaints. She denies abdominal obtaining AN examination is different. As per patient which she communicate with low tone voice and sometimes with gestures. She states that she came in because of fever. is at bedside and held with history. Patient feels generally weak sleepy and malaise but no specific complaint when asked. Patient however is awake and alert upon frank although she says she is little more sleepy. She has an NG tube in place with no signs of cellulitis, she denies abdominal pain but on examination she has mild tenderness in the suprapubic region, left abdomen and epigastric region. No rebound tenderness, no guarding. She denies dyspnea or coughing. No chest pain. Chest x-ray showing left lower lobe opacity similar to previous Blood pressure on the low side 95/62. Labs reviewed showing WBC is 1.1 with a neutrophil count 0.03. Chest of CBC is unremarkable. Sodium 128, creatinine within the reference range Urine analysis is not suspicious for infection. Chest x-ray showing left lower lobe opacity similar to previous. EKG normal sinus rhythm at 94 Emergency room patient was started on Zosyn and vancomycin 08/28/2023 Patient understands although she is nonverbal or talk with simple warts, she can come dictate with me and stated that she feels better. She has no fever more than 48 hours since admission. Her WBC only slightly up or basically the same at 1.17. Hemoglobin 9.8. Currently she remains on Zosyn with culture are pending CRP is elevated at 17.6 and priorcalcitonin is elevated at 0.29. Per hematology team later, and to hold Riluzole (for her ALS) till neutropenia resolves. Continue with filgastim Patient will require hypercoagulable as an outpatient (she was recently admitted for right lower extremity thrombotic ) during previous admission 08/29. Patient seen and examined. Blood work done this morning showed WBC 1.4, hemoglobin 11, platelet count 268,. at the bedside. States patient is doing much better. REVIEW OF SYSTEMS: CONSTITUTIONAL: No fever, no malaise,. CARDIOVASCULAR: No chest pain, no palpitations, no syncope. PULMONARY: No shortness of breath, no cough, GASTROINTESTINAL: No diarrhea, no nausea, no vomiting, no abdominal pain. NEUROLOGICAL: No headaches, no weakness, PHYSICAL EXAMINATION: GENERAL: The patient is alert and oriented x3, not in any acute distress. Has history of ALS HEENT: Pupils are round and equally reacting to light. EOMI. No scleral icterus. No conjunctival pallor. Normocephalic, atraumatic. No pharyngeal erythema. No thyromegaly. CARDIOVASCULAR: S1 and S2 present. No murmurs, rubs, or gallops. PULMONARY: Chest is clear to auscultation, no wheezing or crackles. ABDOMEN: Soft, nontender, nondistended, normoactive bowel sounds. No palpable organomegaly. PEG tube seen MUSCULOSKELETAL: No joint swelling or deformity. EXTREMITIES: No cyanosis, clubbing, or pedal edema. NEUROLOGICAL: Has history of ALS. Moving all extremities. SKIN: No rashes. Assessment and plan Febrile neutropenia, unknown source Recent history of Acute limb ischemia with right SFA and profundus femoris occlusion status post thrombolysis of the right lower extremity on 08/11-12/2022 Hx of ALS with chronic medical debility left lower lobe infiltrate, similar to previous chronic Dysphagia , status post PEG tube placement Urinary tract infection and sepsis, finished treatment with antibiotic History of stroke Recent diagnosis of sleep apnea has CPAP in room ok to use Hypertension Hyperlipidemia Monitor vital signs Monitor CBC Monitor CMP Continue telemetry monitoring Encourage use of incentive spirometer Follow-up on blood cultures Continue IV Zosyn Continue IV fluid ID following Hemoglobin oncology following, recommend holding riluzole, continue Plavix Labs and medication were reviewed.. Continue same treatment. Continue with symptomatic treatment. Resume home medication. Monitor labs and vitals. DVT and GI prophylaxis. Further recommendations as per clinical course of the patient Dictation was produced using dragon dictation software. please excuse any grammatical, word or spelling errors. Objective - Vital Signs Vital signs: Vital Signs Temp 97.6 F 08/29/23 07:14 Pulse 85 08/29/23 07:14 Resp 14 08/29/23 07:14 BP 133/83 08/29/23 07:14 Pulse Ox 95 08/29/23 09:25 FiO2 Intake & Output 08/28/23 08/29/23 08/29/23 18:59 06:59 18:59 Output Total 600 Balance -600 Weight 92.8 kg Output: Urine 600 Other: Voiding Method External Catheter External Catheter External Catheter # Voids 7 # Bowel Movements 2 1 - Labs CBC & Chem 7: 08/29/23 06:57 08/28/23 06:25 Labs: Abnormal Lab Results - Last 24 Hours (Table) 08/29/23 Range/Units 06:57 WBC 1.4 L* (3.8-10.6) k/uL RBC 3.74 L (3.80-5.40) m/uL Hgb 11.0 L (11.4-16.0) gm/dL Hct 33.9 L (34.0-46.0) % Neutrophils # (Manual) 0.11 L* (1.3-7.7) k/uL Lymphocytes # (Manual) 0.80 L (1.0-4.8) k/uL Microbiology - Last 24 Hours (Table) 08/26/23 16:30 Blood Culture - Preliminary Blood 08/26/23 16:45 Blood Culture - Preliminary Blood
--- NOTE | 2023-08-29 14:31 | P.PN ---
Subjective Progress Note Date: 08/29/23 Principal diagnosis: Neutropenia In f/u today pt is tolerating tube feedings, she does try and communicate, can type what she wants to say. She had no acute physical c/o to report. She was smiling and very pleasant Objective - Vital Signs Vital signs: Vital Signs Temp 97.6 F 08/29/23 07:14 Pulse 85 08/29/23 07:14 Resp 14 08/29/23 07:14 BP 133/83 08/29/23 07:14 Pulse Ox 95 08/29/23 09:25 FiO2 Intake & Output 08/28/23 08/29/23 08/29/23 18:59 06:59 18:59 Output Total 600 Balance -600 Weight 92.8 kg Output: Urine 600 Other: Voiding Method External Catheter External Catheter External Catheter # Voids 7 3 # Bowel Movements 2 1 1 - Constitutional General appearance: Present: average body habitus, cooperative, no acute distress - EENT Eyes: Present: anicteric sclerae, EOMI ENT: Present: hearing grossly normal - Respiratory Details: resp even and unlabored at rest - Psychiatric Psychiatric: Present: A&O x's 3, appropriate affect, intact judgment & insight - Labs CBC & Chem 7: 08/29/23 06:57 08/28/23 06:25 Labs: Abnormal Lab Results - Last 24 Hours (Table) 08/29/23 Range/Units 06:57 WBC 1.4 L* (3.8-10.6) k/uL RBC 3.74 L (3.80-5.40) m/uL Hgb 11.0 L (11.4-16.0) gm/dL Hct 33.9 L (34.0-46.0) % Neutrophils # (Manual) 0.11 L* (1.3-7.7) k/uL Lymphocytes # (Manual) 0.80 L (1.0-4.8) k/uL Microbiology - Last 24 Hours (Table) 08/26/23 16:30 Blood Culture - Preliminary Blood 08/26/23 16:45 Blood Culture - Preliminary Blood Assessment and Plan (1) Neutropenic fever Current Visit: Yes Status: Acute Priority: High Code(s): D70.9 - NEUTROPENIA, UNSPECIFIED; R50.81 - FEVER PRESENTING WITH CONDITIONS CLASSIFIED ELSEWHERE SNOMED Code(s): 067162504 Plan: Neutropenic fever -Medication effects? Newest med, ALS drug, has been held -ANC 110 today. Cont GCSF. CBC daily. Stop GCSF once ANC>1000 -Paraproteinemia, inflammatory work up ordered ID following
[2023-08-29] MEDS: FILGRASTIM-SNDZ 480 MCG/0.8 ML SYRINGE SQ SCH (17:34)
[2023-08-30] MEDS: PIPERACILLIN-TAZOBACTAM 3.375 GM in SODIUM CHLORIDE 0.9% 100 ML IVPB SCH ×4 (00:35→23:47)
[2023-08-30] MEDS: ACETAMINOPHEN TAB 325 MG TAB PEG/G-TUBE PRN ×3 (04:03→21:38)
[2023-08-30 04:07] LABS: Albumin 2.9 g/dL (3.8-4.9); Protein, Total 5.4 g/dL (6.2-8.2)
[2023-08-30] MEDS: SODIUM CHLORIDE 0.9% 1,000 ML IV SCH ×2 (04:15→22:25)
[2023-08-30] MEDS: DULoxetine HCL 60 MG CAPSULE.DR PO SCH (08:30)
[2023-08-30] MEDS: APIXABAN 5 MG TAB PEG/G-TUBE SCH ×2 (08:30→17:01)
[2023-08-30] MEDS: ATORVASTATIN 20 MG TAB PO SCH (08:30)
[2023-08-30 10:07] LABS: HGB 11.4 g/dL (12.0-15.0); MCH 28.9 pg (27.0-32.0); MCHC 32.6 g/dL (32.0-37.0); MCV 88.6 FL (80.0-97.0); Mean Platelet Volume 9.7 FL (9.5-12.2); NRBC Per 100 WBC 0.03 X 10*3/uL (0.00-0.01); Platelet Count 315 X 10*3/uL (140-440); RBC 3.95 X 10*6/uL (4.10-5.20); RDW 14.4 % (11.5-14.5); WBC 1.84 X 10*3/uL (4.50-10.00)
[2023-08-30 11:06] LABS: Basophils # (M) 0.02 X 10*3/uL (0.00-0.10); Elliptocytes 2+; Eosinophils # (M) 0.22 X 10*3/uL (0.04-0.35); Lymphocytes # (M) 0.98 X 10*3/uL (0.90-5.00); Monocytes # (M) 0.53 X 10*3/uL (0.20-1.00); Neutrophils % (M) 5 %; Nucleated Red Blood Cells 4 /100 WBCS
[2023-08-30 12:00] LABS: Neutrophils # (M) 0.09 X 10*3/uL (1.80-7.70)
--- NOTE | 2023-08-30 12:43 | P.PN ---
Subjective Progress Note Date: 08/30/23 patient pleasant 68 years old female with multiple medical problems including history of ALS, dysphagia status post PEG, history of stroke and obstructive sleep apnea. Was recently discharged from this facility 08/10-08/20 for right lower extremity ischemic occlusion status post thrombolysis. Also she is been treated for UTI and pneumonia and finish her treatment and monitoring of antibiotics and she was doing well. She was discharge in stable condition with recommendation follow up outpatient for hypercoagulable workup. Patient was sent from [facility] for low white cell count. On this admission she had a fever of 101.2. She denies chest pain or dyspnea or coughing. She feels little dizzy but no h eadache weakness or numbness. She denies any urinary complaints. She denies abdominal obtaining AN examination is different. As per patient which she communicate with low tone voice and sometimes with gestures. She states that she came in because of fever. is at bedside and held with history. Patient feels generally weak sleepy and malaise but no specific complaint when asked. Patient however is awake and alert upon frank although she says she is little more sleepy. She has an NG tube in place with no signs of cellulitis, she denies abdominal pain but on examination she has mild tenderness in the suprapubic region, left abdomen and epigastric region. No rebound tenderness, no guarding. She denies dyspnea or coughing. No chest pain. Chest x-ray showing left lower lobe opacity similar to previous Blood pressure on the low side 95/62. Labs reviewed showing WBC is 1.1 with a neutrophil count 0.03. Chest of CBC is unremarkable. Sodium 128, creatinine within the reference range Urine analysis is not suspicious for infection. Chest x-ray showing left lower lobe opacity similar to previous. EKG normal sinus rhythm at 94 Emergency room patient was started on Zosyn and vancomycin 08/28/2023 Patient understands although she is nonverbal or talk with simple warts, she can come dictate with me and stated that she feels better. She has no fever more than 48 hours since admission. Her WBC only slightly up or basically the same at 1.17. Hemoglobin 9.8. Currently she remains on Zosyn with culture are pending CRP is elevated at 17.6 and priorcalcitonin is elevated at 0.29. Per hematology team later, and to hold Riluzole (for her ALS) till neutropenia resolves. Continue with filgastim Patient will require hypercoagulable as an outpatient (she was recently admitted for right lower extremity thrombotic ) during previous admission 08/29. Patient seen and examined. Blood work done this morning showed WBC 1.4, hemoglobin 11, platelet count 268,. at the bedside. States patient is doing much better. 08/30. Patient seen and examined. Blood work done this morning showed WBC 1.84, hemoglobin 11.4, platelet count 315,. Patient had episodes of epistaxis in the night, it resolved on its own REVIEW OF SYSTEMS: CONSTITUTIONAL: No fever, no malaise,. CARDIOVASCULAR: No chest pain, no palpitations, no syncope. PULMONARY: No shortness of breath, no cough, GASTROINTESTINAL: No diarrhea, no nausea, no vomiting, no abdominal pain. NEUROLOGICAL: No headaches, no weakness, PHYSICAL EXAMINATION: GENERAL: The patient is alert and oriented x3, not in any acute distress. Has history of ALS HEENT: Pupils are round and equally reacting to light. EOMI. No scleral icterus. No conjunctival pallor. Normocephalic, atraumatic. No pharyngeal erythema. No thyromegaly. CARDIOVASCULAR: S1 and S2 present. No murmurs, rubs, or gallops. PULMONARY: Chest is clear to auscultation, no wheezing or crackles. ABDOMEN: Soft, nontender, nondistended, normoactive bowel sounds. No palpable organomegaly. PEG tube seen MUSCULOSKELETAL: No joint swelling or deformity. EXTREMITIES: No cyanosis, clubbing, or pedal edema. NEUROLOGICAL: Has history of ALS. Moving all extremities. SKIN: No rashes. Assessment and plan Febrile neutropenia, unknown source Recent history of Acute limb ischemia with right SFA and profundus femoris occlusion status post thrombolysis of the right lower extremity on 08/11-12/2022 Hx of ALS with chronic medical debility left lower lobe infiltrate, similar to previous chronic Dysphagia , status post PEG tube placement Urinary tract infection and sepsis, finished treatment with antibiotic History of stroke Recent diagnosis of sleep apnea has CPAP in room ok to use Hypertension Hyperlipidemia Monitor vital signs Monitor CBC Monitor CMP Continue telemetry monitoring Encourage use of incentive spirometer Follow-up on blood cultures Continue IV Zosyn DC IV fluid ID following Hemoglobin oncology following, recommend holding riluzole, continue filgrastim Labs and medication were reviewed.. Continue same treatment. Continue with symptomatic treatment. Resume home medication. Monitor labs and vitals. DVT and GI prophylaxis. Further recommendations as per clinical course of the patient Dictation was produced using [employer] dictation software. please excuse any grammatical, word or spelling errors. Objective - Vital Signs Vital signs: Vital Signs Temp 98.8 F 08/30/23 07:40 Pulse 80 08/30/23 07:40 Resp 14 08/30/23 07:40 BP 130/82 08/30/23 07:40 Pulse Ox 96 08/30/23 07:40 FiO2 Intake & Output 08/29/23 08/30/23 08/30/23 18:59 06:59 18:59 Intake Total 0 Balance 0 Weight 92.7 kg Intake: Oral 0 Other: Voiding Method External Catheter Diaper Incontinent # Voids 3 1 # Bowel Movements 1 - Labs CBC & Chem 7: 08/30/23 05:01 08/28/23 06:25 Labs: Abnormal Lab Results - Last 24 Hours (Table) 08/29/23 08/29/23 08/30/23 Range/Units 06:25 06:57 05:01 WBC 1.84 L (4.50-10.00) X 10*3/uL RBC 3.95 L (4.10-5.20) X 10*6/uL Hgb 11.4 L (12.0-15.0) g/dL Hct 35.0 L (37.2-46.3) % Neutrophils # (Manual) 0.11 L* (1.3-7.7) k/uL Lymphocytes # (Manual) 0.80 L (1.0-4.8) k/uL NRBC/100 WBC Diff 0.03 H (0.00-0.01) X 10*3/uL Total Protein (PEP) 5.4 L (6.2-8.2) g/dL Albumin (PEP) 2.9 L (3.8-4.9) g/dL Microbiology - Last 24 Hours (Table) 08/26/23 16:30 Blood Culture - Preliminary Blood 08/26/23 16:45 Blood Culture - Preliminary Blood
[2023-08-30 13:05] LABS: Free Kappa Lt Chain Qnt, Serum 3.48 mg/dL (0.33-1.94); Free Lambda Lt Chain Qnt, Seru 3.13 mg/dL (0.57-2.63)
[2023-08-30] MEDS ORDERED: SODIUM CHLORIDE 0.65% NASAL SPRAY 44 ML BTL NASAL PRN (14:06)
[2023-08-30] MEDS: HYDROcodone/APAP 5-325MG 1 EACH TAB PO PRN (14:15)
--- NOTE | 2023-08-30 14:40 | P.PN ---
Subjective Progress Note Date: 08/30/23 Principal diagnosis: Reason for follow-up is pneumonia Patient is a 68-year-old female with a past medical history significant for ALS recently admitted to this hospital did fail swallow did get PEG, now presenting to the hospital with fever and left basilar opacity con cerning for possible aspiration pneumonia On today's evaluation that is 08/30/2023, the patient continues to be afebrile, the patient is breathing comfortably on room air without the need for supplem ental oxygen, the patient denies shortness of breath chest pain and no significant cough or sputum production, patient denies nausea/vomiting, no abdominal pain and no diarrhea Patient white count is slightly up to 1.84, creatinine 0.4, blood cultures so far negative Objective - Vital Signs Vital signs: Vital Signs Temp 98.8 F 08/30/23 07:40 Pulse 80 08/30/23 07:40 Resp 14 08/30/23 07:40 BP 130/82 08/30/23 07:40 Pulse Ox 96 08/30/23 07:40 FiO2 Intake & Output 08/29/23 08/30/23 08/30/23 18:59 06:59 18:59 Intake Total 0 Balance 0 Weight 92.7 kg 92.7 kg Intake: Oral 0 Other: Voiding Method Diaper Diaper Diaper Incontinent Incontinent Incontinent # Voids 3 1 # Bowel Movements 1 - Exam GENERAL DESCRIPTION: An elderly female lying in bed in no distress RESPIRATORY SYSTEM: Unlabored breathing , decreased breath sound at the base HEART: S1 S2 regular rate and rhythm , ABDOMEN: Soft , no tenderness EXTREMITIES: No edema feet - Labs CBC & Chem 7: 08/30/23 05:01 08/28/23 06:25 Labs: Abnormal Lab Results - Last 24 Hours (Table) 08/29/23 08/30/23 Range/Units 06:25 05:01 WBC 1.84 L (4.50-10.00) X 10*3/uL RBC 3.95 L (4.10-5.20) X 10*6/uL Hgb 11.4 L (12.0-15.0) g/dL Hct 35.0 L (37.2-46.3) % Neutrophils # (Manual) 0.09 A* (1.80-7.70) X 10*3/uL NRBC/100 WBC Diff 0.03 H (0.00-0.01) X 10*3/uL Elliptocytes 2+ A Total Protein (PEP) 5.4 L (6.2-8.2) g/dL Albumin (PEP) 2.9 L (3.8-4.9) g/dL Free [place] LC, Quant 3.48 H (0.33-1.94) mg/dL Free [place] LC, Quant 3.13 H (0.57-2.63) mg/dL Microbiology - Last 24 Hours (Table) 08/26/23 16:30 Blood Culture - Preliminary Blood 08/26/23 16:45 Blood Culture - Preliminary Blood Assessment and Plan (1) Pneumonia Current Visit: No Status: Acute Code(s): J18.9 - PNEUMONIA, UNSPECIFIED ORGANISM SNOMED Code(s): 260533928 Plan: 1patient presented to hospital with fever and low white count in this patient who was recently admitted at this facility and the patient did fail her swallow evaluation ended up getting a PEG tube now with evidence of left lower lobe opacity concerning for possible aspiration pneumonitis as no other obvious focus of infection, patient urine was negative, abdominal soft on clinical [place] no evidence of any joint swelling or cellulitis 2- sputum for Gram stain culture not collected, patient did have CRP of 17.60 and a procalcitonin is 0.29 3-patient did have some clinical improvement and will continue with Zosyn and plan for oral antibiotics on discharge Dictation was produced using [employer] dictation software. please excuse any grammatical, word or spelling errors. Time with Patient: Less than 30
[2023-08-30] MEDS: FILGRASTIM-SNDZ 480 MCG/0.8 ML SYRINGE SQ SCH (17:01)
[2023-08-30 19:54] LABS: Gamma Globulin 0.99 g/dL (0.70-1.50)
--- NOTE | 2023-08-30 23:43 | P.PN ---
Subjective Progress Note Date: 08/30/23 Principal diagnosis: Neutropenia In f/u today pt is tolerating tube feedings, denies new pain. She had no acute physical c/o to report. Objective - Vital Signs Vital signs: Vital Signs Temp 98.8 F 08/30/23 07:40 Pulse 80 08/30/23 07:40 Resp 14 08/30/23 07:40 BP 130/82 08/30/23 07:40 Pulse Ox 96 08/30/23 07:40 FiO2 Intake & Output 08/29/23 08/30/23 08/30/23 18:59 06:59 18:59 Intake Total 0 Balance 0 Weight 92.7 kg 92.7 kg Intake: Oral 0 Other: Voiding Method Diaper Diaper Diaper Incontinent Incontinent Incontinent # Voids 3 1 # Bowel Movements 1 - Constitutional General appearance: Present: average body habitus, cooperative, no acute distress - EENT Eyes: Present: anicteric sclerae, EOMI ENT: Present: hearing grossly normal - Respiratory Details: resp even and nand labored at rest - Neurologic Neurologic: Present: focal deficits - Musculoskeletal Musculoskeletal: Present: generalized weakness - Psychiatric Psychiatric: Present: A&O x's 3, appropriate affect, intact judgment & insight - Labs CBC & Chem 7: 08/30/23 05:01 08/28/23 06:25 Labs: Abnormal Lab Results - Last 24 Hours (Table) 08/29/23 08/30/23 Range/Units 06:25 05:01 WBC 1.84 L (4.50-10.00) X 10*3/uL RBC 3.95 L (4.10-5.20) X 10*6/uL Hgb 11.4 L (12.0-15.0) g/dL Hct 35.0 L (37.2-46.3) % Neutrophils # (Manual) 0.09 A* (1.80-7.70) X 10*3/uL NRBC/100 WBC Diff 0.03 H (0.00-0.01) X 10*3/uL Elliptocytes 2+ A Total Protein (PEP) 5.4 L (6.2-8.2) g/dL Albumin (PEP) 2.9 L (3.8-4.9) g/dL Free [place] LC, Quant 3.48 H (0.33-1.94) mg/dL Free [place] LC, Quant 3.13 H (0.57-2.63) mg/dL Microbiology - Last 24 Hours (Table) 08/26/23 16:30 Blood Culture - Preliminary Blood 08/26/23 16:45 Blood Culture - Preliminary Blood Assessment and Plan (1) Neutropenic fever Current Visit: Yes Status: Acute Priority: High Code(s): D70.9 - NEUTROPENIA, UNSPECIFIED; R50.81 - FEVER PRESENTING WITH CONDITIONS CLASSIFIED ELSEWHERE SNOMED Code(s): 513454999 Plan: Neutropenic fever -Medication effects? Newest med, ALS drug, has been held -ANC 90 today. Cont GCSF. CBC daily. 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 Will discuss results with pt tomorrow. Not likely the cause of significantly low WBC/ANC that is not responding to GCSF. May have to consider BM Bx. Will talk with pt about options to proceed
[2023-08-31] MEDS: HYDROcodone/APAP 5-325MG 1 EACH TAB PO PRN (02:33)
[2023-08-31 08:55] LABS: ALT 34 U/L (8-44); AST 27 U/L (13-35); Albumin 2.8 g/dL (3.8-4.9); Albumin/Globulin Ratio 1.27 Ratio (1.60-3.17); Alkaline Phosphatase 113 U/L (41-126); Blood Urea Nitrogen 10.4 mg/dL (9.0-27.0); Calcium 8.8 mg/dL (8.7-10.3); Carbon Dioxide 23.4 mmol/L (21.6-31.8); Chloride 103 mmol/L (96-109); Globulin 2.2 g/dL (1.6-3.3); Glucose 102 mg/dL (70-110); Potassium 4.1 mmol/L (3.5-5.5); Sodium 137 mmol/L (135-145); Total Bilirubin 0.4 mg/dL (0.3-1.2)
[2023-08-31 09:38] LABS: Basophils # (M) 0.05 X 10*3/uL (0.00-0.10); Eosinophils # (M) 0.21 X 10*3/uL (0.04-0.35); HCT 34.6 % (37.2-46.3); HGB 11.3 g/dL (12.0-15.0); Lymphocytes # (M) 1.41 X 10*3/uL (0.90-5.00); MCH 28.8 pg (27.0-32.0); MCHC 32.7 g/dL (32.0-37.0); Mean Platelet Volume 9.5 FL (9.5-12.2); Monocytes # (M) 0.47 X 10*3/uL (0.20-1.00); NRBC Per 100 WBC 0.03 X 10*3/uL (0.00-0.01); Neutrophils % (M) 18 %; Nucleated Red Blood Cells 2 /100 WBCS; Platelet Count 303 X 10*3/uL (140-440); RBC 3.93 X 10*6/uL (4.10-5.20); RDW 14.7 % (11.5-14.5); WBC 2.62 X 10*3/uL (4.50-10.00)
[2023-08-31] MEDS: ATORVASTATIN 20 MG TAB PO SCH (10:22)
[2023-08-31] MEDS: DULoxetine HCL 60 MG CAPSULE.DR PO SCH (10:23)
[2023-08-31] MEDS: PIPERACILLIN-TAZOBACTAM 3.375 GM in SODIUM CHLORIDE 0.9% 100 ML IVPB SCH ×2 (10:23→18:10)
[2023-08-31] MEDS: APIXABAN 5 MG TAB PEG/G-TUBE SCH ×2 (10:23→18:09)
[2023-08-31] MEDS: ACETAMINOPHEN TAB 325 MG TAB PEG/G-TUBE PRN ×2 (11:48→22:36)
--- NOTE | 2023-08-31 12:40 | P.PN ---
Subjective Progress Note Date: 08/31/23 patient pleasant 68 years old female with multiple medical problems including history of ALS, dysphagia status post PEG, history of stroke and obstructive sleep apnea. Was recently discharged from this facility 08/10-08/20 for right lower extremity ischemic occlusion status post thrombolysis. Also she is been treated for UTI and pneumonia and finish her treatment and monitoring of antibiotics and she was doing well. She was discharge in stable condition with recommendation follow up outpatient for hypercoagulable workup. Patient was sent from [facility] for low white cell count. On this admission she had a fever of 101.2. She denies chest pain or dyspnea or coughing. She feels little dizzy but no h eadache weakness or numbness. She denies any urinary complaints. She denies abdominal obtaining AN examination is different. As per patient which she communicate with low tone voice and sometimes with gestures. She states that she came in because of fever. is at bedside and held with history. Patient feels generally weak sleepy and malaise but no specific complaint when asked. Patient however is awake and alert upon frank although she says she is little more sleepy. She has an NG tube in place with no signs of cellulitis, she denies abdominal pain but on examination she has mild tenderness in the suprapubic region, left abdomen and epigastric region. No rebound tenderness, no guarding. She denies dyspnea or coughing. No chest pain. Chest x-ray showing left lower lobe opacity similar to previous Blood pressure on the low side 95/62. Labs reviewed showing WBC is 1.1 with a neutrophil count 0.03. Chest of CBC is unremarkable. Sodium 128, creatinine within the reference range Urine analysis is not suspicious for infection. Chest x-ray showing left lower lobe opacity similar to previous. EKG normal sinus rhythm at 94 Emergency room patient was started on Zosyn and vancomycin 08/28/2023 Patient understands although she is nonverbal or talk with simple warts, she can come dictate with me and stated that she feels better. She has no fever more than 48 hours since admission. Her WBC only slightly up or basically the same at 1.17. Hemoglobin 9.8. Currently she remains on Zosyn with culture are pending CRP is elevated at 17.6 and priorcalcitonin is elevated at 0.29. Per hematology team later, and to hold Riluzole (for her ALS) till neutropenia resolves. Continue with filgastim Patient will require hypercoagulable as an outpatient (she was recently admitted for right lower extremity thrombotic ) during previous admission 08/29. Patient seen and examined. Blood work done this morning showed WBC 1.4, hemoglobin 11, platelet count 268,. at the bedside. States patient is doing much better. 08/30. Patient seen and examined. Blood work done this morning showed WBC 1.84, hemoglobin 11.4, platelet count 315,. Patient had episodes of epistaxis in the night, it resolved on its own 08/31. Patient seen and examined. Blood work done this morning showed WBC 6.62, hemoglobin 9.3, platelet count 303 ANC 1800. Vital signs stable REVIEW OF SYSTEMS: CONSTITUTIONAL: No fever, no malaise,. CARDIOVASCULAR: No chest pain, no palpitations, no syncope. PULMONARY: No shortness of breath, no cough, GASTROINTESTINAL: No diarrhea, no nausea, no vomiting, no abdominal pain. NEUROLOGICAL: No headaches, no weakness, PHYSICAL EXAMINATION: GENERAL: The patient is alert and oriented x3, not in any acute distress. Has history of ALS HEENT: Pupils are round and equally reacting to light. EOMI. No scleral icterus. No conjunctival pallor. Normocephalic, atraumatic. No pharyngeal erythema. No thyromegaly. CARDIOVASCULAR: S1 and S2 present. No murmurs, rubs, or gallops. PULMONARY: Chest is clear to auscultation, no wheezing or crackles. ABDOMEN: Soft, nontender, nondistended, normoactive bowel sounds. No palpable or ganomegaly. PEG tube seen MUSCULOSKELETAL: No joint swelling or deformity. EXTREMITIES: No cyanosis, clubbing, or pedal edema. NEUROLOGICAL: Has history of ALS. Moving all extremities. SKIN: No rashes. Assessment and plan Febrile neutropenia, unknown source Recent history of Acute limb ischemia with right SFA and profundus femoris occlusion status post thrombolysis of the right lower extremity on 08/11-12/2022 Hx of ALS with chronic medical debility left lower lobe infiltrate, similar to previous chronic Dysphagia , status post PEG tube placement Urinary tract infection and sepsis, finished treatment with antibiotic History of stroke Recent diagnosis of sleep apnea has CPAP in room ok to use Hypertension Hyperlipidemia Monitor vital signs Monitor CBC Monitor CMP Continue telemetry monitoring Encourage use of incentive spirometer Follow-up on blood cultures Continue IV Zosyn ID following inflammatory work up 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 oncology will consider consider BM Bx. Hemoglobin oncology following, recommend holding riluzole, continue filgrastim Labs and medication were reviewed.. Continue same treatment. Continue with symptomatic treatment. Resume home medication. Monitor labs and vitals. DVT and GI prophylaxis. Further recommendations as per clinical course of the patient Dictation was produced using [employer] dictation software. please excuse any grammatical, word or spelling errors. Objective - Vital Signs Vital signs: Vital Signs Temp 98.5 F 08/31/23 07:40 Pulse 96 08/31/23 07:40 Resp 16 08/31/23 07:40 BP 122/81 08/31/23 07:40 Pulse Ox 91 L 08/31/23 07:40 FiO2 Intake & Output 08/30/23 08/31/23 08/31/23 18:59 06:59 18:59 Weight 92.7 kg 64 kg Other: Voiding Method Diaper Diaper Diaper Incontinent Incontinent Incontinent # Voids 1 - Labs CBC & Chem 7: 08/31/23 04:42 08/31/23 04:42 Labs: Abnormal Lab Results - Last 24 Hours (Table) 08/29/23 08/31/23 08/31/23 Range/Units 06:25 04:42 04:42 WBC 2.62 L (4.50-10.00) X 10*3/uL RBC 3.93 L (4.10-5.20) X 10*6/uL Hgb 11.3 L (12.0-15.0) g/dL Hct 34.6 L (37.2-46.3) % RDW 14.7 H (11.5-14.5) % NRBC/100 WBC Diff 0.03 H (0.00-0.01) X 10*3/uL Creatinine 0.5 L (0.6-1.5) mg/dL BUN/Creatinine Ratio 20.80 H (12.00-20.00) Ratio Total Protein 5.0 L (6.2-8.2) g/dL Albumin 2.8 L (3.8-4.9) g/dL Albumin/Globulin Ratio 1.27 L (1.60-3.17) Ratio [id number]-6-[id number] 0.58 H (0.10-0.40) g/dL KALYANI Screen POSITIVE A (Negative) Free [place] LC, Quant 3.48 H (0.33-1.94) mg/dL Free Lambda LC, Quant 3.13 H (0.57-2.63) mg/dL
[2023-08-31] MEDS: FILGRASTIM-SNDZ 480 MCG/0.8 ML SYRINGE SQ SCH (18:09)
--- NOTE | 2023-08-31 19:14 | P.PN ---
Subjective Progress Note Date: 08/31/23 Principal diagnosis: Neutropenia In f/u today pt is stable, tolerating tube feedings, no new c/o, denies pain. Objective - Vital Signs Vital signs: Vital Signs Temp 98.4 F 08/31/23 13:34 Pulse 93 08/31/23 13:34 Resp 16 08/31/23 13:34 BP 141/93 08/31/23 13:34 Pulse Ox 94 L 08/31/23 13:34 FiO2 Intake & Output 08/31/23 08/31/23 09/01/23 06:59 18:59 06:59 Weight 64 kg Other: Voiding Method Diaper Diaper Incontinent Incontinent # Voids 1 5 # Bowel Movements 5 - Constitutional General appearance: Present: average body habitus, cooperative, no acute distress - EENT Eyes: Present: anicteric sclerae, EOMI ENT: Present: hearing grossly normal - Respiratory Respiratory: bilateral: CTA - Cardiovascular Rhythm: regular Heart sounds: normal: S1, S2 Abnormal Heart Sounds: Absent: systolic murmur, diastolic murmur, rub, S3 Gallop, S4 Gallop, click, other - Gastrointestinal General gastrointestinal: Present: soft - Neurologic Neurologic: Present: focal deficits - Musculoskeletal Musculoskeletal: Present: generalized weakness - Psychiatric Psychiatric: Present: A&O x's 3, appropriate affect, intact judgment & insight - Labs CBC & Chem 7: 08/31/23 04:42 08/31/23 04:42 Labs: Abnormal Lab Results - Last 24 Hours (Table) 08/29/23 08/31/23 08/31/23 Range/Units 06:25 04:42 04:42 WBC 2.62 L (4.50-10.00) X 10*3/uL RBC 3.93 L (4.10-5.20) X 10*6/uL Hgb 11.3 L (12.0-15.0) g/dL Hct 34.6 L (37.2-46.3) % RDW 14.7 H (11.5-14.5) % NRBC/100 WBC Diff 0.03 H (0.00-0.01) X 10*3/uL Creatinine 0.5 L (0.6-1.5) mg/dL BUN/Creatinine Ratio 20.80 H (12.00-20.00) Ratio Total Protein 5.0 L (6.2-8.2) g/dL Albumin 2.8 L (3.8-4.9) g/dL Albumin/Globulin Ratio 1.27 L (1.60-3.17) Ratio Lzxbu-1-Fnqhuzzqf 0.58 H (0.10-0.40) g/dL Assessment and Plan (1) Neutropenic fever Current Visit: Yes Status: Acute Priority: High Code(s): D70.9 - NEUTROPENIA, UNSPECIFIED; R50.81 - FEVER PRESENTING WITH CONDITIONS CLASSIFIED ELSEWHERE SNOMED Code(s): 274071407 Plan: Neutropenic fever -Medications have been held. Case discussed with ID, discussed alternative to zosyn. -ANC not reported today, WBC up to 2.62. -Cont GCSF -CBC daily. 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 Not likely the cause of significantly low WBC/ANC that is not responding to GCSF. -Iron studies pending -Dr. Clements discussed with pt and family the above results and implications. Going to see how counts respond to abx changes, await pending lab results then, if persistent or progressive neutropenia, he will do bone marrow biopsy and aspirate. All questions answered. Cont count monitoring. Attests: I have seen and examined pt, performed H&P, developed impression and plan of care. Discussed with dictator. Agree with documentation, dictated as a scribe.
[2023-08-31] MEDS: SODIUM CHLORIDE 0.9% 1,000 ML IV SCH (21:30)
[2023-09-01] MEDS: PIPERACILLIN-TAZOBACTAM 3.375 GM in SODIUM CHLORIDE 0.9% 100 ML IVPB SCH ×2 (00:29→08:49)
[2023-09-01 07:20] LABS: HCT 36.6 % (34.0-46.0); HGB 11.8 gm/dL (11.4-16.0); MCHC 32.3 g/dL (31.0-37.0); MCV 89.6 fL (80.0-100.0); Mean Platelet Volume 7.4; Platelet Count 282 k/uL (150-450); RBC 4.09 m/uL (3.80-5.40); WBC 9.8 k/uL (3.8-10.6)
--- NOTE | 2023-09-01 07:40 | XR ---
EXAMINATION TYPE: XR chest 2V DATE OF EXAM: 09/01/2023 COMPARISON: 08/26/2023 HISTORY: Shortness of breath TECHNIQUE: Frontal and lateral views of the chest are obtained. FINDINGS: Scattered senescent parenchymal changes noted. Hyperinflation compatible with COPD. No evidence for infiltrate. No evidence for atelectasis. Heart size is stable. Mediastinal structures are stable and grossly unremarkable. No evidence for hilar prominence. Degenerative changes dorsal spine. IMPRESSION: 1. No evidence for acute pulmonary disease.
[2023-09-01 08:29] LABS: Band Neutrophils % 7 %; Eosinophils # (M) 0.39 k/uL (0-0.7); Large Platelets Present; Lymphocytes # (M) 2.45 k/uL (1.0-4.8); Metamyelocytes % 2 %; Monocytes # (M) 1.57 k/uL (0-1.0); Myelocytes # (M) 0.59 k/uL (0); Myelocytes % 6 %; Neutrophils % (M) 42 %; Nucleated Red Blood Cells 0 /100 WBC (0-0); Polychromasia Present; Total Cells Counted 200
[2023-09-01 08:30] LABS: Toxic Granulation Present
[2023-09-01] MEDS: ATORVASTATIN 20 MG TAB PO SCH (08:49)
[2023-09-01] MEDS: APIXABAN 5 MG TAB PEG/G-TUBE SCH ×2 (08:49→20:57)
[2023-09-01] MEDS: DULoxetine HCL 60 MG CAPSULE.DR PO SCH (08:49)
[2023-09-01] MEDS ORDERED: LEVOFLOXACIN 500 MG TAB PO SCH (12:00)
--- NOTE | 2023-09-01 13:38 | P.PN ---
Subjective Progress Note Date: 09/01/23 patient pleasant 68 years old female with multiple medical problems including history of ALS, dysphagia status post PEG, history of stroke and obstructive sleep apnea. Was recently discharged from this facility 08/10-08/20 for right lower extremity ischemic occlusion status post thrombolysis. Also she is been treated for UTI and pneumonia and finish her treatment and monitoring of antibiotics and she was doing well. She was discharge in stable condition with recommendation follow up outpatient for hypercoagulable workup. Patient was sent from [facility] for low white cell count. On this admission she had a fever of 101.2. She denies chest pain or dyspnea or coughing. She feels little dizzy but no h eadache weakness or numbness. She denies any urinary complaints. She denies abdominal obtaining AN examination is different. As per patient which she communicate with low tone voice and sometimes with gestures. She states that she came in because of fever. is at bedside and held with history. Patient feels generally weak sleepy and malaise but no specific complaint when asked. Patient however is awake and alert upon frank although she says she is little more sleepy. She has an NG tube in place with no signs of cellulitis, she denies abdominal pain but on examination she has mild tenderness in the suprapubic region, left abdomen and epigastric region. No rebound tenderness, no guarding. She denies dyspnea or coughing. No chest pain. Chest x-ray showing left lower lobe opacity similar to previous Blood pressure on the low side 95/62. Labs reviewed showing WBC is 1.1 with a neutrophil count 0.03. Chest of CBC is unremarkable. Sodium 128, creatinine within the reference range Urine analysis is not suspicious for infection. Chest x-ray showing left lower lobe opacity similar to previous. EKG normal sinus rhythm at 94 Emergency room patient was started on Zosyn and vancomycin 08/28/2023 Patient understands although she is nonverbal or talk with simple warts, she can come dictate with me and stated that she feels better. She has no fever more than 48 hours since admission. Her WBC only slightly up or basically the same at 1.17. Hemoglobin 9.8. Currently she remains on Zosyn with culture are pending CRP is elevated at 17.6 and priorcalcitonin is elevated at 0.29. Per hematology team later, and to hold Riluzole (for her ALS) till neutropenia resolves. Continue with filgastim Patient will require hypercoagulable as an outpatient (she was recently admitted for right lower extremity thrombotic ) during previous admission 08/29. Patient seen and examined. Blood work done this morning showed WBC 1.4, hemoglobin 11, platelet count 268,. at the bedside. States patient is doing much better. 08/30. Patient seen and examined. Blood work done this morning showed WBC 1.84, hemoglobin 11.4, platelet count 315,. Patient had episodes of epistaxis in the night, it resolved on its own 08/31. Patient seen and examined. Blood work done this morning showed WBC 6.62, hemoglobin 9.3, platelet count 303 ANC 1800. Vital signs stable 09/01. Patient seen and examined. Blood work done this morning showed WBC 9.8, hemoglobin 11.8, platelet count 282, ANC 4200. Tolerating tube feeding. No acute events overnight REVIEW OF SYSTEMS: CONSTITUTIONAL: No fever, no malaise,. CARDIOVASCULAR: No chest pain, no palpitations, no syncope. PULMONARY: No shortness of breath, no cough, GASTROINTESTINAL: No diarrhea, no nausea, no vomiting, no abdominal pain. NEUROLOGICAL: No headaches, no weakness, PHYSICAL EXAMINATION: GENERAL: The patient is alert and oriented x3, not in any acute distress. Has history of ALS HEENT: Pupils are round and equally reacting to light. EOMI. No scleral icterus. No conjunctival pallor. Normocephalic, atraumatic. No pharyngeal erythema. No thyromegaly. CARDIOVASCULAR: S1 and S2 present. No murmurs, rubs, or gallops. PULMONARY: Chest is clear to auscultation, no wheezing or crackles. ABDOMEN: Soft, nontender, nondistended, normoactive bowel sounds. No palpable organomegaly. PEG tube seen MUSCULOSKELETAL: No joint swelling or deformity. EXTREMITIES: No cyanosis, clubbing, or pedal edema. NEUROLOGICAL: Has history of ALS. Moving all extremities. SKIN: No rashes. Assessment and plan Febrile neutropenia, unknown source Recent history of Acute limb ischemia with right SFA and profundus femoris occlusion status post thrombolysis of the right lower extremity on 08/11-12/2022 Hx of ALS with chronic medical debility left lower lobe infiltrate, similar to previous chronic Dysphagia , status post PEG tube placement Urinary tract infection and sepsis, finished treatment with antibiotic History of stroke Recent diagnosis of sleep apnea has CPAP in room ok to use Hypertension Hyperlipidemia Monitor vital signs Monitor CBC Monitor CMP Continue telemetry monitoring Encourage use of incentive spirometer Follow-up on blood cultures Continue IV Zosyn ID following inflammatory work up 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 oncology will consider consider BM Bx is count does not improve. Hemoglobin oncology following, recommend holding riluzole, continue filgrastim Labs and medication were reviewed.. Continue same treatment. Continue with symptomatic treatment. Resume home medication. Monitor labs and vitals. DVT and GI prophylaxis. Further recommendations as per clinical course of the patient Dictation was produced using [employer] dictation software. please excuse any grammatical, word or spelling errors. Objective - Vital Signs Vital signs: Vital Signs Temp 98.0 F 09/01/23 07:37 Pulse 91 09/01/23 07:37 Resp 15 09/01/23 07:37 BP 132/85 09/01/23 07:37 Pulse Ox 95 09/01/23 09:03 FiO2 Intake & Output 08/31/23 09/01/23 09/01/23 18:59 06:59 18:59 Weight 78 kg Other: Voiding Method Diaper Diaper Diaper Incontinent Incontinent Incontinent # Voids 5 # Bowel Movements 5 - Labs CBC & Chem 7: 09/01/23 06:57 08/31/23 04:42 Labs: Abnormal Lab Results - Last 24 Hours (Table) 09/01/23 09/01/23 Range/Units 06:57 06:57 Monocytes # (Manual) 1.57 H (0-1.0) k/uL Metamyelocytes # (Man) 0.20 H (0) k/uL Myelocytes # (Manual) 0.59 H (0) k/uL C-Reactive Protein 6.0 H (<1.0) mg/dL Microbiology - Last 24 Hours (Table) 08/26/23 16:30 Blood Culture - Final Blood 08/26/23 16:45 Blood Culture - Final Blood
--- NOTE | 2023-09-01 14:43 | P.PN ---
Subjective Progress Note Date: 08/31/23 Principal diagnosis: Reason for follow-up is pneumonia Patient is a 68-year-old female with a past medical history significant for ALS recently admitted to this hospital did fail swallow did get PEG, now presenting to the hospital with fever and left basilar opacity con cerning for possible aspiration pneumonia On today's evaluation that is 08/31/2023, the patient remains to be afebrile, the patient is breathing comfortably on room air and the patient denies any gerald rtness of breath, the patient denies chest pain or any cough , patient denies abdominal pain, no nausea/vomiting and no diarrhea Patient white count is slightly up to 2.62, creatinine 0.5, blood cultures so far negative Objective - Vital Signs Vital signs: Vital Signs Temp 98.5 F 08/31/23 07:40 Pulse 96 08/31/23 07:40 Resp 16 08/31/23 07:40 BP 122/81 08/31/23 07:40 Pulse Ox 91 L 08/31/23 07:40 FiO2 Intake & Output 08/30/23 08/31/23 08/31/23 18:59 06:59 18:59 Weight 92.7 kg 64 kg Other: Voiding Method Diaper Diaper Diaper Incontinent Incontinent Incontinent # Voids 1 - Exam GENERAL DESCRIPTION: An elderly female lying in bed in no distress RESPIRATORY SYSTEM: Unlabored breathing , decreased breath sound at the base HEART: S1 S2 regular rate and rhythm , ABDOMEN: Soft , no tenderness EXTREMITIES: No edema feet - Labs CBC & Chem 7: 09/01/23 06:57 08/31/23 04:42 Labs: Abnormal Lab Results - Last 24 Hours (Table) 08/29/23 08/30/23 08/31/23 Range/Units 06:25 05:01 04:42 WBC 2.62 L (4.50-10.00) X 10*3/uL RBC 3.93 L (4.10-5.20) X 10*6/uL Hgb 11.3 L (12.0-15.0) g/dL Hct 34.6 L (37.2-46.3) % RDW 14.7 H (11.5-14.5) % Neutrophils # (Manual) 0.09 A* (1.80-7.70) X 10*3/uL NRBC/100 WBC Diff 0.03 H (0.00-0.01) X 10*3/uL Creatinine (0.6-1.5) mg/dL BUN/Creatinine Ratio (12.00-20.00) Ratio Total Protein (6.2-8.2) g/dL Albumin (3.8-4.9) g/dL Albumin/Globulin Ratio (1.60-3.17) Ratio [id number]-9-[id number] 0.58 H (0.10-0.40) g/dL KALYANI Screen POSITIVE A (Negative) Free [place] LC, Quant 3.48 H (0.33-1.94) mg/dL Free [place] LC, Quant 3.13 H (0.57-2.63) mg/dL 08/31/23 Range/Units 04:42 WBC (4.50-10.00) X 10*3/uL RBC (4.10-5.20) X 10*6/uL Hgb (12.0-15.0) g/dL Hct (37.2-46.3) % RDW (11.5-14.5) % Neutrophils # (Manual) (1.80-7.70) X 10*3/uL NRBC/100 WBC Diff (0.00-0.01) X 10*3/uL Creatinine 0.5 L (0.6-1.5) mg/dL BUN/Creatinine Ratio 20.80 H (12.00-20.00) Ratio Total Protein 5.0 L (6.2-8.2) g/dL Albumin 2.8 L (3.8-4.9) g/dL Albumin/Globulin Ratio 1.27 L (1.60-3.17) Ratio Avgzc-2-Plixsrpxy (0.10-0.40) g/dL KALYANI Screen (Negative) Free [place] LC, Quant (0.33-1.94) mg/dL Free [place]ambda LC, Quant (0.57-2.63) mg/dL Assessment and Plan (1) Pneumonia Current Visit: No Status: Acute Code(s): J18.9 - PNEUMONIA, UNSPECIFIED ORGANISM SNOMED Code(s): 672816348 Plan: 1patient presented to hospital with fever and low white count in this patient who was recently admitted at this facility and the patient did fail her swallow evaluation ended up getting a PEG tube now with evidence of left lower lobe opacity concerning for possible aspiration pneumonitis as no other obvious focus of infection, patient urine was negative, abdominal soft on clinical Examination no evidence of any joint swelling or cellulitis 2- sputum for Gram stain culture not collected, patient did have CRP of 17.60 and a procalcitonin is 0.29 3-patient is slowly clinically improving and will continue with Zosyn and plan for oral antibiotics on discharge Dictation was produced using [employer] dictation software. please excuse any grammatical, word or spelling errors. Time with Patient: Less than 30
--- NOTE | 2023-09-01 14:44 | P.PN ---
Subjective Progress Note Date: 09/01/23 Principal diagnosis: Reason for follow-up is pneumonia Patient is a 68-year-old female with a past medical history significant for ALS recently admitted to this hospital did fail swallow did get PEG, now presenting to the hospital with fever and left basilar opacity con cerning for possible aspiration pneumonia On today's evaluation that is 09/01/2023, the patient did have a low-grade fever 100F last night however the patient is afebrile this morning, the patient is breathing comfortably on room air and the patient denies chest pain shortness of breath or cough , patient denies nausea/vomiting , no abdominal pain and no diarrhea Patient white count normalized to 9.8, creatinine 0.5, blood cultures so far negative Objective - Vital Signs Vital signs: Vital Signs Temp 98.0 F 09/01/23 07:37 Pulse 91 09/01/23 07:37 Resp 15 09/01/23 07:37 BP 132/85 09/01/23 07:37 Pulse Ox 95 09/01/23 09:03 FiO2 Intake & Output 08/31/23 09/01/23 09/01/23 18:59 06:59 18:59 Weight 78 kg Other: Voiding Method Diaper Diaper Diaper Incontinent Incontinent Incontinent # Voids 5 # Bowel Movements 5 - Exam GENERAL DESCRIPTION: An elderly female lying in bed in no distress RESPIRATORY SYSTEM: Unlabored breathing , decreased breath sound at the base HEART: S1 S2 regular rate and rhythm , ABDOMEN: Soft , no tenderness EXTREMITIES: No edema feet - Labs CBC & Chem 7: 09/01/23 06:57 08/31/23 04:42 Labs: Abnormal Lab Results - Last 24 Hours (Table) 09/01/23 09/01/23 09/01/23 Range/Units 06:57 06:57 06:57 Monocytes # (Manual) 1.57 H (0-1.0) k/uL Metamyelocytes # (Man) 0.20 H (0) k/uL Myelocytes # (Manual) 0.59 H (0) k/uL C-Reactive Protein 6.0 H (<1.0) mg/dL Procalcitonin 0.33 H (0.02-0.09) ng/mL Microbiology - Last 24 Hours (Table) 08/26/23 16:30 Blood Culture - Final Blood 08/26/23 16:45 Blood Culture - Final Blood Assessment and Plan (1) Pneumonia Current Visit: No Status: Acute Code(s): J18.9 - PNEUMONIA, UNSPECIFIED ORGANISM SNOMED Code(s): 536102783 Plan: 1patient presented to hospital with fever and low white count in this patient who was recently admitted at this facility and the patient did fail her swallow evaluation ended up getting a PEG tube now with evidence of left lower lobe opacity concerning for possible aspiration pneumonitis as no other obvious focus of infection, patient urine was negative, abdominal soft on clinical Examination no evidence of any joint swelling or cellulitis 2- sputum for Gram stain culture not collected, patient did have CRP of 17.60 and a procalcitonin is 0.29 3-patient did have a normalization of the white count culture had been negative on resistant pathogen, we would discontinue Zosyn and start short course of oral Levaquin Dictation was produced using [employer] dictation software. please excuse any grammatical, word or spelling errors.
[2023-09-01] MEDS: ACETAMINOPHEN TAB 325 MG TAB PEG/G-TUBE PRN ×2 (15:41→21:02)
[2023-09-01] MEDS: FILGRASTIM-SNDZ 480 MCG/0.8 ML SYRINGE SQ SCH (18:36)
[2023-09-01] MEDS: LEVOFLOXACIN 500 MG TAB PO SCH (20:58)
[2023-09-01] MEDS: SODIUM CHLORIDE 0.9% 1,000 ML IV SCH (22:59)
[2023-09-02] MEDS: DULoxetine HCL 60 MG CAPSULE.DR PO SCH (08:58)
[2023-09-02] MEDS: APIXABAN 5 MG TAB PEG/G-TUBE SCH ×2 (10:15→20:02)
[2023-09-02] MEDS: ATORVASTATIN 20 MG TAB PO SCH (10:15)
[2023-09-02] MEDS: ACETAMINOPHEN TAB 325 MG TAB PEG/G-TUBE PRN ×2 (11:43→23:36)
[2023-09-02 11:54] VITALS: BMI 24.5
[2023-09-02 12:05] LABS: ALT 40 U/L (8-44); AST 37 U/L (13-35); Albumin 2.9 g/dL (3.8-4.9); Albumin/Globulin Ratio 1.26 Ratio (1.60-3.17); Alkaline Phosphatase 159 U/L (41-126); Blood Urea Nitrogen 10.1 mg/dL (9.0-27.0); Calcium 8.9 mg/dL (8.7-10.3); Carbon Dioxide 22.8 mmol/L (21.6-31.8); Chloride 104 mmol/L (96-109); Globulin 2.3 g/dL (1.6-3.3); Glucose 125 mg/dL (70-110); Sodium 139 mmol/L (135-145); Total Bilirubin 0.3 mg/dL (0.3-1.2); Total Protein 5.2 g/dL (6.2-8.2)
[2023-09-02 12:29] LABS: HCT 35.2 % (37.2-46.3); HGB 11.1 g/dL (12.0-15.0); MCH 28.6 pg (27.0-32.0); MCHC 31.5 g/dL (32.0-37.0); MCV 90.7 FL (80.0-97.0); Mean Platelet Volume 9.4 FL (9.5-12.2); NRBC Per 100 WBC 0.09 X 10*3/uL (0.00-0.01); Neutrophils % (M) 66 %; Platelet Count 264 X 10*3/uL (140-440); RBC 3.88 X 10*6/uL (4.10-5.20); RDW 15.8 % (11.5-14.5); WBC 27.86 X 10*3/uL (4.50-10.00)
[2023-09-02 12:37] LABS: Basophils # (M) 0.28 X 10*3/uL (0.00-0.10); Elliptocytes 2+; Eosinophils # (M) 1.39 X 10*3/uL (0.04-0.35); Lymphocytes # (M) 3.06 X 10*3/uL (0.90-5.00); Metamyelocytes % 3 % (0-0); Monocytes # (M) 2.79 X 10*3/uL (0.20-1.00); Myelocytes % 4 % (0-0); Neutrophils # (M) 18.39 X 10*3/uL (1.80-7.70); Toxic Granulation 2+
--- NOTE | 2023-09-02 14:37 | P.PN ---
Subjective Progress Note Date: 09/02/23 patient pleasant 68 years old female with multiple medical problems including history of ALS, dysphagia status post PEG, history of stroke and obstructive sleep apnea. Was recently discharged from this facility 08/10-08/20 for right lower extremity ischemic occlusion status post thrombolysis. Also she is been treated for UTI and pneumonia and finish her treatment and monitoring of antibiotics and she was doing well. She was discharge in stable condition with recommendation follow up outpatient for hypercoagulable workup. Patient was sent from [facility] for low white cell count. On this admission she had a fever of 101.2. She denies chest pain or dyspnea or coughing. She feels little dizzy but no h eadache weakness or numbness. She denies any urinary complaints. She denies abdominal obtaining AN examination is different. As per patient which she communicate with low tone voice and sometimes with gestures. She states that she came in because of fever. is at bedside and held with history. Patient feels generally weak sleepy and malaise but no specific complaint when asked. Patient however is awake and alert upon frank although she says she is little more sleepy. She has an NG tube in place with no signs of cellulitis, she denies abdominal pain but on examination she has mild tenderness in the suprapubic region, left abdomen and epigastric region. No rebound tenderness, no guarding. She denies dyspnea or coughing. No chest pain. Chest x-ray showing left lower lobe opacity similar to previous Blood pressure on the low side 95/62. Labs reviewed showing WBC is 1.1 with a neutrophil count 0.03. Chest of CBC is unremarkable. Sodium 128, creatinine within the reference range Urine analysis is not suspicious for infection. Chest x-ray showing left lower lobe opacity similar to previous. EKG normal sinus rhythm at 94 Emergency room patient was started on Zosyn and vancomycin 08/28/2023 Patient understands although she is nonverbal or talk with simple warts, she can come dictate with me and stated that she feels better. She has no fever more than 48 hours since admission. Her WBC only slightly up or basically the same at 1.17. Hemoglobin 9.8. Currently she remains on Zosyn with culture are pending CRP is elevated at 17.6 and priorcalcitonin is elevated at 0.29. Per hematology team later, and to hold Riluzole (for her ALS) till neutropenia resolves. Continue with filgastim Patient will require hypercoagulable as an outpatient (she was recently admitted for right lower extremity thrombotic ) during previous admission 08/29. Patient seen and examined. Blood work done this morning showed WBC 1.4, hemoglobin 11, platelet count 268,. at the bedside. States patient is doing much better. 08/30. Patient seen and examined. Blood work done this morning showed WBC 1.84, hemoglobin 11.4, platelet count 315,. Patient had episodes of epistaxis in the night, it resolved on its own 08/31. Patient seen and examined. Blood work done this morning showed WBC 6.62, hemoglobin 9.3, platelet count 303 ANC 1800. Vital signs stable 09/01. Patient seen and examined. Blood work done this morning showed WBC 9.8, hemoglobin 11.8, platelet count 282, ANC 4200. Tolerating tube feeding. No acute events overnight 09/02. Patient seen and examined. Antibiotics were deescalated to oral Levaquin by ID. at the bedside, all questions answered. Vital signs stable REVIEW OF SYSTEMS: CONSTITUTIONAL: No fever, no malaise,. CARDIOVASCULAR: No chest pain, no palpitations, no syncope. PULMONARY: No shortness of breath, no cough, GASTROINTESTINAL: No diarrhea, no nausea, no vomiting, no abdominal pain. NEUROLOGICAL: No headaches, no weakness, PHYSICAL EXAMINATION: GENERAL: The patient is alert and oriented x3, not in any acute distress. Has history of ALS HEENT: Pupils are round and equally reacting to light. EOMI. No scleral icterus. No conjunctival pallor. Normocephalic, atraumatic. No pharyngeal erythema. No thyromegaly. CARDIOVASCULAR: S1 and S2 present. No murmurs, rubs, or gallops. PULMONARY: Chest is clear to auscultation, no wheezing or crackles. ABDOMEN: Soft, nontender, nondistended, normoactive bowel sounds. No palpable organomegaly. PEG tube seen MUSCULOSKELETAL: No joint swelling or deformity. EXTREMITIES: No cyanosis, clubbing, or pedal edema. NEUROLOGICAL: Has history of ALS. Moving all extremities. SKIN: No rashes. Assessment and plan Febrile neutropenia, unknown source Recent history of Acute limb ischemia with right SFA and profundus femoris occlusion status post thrombolysis of the right lower extremity on 08/11-12/2022 Hx of ALS with chronic medical debility left lower lobe infiltrate, similar to previous chronic Dysphagia , status post PEG tube placement Urinary tract infection and sepsis, finished treatment with antibiotic History of stroke Recent diagnosis of sleep apnea has CPAP in room ok to use Hypertension Hyperlipidemia Monitor vital signs Monitor CBC Monitor CMP Continue telemetry monitoring Encourage use of incentive spirometer Follow-up on blood cultures Continue Levaquin ID following inflammatory work up 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 Hemoglobin oncology following, recommend holding riluzole, continue filgrastim Labs and medication were reviewed.. Continue same treatment. Continue with symptomatic treatment. Resume home medication. Monitor labs and vitals. DVT and GI prophylaxis. Further recommendations as per clinical course of the patient Dictation was produced using [employer] dictation software. please excuse any grammatical, word or spelling errors. Objective - Vital Signs Vital signs: Vital Signs Temp 98.0 F 09/02/23 07:49 Pulse 96 09/02/23 07:49 Resp 19 09/02/23 07:49 BP 138/87 09/02/23 07:49 Pulse Ox 94 L 09/02/23 07:49 FiO2 Intake & Output 09/01/23 09/02/23 09/02/23 18:59 06:59 18:59 Weight 75.5 kg Other: Voiding Method Diaper Diaper Incontinent Incontinent # Voids 1 # Bowel Movements 1 - Labs CBC & Chem 7: 09/02/23 06:31 09/02/23 06:31 Labs: Abnormal Lab Results - Last 24 Hours (Table) 09/01/23 Range/Units 06:57 Procalcitonin 0.33 H (0.02-0.09) ng/mL
[2023-09-02] MEDS: LEVOFLOXACIN 500 MG TAB PO SCH (20:02)
[2023-09-03] MEDS: SODIUM CHLORIDE 0.9% 1,000 ML IV SCH ×2 (06:55→20:22)
--- NOTE | 2023-09-03 07:47 | P.PN ---
Subjective Progress Note Date: 09/02/23 Principal diagnosis: Reason for follow-up is pneumonia Patient is a 68-year-old female with a past medical history significant for ALS recently admitted to this hospital did fail swallow did get PEG, now presenting to the hospital with fever and left basilar opacity con cerning for possible aspiration pneumonia On today's evaluation that is 09/02/2023, the patient denies any fever or any chills, the patient is breathing comfortably on room air without the need for s upplemental oxygen, patient denies chest pain shortness of breath and no significant cough or sputum production, patient has been complaining of some pain around the PEG tube site, no nausea/vomiting and denies having any diarrhea Patient white count is 27.86, creatinine 0.6, blood cultures so far negative Objective - Vital Signs Vital signs: Vital Signs Temp 98.0 F 09/02/23 07:49 Pulse 96 09/02/23 07:49 Resp 19 09/02/23 07:49 BP 138/87 09/02/23 07:49 Pulse Ox 94 L 09/02/23 07:49 FiO2 Intake & Output 09/01/23 09/02/23 09/02/23 18:59 06:59 18:59 Weight 75.5 kg 75.5 kg Other: Voiding Method Diaper Diaper Diaper Incontinent Incontinent Incontinent # Voids 1 # Bowel Movements 1 - Exam GENERAL DESCRIPTION: An elderly female lying in bed in no distress RESPIRATORY SYSTEM: Unlabored breathing , decreased breath sound at the base HEART: S1 S2 regular rate and rhythm , ABDOMEN: Soft , no tenderness EXTREMITIES: No edema feet - Labs CBC & Chem 7: 09/02/23 06:31 09/02/23 06:31 Labs: Abnormal Lab Results - Last 24 Hours (Table) 09/02/23 09/02/23 Range/Units 06:31 06:31 WBC 27.86 H (4.50-10.00) X 10*3/uL RBC 3.88 L (4.10-5.20) X 10*6/uL Hgb 11.1 L (12.0-15.0) g/dL Hct 35.2 L (37.2-46.3) % MCHC 31.5 L (32.0-37.0) g/dL RDW 15.8 H (11.5-14.5) % MPV 9.4 L (9.5-12.2) FL Monocytes # (Manual) 2.79 H (0.20-1.00) X 10*3/uL Eosinophils # (Manual) 1.39 H (0.04-0.35) X 10*3/uL Basophils # (Manual) 0.28 H (0.00-0.10) X 10*3/uL NRBC/100 WBC Diff 0.09 H (0.00-0.01) X 10*3/uL Toxic Granulation 2+ A Elliptocytes 2+ A Anion Gap 12.20 H (4.00-12.00) mmol/L Creatinine 0.5 L (0.6-1.5) mg/dL BUN/Creatinine Ratio 20.20 H (12.00-20.00) Ratio Glucose 125 H (70-110) mg/dL AST 37 H (13-35) U/L Alkaline Phosphatase 159 H (41-126) U/L Total Protein 5.2 L (6.2-8.2) g/dL Albumin 2.9 L (3.8-4.9) g/dL Albumin/Globulin Ratio 1.26 L (1.60-3.17) Ratio Assessment and Plan (1) Pneumonia Current Visit: No Status: Acute Code(s): J18.9 - PNEUMONIA, UNSPECIFIED ORGANISM SNOMED Code(s): 190439895 Plan: 1patient presented to hospital with fever and low white count in this patient who was recently admitted at this facility and the patient did fail her swallow evaluation ended up getting a PEG tube now with evidence of left lower lobe opacity concerning for possible aspiration pneumonitis as no other obvious focus of infection, patient urine was negative, abdominal soft on clinical Examination no evidence of any joint swelling or cellulitis 2- sputum for Gram stain culture not collected, patient did have CRP of 17.60 and a procalcitonin is 0.29 3-patient did have leukocytosis more likely related to growth factor administration , will continue with levaquin Dictation was produced using Accoladeation software. please excuse any grammatical, word or spelling errors. Time with Patient: Less than 30
[2023-09-03] MEDS: ATORVASTATIN 20 MG TAB PO SCH (08:42)
[2023-09-03] MEDS: APIXABAN 5 MG TAB PEG/G-TUBE SCH ×2 (08:42→20:16)
[2023-09-03] MEDS: DULoxetine HCL 60 MG CAPSULE.DR PO SCH (08:54)
[2023-09-03] MEDS: ACETAMINOPHEN TAB 325 MG TAB PEG/G-TUBE PRN ×2 (12:26→22:56)
--- NOTE | 2023-09-03 13:31 | P.PN ---
Subjective Progress Note Date: 09/03/23 patient pleasant 68 years old female with multiple medical problems including history of ALS, dysphagia status post PEG, history of stroke and obstructive sleep apnea. Was recently discharged from this facility 08/10-08/20 for right lower extremity ischemic occlusion status post thrombolysis. Also she is been treated for UTI and pneumonia and finish her treatment and monitoring of antibiotics and she was doing well. She was discharge in stable condition with recommendation follow up outpatient for hypercoagulable workup. Patient was sent from [facility] for low white cell count. On this admission she had a fever of 101.2. She denies chest pain or dyspnea or coughing. She feels little dizzy but no h eadache weakness or numbness. She denies any urinary complaints. She denies abdominal obtaining AN examination is different. As per patient which she communicate with low tone voice and sometimes with gestures. She states that she came in because of fever. is at bedside and held with history. Patient feels generally weak sleepy and malaise but no specific complaint when asked. Patient however is awake and alert upon frank although she says she is little more sleepy. She has an NG tube in place with no signs of cellulitis, she denies abdominal pain but on examination she has mild tenderness in the suprapubic region, left abdomen and epigastric region. No rebound tenderness, no guarding. She denies dyspnea or coughing. No chest pain. Chest x-ray showing left lower lobe opacity similar to previous Blood pressure on the low side 95/62. Labs reviewed showing WBC is 1.1 with a neutrophil count 0.03. Chest of CBC is unremarkable. Sodium 128, creatinine within the reference range Urine analysis is not suspicious for infection. Chest x-ray showing left lower lobe opacity similar to previous. EKG normal sinus rhythm at 94 Emergency room patient was started on Zosyn and vancomycin 08/28/2023 Patient understands although she is nonverbal or talk with simple warts, she can come dictate with me and stated that she feels better. She has no fever more than 48 hours since admission. Her WBC only slightly up or basically the same at 1.17. Hemoglobin 9.8. Currently she remains on Zosyn with culture are pending CRP is elevated at 17.6 and priorcalcitonin is elevated at 0.29. Per hematology team later, and to hold Riluzole (for her ALS) till neutropenia resolves. Continue with filgastim Patient will require hypercoagulable as an outpatient (she was recently admitted for right lower extremity thrombotic ) during previous admission 08/29. Patient seen and examined. Blood work done this morning showed WBC 1.4, hemoglobin 11, platelet count 268,. at the bedside. States patient is doing much better. 08/30. Patient seen and examined. Blood work done this morning showed WBC 1.84, hemoglobin 11.4, platelet count 315,. Patient had episodes of epistaxis in the night, it resolved on its own 08/31. Patient seen and examined. Blood work done this morning showed WBC 6.62, hemoglobin 9.3, platelet count 303 ANC 1800. Vital signs stable 09/01. Patient seen and examined. Blood work done this morning showed WBC 9.8, hemoglobin 11.8, platelet count 282, ANC 4200. Tolerating tube feeding. No acute events overnight 09/02. Patient seen and examined. Antibiotics were deescalated to oral Levaquin by ID. at the bedside, all questions answered. Vital signs stable 09/03. Patient seen and examined. No acute issues overnight. No fever or chills. No shortness of breath. Her blood pressure was elevated, resume patient back on home dose of lisinopril REVIEW OF SYSTEMS: CONSTITUTIONAL: No fever, no malaise,. CARDIOVASCULAR: No chest pain, no palpitations, no syncope. PULMONARY: No shortness of breath, no cough, GASTROINTESTINAL: No diarrhea, no nausea, no vomiting, no abdominal pain. NEUROLOGICAL: No headaches, no weakness, PHYSICAL EXAMINATION: GENERAL: The patient is alert and oriented x3, not in any acute distress. Has history of ALS HEENT: Pupils are round and equally reacting to light. EOMI. No scleral icterus. No conjunctival pallor. Normocephalic, atraumatic. No pharyngeal erythema. No thyromegaly. CARDIOVASCULAR: S1 and S2 present. No murmurs, rubs, or gallops. PULMONARY: Chest is clear to auscultation, no wheezing or crackles. ABDOMEN: Soft, nontender, nondistended, normoactive bowel sounds. No palpable organomegaly. PEG tube seen MUSCULOSKELETAL: No joint swelling or deformity. EXTREMITIES: No cyanosis, clubbing, or pedal edema. NEUROLOGICAL: Has history of ALS. Moving all extremities. SKIN: No rashes. Assessment and plan Febrile neutropenia, unknown source Recent history of Acute limb ischemia with right SFA and profundus femoris occlusion status post thrombolysis of the right lower extremity on 08/11-12/2022 Hx of ALS with chronic medical debility left lower lobe infiltrate, similar to previous chronic Dysphagia , status post PEG tube placement Urinary tract infection and sepsis, finished treatment with antibiotic History of stroke Recent diagnosis of sleep apnea has CPAP in room ok to use Hypertension Hyperlipidemia Monitor vital signs Monitor CBC Monitor CMP Continue telemetry monitoring Encourage use of incentive spirometer Follow-up on blood cultures Continue Levaquin Resume lisinopril ID following inflammatory work up 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 Hemoglobin oncology following, recommend holding riluzole, patient received filgrastim daily, discontinued on 09/02. Labs and medication were reviewed.. Continue same treatment. Continue with symptomatic treatment. Resume home medication. Monitor labs and vitals. DVT and GI prophylaxis. Further recommendations as per clinical course of the patient Dictation was produced using [employer] dictation software. please excuse any grammatical, word or spelling errors. Objective - Vital Signs Vital signs: Vital Signs Temp 97.9 F 09/03/23 07:57 Pulse 94 09/03/23 07:57 Resp 19 09/03/23 07:57 BP 165/101 09/03/23 07:57 Pulse Ox 94 L 09/03/23 09:28 FiO2 Intake & Output 09/02/23 09/03/23 09/03/23 18:59 06:59 18:59 Weight 75.5 kg 74.5 kg Other: Voiding Method Diaper Diaper Incontinent Incontinent # Voids 2 # Bowel Movements 1 1 - Labs CBC & Chem 7: 09/02/23 06:31 09/02/23 06:31 Labs: Abnormal Lab Results - Last 24 Hours (Table) 09/02/23 09/02/23 Range/Units 06:31 06:31 WBC 27.86 H (4.50-10.00) X 10*3/uL RBC 3.88 L (4.10-5.20) X 10*6/uL Hgb 11.1 L (12.0-15.0) g/dL Hct 35.2 L (37.2-46.3) % MCHC 31.5 L (32.0-37.0) g/dL RDW 15.8 H (11.5-14.5) % MPV 9.4 L (9.5-12.2) FL Monocytes # (Manual) 2.79 H (0.20-1.00) X 10*3/uL Eosinophils # (Manual) 1.39 H (0.04-0.35) X 10*3/uL Basophils # (Manual) 0.28 H (0.00-0.10) X 10*3/uL NRBC/100 WBC Diff 0.09 H (0.00-0.01) X 10*3/uL Toxic Granulation 2+ A Elliptocytes 2+ A Anion Gap 12.20 H (4.00-12.00) mmol/L Creatinine 0.5 L (0.6-1.5) mg/dL BUN/Creatinine Ratio 20.20 H (12.00-20.00) Ratio Glucose 125 H (70-110) mg/dL AST 37 H (13-35) U/L Alkaline Phosphatase 159 H (41-126) U/L Total Protein 5.2 L (6.2-8.2) g/dL Albumin 2.9 L (3.8-4.9) g/dL Albumin/Globulin Ratio 1.26 L (1.60-3.17) Ratio
[2023-09-03] MEDS: lisinopriL 5 MG TAB PO SCH (16:03)
[2023-09-03] MEDS: LEVOFLOXACIN 500 MG TAB PO SCH (20:16)
--- NOTE | 2023-09-03 20:56 | P.PN ---
Subjective Progress Note Date: 09/03/23 Principal diagnosis: Reason for follow-up is pneumonia Patient is a 68-year-old female with a past medical history significant for ALS recently admitted to this hospital did fail swallow did get PEG, now presenting to the hospital with fever and left basilar opacity con cerning for possible aspiration pneumonia On today's evaluation that is 09/03/2023, the patient remains to be afebrile, the patient is breathing comfortably on room air and the patient denies any gerald rtness of breath, the patient denies chest pain no significant cough or sputum production, patient denies any nausea/vomiting abdominal pain and no diarrhea has been reported. Patient did have white count 27.86 as of yesterday no CBC was done today. Objective - Vital Signs Vital signs: Vital Signs Temp 97.9 F 09/03/23 07:57 Pulse 94 09/03/23 07:57 Resp 19 09/03/23 07:57 BP 165/101 09/03/23 07:57 Pulse Ox 94 L 09/03/23 09:28 FiO2 Intake & Output 09/02/23 09/03/23 09/03/23 18:59 06:59 18:59 Weight 75.5 kg 74.5 kg Other: Voiding Method Diaper Diaper Incontinent Incontinent # Voids 2 # Bowel Movements 1 1 - Exam GENERAL DESCRIPTION: An elderly female lying in bed in no distress RESPIRATORY SYSTEM: Unlabored breathing , decreased breath sound at the base HEART: S1 S2 regular rate and rhythm , ABDOMEN: Soft , no tenderness EXTREMITIES: No edema feet - Labs CBC & Chem 7: 09/02/23 06:31 09/02/23 06:31 Labs: Abnormal Lab Results - Last 24 Hours (Table) 09/02/23 09/02/23 Range/Units 06:31 06:31 WBC 27.86 H (4.50-10.00) X 10*3/uL RBC 3.88 L (4.10-5.20) X 10*6/uL Hgb 11.1 L (12.0-15.0) g/dL Hct 35.2 L (37.2-46.3) % MCHC 31.5 L (32.0-37.0) g/dL RDW 15.8 H (11.5-14.5) % MPV 9.4 L (9.5-12.2) FL Monocytes # (Manual) 2.79 H (0.20-1.00) X 10*3/uL Eosinophils # (Manual) 1.39 H (0.04-0.35) X 10*3/uL Basophils # (Manual) 0.28 H (0.00-0.10) X 10*3/uL NRBC/100 WBC Diff 0.09 H (0.00-0.01) X 10*3/uL Toxic Granulation 2+ A Elliptocytes 2+ A Anion Gap 12.20 H (4.00-12.00) mmol/L Creatinine 0.5 L (0.6-1.5) mg/dL BUN/Creatinine Ratio 20.20 H (12.00-20.00) Ratio Glucose 125 H (70-110) mg/dL AST 37 H (13-35) U/L Alkaline Phosphatase 159 H (41-126) U/L Total Protein 5.2 L (6.2-8.2) g/dL Albumin 2.9 L (3.8-4.9) g/dL Albumin/Globulin Ratio 1.26 L (1.60-3.17) Ratio Assessment and Plan (1) Pneumonia Current Visit: No Status: Acute Code(s): J18.9 - PNEUMONIA, UNSPECIFIED ORGANISM SNOMED Code(s): 400171650 Plan: 1patient presented to hospital with fever and low white count in this patient who was recently admitted at this facility and the patient did fail her swallow evaluation ended up getting a PEG tube now with evidence of left lower lobe opac ity concerning for possible aspiration pneumonitis as no other obvious focus of infection, patient urine was negative, abdominal soft on clinical Examination no evidence of any joint swelling or cellulitis 2- sputum for Gram stain culture not collected, patient did have CRP of 17.60 and a procalcitonin is 0.29 3patient has shown clinical improvement resolution of the fever leukocytosis more likely reactive to growth factor and will monitor closely continue patient on Levaquin at the bedside questions were answered Dictation was produced using [employer] software. please excuse any grammatical, word or spelling errors.
[2023-09-04] MEDS: ATORVASTATIN 20 MG TAB PO SCH (09:05)
[2023-09-04] MEDS: lisinopriL 5 MG TAB PO SCH (09:05)
[2023-09-04] MEDS: APIXABAN 5 MG TAB PEG/G-TUBE SCH ×2 (09:05→20:58)
[2023-09-04] MEDS: ACETAMINOPHEN TAB 325 MG TAB PEG/G-TUBE PRN ×2 (09:05→21:00)
[2023-09-04] MEDS: DULoxetine HCL 60 MG CAPSULE.DR PO SCH (09:05)
--- NOTE | 2023-09-04 13:05 | P.PN ---
Subjective Progress Note Date: 09/04/23 patient pleasant 68 years old female with multiple medical problems including history of ALS, dysphagia status post PEG, history of stroke and obstructive sleep apnea. Was recently discharged from this facility 08/10-08/20 for right lower extremity ischemic occlusion status post thrombolysis. Also she is been treated for UTI and pneumonia and finish her treatment and monitoring of antibiotics and she was doing well. She was discharge in stable condition with recommendation follow up outpatient for hypercoagulable workup. Patient was sent from [facility] for low white cell count. On this admission she had a fever of 101.2. She denies chest pain or dyspnea or coughing. She feels little dizzy but no h eadache weakness or numbness. She denies any urinary complaints. She denies abdominal obtaining AN examination is different. As per patient which she communicate with low tone voice and sometimes with gestures. She states that she came in because of fever. is at bedside and held with history. Patient feels generally weak sleepy and malaise but no specific complaint when asked. Patient however is awake and alert upon frank although she says she is little more sleepy. She has an NG tube in place with no signs of cellulitis, she denies abdominal pain but on examination she has mild tenderness in the suprapubic region, left abdomen and epigastric region. No rebound tenderness, no guarding. She denies dyspnea or coughing. No chest pain. Chest x-ray showing left lower lobe opacity similar to previous Blood pressure on the low side 95/62. Labs reviewed showing WBC is 1.1 with a neutrophil count 0.03. Chest of CBC is unremarkable. Sodium 128, creatinine within the reference range Urine analysis is not suspicious for infection. Chest x-ray showing left lower lobe opacity similar to previous. EKG normal sinus rhythm at 94 Emergency room patient was started on Zosyn and vancomycin 08/28/2023 Patient understands although she is nonverbal or talk with simple warts, she can come dictate with me and stated that she feels better. She has no fever more than 48 hours since admission. Her WBC only slightly up or basically the same at 1.17. Hemoglobin 9.8. Currently she remains on Zosyn with culture are pending CRP is elevated at 17.6 and priorcalcitonin is elevated at 0.29. Per hematology team later, and to hold Riluzole (for her ALS) till neutropenia resolves. Continue with filgastim Patient will require hypercoagulable as an outpatient (she was recently admitted for right lower extremity thrombotic ) during previous admission 08/29. Patient seen and examined. Blood work done this morning showed WBC 1.4, hemoglobin 11, platelet count 268,. at the bedside. States patient is doing much better. 08/30. Patient seen and examined. Blood work done this morning showed WBC 1.84, hemoglobin 11.4, platelet count 315,. Patient had episodes of epistaxis in the night, it resolved on its own 08/31. Patient seen and examined. Blood work done this morning showed WBC 6.62, hemoglobin 9.3, platelet count 303 ANC 1800. Vital signs stable 09/01. Patient seen and examined. Blood work done this morning showed WBC 9.8, hemoglobin 11.8, platelet count 282, ANC 4200. Tolerating tube feeding. No acute events overnight 09/02. Patient seen and examined. Antibiotics were deescalated to oral Levaquin by ID. at the bedside, all questions answered. Vital signs stable 09/03. Patient seen and examined. No acute issues overnight. No fever or chills. No shortness of breath. Her blood pressure was elevated, resume patient back on home dose of lisinopril 09/04. Patient seen and examined. Waiting on discharge back to rehab facility. Denies any lightheadedness or dizziness. Tolerating tube feeding. Vital signs stable REVIEW OF SYSTEMS: CONSTITUTIONAL: No fever, no malaise,. CARDIOVASCULAR: No chest pain, no palpitations, no syncope. PULMONARY: No shortness of breath, no cough, GASTROINTESTINAL: No diarrhea, no nausea, no vomiting, no abdominal pain. NEUROLOGICAL: No headaches, no weakness, PHYSICAL EXAMINATION: GENERAL: The patient is alert and oriented x3, not in any acute distress. Has history of ALS HEENT: Pupils are round and equally reacting to light. EOMI. No scleral icterus. No conjunctival pallor. Normocephalic, atraumatic. No pharyngeal erythema. No thyromegaly. CARDIOVASCULAR: S1 and S2 present. No murmurs, rubs, or gallops. PULMONARY: Chest is clear to auscultation, no wheezing or crackles. ABDOMEN: Soft, nontender, nondistended, normoactive bowel sounds. No palpable o rganomegaly. PEG tube seen MUSCULOSKELETAL: No joint swelling or deformity. EXTREMITIES: No cyanosis, clubbing, or pedal edema. NEUROLOGICAL: Has history of ALS. Moving all extremities. SKIN: No rashes. Assessment and plan Febrile neutropenia, unknown source Recent history of Acute limb ischemia with right SFA and profundus femoris occlusion status post thrombolysis of the right lower extremity on 08/11-12/2022 Hx of ALS with chronic medical debility left lower lobe infiltrate, similar to previous chronic Dysphagia , status post PEG tube placement Urinary tract infection and sepsis, finished treatment with antibiotic History of stroke Recent diagnosis of sleep apnea has CPAP in room ok to use Hypertension Hyperlipidemia Monitor vital signs Monitor CBC Monitor CMP Continue telemetry monitoring Encourage use of incentive spirometer Follow-up on blood cultures Continue Levaquin Continue lisinopril ID following inflammatory work up 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 Hemoglobin oncology following, recommend holding riluzole, patient received filgrastim daily, discontinued on 09/02. Labs and medication were reviewed.. Continue same treatment. Continue with symptomatic treatment. Resume home medication. Monitor labs and vitals. DVT and GI prophylaxis. Further recommendations as per clinical course of the patient Dictation was produced using [employer] dictation software. please excuse any grammatical, word or spelling errors. Objective - Vital Signs Vital signs: Vital Signs Temp 97.5 F L 09/04/23 06:54 Pulse 83 09/04/23 06:54 Resp 19 09/04/23 06:54 BP 162/110 09/04/23 06:54 Pulse Ox 97 09/04/23 08:00 FiO2 Intake & Output 09/03/23 09/04/23 09/04/23 18:59 06:59 18:59 Intake Total 0 Output Total 1 Balance -1 Weight 74.6 kg Intake: Oral 0 Output: Stool 1 Other: Voiding Method Diaper Diaper Incontinent Incontinent # Voids 1 1 # Bowel Movements 1 - Labs CBC & Chem 7: 09/02/23 06:31 09/02/23 06:31
--- NOTE | 2023-09-04 13:43 | P.PN ---
Subjective Progress Note Date: 09/04/23 The patient has been improving slowly, and discharged to rehab facility is being considered. No fever or chills, nausea vomiting. She she has marked dysarthria, but is able to communicate with some speech, as well as head movements. Comprehension remains reasonable Objective - Vital Signs Vital signs: Vital Signs Temp 97.5 F L 09/04/23 06:54 Pulse 83 09/04/23 06:54 Resp 20 09/04/23 11:09 BP 162/110 09/04/23 06:54 Pulse Ox 97 09/04/23 08:00 FiO2 Intake & Output 09/03/23 09/04/23 09/04/23 18:59 06:59 18:59 Intake Total 0 Output Total 1 2 Balance -1 -2 Weight 74.6 kg Intake: Oral 0 Output: Urine 1 Stool 1 1 Other: Voiding Method Diaper Diaper Diaper Incontinent Incontinent Incontinent # Voids 1 1 # Bowel Movements 1 1 - Constitutional General appearance: Present: no acute distress - EENT Eyes: Present: EOMI ENT: Present: hearing grossly normal, normal oropharynx - Respiratory Respiratory: bilateral: CTA - Cardiovascular Rhythm: regular Heart sounds: normal: S1, S2 - Gastrointestinal General gastrointestinal: Present: normal bowel sounds, soft - Integumentary Integumentary: Present: normal - Neurologic Neurologic: Present: focal deficits (Significant dysarthria, generalized weakness) - Musculoskeletal Musculoskeletal: Present: generalized weakness - Labs CBC & Chem 7: 09/02/23 06:31 09/02/23 06:31 Assessment and Plan (1) Neutropenic fever Narrative/Plan: The fever has resolved. Neutropenia was quite prolonged, and initially did not respond to G-CSF. However there has been significant improvement over the past few days. WBC is now high, due to physiologic " overshoot" from GCSF effect. - Filgrastim has been discontinued - Case discussed in detail with the admitting service. The patient probably had delayed response to G-CSF, either due to ongoing bone marrow suppression from medication effect /infection and/or some baseline diminished bone marrow function. However she did subsequently manifest a satisfactory response. 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 This can be followed with observation as an outpatient. Current Visit: Yes Status: Acute Priority: High Code(s): D70.9 - NEUTROPENIA, UNSPECIFIED; R50.81 - FEVER PRESENTING WITH CONDITIONS CLASSIFIED ELSEWHERE SNOMED Code(s): 470074666 Plan: Okay to discharge from the hematology standpoint.
[2023-09-04] MEDS: LEVOFLOXACIN 500 MG TAB PO SCH (20:58)
[2023-09-04] MEDS: amLODIPine 10 MG TAB PO SCH (20:58)
[2023-09-04] MEDS: SODIUM CHLORIDE 0.9% 1,000 ML IV SCH (22:58)
[2023-09-05] MEDS ORDERED: hydrALAZINE HCL 20 MG/ML 1 ML VIAL IVP STA (00:27)
[2023-09-05] MEDS: ONDANSETRON 4 MG/2 ML VIAL IVP PRN ×2 (05:51→20:01)
[2023-09-05] MEDS: ACETAMINOPHEN TAB 325 MG TAB PEG/G-TUBE PRN ×2 (05:51→17:02)
[2023-09-05 06:11] LABS: Glucose,Whole Blood 135 mg/dL (70-110)
[2023-09-05] MEDS: ATORVASTATIN 20 MG TAB PO SCH (08:30)
[2023-09-05] MEDS: lisinopriL 5 MG TAB PO SCH (08:30)
[2023-09-05] MEDS: amLODIPine 10 MG TAB PO SCH (08:30)
[2023-09-05] MEDS: APIXABAN 5 MG TAB PEG/G-TUBE SCH ×2 (08:30→20:01)
[2023-09-05] MEDS: DULoxetine HCL 60 MG CAPSULE.DR PO SCH (08:30)
[2023-09-05 08:56] LABS: ALT 35 U/L (8-44); AST 29 U/L (13-35); Albumin 3.4 g/dL (3.8-4.9); Albumin/Globulin Ratio 1.31 Ratio (1.60-3.17); Alkaline Phosphatase 154 U/L (41-126); Blood Urea Nitrogen 12.6 mg/dL (9.0-27.0); Calcium 9.4 mg/dL (8.7-10.3); Carbon Dioxide 22.4 mmol/L (21.6-31.8); Chloride 105 mmol/L (96-109); Globulin 2.6 g/dL (1.6-3.3); Glucose 127 mg/dL (70-110); Potassium 4.1 mmol/L (3.5-5.5); Sodium 140 mmol/L (135-145); Total Bilirubin 0.3 mg/dL (0.3-1.2)
[2023-09-05 09:44] LABS: Neutrophils # (M) 0.47 X 10*3/uL (1.80-7.70)
[2023-09-05] MEDS: METOPROLOL TARTRATE 12.5 MG TAB PO SCH ×2 (11:31→20:01)
[2023-09-05 11:38] LABS: HCT 37.6 % (37.2-46.3); MCH 28.6 pg (27.0-32.0); MCHC 31.9 g/dL (32.0-37.0); MCV 89.5 FL (80.0-97.0); Mean Platelet Volume 10.3 FL (9.5-12.2); NRBC Per 100 WBC 0.06 X 10*3/uL (0.00-0.01); Platelet Count 208 X 10*3/uL (140-440); WBC 13.31 X 10*3/uL (4.50-10.00)
[2023-09-05 11:47] LABS: Basophils # (M) 0.13 X 10*3/uL (0.00-0.10); Lymphocytes # (M) 1.86 X 10*3/uL (0.90-5.00); Metamyelocytes % 3 % (0-0); Monocytes # (M) 1.06 X 10*3/uL (0.20-1.00); Myelocytes % 2 % (0-0); Neutrophils # (M) 8.92 X 10*3/uL (1.80-7.70); Neutrophils % (M) 67 %; Nucleated Red Blood Cells 1 /100 WBCS; Promyelocytes # (M) 0.27 k/uL (0); Promyelocytes % 2 %; RBC Morphology Normal (Normal)
[2023-09-05 12:31] LABS: ANA Pattern SPK
--- NOTE | 2023-09-05 13:40 | P.PN ---
Subjective Progress Note Date: 09/05/23 patient pleasant 68 years old female with multiple medical problems including history of ALS, dysphagia status post PEG, history of stroke and obstructive sleep apnea. Was recently discharged from this facility 08/10-08/20 for right lower extremity ischemic occlusion status post thrombolysis. Also she is been treated for UTI and pneumonia and finish her treatment and monitoring of antibiotics and she was doing well. She was discharge in stable condition with recommendation follow up outpatient for hypercoagulable workup. Patient was sent from [facility] for low white cell count. On this admission she had a fever of 101.2. She denies chest pain or dyspnea or coughing. She feels little dizzy but no h eadache weakness or numbness. She denies any urinary complaints. She denies abdominal obtaining AN examination is different. As per patient which she communicate with low tone voice and sometimes with gestures. She states that she came in because of fever. is at bedside and held with history. Patient feels generally weak sleepy and malaise but no specific complaint when asked. Patient however is awake and alert upon frank although she says she is little more sleepy. She has an NG tube in place with no signs of cellulitis, she denies abdominal pain but on examination she has mild tenderness in the suprapubic region, left abdomen and epigastric region. No rebound tenderness, no guarding. She denies dyspnea or coughing. No chest pain. Chest x-ray showing left lower lobe opacity similar to previous Blood pressure on the low side 95/62. Labs reviewed showing WBC is 1.1 with a neutrophil count 0.03. Chest of CBC is unremarkable. Sodium 128, creatinine within the reference range Urine analysis is not suspicious for infection. Chest x-ray showing left lower lobe opacity similar to previous. EKG normal sinus rhythm at 94 Emergency room patient was started on Zosyn and vancomycin 08/28/2023 Patient understands although she is nonverbal or talk with simple warts, she can come dictate with me and stated that she feels better. She has no fever more than 48 hours since admission. Her WBC only slightly up or basically the same at 1.17. Hemoglobin 9.8. Currently she remains on Zosyn with culture are pending CRP is elevated at 17.6 and priorcalcitonin is elevated at 0.29. Per hematology team later, and to hold Riluzole (for her ALS) till neutropenia resolves. Continue with filgastim Patient will require hypercoagulable as an outpatient (she was recently admitted for right lower extremity thrombotic ) during previous admission 08/29. Patient seen and examined. Blood work done this morning showed WBC 1.4, hemoglobin 11, platelet count 268,. at the bedside. States patient is doing much better. 08/30. Patient seen and examined. Blood work done this morning showed WBC 1.84, hemoglobin 11.4, platelet count 315,. Patient had episodes of epistaxis in the night, it resolved on its own 08/31. Patient seen and examined. Blood work done this morning showed WBC 6.62, hemoglobin 9.3, platelet count 303 ANC 1800. Vital signs stable 09/01. Patient seen and examined. Blood work done this morning showed WBC 9.8, hemoglobin 11.8, platelet count 282, ANC 4200. Tolerating tube feeding. No acute events overnight 09/02. Patient seen and examined. Antibiotics were deescalated to oral Levaquin by ID. at the bedside, all questions answered. Vital signs stable 09/03. Patient seen and examined. No acute issues overnight. No fever or chills. No shortness of breath. Her blood pressure was elevated, resume patient back on home dose of lisinopril 09/04. Patient seen and examined. Waiting on discharge back to rehab facility. Denies any lightheadedness or dizziness. Tolerating tube feeding. Vital signs stable 09/05. Patient seen and examined. Hematology oncology has cleared the patient for discharge. ID also recommend discontinuing antibiotics. Patient blood pressure has been elevated heart rate has been up, start patient on Lopressor 12.5 mg twice a day. Possible discharge in the morning REVIEW OF SYSTEMS: CONSTITUTIONAL: No fever, no malaise,. CARDIOVASCULAR: No chest pain, no palpitations, no syncope. PULMONARY: No shortness of breath, no cough, GASTROINTESTINAL: No diarrhea, no nausea, no vomiting, no abdominal pain. NEUROLOGICAL: No headaches, no weakness, PHYSICAL EXAMINATION: GENERAL: The patient is alert and oriented x3, not in any acute distress. Has history of ALS HEENT: Pupils are round and equally reacting to light. EOMI. No scleral icterus. No conjunctival pallor. Normocephalic, atraumatic. No pharyngeal erythema. No thyromegaly. CARDIOVASCULAR: S1 and S2 present. No murmurs, rubs, or gallops. Tachycardic PULMONARY: Chest is clear to auscultation, no wheezing or crackles. ABDOMEN: Soft, nontender, nondistended, normoactive bowel sounds. No palpable organomegaly. PEG tube seen MUSCULOSKELETAL: No joint swelling or deformity. EXTREMITIES: No cyanosis, clubbing, or pedal edema. NEUROLOGICAL: Has history of ALS. Moving all extremities. SKIN: No rashes. Assessment and plan Febrile neutropenia, unknown source Recent history of Acute limb ischemia with right SFA and profundus femoris occlusion status post thrombolysis of the right lower extremity on 08/11-12/2022 Hx of ALS with chronic medical debility left lower lobe infiltrate, similar to previous chronic Dysphagia , status post PEG tube placement Urinary tract infection and sepsis, finished treatment with antibiotic History of stroke Recent diagnosis of sleep apnea has CPAP in room ok to use Hypertension Hyperlipidemia Monitor vital signs Monitor CBC Monitor CMP Continue telemetry monitoring Encourage use of incentive spirometer Follow-up on blood cultures DC antibiotics Continue lisinopril Start Lopressor 12.5 twice a ID following, recommend discontinuing antibiotics inflammatory work up 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 Hemoglobin oncology following, recommend holding riluzole, patient received filg rastim daily, discontinued on 09/02. Labs and medication were reviewed.. Continue same treatment. Continue with symptomatic treatment. Resume home medication. Monitor labs and vitals. DVT and GI prophylaxis. Further recommendations as per clinical course of the patient Dictation was produced using [employer] dictation software. please excuse any grammatical, word or spelling errors. Objective - Vital Signs Vital signs: Vital Signs Temp 98.1 F 09/05/23 07:07 Pulse 107 H 09/05/23 07:07 Resp 17 09/05/23 07:07 BP 129/86 09/05/23 07:07 Pulse Ox 92 L 09/05/23 07:07 FiO2 Intake & Output 09/04/23 09/05/23 09/05/23 18:59 06:59 18:59 Intake Total 300 Output Total 2 Balance 298 Weight 74 kg Intake: Oral 300 Output: Urine 1 Stool 1 Other: Voiding Method Diaper Diaper Incontinent Incontinent # Voids 1 1 # Bowel Movements 1 - Labs CBC & Chem 7: 09/05/23 04:17 09/05/23 04:17 Labs: Abnormal Lab Results - Last 24 Hours (Table) 08/31/23 09/02/23 09/05/23 Range/Units 04:42 06:31 04:17 Neutrophils # (Manual) 0.47 A* 18.39 H (1.80-7.70) X 10*3/uL Anion Gap 12.60 H (4.00-12.00) mmol/L Creatinine 0.5 L (0.6-1.5) mg/dL BUN/Creatinine Ratio 25.20 H (12.00-20.00) Ratio Glucose 127 H (70-110) mg/dL POC Glucose (mg/dL) (70-110) mg/dL Alkaline Phosphatase 154 H (41-126) U/L Total Protein 6.0 L (6.2-8.2) g/dL Albumin 3.4 L (3.8-4.9) g/dL Albumin/Globulin Ratio 1.31 L (1.60-3.17) Ratio 09/05/23 Range/Units 06:09 Neutrophils # (Manual) (1.80-7.70) X 10*3/uL Anion Gap (4.00-12.00) mmol/L Creatinine (0.6-1.5) mg/dL BUN/Creatinine Ratio (12.00-20.00) Ratio Glucose (70-110) mg/dL POC Glucose (mg/dL) 135 H (70-110) mg/dL Alkaline Phosphatase (41-126) U/L Total Protein (6.2-8.2) g/dL Albumin (3.8-4.9) g/dL Albumin/Globulin Ratio (1.60-3.17) Ratio
--- NOTE | 2023-09-05 19:37 | P.PN ---
Subjective Progress Note Date: 09/04/23 Principal diagnosis: Reason for follow-up is pneumonia Patient is a 68-year-old female with a past medical history significant for ALS recently admitted to this hospital did fail swallow did get PEG, now presenting to the hospital with fever and left basilar opacity con cerning for possible aspiration pneumonia On today's evaluation that is 09/04/2023, the patient denies any fever or any chills, the patient is breathing comfortably on room air without the need for s upplemental oxygen, patient denies chest pain shortness of breath and no significant cough or sputum production, patient denies Abdominal pain, no nausea/vomiting and denies having any diarrhea Patient did have white count 27.86 as of yesterday no CBC was done today. Objective - Vital Signs Vital signs: Vital Signs Temp 97.9 F 09/04/23 01:13 Pulse 80 09/04/23 01:13 Resp 18 09/03/23 13:27 BP 158/93 09/04/23 01:13 Pulse Ox 93 L 09/04/23 01:13 FiO2 Intake & Output 09/03/23 09/04/23 09/04/23 18:59 06:59 18:59 Intake Total 0 Output Total 1 Balance -1 Weight 74.6 kg Intake: Oral 0 Output: Stool 1 Other: Voiding Method Diaper Diaper Incontinent Incontinent # Voids 1 1 # Bowel Movements 1 - Exam GENERAL DESCRIPTION: An elderly female lying in bed in no distress RESPIRATORY SYSTEM: Unlabored breathing , decreased breath sound at the base HEART: S1 S2 regular rate and rhythm , ABDOMEN: Soft , no tenderness EXTREMITIES: No edema feet - Labs CBC & Chem 7: 09/05/23 04:17 09/05/23 04:17 Assessment and Plan (1) Pneumonia Current Visit: No Status: Acute Code(s): J18.9 - PNEUMONIA, UNSPECIFIED ORGANISM SNOMED Code(s): 152006602 Plan: 1patient presented to hospital with fever and low white count in this patient who was recently admitted at this facility and the patient did fail her swallow evaluation ended up getting a PEG tube now with evidence of left lower lobe opacity concerning for possible aspiration pneumonitis as no other obvious focus of infection, patient urine was negative, abdominal soft on clinical Examination no evidence of any joint swelling or cellulitis 2- sputum for Gram stain culture not collected, patient did have CRP of 17.60 and a procalcitonin is 0.29 3patient has shown clinical improvement resolution of the fever leukocytosis more likely reactive to growth factor and will repeat a CBC tomorrow continue with the Levaquin Dictation was produced using [employer] dictation software. please excuse any grammatical, word or spelling errors. Time with Patient: Less than 30
--- NOTE | 2023-09-05 19:38 | P.PN ---
Subjective Progress Note Date: 09/05/23 Principal diagnosis: Reason for follow-up is pneumonia Patient is a 68-year-old female with a past medical history significant for ALS recently admitted to this hospital did fail swallow did get PEG, now presenting to the hospital with fever and left basilar opacity con cerning for possible aspiration pneumonia On today's evaluation that is 09/05/2023, the patient remains to be afebrile, the patient is breathing comfortably on room air and denies any shortness of br eath, the patient denies any chest pain, no significant cough or sputum production, patient denies nausea/vomiting /diarrhea and no abdominal pain Patient did have white count is down to 13.31, creatinine 0.5, blood cultures have been negative Objective - Vital Signs Vital signs: Vital Signs Temp 98.1 F 09/05/23 07:07 Pulse 128 H 09/05/23 11:25 Resp 17 09/05/23 07:07 BP 129/86 09/05/23 07:07 Pulse Ox 92 L 09/05/23 07:07 FiO2 Intake & Output 09/04/23 09/05/23 09/05/23 18:59 06:59 18:59 Intake Total 300 Output Total 2 Balance 298 Weight 74 kg Intake: Oral 300 Output: Urine 1 Stool 1 Other: Voiding Method Diaper Diaper Incontinent Incontinent # Voids 1 1 # Bowel Movements 1 - Exam GENERAL DESCRIPTION: An elderly female lying in bed in no distress RESPIRATORY SYSTEM: Unlabored breathing , decreased breath sound at the base HEART: S1 S2 regular rate and rhythm , ABDOMEN: Soft , no tenderness EXTREMITIES: No edema feet - Labs CBC & Chem 7: 09/05/23 04:17 09/05/23 04:17 Labs: Abnormal Lab Results - Last 24 Hours (Table) 08/31/23 09/02/23 09/05/23 Range/Units 04:42 06:31 04:17 WBC 13.31 H (4.50-10.00) X 10*3/uL MCHC 31.9 L (32.0-37.0) g/dL RDW 16.0 H (11.5-14.5) % Neutrophils # (Manual) 0.47 A* 18.39 H (1.80-7.70) X 10*3/uL Monocytes # (Manual) 1.06 H (0.20-1.00) X 10*3/uL Eosinophils # (Manual) 0.40 H (0.04-0.35) X 10*3/uL Basophils # (Manual) 0.13 H (0.00-0.10) X 10*3/uL NRBC/100 WBC Diff 0.06 H (0.00-0.01) X 10*3/uL Anion Gap (4.00-12.00) mmol/L Creatinine (0.6-1.5) mg/dL BUN/Creatinine Ratio (12.00-20.00) Ratio Glucose (70-110) mg/dL POC Glucose (mg/dL) (70-110) mg/dL Alkaline Phosphatase (41-126) U/L Total Protein (6.2-8.2) g/dL Albumin (3.8-4.9) g/dL Albumin/Globulin Ratio (1.60-3.17) Ratio 09/05/23 09/05/23 Range/Units 04:17 06:09 WBC (4.50-10.00) X 10*3/uL MCHC (32.0-37.0) g/dL RDW (11.5-14.5) % Neutrophils # (Manual) (1.80-7.70) X 10*3/uL Monocytes # (Manual) (0.20-1.00) X 10*3/uL Eosinophils # (Manual) (0.04-0.35) X 10*3/uL Basophils # (Manual) (0.00-0.10) X 10*3/uL NRBC/100 WBC Diff (0.00-0.01) X 10*3/uL Anion Gap 12.60 H (4.00-12.00) mmol/L Creatinine 0.5 L (0.6-1.5) mg/dL BUN/Creatinine Ratio 25.20 H (12.00-20.00) Ratio Glucose 127 H (70-110) mg/dL POC Glucose (mg/dL) 135 H (70-110) mg/dL Alkaline Phosphatase 154 H (41-126) U/L Total Protein 6.0 L (6.2-8.2) g/dL Albumin 3.4 L (3.8-4.9) g/dL Albumin/Globulin Ratio 1.31 L (1.60-3.17) Ratio Assessment and Plan (1) Pneumonia Current Visit: No Status: Acute Code(s): J18.9 - PNEUMONIA, UNSPECIFIED ORGANISM SNOMED Code(s): 160491456 Plan: 1patient presented to hospital with fever and low white count in this patient who was recently admitted at this facility and the patient did fail her swallow evaluation ended up getting a PEG tube now with evidence of left lower lobe opacity concerning for possible aspiration pneumonitis as no other obvious focus of infection, patient urine was negative, abdominal soft on clinical Examination no evidence of any joint swelling or cellulitis 2- sputum for Gram stain culture not collected, patient did have CRP of 17.60 and a procalcitonin is 0.29 3patient has shown clinical improvement resolution of the fever leukocytosis more likely reactive to growth factor and is trending down to 13,000 today 4-patient has received about 10 days of antibiotics Levaquin can be discontinued discussed with the admitting physician Dictation was produced using [employer] dictation software. please excuse any grammatical, word or spelling errors. Time with Patient: Less than 30
[2023-09-05] MEDS: SODIUM CHLORIDE 0.9% 1,000 ML IV SCH (22:59)
[2023-09-06] MEDS: ACETAMINOPHEN TAB 325 MG TAB PEG/G-TUBE PRN ×2 (00:27→10:22)
[2023-09-06] MEDS: ONDANSETRON 4 MG/2 ML VIAL IVP PRN (01:09)
[2023-09-06] MEDS: lisinopriL 5 MG TAB PO SCH (09:00)
[2023-09-06] MEDS: METOPROLOL TARTRATE 12.5 MG TAB PO SCH (09:00)
[2023-09-06] MEDS: ATORVASTATIN 20 MG TAB PO SCH (09:00)
[2023-09-06] MEDS: APIXABAN 5 MG TAB PEG/G-TUBE SCH (09:00)
[2023-09-06] MEDS: amLODIPine 10 MG TAB PO SCH (09:00)
[2023-09-06] MEDS: DULoxetine HCL 60 MG CAPSULE.DR PO SCH (09:00)
[2023-09-06 12:20] LABS: Basophils # (A) 0.1 k/uL (0-0.2); Basophils % (A) 1 %; Eosinophils # (A) 0.3 k/uL (0-0.7); Eosinophils % (A) 2 %; HCT 37.7 % (34.0-46.0); HGB 12.4 gm/dL (11.4-16.0); Hypochromasia Slight; Lymphocytes # (A) 2.1 k/uL (1.0-4.8); Lymphocytes % (A) 16 %; MCH 29.9 pg (25.0-35.0); MCV 90.7 fL (80.0-100.0); Mean Platelet Volume 7.7; Monocytes # (A) 0.6 k/uL (0-1.0); Monocytes % (A) 5 %; Neutrophils # (A) 9.6 k/uL (1.3-7.7); Neutrophils % (A) 74 %; Platelet Count 194 k/uL (150-450); RBC 4.16 m/uL (3.80-5.40); RDW 15.9 % (11.5-15.5); WBC 13.1 k/uL (3.8-10.6)
[2023-09-06] MEDS ORDERED: MENTHOL-ZINC OXIDE OINT 113 GM TUBE TOPICAL PRN (13:06)
--- NOTE | 2023-09-06 13:14 | P.DS ---
Providers Date of admission: 08/26/23 21:35 Attending physician: Ismael Falk Consults: 08/26/23 21:16 Consult Physician Routine Consulting Provider: Matheus Clements Consult Reason/Comments: leukopenia Do you want consulting provider notified?: Yes Consult Physician Routine Consulting Provider: Luciano Radford Consult Reason/Comments: fever Do you want consulting provider notified?: Yes Primary care physician: Juanjose Montes [facility] Course: Final Diagnosis Febrile neutropenia, unknown source with negative work up. Incidental finding of MGUS will be followed as outpatient. Recent history of Acute limb ischemia with right SFA and profundus femoris occlusion status post thrombolysis of the right lower extremity on 08/11-12/2022 Hx of ALS with chronic medical debility left lower lobe infiltrate, similar to previous chronic Dysphagia , status post PEG tube placement Urinary tract infection and sepsis, finished treatment with antibiotic History of stroke Recent diagnosis of sleep apnea has CPAP Hypertension Hyperlipidemia Full Code Discharge Disposition Patient is stable for discharge back to [facility] facility. Patient to continue on Riluzole as neutropenia has resolved. Filgastrim discontinued prior to discharge. Recommend hematology follow up on discharge. Patient has completed course of oral levaquin this hospital stay and no further antibiotics required on discharge. Follow up with infectious disease in 1 to 2 weeks. Follow up with PCP Dr Juanjose Montes. Repeat labs in 2 to 3 days. Continue on EN with jevity 1.5 at 54 mls/hr on discharge. Wound care to the bilateral groin folds and buttock with nystatin/triamcinolone cream BID for 1 week. Continue with calmoseptine as needed. Hospital Course This is a pleasant 68 year old female with multiple medical problems including history of ALS, dysphagia status post PEG, history of stroke and obstructive sleep apnea. Was recently discharged from this facility 08/10-08/20 for right lower extremity ischemic occlusion status post thrombolysis. Also she is been treated for UTI and pneumonia and finish her treatment and monitoring of antibiotics and she was doing well. She was discharge in stable condition with recommendation follow up outpatient for hypercoagulable workup. Patient was sent from [facility] for low white cell count. On this admission she had a fever of 101.2. She denies chest pain or dyspnea or coughing. She feels little dizzy but no headache weakness or numbness. She denies any urinary complaints. She denies abdominal obtaining AN examination is different. Chest x-ray showing left lower lobe opacity similar to previous. PEG tube in place no surrounding erythema or drainage from site. Urine analysis is not suspicious for infection. Patient was admitted to medicine for the neutropenic fever started on empiric IV vancomycin and zosyn. Hematology and ID placed on consultation. CRP is elevated at 17.6 and priorcalcitonin is elevated at 0.29. Per hematology team later, and to hold Riluzole (for her ALS) till neutropenia resolves. Patient was started on filgastrim with delayed response. White count did improve from 1.1 to 27.86. Filgastrim was stopped and white count now 13.1. Patient will be resumed on riluzole on discharge. Patient does have excoriation and erythema to the bilateral groin, inner thighs and buttock. This will be treated with nystatin/triamcinolone cream and calmoseptine and will be continued on discharge. Patient started on low dose metoprolol for improved blood pressure control. No acute complaints. Back to baseline more awake and alert. Patient will be discharge back to rehab today. Please see medication reconciliation for a list of current medications. Thank you for allowing us to participate in the care of this patient. The impression and plan of care has been dictated by Shama Anderson, Nurse Practitioner as directed. Dr. Chiquita MD I have performed a history and physical examination and medical decision making of this patient, discussed the same with the dictator, and agree with the dictators assessment and plan as written, documented as a scribe. Based on total visit time, I have performed more than 50% of this visit. Patient Condition at Discharge: Fair Plan - Discharge Summary Discharge Rx Participant: No New Discharge Prescriptions: New Sodium Chloride 0.65% Nasal [Deep Sea (Saline)] 2 spray NASAL Q1H PRN ml PRN Reason: Congestion Metoprolol Tartrate [Lopressor] 12.5 mg PO BID tab Continue Carboxymethylcellulose Sodium [Refresh Tears] 1 drop BOTH EYES QID PRN PRN Reason: DRY EYES Riluzole [Rilutek] 50 mg PEG/G-TUBE BID@0800,1700 Pantoprazole [Protonix] 40 mg PEG/G-TUBE DAILY Magnesium Hydroxide [Milk of Magnesia Concentrate] 7,200 mg PEG/G-TUBE Q48H PRN PRN Reason: Constipation Na Phos,M-B/Na Phos,Di-Ba [Fleet Adult] 133 ml RECTAL DAILY PRN PRN Reason: Constipation bisacodyL [Dulcolax] 10 mg RECTAL DAILY PRN PRN Reason: Constipation Acetaminophen [Tylenol] 650 mg PEG/G-TUBE Q6H PRN PRN Reason: Pain DULoxetine HCL [Cymbalta] 60 mg PEG/G-TUBE BID@0800,1700 lisinopriL [Zestril] 5 mg PO DAILY Simvastatin [Zocor] 40 mg PO DAILY Saliva Stimulant Comb. No.3 [Biotene Moisturizing Mouth] 1 spray MUCOUS MEM QID@08,,, Apixaban [Eliquis] 5 mg PEG/G-TUBE BID@0800,1700 Mag Hydrox/Al Hydrox/Simeth [Maalox] 30 ml PEG/G-TUBE Q4HR PRN PRN Reason: Gi Upset Discharge Medication List Carboxymethylcellulose Sodium [Refresh Tears] 1 drop BOTH EYES QID PRN 06/09/21 [History] DULoxetine HCL [Cymbalta] 60 mg PEG/G-TUBE BID@0800,1700 06/09/21 [History] Pantoprazole [Protonix] 40 mg PEG/G-TUBE DAILY 08/10/23 [History] Riluzole [Rilutek] 50 mg PEG/G-TUBE BID@0800,1700 08/10/23 [History] Simvastatin [Zocor] 40 mg PO DAILY 08/10/23 [History] lisinopriL [Zestril] 5 mg PO DAILY 08/10/23 [History] Acetaminophen [Tylenol] 650 mg PEG/G-TUBE Q6H PRN 08/26/23 [History] Apixaban [Eliquis] 5 mg PEG/G-TUBE BID@0800,1700 08/26/23 [History] Mag Hydrox/Al Hydrox/Simeth [Maalox] 30 ml PEG/G-TUBE Q4HR PRN 08/26/23 [History] Magnesium Hydroxide [Milk of Magnesia Concentrate] 7,200 mg PEG/G-TUBE Q48H PRN 08/26/23 [History] Na Phos,M-B/Na Phos,Di-Ba [Fleet Adult] 133 ml RECTAL DAILY PRN 08/26/23 [History] Saliva Stimulant Comb. No.3 [Biotene Moisturizing Mouth] 1 spray MUCOUS MEM QID@08,12,,08/26/23 [History] bisacodyL [Dulcolax] 10 mg RECTAL DAILY PRN 08/26/23 [History] Metoprolol Tartrate [Lopressor] 12.5 mg PO BID tab 09/06/23 [Rx] Sodium Chloride 0.65% Nasal [Deep Sea (Saline)] 2 spray NASAL Q1H PRN ml 09/06/23 [Rx] Follow up Appointment(s)/Referral(s): Kofi Benton, [NON-STAFF] - As Needed Juanjose Montes DO [Primary Care Provider] - 1-2 days Kirt Breaux MD [STAFF PHYSICIAN] - 2 Weeks Luciano Radford MD [STAFF PHYSICIAN] - 1 Week Ambulatory/Diagnostic Orders: Basic Metabolic Panel [LAB.AMB] Location: None Selected Complete Blood Count w/diff [LAB.AMB] Time Frame: 3 Days, Location: None Selected Activity/Diet/Wound Care/Special Instructions: Continue Jevity 1.5 at 54 mls/hr with 30 ml water flush every 4 hours. Discharge Disposition: TRANSFER TO SNF/ECF
[2023-09-06] MEDS ORDERED: NYSTAT-TRIAMCIN 100,000-0.1 UNIT/GM-% OINT 30 GM TUBE TOPICAL SCH (13:15)
[2023-09-06] MEDS ORDERED: TRIAMCINOLONE ACET 0.1% OINTMENT 15 GM TUBE TOPICAL SCH (14:00)
[2023-09-06] MEDS ORDERED: NYSTATIN 100,000 UNIT/GM OINT 30 GM TUBE TOPICAL SCH (14:00)
[2023-09-06 14:08] VITALS: BP 135/85; PULSE 95; RESP 17; TEMP 98.1
--- NOTE | 2023-09-06 16:21 | P.PN ---
Subjective Progress Note Date: 09/06/23 Principal diagnosis: Reason for follow-up is pneumonia Patient is a 68-year-old female with a past medical history significant for ALS recently admitted to this hospital did fail swallow did get PEG, now presenting to the hospital with fever and left basilar opacity con cerning for possible aspiration pneumonia On today's evaluation that is 09/06/2023, the patient denies any fever or any chills, the patient is breathing comfortably on room air without the need for s upplemental oxygen, patient denies chest pain shortness of breath, the patient denies cough or sputum production, patient denies Abdominal pain, no nausea/vomiting or diarrhea Patient did have white count is down to 13.1, creatinine 0.5, blood cultures have been negative Objective - Vital Signs Vital signs: Vital Signs Temp 98.5 F 09/06/23 07:34 Pulse 97 09/06/23 07:34 Resp 20 09/06/23 09:53 BP 108/72 09/06/23 07:34 Pulse Ox 92 L 09/06/23 07:34 FiO2 Intake & Output 09/05/23 09/06/23 09/06/23 18:59 06:59 18:59 Output Total 800 250 1 Balance -800 -250 -1 Weight 75 kg Output: Urine 800 250 Stool 1 Other: Voiding Method Diaper Incontinent # Voids 3 # Bowel Movements 2 1 - Exam GENERAL DESCRIPTION: An elderly female lying in bed in no distress RESPIRATORY SYSTEM: Unlabored breathing , decreased breath sound at the base HEART: S1 S2 regular rate and rhythm , ABDOMEN: Soft , no tenderness EXTREMITIES: No edema feet - Labs CBC & Chem 7: 09/06/23 11:48 09/05/23 04:17 Labs: Abnormal Lab Results - Last 24 Hours (Table) 09/05/23 Range/Units 04:17 WBC 13.31 H (4.50-10.00) X 10*3/uL MCHC 31.9 L (32.0-37.0) g/dL RDW 16.0 H (11.5-14.5) % Neutrophils # (Manual) 8.92 H (1.80-7.70) X 10*3/uL Monocytes # (Manual) 1.06 H (0.20-1.00) X 10*3/uL Eosinophils # (Manual) 0.40 H (0.04-0.35) X 10*3/uL Basophils # (Manual) 0.13 H (0.00-0.10) X 10*3/uL NRBC/100 WBC Diff 0.06 H (0.00-0.01) X 10*3/uL Assessment and Plan (1) Pneumonia Current Visit: No Status: Acute Code(s): J18.9 - PNEUMONIA, UNSPECIFIED ORGANISM SNOMED Code(s): 481305557 Plan: 1patient presented to hospital with fever and low white count in this patient who was recently admitted at this facility and the patient did fail her swallow evaluation ended up getting a PEG tube now with evidence of left lower lobe opacity concerning for possible aspiration pneumonitis as no other obvious focus of infection, patient urine was negative, abdominal soft on clinical Examination no evidence of any joint swelling or cellulitis 2- sputum for Gram stain culture not collected, patient did have CRP of 17.60 and a procalcitonin is 0.29 3patient has shown clinical improvement resolution of the fever leukocytosis more likely reactive to growth factor and is trending down to 13.1k today 4-patient has received adequate antibiotic therapy for underlying Pneumonia and no need for antibiotics on discharge Dictation was produced using [employer] dictation software. please excuse any grammatical, word or spelling errors. Time with Patient: Less than 30
[2023-09-06 22:20] LABS: % Iron Saturation 20.54 (12.00-45.00); Iron 53 UG/DL (50-170); Total Iron Binding Capacity 258 UG/DL (228-460)
[2023-09-06 22:48] LABS: Vitamin B12 >3600.0 pg/mL (200.0-944.0)
[2023-09-06 22:55] LABS: Rheumatoid Factor, Qnt <15 IU/mL (0-15)
== END 2023-09-06 16:45 | DRG 808 ==
LOC: EC 15:35 → 4SSUR 21:35
PROVIDERS: ADMIT Hospitalist; ATTEND Hospitalist
PROC: 3E0G76Z Introduction of Nutritional Substance into Upper GI, Via Natural or Artificial Opening (ICD-10-PCS; principal; 2023-08-27)
DX: D70.9 Neutropenia, unspecified (principal); J69.0 Pneumonitis due to inhalation of food and vomit; G12.21 Amyotrophic lateral sclerosis; D47.2 Monoclonal gammopathy; Z86.718 Personal history of other venous thrombosis and embolism; Z87.440 Personal history of urinary (tract) infections; Z87.01 Personal history of pneumonia (recurrent); Z79.01 Long term (current) use of anticoagulants; H91.90 Unspecified hearing loss, unspecified ear; M85.80 Other specified disorders of bone density and structure, unspecified site; F41.9 Anxiety disorder, unspecified; I83.90 Asymptomatic varicose veins of unspecified lower extremity; E04.1 Nontoxic single thyroid nodule; F32.A Depression, unspecified; I10 Essential (primary) hypertension; M81.0 Age-related osteoporosis without current pathological fracture; Z93.1 Gastrostomy status; K59.00 Constipation, unspecified; R50.81 Fever presenting with conditions classified elsewhere; R04.0 Epistaxis; M19.90 Unspecified osteoarthritis, unspecified site; Z79.899 Other long term (current) drug therapy; E78.5 Hyperlipidemia, unspecified; R13.10 Dysphagia, unspecified; G47.30 Sleep apnea, unspecified; Z11.52 Encounter for screening for COVID-19; Z87.891 Personal history of nicotine dependence; Z82.49 Family history of ischemic heart disease and other diseases of the circulatory system; Z86.73 Personal history of transient ischemic attack (TIA), and cerebral infarction without residual deficits; Z71.3 Dietary counseling and surveillance
CPT/HCPCS: 36415; 71046; 80048; 80053; 81003; 82607; 82728; 82746; 83540; 83550; 83605; 83883; 84145; 84165; 85025; 85610; 85730; 86038; 86039; 86140; 86334; 86431; 87040; 87636; 93005; 94760; 96361; 96365; 96366; 96368; 99285